=== PATIENT | female | born 1970 | race Caucasian/White ===

== ENCOUNTER 2020-09-14 17:35 | Outpatient (REF) | payer MEDICARE, MEDICAID, SELFPAY | END 2020-09-14 17:36 | disposition home or self-care (01) | LOC: HO.LAB 17:35 | PROVIDERS: Visit Provider Internal Medicine | DX: Z20.828 Contact with and (suspected) exposure to other viral communicable diseases (principal) | CPT/HCPCS: C9803; U0003 ==

== ENCOUNTER 2020-09-21 07:04 | Outpatient (REF) | payer MEDICARE, MEDICAID, SELFPAY | END 2020-09-21 07:05 | disposition home or self-care (01) | LOC: HO.LAB 07:04 | PROVIDERS: Visit Provider Internal Medicine | DX: Z20.828 Contact with and (suspected) exposure to other viral communicable diseases (principal) | CPT/HCPCS: C9803; U0003 ==

== ENCOUNTER → 2021-11-24 08:06 | Outpatient (BNVA) | payer MEDICARE, MEDICAID, SELFPAY | PROVIDERS: PCP Internal Medicine; Referring Provider Internal Medicine; Visit Provider Internal Medicine Gastroenterology ==

== ENCOUNTER 2021-11-26 18:04 | Inpatient (IN) | payer MEDICARE, MEDICAID, SELFPAY ==
--- NOTE | ~2021-11-26 | CT_ITS ---
EXAMINATION: CT ABDOMEN AND PELVIS WITH CONTRAST CLINICAL INFORMATION: Abdominal pain COMPARISON: 05/18/2016 TECHNIQUE: Multidetector volumetric images were obtained from the superior aspect of the liver through the pubic symphysis following administration 85 mL of Omnipaque 350 intravenous contrast. Sagittal and coronal reformatted images were obtained on the technologist's workstation. Oral contrast: No This CT examination was performed using dose optimization techniques as appropriate, variously including the following: *Automated exposure control *Adjustment of mA and/or kV according to patient size (this includes techniques or standardized protocols for targeted exams where dose is matched to indication/reason for exam; i.e. extremities or head) *Use of iterative reconstruction technique DLP: 925 mGy-cm FINDINGS: LUNG BASES: The visualized lung bases are unremarkable. LIVER, GALLBLADDER, AND BILIARY TREE: The liver is normal in size, shape, and attenuation. No focal hepatic lesion. Small volume ascites. The gallbladder is normally distended without wall thickening. There is mild intrahepatic and extrahepatic biliary ductal dilatation. No ductal filling defect noted. PANCREAS: Unremarkable. SPLEEN: Unremarkable. ADRENAL GLANDS: The right adrenal gland is unremarkable. There is a 1.7 cm left adrenal gland nodule which is indeterminate by Hounsfield unit measurement on this study. KIDNEYS AND URETERS: Atrophic left kidney. No hydronephrosis. Exophytic right lower pole renal cyst which is simple. No follow-up imaging recommended. There are 2 left lower pole renal calculi. These measure up to 1 cm, 8 cm from the posterior axillary line. These are 710 Hounsfield units. BLADDER: Unremarkable. GASTROINTESTINAL TRACT: The stomach is unremarkable. There is significant dilatation of the small bowel is fluid-filled appearance. Associated mild wall thickening. Transition to decompressed small bowel in the anterior central abdomen, series 7 image 24. The distal small bowel is decompressed. The colon is decompressed. ABDOMINAL WALL: No significant hernia is appreciated. LYMPH NODES: Normal. VASCULAR: Unremarkable. PELVIC VISCERA: Uterus is not seen. No adnexal mass. OSSEOUS STRUCTURES: No acute or suspicious osseous abnormality. CT/CT abdomen pelvis w con IMPRESSION: High-grade small bowel obstruction with discrete transition point in the anterior midabdomen. Prominent fluid-filled dilatation of the proximal small bowel with mild wall thickening also present. Cannot exclude an ischemic component. There is small volume ascites throughout the abdomen. Indeterminate left adrenal gland nodule. Recommend nonemergent adrenal protocol CT evaluation. Mild intrahepatic and extrahepatic biliary ductal dilatation, nonspecific. Nonobstructing left renal calculi. Fleischner guidelines were followed.
--- NOTE | ~2021-11-26 | XR_ITS ---
EXAMINATION: XR CHEST CLINICAL INFORMATION: NG tube placement COMPARISON: None TECHNIQUE: Frontal view of the chest was obtained. FINDINGS: Enteric tube terminates in the stomach in good position. CT compatible left chest wall port terminates near the cavoatrial junction. The lungs are well expanded. There is no focal consolidation, edema, or effusion. No pneumothorax. The cardiomediastinal silhouette is within normal limits. No acute osseous abnormality. Small volume of free intraperitoneal air noted in association with dilated loops of bowel in the upper abdomen. XR/XR chest 1V IMPRESSION: Enteric tube terminates in the stomach. No acute pulmonary finding. Free intraperitoneal air noted. This critical result was discussed with Silvia Vaughan MD, by telephone at 11/27/2021 5:53 AM and it was ascertained that the content and urgency of the report was understood at the time of direct communication.
--- NOTE | ~2021-11-26 | CT_ITS ---
EXAMINATION: CT ABDOMEN AND PELVIS WITHOUT CONTRAST CLINICAL INFORMATION: Bowel obstruction COMPARISON: 11/27/2021, earlier today at 3:41 AM TECHNIQUE: Multidetector volumetric imaging was performed from the superior aspect of the liver through the pubic symphysis. Sagittal and coronal reformatted images were obtained on the technologist's workstation. This CT examination was performed using dose optimization techniques as appropriate, variously including the following: *Automated exposure control *Adjustment of mA and/or kV according to patient size (this includes techniques or standardized protocols for targeted exams where dose is matched to indication/reason for exam; i.e. extremities or head) *Use of iterative reconstruction technique Oral contrast was administered. DLP: 769 mGy-cm FINDINGS: The lack of intravenous contrast limits evaluation of the solid visceral organs including the liver, spleen, pancreas, and kidneys. LUNG BASES: Bibasilar atelectasis. Normal heart size. LIVER, GALLBLADDER, AND BILIARY TREE: Limited non-contrast evaluation is normal. No gross focal hepatic lesion. Normal liver size and contour. No gross biliary ductal dilation. The gallbladder is unremarkable with no evidence of radiopaque gallstones, gallbladder wall thickening, or obvious pericholecystic inflammatory changes. PANCREAS: Limited non-contrast evaluation is normal. No tasia-pancreatic fluid. SPLEEN: Limited non-contrast evaluation is normal. ADRENAL GLANDS: 2.1 cm low-density, 0 Hounsfield unit left adrenal mass consistent with a benign lipid rich adrenal adenoma requiring no imaging follow-up. KIDNEYS AND URETERS: There is residual contrast in the renal cortices and collecting systems from earlier CT scan. There is asymmetric atrophy of the left kidney. Unchanged simple right renal cyst requiring no imaging follow-up GASTROINTESTINAL TRACT: Again seen is a small bowel obstruction. There is an enteric tube with tip in the body of the stomach. Oral contrast is seen within the stomach and small bowel. Dilated loops of abnormal thick-walled small bowel are seen in the left abdomen up to 4 cm and in the pelvis bilaterally up to 5 cm in diameter. There appears to been a prior right hemicolectomy with an ileocolic anastomosis in the right abdomen, image 42/95. The remainder of the colon is collapsed. As noted on the prior study, there is a transition point from dilated to collapsed small bowel loops in the central abdomen, image 33/92 on coronal images. The appearance is similar to the prior study. There continues to be pneumoperitoneum with foci of gas seen predominantly in the anterior abdomen with scattered foci of gas in the dung hepatis. There continues to be a small volume of ascites with fluid seen along both paracolic gutters and dependently in the pelvis the volume of fluid is grossly similar to the prior study. ABDOMINAL WALL: Postoperative changes of the anterior abdominal wall. LYMPH NODES: No pathologically enlarged lymph nodes in the abdomen or pelvis. VASCULAR: Normal caliber abdominal aorta. BLADDER: Collapsed with contrast from earlier CT scan. PELVIC VISCERA: Uterus not seen. No adnexal mass. OSSEOUS STRUCTURES: No acute or suspicious osseous abnormality. CT/CT abdomen pelvis wo con IMPRESSION: Similar appearance to the prior study after administration of oral contrast. There continues to be a high-grade small bowel obstruction with transition point in the central abdomen. Small bowel loops are abnormally thick walled and dilated to 4-5 cm. Again seen is scattered pneumoperitoneum consistent with a perforation, similar to the prior study. Gas is again seen adjacent thick-walled tethered bowel loop in the anterior abdomen, for example images 39-42, which may reflect the site of perforation. See nunez images. Similar appearance of small volume ascites. 2.1 cm benign lipid rich left adrenal adenoma for which no imaging follow-up is recommended.
[2021-11-26 18:20] VITALS: BP 106/73; PULSE 120; RESP 20; TEMP 36.5; O2SAT 97; BMI 34.7
[2021-11-26 19:01] LABS: Basophils Percent Auto 0.2 % (0-2); Eosinophils Percent Auto 0.1 % (0-4); Hematocrit 47.1 % (37.0-47.0); Hemoglobin 14.9 g/dl (12.0-16.0); Imm Gran Abs Auto 0.03 X10*3/uL (0.00-0.03); Imm Gran Pct Auto 0.2 % (0.0-0.4); Lymphocytes Absolute Auto 1.5 X10*3/uL (1.2-4.9); Lymphocytes Percent Auto 11.8 % (20-40); MANUAL DIFF FLAG SCAN; Mean Corpuscular HGB Conc 31.6 g/dl (31.0-35.0); Mean Platelet Volume 10.7 fL (9.4-12.3); Monocytes Absolute Auto 0.4 X10*3/uL (0.1-1.2); Monocytes Percent Auto 3.4 % (2-11); Neutrophils Absolute Auto 10.6 x10*3/uL (2.0-8.3); Neutrophils Percent Auto 84.3 % (45-73); PLT CLUMP 1; Red Blood Count 4.96 X10*6/uL (4.20-5.50); SCAN SMEAR FLAG 1
[2021-11-26 19:20] LABS: Anion Gap 22 (12-20); Blood Urea Nitrogen 33 mg/dL (9-16); Calcium 10.3 mg/dL (8.4-10.2); Carbon Dioxide 24 mmol/L (22-29); Chloride 98 mmol/L (96-108); Creatinine Clr Calc Pharmacy 41.7; Estimated Glomerular Filt Rate 33; Glucose Random 196 mg/dL (60-115); Lipase 183 U/L (8-78); Potassium 3.9 mmol/L (3.3-5.1); Sodium 140 mmol/L (135-145); White Blood Count 12.6 X10*3/uL (4.8-10.8)
[2021-11-26 19:22] LABS: SLIDE REVIEW VERIFIED
[2021-11-26 21:57] VITALS: BP 110/70; PULSE 116; RESP 18; O2SAT 97
[2021-11-26 22:21] LABS: Appearance Urine HAZY; Color Urine YELLOW; Glucose Urine UA NEG (NEG); Leukocyte Esterase Urine NEG (NEG); Nitrite Urine NEG (NEG); PH 5.5 (5.0-8.0); Specific Gravity - Urine >= 1.030 (1.005-1.025); UACC Culture Trigger NO; Urine Blood NEG (NEG); Urine Ketones 15 MG/DL (NEG); Urine Protein 1+ MG/DL (NEG-TRACE)
--- NOTE | 2021-11-26 22:24 | ED_ITS ---
HPI - Nausea/Vomiting/Diarrhea General Chief complaint: Nausea/Vomiting/Diarrhea Stated complaint: nausea/ vomiting, kidney stones Time Seen by Provider: 11/26/21 21:33 Source: patient Mode of arrival: ambulatory History of Present Illness HPI Narrative: 51-year-old female with history of stage IV colon CA/limits syndrome as well as history of kidney stone and still has her gallbladder who comes in with nausea and vomiting since Sunday and barely able to keep anything down. This is not been associated with any diarrhea of a patient states that she has had significant sharp abdominal discomfort maximal at the epigastrium but states that the pain has progressed into her lower abdomen but otherwise she denies fever, chills and denies any urinary pain/burning/frequency. Patient has been COVID-19 vaccinated. Patient states that her CT scan in August of 2021 was ?cancer-free?, and is scheduled for an upcoming colonoscopy. Related Data Home Medications Medication Instructions Recorded Confirmed metoclopramide HCl 10 mg tablet 10 mg PO QID 11/24/21 morphine 15 mg immediate release 15 mg PO QID PRN 11/24/21 tablet ondansetron 8 mg disintegrating 8 mg PO TID 11/24/21 tablet Previous Rx's Medication Instructions Recorded bisacodyl 5 mg tablet,delayed 5 mg PO BEDTIME 2 Days #4 tab 11/24/21 release (Dulcolax (bisacodyl)) polyethylene glycol 3350 17 17 g PO DAILY 1 Days #238 g 11/24/21 gram/dose oral powder (Miralax) Allergies Allergy/AdvReac Type Severity Reaction Status Date / Time diphenhydramine [Tylenol PM] Allergy Mild Hives Verified 11/26/21 18:20 acetaminophen Allergy Unknown rash Verified 11/26/21 18:20 [Tylenol-Codeine] codeine [Tylenol-Codeine] Allergy Unknown rash Verified 11/26/21 18:20 From TYLENOL PM Allergy Intermediate HIVES Uncoded 11/26/21 18:20 Environmental, Cats Allergy Mild Hives Uncoded 11/26/21 18:20 Review of Systems Review of Systems: Pertinent positives and negatives as stated in HPI 10 point review of systems is otherwise negative. PMFSH Past Medical History Source: nursing notes reviewed Medical History Adenocarcinoma of colon Gastritis Mosher syndrome Surgical History History of colon surgery Hx of bilateral breast reduction surgery Hx of hysterectomy Family History Family History Maternal Grandmother Uterine cancer Maternal Aunt Ovarian cancer Mother Cervical cancer Colon cancer Maternal Uncle Colon cancer Rectal cancer Brother Colon cancer Social History Social History Household Members: Family Alcohol intake: current Alcohol intake frequency: holidays/special occasions only Patient Tobacco Use Status: Never used Tobacco Advance Directives: No Patient : No Physical Exam Vital Signs: Vital Signs: Last Vital Signs Temp 97.7 F 11/26/21 18:20 Pulse 108 H 11/26/21 23:17 Resp 15 11/27/21 01:38 BP 95/65 11/26/21 23:17 Pulse Ox 96 11/26/21 23:17 BMI result Body Mass Index 34.7 VITAL SIGNS: Reviewed. GENERAL: Patient appears older than stated age, unwell, moderate distress. HEAD: Normocephalic/atraumatic EYES: PERRLA, EOMI OROPHARYNX: no oral lesions noted, posterior pharynx clear, dry mucosa NECK: Supple, no adenopathy LUNGS: Normal breath sounds. No adventitious sounds or accessory muscle use. SpO2<97> CARDIOVASCULAR: Regular rate and rhythm without noted murmurs, no JVD or lower extremity edema. ABDOMEN: Soft, diffusely tender maximal at epigastrium and lower abdomen, right upper quadrant relatively benign, non-distended with bowel sounds, no CVA tenderness MUSCULOSKELETAL: No tenderness, deformities, or effusions noted on gross inspection. EXTREMITIES: No cyanosis, clubbing or edema. SKIN: Inspection of the skin reveals no rashes, ulcerations, jaundice, pallor, or petechiae. NEUROLOGIC: Alert and oriented x 4. Strength and sensation to light touch were grossly intact x 4. Course Course Course Narrative: 51-year-old female with history and clinical presentation after review of all investigations consistent with pancreatitis, significant dehydration due to nausea and vomiting and clinical exam not convincing for gallbladder etiology in terms of pancreatitis. This may be concerning for recurrence of underlying cancer, will obtain CT imaging. 2249: Although there is a mild leukocytosis patient is afebrile and suspect this is stress related from pancreatitis and possible renal colic/SBO. IV fluid resuscitation is being given for dehydration. Review of all investigations 2 fluid imaging most consistent with high-grade small-bowel obstruction with transition point at anterior mid abdomen. Nasog astric tube placed and patient to be admitted to General surgery Service. MDM - Nausea/Vomiting/Diarrhea Lab Data Result diagrams: 11/26/21 18:53 11/27/21 02:15 Labs: Lab Results 11/26/21 11/26/21 11/26/21 Range/Units 18:53 18:53 22:11 WBC 12.6 H (4.8-10.8) X10*3/uL RBC 4.96 (4.20-5.50) X10*6/uL Hgb 14.9 (12.0-16.0) g/dl Hct 47.1 H (37.0-47.0) % MCV 95.0 (80.0-98.0) fL MCH 30.0 (27.0-33.0) pg MCHC 31.6 (31.0-35.0) g/dl RDW 13.0 (11.0-16.0) % Plt Count TNP MPV 10.7 (9.4-12.3) fL Immature Gran % (Auto) 0.2 (0.0-0.4) % Neut % (Auto) 84.3 H (45-73) % Lymph % (Auto) 11.8 L (20-40) % [place] % (Auto) 3.4 (2-11) % Eos % (Auto) 0.1 (0-4) % Baso % (Auto) 0.2 (0-2) % Lymph # (Auto) 1.5 (1.2-4.9) X10*3/uL [place] # (Auto) 0.4 (0.1-1.2) X10*3/uL Eos # (Auto) 0.0 (0.0-0.4) X10*3/uL Baso # (Auto) 0.0 (0.0-0.2) X10*3/uL Abs Immat Gran (auto) 0.03 (0.00-0.03) X10*3/uL Absolute Neuts (auto) 10.6 H (2.0-8.3) x10*3/uL Absolute Nucleated RBC 0.000 (0.0-0.012) X10*3/uL Nucleated RBC % (auto) 0.0 (0.0-0.2) /100WBC Smear Tech's Comments VERIFIED Sodium 140 (135-145) mmol/L Potassium 3.9 (3.3-5.1) mmol/L Chloride 98 (96-108) mmol/L Carbon Dioxide 24 (22-29) mmol/L Anion Gap 22 H (12-20) BUN 33 H (9-16) mg/dL Creatinine 1.66 H (0.5-1.4) mg/dL Estim Creat Clear Calc 41.7 Estimated GFR 33 Random Glucose 196 H (60-115) mg/dL Lactic Acid (0.5-2.0) mmol/L Calcium 10.3 H (8.4-10.2) mg/dL Total Bilirubin 2.0 H (0.0-1.0) mg/dL Direct Bilirubin 1.0 H (0.0-0.5) mg/dL AST 142 H (5-31) U/L ALT 89 H (0-31) U/L Alkaline Phosphatase 781 H (39-117) U/L Total Protein 8.0 (6.5-8.0) g/dL Albumin 4.4 (3.5-5.0) g/dL Triglycerides 138 mg/dL Cholesterol 153 mg/dL LDL Cholesterol, Calc 90 mg/dl HDL Cholesterol 36 mg/dL Lipase 183 H (8-78) U/L Beta HCG, Quant 3 mIU/mL Urine Color YELLOW Urine Appearance HAZY Urine pH 5.5 (5.0-8.0) Ur Specific [place] >= 1.030 H (1.005-1.025) Urine Protein 1+ H (NEG-TRACE) MG/DL Urine Glucose (UA) NEG (NEG) MG/DL Urine Ketones 15 (NEG) MG/DL Urine Blood NEG (NEG) Urine Nitrite NEG (NEG) Ur Leukocyte Esterase NEG (NEG) Urine RBC 0 (0) /HPF Urine WBC 0 (0-4) /HPF Ur Squamous Epith Cells 2+ /LPF Urine Bacteria TRACE /LPF Hyaline Casts 1-4 /LPF Urine Mucus 3+ /LPF COVID-19 (CECE) (Negative) COVID-19 Clin Com 11/26/21 11/27/21 11/27/21 Range/Units 23:16 00:30 02:15 WBC (4.8-10.8) X10*3/uL RBC (4.20-5.50) X10*6/uL Hgb (12.0-16.0) g/dl Hct (37.0-47.0) % MCV (80.0-98.0) fL MCH (27.0-33.0) pg MCHC (31.0-35.0) g/dl RDW (11.0-16.0) % Plt Count MPV (9.4-12.3) fL Immature Gran % (Auto) (0.0-0.4) % Neut % (Auto) (45-73) % Lymph % (Auto) (20-40) % [place] % (Auto) (2-11) % Eos % (Auto) (0-4) % Baso % (Auto) (0-2) % Lymph # (Auto) (1.2-4.9) X10*3/uL [place] # (Auto) (0.1-1.2) X10*3/uL Eos # (Auto) (0.0-0.4) X10*3/uL Baso # (Auto) (0.0-0.2) X10*3/uL Abs Immat Gran (auto) (0.00-0.03) X10*3/uL Absolute Neuts (auto) (2.0-8.3) x10*3/uL Absolute Nucleated RBC (0.0-0.012) X10*3/uL Nucleated RBC % (auto) (0.0-0.2) /100WBC Smear Tech's Comments Sodium 141 (135-145) mmol/L Potassium 3.7 (3.3-5.1) mmol/L Chloride 108 (96-108) mmol/L Carbon Dioxide 22 (22-29) mmol/L Anion Gap 15 (12-20) BUN 34 H (9-16) mg/dL Creatinine 1.52 H (0.5-1.4) mg/dL Estim Creat Clear Calc 45.6 Estimated GFR 36 Random Glucose 145 H (60-115) mg/dL Lactic Acid 2.0 (0.5-2.0) mmol/L Calcium 8.3 L D (8.4-10.2) mg/dL Total Bilirubin (0.0-1.0) mg/dL Direct Bilirubin (0.0-0.5) mg/dL AST (5-31) U/L ALT (0-31) U/L Alkaline Phosphatase (39-117) U/L Total Protein (6.5-8.0) g/dL Albumin (3.5-5.0) g/dL Triglycerides mg/dL Cholesterol mg/dL LDL Cholesterol, Calc mg/dl HDL Cholesterol mg/dL Lipase (8-78) U/L Beta HCG, Quant mIU/mL Urine Color Urine Appearance Urine pH (5.0-8.0) Ur Specific [place] (1.005-1.025) Urine Protein (NEG-TRACE) MG/DL Urine Glucose (UA) (NEG) MG/DL Urine Ketones (NEG) MG/DL Urine Blood (NEG) Urine Nitrite (NEG) Ur Leukocyte Esterase (NEG) Urine RBC (0) /HPF Urine WBC (0-4) /HPF Ur Squamous Epith Cells /LPF Urine Bacteria /LPF Hyaline Casts /LPF Urine Mucus /LPF COVID-19 (CECE) Negative (Negative) COVID-19 Clin Com See Note Critical Care Time Critical Care Time Critical Care Time: Yes Total Critical Care Time: 30 Attestation: I personally attest to this time spent taking care of the patient. Discharge Plan Discharge Clinical Impression: Pancreatitis, Dehydration, SBO (small bowel obstruction), LFT elevation Patient Disposition: Admitted As Inpatient Prescriptions: No Action metoclopramide HCl 10 mg tablet 10 mg PO QID RF: 0 morphine 15 mg tablet 15 mg PO QID PRNRF: 0 ondansetron 8 mg tablet,disintegrating 8 mg PO TID RF: 0 polyethylene glycol 3350 [Miralax] 17 gram/dose powder 17 g PO DAILY 1 Days Qty: 238 RF: 0 bisacodyl [Dulcolax (bisacodyl)] 5 mg tablet,delayed release (DR/EC) 5 mg PO BEDTIME 2 Days Qty: 4 RF: 0
[2021-11-26] MEDS: ondansetron HCL 4 MG/2 ML VIAL IVPUSH (22:33)
[2021-11-26 22:37] VITALS: RESP 16
[2021-11-26] MEDS: HYDROmorphone HCl 0.5 MG/0.5 ML SYRINGE IVPUSH (22:37)
[2021-11-26] MEDS: 0.9 % Sodium Chloride 2,000 ML 999 ML IV (22:37)
[2021-11-26 22:41] LABS: Bacteria Urine TRACE /LPF; RBC Urine 0 /HPF (0); Squamous Epithelial Cell Urine 2+ /LPF; WBC Urine 0 /HPF (0-4)
[2021-11-26 22:42] LABS: Mucus Urine 3+ /LPF
[2021-11-26 22:43] LABS: Alanine Aminotransferase 89 U/L (0-31); Albumin Level 4.4 g/dL (3.5-5.0); Alkaline Phosphatase 781 U/L (39-117); Aspartate Amino Transferase 142 U/L (5-31); Cholesterol 153 mg/dL; HDL Cholesterol 36 mg/dL; LDL Cholesterol Calculated 90 mg/dl; Triglycerides 138 mg/dL
[2021-11-26 22:46] LABS: HCG Quantitative 3 mIU/mL
--- NOTE | 2021-11-26 23:13 | PC.NURSE ---
Per radiology, PT's CT scan delayed due to poor kidney function. Provider requested that we push liquids and reassess labs and kidney function after fluids are infused.
[2021-11-26 23:17] VITALS: BP 95/65; PULSE 108; RESP 14; O2SAT 96
[2021-11-26 23:36] LABS: COVID-19 Test Negative (Negative); IDNOW Serial# 9DD0AD1C
[2021-11-27] VITALS (7 sets, daily range): BP systolic 98–115; BP diastolic 56–75; PULSE 114–131; RESP 14–18; TEMP 36.3–36.7; O2SAT 92–95
[2021-11-27] MEDS: HYDROmorphone HCl 1 MG/ML SYRINGE IVPUSH ×3 (01:38→15:56)
[2021-11-27 02:39] LABS: Anion Gap 15 (12-20); Blood Urea Nitrogen 34 mg/dL (9-16); Calcium 8.3 mg/dL (8.4-10.2); Carbon Dioxide 22 mmol/L (22-29); Chloride 108 mmol/L (96-108); Creatinine Clr Calc Pharmacy 45.6; Estimated Glomerular Filt Rate 36; Glucose Random 145 mg/dL (60-115); Potassium 3.7 mmol/L (3.3-5.1); Sodium 141 mmol/L (135-145)
[2021-11-27] MEDS: iohexoL 350 MG/ML 100 ML INFUS..BTL 85 ML IV (03:48)
[2021-11-27] MEDS: Lidocaine HCl 4 % Laryng-O-Jet 4 ML 1 APPL TOPICAL (05:15)
--- NOTE | 2021-11-27 05:56 | PC.NURSE ---
PT tolerated NG tube placement with much anxiety. PT is complaining that the tube is hurting her throat and she would like it out as soon as possible. PT is very anxious about the tube being in place for an extended period of time.
[2021-11-27] MEDS: 0.9 % Sodium Chloride 2,000 ML 999 ML IV (05:58)
[2021-11-27] MEDS: Enoxaparin Sodium 40 MG/0.4 ML SYRINGE SUBCUT (06:38)
[2021-11-27 08:10] LABS: MANUAL DIFF FLAG NO
[2021-11-27] MEDS: 0.9 % Sodium Chloride 1,000 ML 100 ML IVCONT ×2 (08:10→15:57)
--- NOTE | 2021-11-27 08:11 | PHA.MEDREC ---
Pharmacy Consult ? Medication Reconciliation Pharmacy has completed the medication reconciliation. Spoke with patient in ED.
[2021-11-27 08:12] LABS: Basophils Percent Auto 0.1 % (0-2); Hematocrit 43.5 % (37.0-47.0); Hemoglobin 14.1 g/dl (12.0-16.0); Imm Gran Abs Auto 0.02 X10*3/uL (0.00-0.03); Imm Gran Pct Auto 0.3 % (0.0-0.4); Lymphocytes Absolute Auto 0.5 X10*3/uL (1.2-4.9); Lymphocytes Percent Auto 6.9 % (20-40); Mean Corpuscular HGB Conc 32.4 g/dl (31.0-35.0); Mean Corpuscular Hemoglobin 30.3 pg (27.0-33.0); Mean Corpuscular Volume 93.3 fL (80.0-98.0); Mean Platelet Volume 9.9 fL (9.4-12.3); Monocytes Absolute Auto 0.5 X10*3/uL (0.1-1.2); Monocytes Percent Auto 6.9 % (2-11); Neutrophils Absolute Auto 5.8 x10*3/uL (2.0-8.3); Neutrophils Percent Auto 85.8 % (45-73); Platelet Count 361 X10*3/uL (160-400); Red Blood Count 4.66 X10*6/uL (4.20-5.50); Red Cell Distribution Width 13.2 % (11.0-16.0); White Blood Count 6.8 X10*3/uL (4.8-10.8)
--- NOTE | 2021-11-27 08:12 | PC.NURSE ---
700 ML OUTPUT STOMACH CONTENTS VIA NG TUBE
[2021-11-27 08:24] LABS: Anion Gap 14 (12-20); Blood Urea Nitrogen 35 mg/dL (9-16); Calcium 8.2 mg/dL (8.4-10.2); Carbon Dioxide 22 mmol/L (22-29); Chloride 107 mmol/L (96-108); Creatinine Clr Calc Pharmacy 45.9; Estimated Glomerular Filt Rate 37; Glucose Random 135 mg/dL (60-115); Potassium 4.2 mmol/L (3.3-5.1); Sodium 139 mmol/L (135-145)
[2021-11-27] MEDS: Pantoprazole Sodium 40 MG/10 ML VIAL IVPUSH (09:16)
--- NOTE | 2021-11-27 14:51 | PM.HPGS ---
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 right colectomy and treated with chemo and immunothx ( [place] onc at [facility] and dr Anthony surgery at [facility]) also underwent hyst and bilat ooph? There seems to be notes from pts oncology summary that disease was metastatic but it seems like over the last several years ct f.u etc has been good with no recurrence. Pt did have an episode of psbo in the past but seemingly not from metastatic disease but maybe adhesions she says. She saw onc fall of last year and plan is to have a cscope in December. She recently was having abdo pain nausea and vomiting and came into the ER. Here Ct scan showing high grade obstruction but no changes consistent with obvious metastatic recurrence. pt had ng placed adn then radiologist called with addendum of small amount of free air. Pt clinically not behaving like peritonitis feels better but doesnt like the ng tube. Review of Systems Review of Systems: Yes all other systems are reviewed and are negative [facility] Past Medical History Medical History Adenocarcinoma of colon Gastritis Mosher syndrome Family History Family History Maternal Grandmother Uterine cancer Maternal Aunt Ovarian cancer Mother Cervical cancer Colon cancer Maternal Uncle Colon cancer Rectal cancer Brother Colon cancer Surgical History Surgical History History of colon surgery Hx of bilateral breast reduction surgery Hx of hysterectomy Social History Social History Household Members: Family Housing: House Do you presently have visiting nurse or other home services: No Alcohol intake: current Alcohol intake frequency: holidays/special occasions only Patient Tobacco Use Status: Never used Tobacco Use of substances other than those prescribed or required for medical reasons: No Currently Displaying Signs/Symptoms of Drug Intoxication Withdrawal: No Any prior treatment program specific to substance use: No Have you been hit, kicked, punched, or otherwise hurt by someone within the past year? If so, by whom?: No Do you feel safe in your current relationship?: No Is there a partner from a previous relationship who is making you feel unsafe now?: No Are you made to feel afraid or neglected: No Advance Directives: Yes Advance Directives Information Provided: Yes (declined) Advance Directives on File: Yes Advance Directives Date on File: 11/27/21 Do you have thoughts of harming others: None Do you have a plan to hurt others: No Plan Recently lost weight without trying: Yes How much weight loss: 14-23 pounds Eating poorly because of decreased appetite: Yes Nutrition screen score: 5 Nutrition Risks: No Nutritional Risk Patient : No : No Poor oral hygiene: No service: No Current occupational status: disabled Meds Allergies Allergy/AdvReac Type Severity Reaction Status Date / Time diphenhydramine [Tylenol PM] Allergy Mild Hives Verified 11/26/21 18:20 acetaminophen Allergy Unknown rash Verified 11/26/21 18:20 [Tylenol-Codeine] codeine [Tylenol-Codeine] Allergy Unknown rash Verified 11/26/21 18:20 From TYLENOL PM Allergy Intermediate HIVES Uncoded 11/26/21 18:20 Environmental, Cats Allergy Mild Hives Uncoded 11/26/21 18:20 Active Medications: Current Medications Benzocaine (Throat Lozenge, Medicated Lozenge) 1 lozenge MUCOUS MEM Q2H PRN PRN Reason: Sore Throat Enoxaparin Sodium (Enoxaparin Sodium 40 Mg/0.4 Ml Syringe) 40 mg SUBCUT Q24H [facility] Last Admin: 11/27/21 06:38 Dose: 40 mg Documented by: Hydromorphone HCl (Hydromorphone Hcl 1 Mg/Ml Syringe) 1 mg IVPUSH Q4H PRN; Protocol PRN Reason: Pain, Severe (Pain Scale 7-10) Last Admin: 11/27/21 06:39 Dose: 1 mg Documented by: Sodium Chloride (Ns) 1,000 mls @ 100 mls/hr IVCONT .Q10H [facility] Last Admin: 11/27/21 08:10 Dose: 100 mls/hr Documented by: Lorazepam (Lorazepam 2 Mg/Ml Vial) 1 mg IVPUSH Q6H PRN PRN Reason: anxiety discomfort ng tube Ondansetron HCl (Ondansetron Hcl 4 Mg/2 Ml Vial) 4 mg IVPUSH QID PRN PRN Reason: nausea vomit Pantoprazole Sodium (Pantoprazole Sodium 40 Mg/10 Ml Vial) 40 mg IVPUSH DAILY@0600 [facility] Last Admin: 11/27/21 09:16 Dose: 40 mg Documented by: Pharmacy Consult (Consult Rx Perform Med Rec) 1 each MISCELLANE ONCE PRN PRN Reason: Consult order Sodium Chloride (0.9 % Sodium Chloride Flush 3 Ml Syringe) 3 ml IVFLUSH QSHIFT [facility] Last Admin: 11/27/21 08:11 Dose: Not Given Documented by: Home Medications Medication Instructions Recorded Confirmed Last Taken Type metoclopramide HCl 10 mg tablet 10 mg PO QID PRN 11/24/21 11/27/21 Unknown History morphine 15 mg immediate release 15 mg PO Q6H PRN 11/24/21 11/27/21 Unknown History tablet ondansetron 8 mg disintegrating 8 mg PO Q8H PRN 11/24/21 11/27/21 Unknown History tablet acetaminophen 650 mg 650 mg PO Q8H PRN 11/27/21 11/27/21 Unknown History tablet,extended release famotidine 20 mg tablet (Pepcid AC) 20 mg PO BID PRN 11/27/21 11/27/21 Unknown History ibuprofen 200 mg tablet 400 mg PO Q6H PRN 11/27/21 11/27/21 Unknown History nystatin 100,000 unit/gram topical 1 appl TOPICAL BID PRN 11/27/21 11/27/21 Unknown History powder (Nystop) Physical Exam Vital Signs: Vital Signs: Last Vital Signs Temp 97.5 F 11/27/21 11:09 Pulse 119 H 11/27/21 11:09 Resp 18 11/27/21 11:09 BP 110/61 11/27/21 11:09 Pulse Ox 93 11/27/21 11:09 BMI result Body Mass Index 34.7 Const: General: cooperative, acute distress mild and lethargic Orientation/consciousness: oriented to person, oriented to place, oriented to time, patient oriented x3 and lethargic Resp: Effort & Inspection: normal respiratory effort and able to speak in complete sentences Auscultation: clear to auscultation bilaterally Cardio: Rate: regular rate Rhythm: regular rhythm GI: Other: abdo soft just mild tenderness no distension some bowel sounds Neuro: General: oriented to person, oriented to place, oriented to time and patient oriented x3 Extrem: General: Yes normal to inspection and Yes full ROM Results Results Labs: Short CBC 11/26/21 11/27/21 Range/Units 18:53 08:05 WBC 12.6 H 6.8 (4.8-10.8) X10*3/uL Hgb 14.9 14.1 (12.0-16.0) g/dl Hct 47.1 H 43.5 (37.0-47.0) % Plt Count TNP 361 BMP 11/26/21 11/27/21 11/27/21 18:53 02:15 08:05 Sodium 140 141 139 Potassium 3.9 3.7 4.2 Chloride 98 108 107 Carbon Dioxide 24 22 BUN 33 H 34 H 35 H Creatinine 1.66 H 1.52 H 1.51 H Calcium 10.3 H 8.3 L D 8.2 L Liver Function 11/26/21 Range/Units 18:53 Total Bilirubin 2.0 H (0.0-1.0) mg/dL Direct Bilirubin 1.0 H (0.0-0.5) mg/dL AST 142 H (5-31) U/L ALT 89 H (0-31) U/L Alkaline Phosphatase 781 H (39-117) U/L Albumin 4.4 (3.5-5.0) g/dL Urine 11/26/21 Range/Units 22:11 Urine Color YELLOW Urine Appearance HAZY Urine pH 5.5 (5.0-8.0) Ur Specific Pearl >= 1.030 H (1.005-1.025) Urine Protein 1+ H (NEG-TRACE) MG/DL Urine Glucose (UA) NEG (NEG) MG/DL Abdominal x-ray: report reviewed and image reviewed Abdomen CT scan report/results: report reviewed and image reviewed CT scan - pelvis: report reviewed and image reviewed Assessment and Plan (1) SBO (small bowel obstruction): Status: Acute 51 year old female s/p right colectomy and chemo and immunotherapy for ? metastatic colon cancer Mosher syndrome - diagnosed early 40s. pt followed by [facility] onc and surgery dR Raj Dozier comes in with bowel obstruction sx - ? due to adhesions or metastatic disease. no ct read of mets. had been doing well in last visit with onc last fall now call of free air as well- clinically not looking like that, wbc improved, pt feels better, less abdo pain complaint, abdo soft, flat nontender - at this point cont with npo, ivf, ng tube repeat ct scan with po contrast long drink to see level of obstruction, partial vs full, ? any extravasation of contrast. pt agrees but would like to get Ng out as soon as possible if she needs surgery she would prefer dr Anthony as he knows her best from prior surgeries. Quality Stroke Does the patient have a stroke diagnosis?: No VTE Prior VTE?: No VTE Risk Level:: Medical - moderate - high VTE Device Contraindication: N/A - Device Ordered VTE Drug Contraindication: N/A - Med Ordered Procedures Date of Service Date of Service: 11/27/21
[2021-11-27] MEDS: ondansetron HCL 4 MG/2 ML VIAL IVPUSH (16:01)
--- NOTE | 2021-11-27 16:13 | PC.NURSE ---
PO CONTRAST VIA NG TUBE STARTED AT 1600. PREMEDICATED WITH ZOFRAN AND DILAUDID
--- NOTE | 2021-11-27 16:53 | MHC.CM.PN ---
IMM 11/27/21, EMR REVIEWED, PT W.PRATIK CM MET W/PT WHO REPORTS SHE LIVES W/HER PARENTS AND 16YO SON, PT REPORTS SHE IS NDEPENDENT W/ALL CARE, HAS A WHEELED WALKER SHE RARELY USES AND HAS NO DME, PT VERIFIES PCP NATHAN DODGE, HCP HER SISTER ANGÉLICA MORALES [phone], PT'S ONCOLOGIST IS DR CROUCH AT [facility]. D/C PLAN: HOME NO SERVICES, FAMILY FOR TRANSPORT MODERNA VACCINE. 3 SHOTS, BOOSTER IN OCT/NOV.
--- NOTE | 2021-11-27 19:23 | PC.NURSE ---
This pm at 1820, pt called and when this junior copywriter to [facility] on her, she was found to be diaphoritic. O2 sat sat were in the 60s and blood sugar was 40. HR PAYROLL COORDINATOR called. Pt given 2 cups of orange juice, and blood sugar rechecked and it was 92. notified. New daibetic parameters put in.
--- NOTE | 2021-11-27 19:30 | PC.NURSE ---
Pt alert and oriented x4. Pt admitted to rm [id number] with a diagnosis of SBO, Renal Calculi and pancreatitis. Pt has a NG-tube to the left nare and getting oral contrast via NG tube. Pt has a port to the left chest that is accessed and is getting NaCl at 100cc/hr. Pt is Indepedent OOB. Pt is very pale but H&H is normal.Ct scan scheduled for 8pm.
[2021-11-27] MEDS: Barium Sulfate Oral (Vanilla) 450 ML ORAL.SUSP 900 ML PO (20:28)
[2021-11-27] MEDS: 0.9 % Sodium Chloride Flush 3 ML SYRINGE IVFLUSH (21:58)
[2021-11-27] MEDS: LORazepam 2 MG/ML VIAL 1 MG IVPUSH (21:58)
--- NOTE | 2021-11-27 23:26 | P.DS_ITS ---
DS: Providers Provider Date of Service: 11/28/21 Date of admission: 11/27/21 05:05 Primary care physician: Cynthia Pena MD DS: Transfer Hospital Acceptance Reason for Transfer: pts surgeon at another facility Name of Facility: [facility] Accepting Provider: dr Eliel Anthony DS: Diagnosis Discharge Diagnosis (1) SBO (small bowel obstruction): Start date: 11/26/21 Start time: 23:27 Status: Acute DS: Summary Hospital Course Hospital Course: The pt is a 51 year old female with a history of colon cancer s/p right colectomy, hysterectomy, bilat salpingoopherectomy, hx gtube and ileostomy with reversals of both and most recently in 2019 ileostomy takedown and repair of large ventral hernia with mesh. Most of her surgeries done by dr Anthony at [facility]. She is followed by oncology at [facility]. 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 Last fu with [facility] fall of [address] scan looked good for no obvious mets and plans for lower and upper endoscopies to be done dec 2021. She presented here with n/v and abdo pain and CT scan showing distended small bowel loops and obstructive pattern with some ascites. F.u addendum revealed free air anterior abdo and around dung area. Pt had ng tube placed and ivf resusc and was feeling better, wbc elevated repeat showed normal at 9. She felt better and her abdo exam was not remarkable for peritonitis. Plan to do serial exams and repeat ct scan with po contrast and when done showed stable free air but thickened abnormal smallbowel loop under midline area around the free air collection - small and stable. pt complaining most of her ng tube, wants to have it removed. she drained over 1litre in 18 hrs. her vitals while afebrile and bp stable in low 100 sbp she became more tachy from 90s to 120s. Pt abdo still soft nondistended but mildly tender mid abdo left and right. pt wanted to discuss case with dR anthony as she would want him to perform any repeat surgeries. He was called by myself and case discussed with plans to transfer the pt early am as long as still stable. Status at Discharge Cognitive/behavioral status at discharge: good Functional status at discharge: independent ambulation Overall status at discharge: patient is not back to baseline Time Spent with Patient Time attestation: Total time spent providing and/or coordinating discharge services: Discharge coordination time: Greater than 30 minutes Quality: Stroke Does the patient have a stroke diagnosis?: No Reason for No Anti-thrombotic at DC: N/A - Med Ordered Reason for No Anticoagulant at DC: N/A - Med Ordered Physical Exam Vital Signs: Vital Signs: Last Vital Signs Temp 97.3 F 11/27/21 19:44 Pulse 126 H 11/27/21 19:44 Resp 17 11/27/21 19:44 BP 115/56 L 11/27/21 19:44 Pulse Ox 94 11/27/21 19:44 BMI result Body Mass Index 34.7 Const: General: acute distress mild and lethargic Nutritional Appearance: obese Orientation/consciousness: lethargic Resp: Effort & Inspection: normal respiratory effort Auscultation: clear to auscultation bilaterally Cardio: Rate: tachycardic Rhythm: regular rhythm GI: Other: soft nondistended tender midabdomen left and right sides equal not as much upper and lower abdomen, no true peritoneal signs Auscultation: Hypoactive bowel sounds present DS: Data Data Completed and Pending Completed studies during hospitalization [Text1]: ct scans Labs on day of discharge: Laboratory Results - last 24 hr 11/26/21 11/27/21 11/27/21 23:16 00:30 02:15 WBC RBC Hgb Hct MCV MCH MCHC RDW Plt Count MPV Immature Gran % (Auto) Neut % (Auto) Lymph % (Auto) [place] % (Auto) Eos % (Auto) Baso % (Auto) Lymph # (Auto) [place] # (Auto) Eos # (Auto) Baso # (Auto) Abs Immat Gran (auto) Absolute Neuts (auto) Absolute Nucleated RBC Nucleated RBC % (auto) Sodium 141 Potassium 3.7 Chloride 108 Carbon Dioxide 22 Anion Gap 15 BUN 34 H Creatinine 1.52 H Estim Creat Clear Calc 45.6 Estimated GFR 36 Random Glucose 145 H Lactic Acid 2.0 Calcium 8.3 L D COVID-19 (CECE) Negative COVID-19 Clin Com See Note 11/27/21 11/27/21 08:05 08:05 WBC 6.8 RBC 4.66 Hgb 14.1 Hct 43.5 MCV 93.3 MCH 30.3 MCHC 32.4 RDW 13.2 Plt Count 361 MPV 9.9 Immature Gran % (Auto) 0.3 Neut % (Auto) 85.8 H Lymph % (Auto) 6.9 L [place] % (Auto) 6.9 Eos % (Auto) 0.0 Baso % (Auto) 0.1 Lymph # (Auto) 0.5 L [place] # (Auto) 0.5 Eos # (Auto) 0.0 Baso # (Auto) 0.0 Abs Immat Gran (auto) 0.02 Absolute Neuts (auto) 5.8 Absolute Nucleated RBC 0.000 Nucleated RBC % (auto) 0.0 Sodium 139 Potassium 4.2 Chloride 107 Carbon Dioxide 22 Anion Gap 14 BUN 35 H Creatinine 1.51 H Estim Creat Clear Calc 45.9 Estimated GFR 37 Random Glucose 135 H Lactic Acid Calcium 8.2 L COVID-19 (CECE) COVID-19 Clin Com Preliminary micro results at discharge 11/27/21 00:30 Blood Culture - Preliminary Blood - Venous Prelim: GNR Gram Stain only Imaging Chest x-ray: Radiologist's impression: ITS Impressions Abdomen/Pelvis CT 11/27/21 03:40 IMPRESSION: High-grade small bowel obstruction with discrete transition point in the anterior midabdomen. Prominent fluid-filled dilatation of the proximal small bowel with mild wall thickening also present. Cannot exclude an ischemic component. There is small volume ascites throughout the abdomen. Indeterminate left adrenal gland nodule. Recommend nonemergent adrenal protocol CT evaluation. Mild intrahepatic and extrahepatic biliary ductal dilatation, nonspecific. Nonobstructing left renal calculi. Fleischner guidelines were followed. Chest X-Ray 11/27/21 05:40 IMPRESSION: Enteric tube terminates in the stomach. No acute pulmonary finding. Free intraperitoneal air noted. This critical result was discussed with Silvia Vaughan MD, by telephone at 11/27/2021 5:53 AM and it was ascertained that the content and urgency of the report was understood at the time of direct communication. Abdomen/Pelvis CT 11/27/21 20:37 IMPRESSION: Similar appearance to the prior study after administration of oral contrast. There continues to be a high-grade small bowel obstruction with transition point in the central abdomen. Small bowel loops are abnormally thick walled and dilated to 4-5 cm. Again seen is scattered pneumoperitoneum consistent with a perforation, similar to the prior study. Gas is again seen adjacent thick-walled tethered bowel loop in the anterior abdomen, for example images 39-42, which may reflect the site of perforation. See nunez images. Similar appearance of small volume ascites. 2.1 cm benign lipid rich left adrenal adenoma for which no imaging follow-up is recommended. Discharge Plan Discharge Anticipated Discharge Date/Time: 11/28/21 07:00 Disposition: [facility] Referrals: Cynthia Pena MD [Primary Care Provider] - 1 Week Discharge Medications: No Action acetaminophen [Tylenol Extended Release] 650 mg Tablet Extended Release 650 mg PO Q8H PRN (Reason: Pain (Scale Score 1-3)) RF: 0 famotidine [Pepcid AC] 20 mg Tablet 20 mg PO BID PRN (Reason: Acid Reflux) RF: 0 ibuprofen 200 mg Tablet 400 mg PO Q6H PRN (Reason: Pain (Scale Score 1-3)) RF: 0 nystatin [Nystop] 100,000 unit/gram powder 1 appl topical BID PRN (Reason: Rash) RF: 0 metoclopramide HCl 10 mg tablet 10 mg PO QID PRN (Reason: Abdominal Pain) RF: 0 morphine 15 mg tablet 15 mg PO Q6H PRN (Reason: Pain (Scale Score 4-6)) RF: 0 ondansetron 8 mg tablet,disintegrating 8 mg PO Q8H PRN (Reason: Nausea And Vomiting) RF: 0 Discharge Orders: Discharge Order (Routine); Ordered 11/27/21 Ordered By: Cheryl Delgado Diet: other Activity on Discharge: As tolerated Forms: Patient Portal Discharge page Care Plan Goals: transfer for assessment for surgery Health Concerns: none Plan of Treatment: assessment for exploratory surgery Assessment: stable
[2021-11-28] VITALS: BP 100/68; PULSE 84; RESP 17; TEMP 36.8; O2SAT 96
[2021-11-28] MEDS: Piperacillin Sodium/Tazobactam 3.375 GM in 0.9 % Sodium Chloride 50 ML IV (00:35)
[2021-11-28] MEDS: 0.9 % Sodium Chloride 1,000 ML 100 ML IVCONT (00:37)
[2021-11-28] MEDS: HYDROmorphone HCl 1 MG/ML SYRINGE IVPUSH (04:42)
--- NOTE | 2021-11-28 05:27 | PC.NURSE ---
Patient was being transferred to [facility]. Nurse attempted to call [facility] for report at 5:00 am. Med Surg floor at [facility] responded that they were unaware of the patient coming and will call back. Nurse was finally reached at 5:30 to give report.
== END 2021-11-28 04:55 | disposition short-term general hospital (02) | DRG 390 ==
LOC: HO.ED 11-27 04:40 → HO.EDOVER 11-27 05:16 → HO.S3 11-27 15:53
PROVIDERS: Admitting Provider Surgery; Emergency Provider Student in an Organized Health Care Education/Training Program; PCP Internal Medicine; Visit Provider Surgery
DX: K56.609 Unspecified intestinal obstruction, unspecified as to partial versus complete obstruction (principal); E86.0 Dehydration; Z85.038 Personal history of other malignant neoplasm of large intestine; Z20.822 Contact with and (suspected) exposure to COVID-19; Z88.5 Allergy status to narcotic agent; Z88.6 Allergy status to analgesic agent; Z79.899 Other long term (current) drug therapy
CPT/HCPCS: 36415; 71045; 74176; 74177; 80048; 80061; 80076; 81001; 83605; 83690; 84702; 85025; 87040; 87076; 87077; 87185; 87186; 87205; 87635; 99284; J1170; J1650; J2060; J2405; J2543; Q9967

== ENCOUNTER 2024-02-04 10:43 | Outpatient (AMB) | payer MEDICARE, MEDICAID, SELFPAY ==
[2024-02-04 10:51] VITALS: BP 120/78; PULSE 96; TEMP 35.9; O2SAT 99; BMI 35.7
--- NOTE | 2024-02-04 10:51 | AM.OFFWIN_ITS ---
Intake Vital Signs 02/04/24 10:51 Height 5 ft 2 in Weight 195 lb BMI 35.7 BP 120/78 Blood Pressure Location Lt brachial Position Sitting Pulse 96 Pulse Source Pulse Oximeter Temp 96.7 F L Temp Source Temporal Artery Scan Pulse Oximetry (%) 99 Oxygen Delivery Method Room Air Intake Visit Reasons: EP Nausea, vomiting, SOB Intake Note: pt is here today for nausea and vomiting SOB started january 13 Patient Tobacco Use Status: Never used Tobacco Allergies diphenhydramine [Tylenol PM] Allergy (Mild, Verified 02/04/24 10:54) Hives acetaminophen [Tylenol-Codeine] Allergy (Unknown, Verified 02/04/24 10:54) rash codeine [Tylenol-Codeine] Allergy (Unknown, Verified 02/04/24 10:54) rash From TYLENOL PM Allergy (Intermediate, Uncoded 11/26/21 18:20) HIVES Environmental, Cats Allergy (Mild, Uncoded 11/26/21 18:20) Hives Do you need a note to return to daycare/school/sports/work: No HPI HPI Comments History of Present Illness Details Patient presents to the walk-in today for sick visit Complaining persistent nausea for last 1 month Nausea started having rotavirus Reports multiple members of the household suffered with the same virus, all have recovered but her nausea persists Patient also reports unintentional weight loss of 20 lb over the last 4 months Reports not interested in eating and at times even the smell of certain foods will make her feel like throwing up She is history of adenocarcinoma of the colon diagnosed 2016 she is currently followed by oncology She has an appointment with oncologist 02/22/2024 for follow-up 12/2023 underwent upper and lower GI with no new findings Patient reports normal urinary output, urine is clear Denies any vaginal bleeding or blood in urine, vomit or emesis She has Zofran ODT at home, she has been taking this since chemotherapy in 2016 for chronic nausea. She states that currently she has not able to tolerate the taste of the dissolvable tablet. [facility] Medical History Adenocarcinoma of colon Gastritis Mosher syndrome Surgical History History of colon surgery Hx of bilateral breast reduction surgery Hx of hysterectomy Family History Maternal Grandmother Uterine cancer Maternal Aunt Ovarian cancer Mother Cervical cancer Colon cancer Maternal Uncle Colon cancer Rectal cancer Brother Colon cancer Social History Household Members: Family Housing: House Do you presently have visiting nurse or other home services: No Alcohol intake: current Alcohol intake frequency: holidays/special occasions only Patient Tobacco Use Status: Never used Tobacco Advance Directives Date on File: 11/27/21 service: No Current occupational status: disabled Review of Systems Const All systems reviewed & are unremarkable except as noted in HPI and below Physical Exam Vital Signs: Last Vital Signs Temp 96.7 F L 02/04/24 10:51 Pulse 96 02/04/24 10:51 BP 120/78 02/04/24 10:51 Pulse Ox 99 02/04/24 10:51 Oxygen Delivery Method Room Air 02/04/24 10:51 BMI result Body Mass Index 35.7 General: awake, alert, oriented. Answers questions appropriately. Fully engaged in examination. Skin: warm, dry, intact HEENT: Normocephalic. Hearing intact. TMs intact bilaterally without erythema or exudate. Moist oral mucosa. Posterior pharynx without erythema or exudate. Cardiac: External chest normal in appearance. Respiratory: No cough, audible wheezing or stridor. Lung sounds clear to auscultation bilaterally Abdomen: without gross distension. MS: No obvious swelling or deformities. Neurological: Oriented to person, place, time and situation. Thought process intact. Psychiatric: Appropriate mood and affect. Good judgment and insight. Assessment & Plan Assessment & Plan (1) Nausea: Code(s): R11.0 - Nausea Plan Zofran 4 mg p.o. q.8 hours as needed for nausea Drink plenty of fluids, patient encouraged to try boost or [place] instant breakfast if she has not able to tolerate other foods Follow-up with oncology as planned this month Follow up with primary care doctor or return here for any new or worsening symptoms Medications: New ondansetron HCl 4 mg PO Q8H PRN 20 tabs 0RF nausea and vomiting Coding Level of Care Code Est Pt Level 3 (97077) Diagnoses Nausea R11.0
== END 2024-02-04 11:50 | disposition home or self-care (01) ==
PROVIDERS: PCP Internal Medicine; Visit Provider Registered Nurse Emergency
DX: R11.0 Nausea (principal)
CPT/HCPCS: 99213

== ENCOUNTER 2024-02-07 06:55 | Inpatient (IN) | payer MEDICARE, MEDICAID, SELFPAY ==
[2024-02-07] VITALS (7 sets, daily range): BP systolic 98–126; BP diastolic 62–95; PULSE 77–103; RESP 14–18; TEMP 36.3–36.4; O2SAT 98–100; BMI 34.8; BMI 36.8
--- NOTE | ~2024-02-07 | XR_ITS ---
EXAMINATION: XR CHEST CLINICAL INFORMATION: SOB COMPARISON: Chest 11/27/2021 TECHNIQUE: 2 views of the chest were obtained. FINDINGS: The tip of a Port-A-Cath is in the superior vena cava. Density projected over the medial left scapula projected over the left upper lobe is likely external to the patient. The lungs are hyperinflated with flattening of the hemidiaphragms. No convincing evidence of focal consolidation, interstitial pulmonary edema or pneumothorax. No significant abnormality is noted involving the heart, mediastinum, bony thorax or soft tissues. Multiple coils are seen in the anterior upper abdomen. XR/XR chest 2V IMPRESSION: 1. No acute abnormality. 2. Density projected over the medial left scapula is likely external to the patient.
--- NOTE | 2024-02-07 08:13 | ED_ITS ---
HPI - General Adult General Chief complaint: Nausea/Vomiting/Diarrhea Stated complaint: nausea vomiting sob Time Seen by Provider: 02/07/24 08:12 Source: patient Mode of arrival: ambulatory Limitations: no limitations History of Present Illness HPI narrative: Patient is a 53 year old assigned female at with a history of colon cancer s/p treatment, presenting to the emergency department today with nausea and vomiting. Patient states that since January 13 she has had intermittent nausea and vomiting. Patient states that she is prescribed Zofran but is having trouble keeping it down. Patient states that she still has her port in place because her providers were being cautious. Patient states that her abdomen was recently scanned and shows no abnormalities. Patient denies any dizziness, lightheadedness, abdominal pain, fever, chills, blurry vision, double vision, loss of vision, chest pain, difficulty breathing, shortness of breath, back pain, night sweats, pain with urination, increased urinary frequency, increased urinary urgency, blood in her urine or stool, syncope or a near syncopal episode, recent trauma or falls, bowel incontinence, bladder incontinence, bowel retention, bladder retention, or any other complaints at this time. Onset (ago): month(s) Relieving factors: none Exacerbating factors: none Associated symptoms: nausea/vomiting Treatments prior to arrival: none Related Data Home Medications ?Medication ?Instructions ?Recorded ?Confirmed nystatin 100,000 unit/gram topical 1 appl topical BID PRN Rash 11/27/21 11/27/21 powder (Nystop) Previous Rx's ?Medication ?Instructions ?Recorded ondansetron HCl 4 mg tablet 4 mg PO Q8H PRN nausea and 02/04/24 vomiting #20 tabs Allergies Allergy/AdvReac Type Severity Reaction Status Date / Time codeine [Tylenol-Codeine] Allergy Unknown rash Verified 02/07/24 07:15 acetaminophen AdvReac Hives Verified 02/07/24 07:15 [From Tylenol PM] cat dander [cats] AdvReac Hives Verified 02/07/24 07:15 diphenhydramine AdvReac Hives Verified 02/07/24 07:15 [From Tylenol PM] Review of Systems 2 Constitutional: Constitutional: Reports no additional constitutional complaints, Denies chills, Denies fever(s) and Denies night sweats Eyes: Eyes: Reports no additional eye complaints, Denies blurry vision, Denies change in vision, Denies diplopia, Denies eye discharge, Denies loss of vision and Denies eye pain ENT: Denies dizziness Cardiovascular: Cardiovascular: Reports no additional cardiovascular complaints, Denies chest pain, Denies lightheadedness, Denies Loss of Consciousness and Denies dyspnea Respiratory: Respiratory: Reports no additional respiratory complaints and Denies dyspnea Gastrointestinal: Gastrointestinal: Reports no additional gastrointestinal complaints, Denies abdominal pain, Denies melena, Denies hematochezia, Denies change in bowel habits, Denies change in stool character, Reports nausea and Reports vomiting Genitourinary: Genitourinary: Denies hematuria, Denies urinary frequency, Denies dysuria, Denies urinary incontinence, Denies urinary hesitancy and Denies urinary urgency Musculoskeletal: Musculoskeletal: Reports no additional musculoskeletal complaints, Denies numbness and Denies tingling Neurologic: Denies dizziness, Denies loss of vision, Denies numbness and Denies tingling Psychiatric: Psychiatric: Reports no additional psychiatric complaints Endocrine: Endocrine: Reports no additional endocrine complaints Hematologic/Lymphatic: Hematologic/Lymphatic: Reports no additional hematologic/lymphatic complaints Allergic/Immunologic: Allergic/Immunologic: Reports no additional allergic/immunologic complaints PMFSH Past Medical History Attestation statement: The following information was validated with the patient. Source: old records reviewed and nursing notes reviewed Medical History Gastritis Mosher syndrome Adenocarcinoma of colon Surgical History Hx of hysterectomy History of colon surgery Hx of bilateral breast reduction surgery Family History Family History Maternal Grandmother Uterine cancer Maternal Aunt Ovarian cancer Mother Cervical cancer Colon cancer Maternal Uncle Colon cancer Rectal cancer Brother Colon cancer Social History Social History Household Members: Family Housing: House Do you presently have visiting nurse or other home services: No Alcohol intake: current Alcohol intake frequency: holidays/special occasions only Patient Tobacco Use Status: Never used Tobacco Smoked in Last 30 Days: No Use of substances other than those prescribed or required for medical reasons: No Any prior treatment program specific to substance use: No Advance Directives: Yes Advance Directives on File: Yes Advance Directives Date on File: 11/27/21 service: No Current occupational status: disabled Physical Exam ED Vital Signs: Vital Signs - 24 hr 02/07/24 07:05 02/07/24 09:41 02/07/24 11:35 Temperature 97.3 F Pulse Rate 103 H 89 90 Respiratory Rate 18 16 Blood Pressure 126/95 H 113/62 106/73 Pulse Oximetry 100 99 100 Oxygen Delivery Method Room Air Room Air Room Air 02/07/24 12:29 Temperature Pulse Rate 91 Respiratory Rate 16 Blood Pressure 107/68 Pulse Oximetry 99 Oxygen Delivery Method Room Air BMI result Body Mass Index 34.8 Const General: cooperative, no acute distress, alert and awake Nutritional Appearance: well nourished Orientation/consciousness: patient oriented x3 Limitations: no limitations HENMT Head: Yes normal to inspection and Yes atraumatic Ears: hearing grossly normal bilaterally and external ears normal General nose exam: Normal external nose present, no nasal discharge noted and no epistaxis Face and sinus: Yes normal facial exam, No abrasion and No laceration Mouth: Normal oral and palatal mucosa present, no drooling and no muffled voice Eyes General: appearance normal, both eyes and all related structures Periorbital: periorbital findings normal Eyelids: Yes eyelids normal Conjunctivae: conjunctivae normal Pupils: Equal, round and reactive pupils present EOM: EOMs intact bilaterally Neck Neck: Yes normal visual inspection, Yes full ROM and Yes no lymphadenopathy Chest Other: port in place to the left chest - flushes well Chest palpation & inspection: normal inspection of the chest Resp Effort & Inspection: normal respiratory effort and able to speak in complete sentences GI Inspection: Yes normal to inspection Palpation (GI): Soft to palpation, not firm, nontender and no guarding Neuro General: patient oriented x3 and moves all extremities Cranial nerves: Yes Equal, round and reactive pupils present Cognition (Neuro): normal cognition Motor exam (neuro): 5/5 motor strength present throughout Sensory Exam: Normal double simultaneous stimulation for sensation Coordination: [id number] test normal Extrem General: Yes normal to inspection, Yes full ROM and Yes capillary refill normal Psych Appearance: grossly normal Mental Status: mental status grossly normal Affect: normal affect Attitude: cooperative Thought process: Normal thought process present Thought content: Normal thought content present Insight: Good insight present (Psych) Medications Administered Generic Name Dose Route Start Last Admin Trade Name Wilbert PRN Reason Stop Dose Admin Potassium Chloride 10 meq in 100 mls @ 100 mls/hr 02/07/24 11:30 02/07/24 12:41 Potassium Chloride/H20 IV 02/07/24 15:29 100 mls/hr Q1H BORIS Administration Discontinued Medications Generic Name Dose Route Start Last Admin Trade Name Freq PRN Reason Stop Dose Admin Sodium Chloride 1,000 mls @ 999 mls/hr 02/07/24 08:15 02/07/24 08:31 Ns IV 02/07/24 09:15 999 mls/hr .Q1H1M BORIS Administration Metoclopramide HCl 10 mg 02/07/24 08:12 02/07/24 08:39 Metoclopramide Hcl 10 Mg/2 Ml Vial IVPUSH 02/07/24 08:13 10 mg ONCE ONE Administration Medical Decision Making Medical Decision Making MDM Narrative: Patient is a 53 year old assigned female at with a history of colon cancer s/p treatment presenting to the emergency department today with nausea and vomiting. Patient's physical exam was as noted. Patient's blood work showed an elevated WBC count of 14.5, hypokalemia of 1.6, and hypomagnesemia of 1.4. These lab results were confirmed with a second lab draw. Patient's EKG was unremarkable. Patient's chest x-ray showed no acute process. Patient's clinical presentation is not consistent with sepsis (@1155). I spoke to the hospitalist team who agreed to admission. I explained my physical exam findings as well as all test results to the patient. I answered all questions asked by the patient. Began repletion of potassium and magnesium. Spoke to the hospitalist team who agreed to admission. Patient verbalized agreement and understanding with this treatment plan and admission. Differential Diagnosis Differential Diagnoses: The differential diagnosis associated with the presentation includes Hypokalemia Hypomagnesemia Nausea Vomiting Admission/Observation Consideration of admission/observation: Escalation of care including admission/observation considered Patient admitted. Consult Healthcare Provider Management of the patient was discussed with: Hospitalist (agreed to admission) Lab Data [facility] Lab Attestation statement: I reviewed the patient's lab results. My interpretation of these results are in the MDM Rationale portion of this note. 02/07/24 08:30 02/07/24 10:51 Labs: Lab Results 02/07/24 02/07/24 02/07/24 Range/Units 08:04 08:30 10:26 WBC 14.5 H (4.8-10.8) X10*3/uL RBC 4.88 (4.20-5.50) X10*6/uL Hgb 15.6 (12.0-16.0) g/dl Hct 43.7 (37.0-47.0) % MCV 89.5 (80.0-98.0) fL MCH 32.0 (27.0-33.0) pg MCHC 35.7 H (31.0-35.0) g/dl RDW 14.8 (11.0-16.0) % Plt Count 323 (160-400) X10*3/uL MPV 10.3 (9.4-12.3) fL Immature Gran % (Auto) 0.6 H (0.0-0.4) % Neut % (Auto) 81.4 H (45-73) % Lymph % (Auto) 11.9 L (20-40) % [place] % (Auto) 5.5 (2-11) % Eos % (Auto) 0.2 (0-4) % Baso % (Auto) 0.4 (0-2) % Lymph # (Auto) 1.7 (1.2-4.9) X10*3/uL [place]ink # (Auto) 0.8 (0.1-1.2) X10*3/uL Eos # (Auto) 0.0 (0.0-0.4) X10*3/uL Baso # (Auto) 0.1 (0.0-0.2) X10*3/uL Abs Immat Gran (auto) 0.08 H (0.00-0.03) X10*3/uL Absolute Neuts (auto) 11.8 H (2.0-8.3) x10*3/uL Absolute Nucleated RBC 0.000 (0.0-0.012) X10*3/uL Nucleated RBC % (auto) 0.0 (0.0-0.2) /100WBC Sodium (135-145) mmol/L Potassium (3.3-5.1) mmol/L Chloride (96-108) mmol/L Carbon Dioxide (22-29) mmol/L Anion Gap (12-20) BUN (9-16) mg/dL Creatinine (0.5-1.4) mg/dL Estim Creat Clear Calc Estimated GFR Random Glucose (60-115) mg/dL Calcium (8.4-10.2) mg/dL Magnesium (1.6-2.6) mg/dL Total Bilirubin (0.0-1.0) mg/dL AST (5-31) U/L ALT (0-31) U/L Alkaline Phosphatase (39-117) U/L Total Protein (6.5-8.0) g/dL Albumin (3.5-5.0) g/dL Urine Color Yellow Urine Appearance Clear Urine pH 6.5 (5.0-9.0) Ur Specific [place] 1.010 (1.005-1.025) Urine Protein 100 (2+) H (Neg-Trace) mg/dL Urine Glucose (UA) Negative (Negative) mg/dL Urine Ketones Negative (Negative) mg/dL Urine Blood Large (3+) H (Negative) Urine Nitrite Negative (Negative) Ur Leukocyte Esterase Trace H (Negative) Urine RBC 11-20 H (0-2) /HPF Urine WBC 0-5 (0-5) /HPF Ur Squamous Epith Cells 3-5 (0-2) /HPF Urine Bacteria None Seen (None Seen) Hyaline Casts 0-2 (0-2) /LPF Influenza Type A (PCR) NEGATIVE (Negative) Influenza Type B (PCR) NEGATIVE (Negative) RSV RNA Qual (PCR) NEGATIVE (Negative) SARS-CoV-2 RNA (RT-PCR) NEGATIVE (Negative) S. pyogenes GrpA [place] Negative (Negative) 02/07/24 Range/Units 10:51 WBC (4.8-10.8) X10*3/uL RBC (4.20-5.50) X10*6/uL Hgb (12.0-16.0) g/dl Hct (37.0-47.0) % MCV (80.0-98.0) fL MCH (27.0-33.0) pg MCHC (31.0-35.0) g/dl RDW (11.0-16.0) % Plt Count (160-400) X10*3/uL MPV (9.4-12.3) fL Immature Gran % (Auto) (0.0-0.4) % Neut % (Auto) (45-73) % Lymph % (Auto) (20-40) % [place] % (Auto) (2-11) % Eos % (Auto) (0-4) % Baso % (Auto) (0-2) % Lymph # (Auto) (1.2-4.9) X10*3/uL [place]ink # (Auto) (0.1-1.2) X10*3/uL Eos # (Auto) (0.0-0.4) X10*3/uL Baso # (Auto) (0.0-0.2) X10*3/uL Abs Immat Gran (auto) (0.00-0.03) X10*3/uL Absolute Neuts (auto) (2.0-8.3) x10*3/uL Absolute Nucleated RBC (0.0-0.012) X10*3/uL Nucleated RBC % (auto) (0.0-0.2) /100WBC Sodium 141 (135-145) mmol/L Potassium 1.6 L* (3.3-5.1) mmol/L Chloride 113 H (96-108) mmol/L Carbon Dioxide 16 L (22-29) mmol/L Anion Gap 14 (12-20) BUN 23 H (9-16) mg/dL Creatinine 2.84 H (0.5-1.4) mg/dL Estim Creat Clear Calc 23.9 Estimated GFR 18 Random Glucose 139 H (60-115) mg/dL Calcium 8.1 L (8.4-10.2) mg/dL Magnesium 1.4 L* (1.6-2.6) mg/dL Total Bilirubin 2.5 H (0.0-1.0) mg/dL AST 39 H (5-31) U/L ALT 48 H (0-31) U/L Alkaline Phosphatase 104 (39-117) U/L Total Protein 6.7 (6.5-8.0) g/dL Albumin 3.8 (3.5-5.0) g/dL Urine Color Urine Appearance Urine pH (5.0-9.0) Ur Specific [place] (1.005-1.025) Urine Protein (Neg-Trace) mg/dL Urine Glucose (UA) (Negative) mg/dL Urine Ketones (Negative) mg/dL Urine Blood (Negative) Urine Nitrite (Negative) Ur Leukocyte Esterase (Negative) Urine RBC (0-2) /HPF Urine WBC (0-5) /HPF Ur Squamous Epith Cells (0-2) /HPF Urine Bacteria (None Seen) Hyaline Casts (0-2) /LPF Influenza Type A (PCR) (Negative) Influenza Type B (PCR) (Negative) RSV RNA Qual (PCR) (Negative) SARS-CoV-2 RNA (RT-PCR) (Negative) S. pyogenes GrpA [place] (Negative) Independent Interpretation I performed an independent interpretation of an: EKG and Plain X-Ray Interpretation: My interpretation is in agreement with the radiologist's impression of this imaging study. - EXAMINATION: XR CHEST CLINICAL INFORMATION: SOB COMPARISON: Chest 11/27/2021 TECHNIQUE: 2 views of the chest were obtained. FINDINGS: The tip of a Port-A-Cath is in the superior vena cava. Density projected over the medial left scapula projected over the left upper lobe is likely external to the patient. The lungs are hyperinflated with flattening of the hemidiaphragms. No convincing evidence of focal consolidation, interstitial pulmonary edema or pneumothorax. No significant abnormality is noted involving the heart, mediastinum, bony thorax or soft tissues. Multiple coils are seen in the anterior upper abdomen. XR/XR chest 2V IMPRESSION: 1. No acute abnormality. 2. Density projected over the medial left scapula is likely external to the patient. Dictated By: Silvia Martines MD Signed By: Electronically signed by Silvia Martines MD 02/07/24 2780 - Vent. Rate: 089 BPM Atrial Rate: 089 BPM P-R Int: 112 ms QRS Dur: 124 ms QT Int: 496 ms P-R-T Axes: 084 022 035 degrees QTc Int: 603 ms Normal sinus rhythm Non-specific intra-ventricular conduction delay ST & T wave abnormality, consider inferolateral ischemia Abnormal ECG When compared with ECG of 02-JUL-2020 10:05, QRS duration has increased ST now depressed in Anterolateral leads T wave inversion more evident in Inferior leads T wave inversion now evident in Lateral leads QT has lengthened DD/ 1128 Radiology Impression Discussion of test interpretation with radiology: I have reviewed the radiologist's reading. Tests considered The following testing was considered but not selected: A CT of the abdomen / pelvis was considered however, the patient was imaged very recently and her clinical presentation is not consistent with an intra-abdominal process. I explained this to the patient who verbalized understanding and agreement. Critical Care Time Critical Care Time Critical Care Time: Yes Total Critical Care Time: 121 Attestation: I spent 121 minutes of Critical Care Time with this patient. This does not include time spent on separately reported billable procedures. Discharge Plan Discharge Clinical Impression: Nausea & vomiting, Acute hypokalemia, Hypomagnesemia Patient Disposition: Admitted As Inpatient Print Language: Bulgarian
[2024-02-07 08:23] LABS: IDNOW Serial# 08D9AD1C; Strep A Nucleic Acid Negative (Negative)
[2024-02-07] MEDS: 0.9 % Sodium Chloride 1,000 ML 999 ML IV (08:31)
[2024-02-07 08:36] LABS: MANUAL DIFF FLAG NO
[2024-02-07 08:37] LABS: Basophils Absolute Auto 0.1 X10*3/uL (0.0-0.2); Basophils Percent Auto 0.4 % (0-2); Eosinophils Percent Auto 0.2 % (0-4); Hematocrit 43.7 % (37.0-47.0); Hemoglobin 15.6 g/dl (12.0-16.0); Imm Gran Abs Auto 0.08 X10*3/uL (0.00-0.03); Imm Gran Pct Auto 0.6 % (0.0-0.4); Lymphocytes Absolute Auto 1.7 X10*3/uL (1.2-4.9); Lymphocytes Percent Auto 11.9 % (20-40); Mean Corpuscular HGB Conc 35.7 g/dl (31.0-35.0); Mean Corpuscular Volume 89.5 fL (80.0-98.0); Mean Platelet Volume 10.3 fL (9.4-12.3); Monocytes Absolute Auto 0.8 X10*3/uL (0.1-1.2); Monocytes Percent Auto 5.5 % (2-11); Neutrophils Absolute Auto 11.8 x10*3/uL (2.0-8.3); Neutrophils Percent Auto 81.4 % (45-73); Platelet Count 323 X10*3/uL (160-400); Red Blood Count 4.88 X10*6/uL (4.20-5.50); Red Cell Distribution Width 14.8 % (11.0-16.0); White Blood Count 14.5 X10*3/uL (4.8-10.8)
[2024-02-07] MEDS: Metoclopramide HCl 10 MG/2 ML VIAL IVPUSH (08:39)
[2024-02-07 08:48] LABS: Influenza A PCR NEGATIVE (Negative); Influenza B PCR NEGATIVE (Negative); Resp Syncy Virus RNA Qual PCR NEGATIVE (Negative); SARS COV2 PCR INHOUSE NEGATIVE (Negative)
[2024-02-07 10:45] LABS: Appearance Urine Clear; Color Urine Yellow; Glucose Urine UA Negative (Negative); Leukocyte Esterase Urine Trace (Negative); Nitrite Urine Negative (Negative); PH 6.5 (5.0-9.0); UMIC TRIGGER UACC YES; Urine Blood Large (3+) (Negative); Urine Ketones Negative (Negative); Urine Protein 100 (2+) mg/dL (Neg-Trace)
[2024-02-07 11:09] LABS: Anion Gap 14 (12-20)
[2024-02-07 11:20] LABS: Alanine Aminotransferase 48 U/L (0-31); Albumin Level 3.8 g/dL (3.5-5.0); Alkaline Phosphatase 104 U/L (39-117); Aspartate Amino Transferase 39 U/L (5-31); Bilirubin Total 2.5 mg/dL (0.0-1.0); Blood Urea Nitrogen 23 mg/dL (9-16); Calcium 8.1 mg/dL (8.4-10.2); Carbon Dioxide 16 mmol/L (22-29); Chloride 113 mmol/L (96-108); Creatinine Clr Calc Pharmacy 23.9; Estimated Glomerular Filt Rate 18; Glucose Random 139 mg/dL (60-115); Magnesium 1.4 mg/dL (1.6-2.6); Potassium 1.6 mmol/L (3.3-5.1); Sodium 141 mmol/L (135-145); Total Protein 6.7 g/dL (6.5-8.0)
--- NOTE | 2024-02-07 11:20 | ECG_ITS ---
Test Reason : HYPOKALEMIA Blood Pressure : / mmHG Vent. Rate : 089 BPM Atrial Rate : 089 BPM P-R Int : 112 ms QRS Dur : 124 ms QT Int : 496 ms P-R-T Axes : 084 022 035 degrees QTc Int : 603 ms Normal sinus rhythm Non-specific intra-ventricular conduction delay ST & T wave abnormality, consider inferolateral ischemia Prolonged QT Abnormal ECG When compared with ECG of 02-JUL-2020 10:05, QRS duration has increased ST now depressed in Anterolateral leads T wave inversion more evident in Inferior leads T wave inversion now evident in Lateral leads QT has lengthened Referred By: Shaye Cagle Electronically Signed By:TERRELL SHANKS MD
[2024-02-07 11:34] LABS: Bacteria Urine None Seen (None Seen); Hyaline Casts Urine 0-2 /LPF (0-2); WBC Urine 0-5 /HPF (0-5)
[2024-02-07] MEDS: Potassium Chloride/H20 10 MEQ/100 ML PIGGYBACK 100 MEQ IV ×2 (11:37→12:41)
--- NOTE | 2024-02-07 12:52 | P.HPHOSP_ITS ---
History of Present Illness Date of Service: 02/07/24 Attending physician on admission: Candelario Flores Chief Complaint: Intractable nausea and vomiting Pt is a 53-year-old female with a PMH significant for colorectal cancer s/p resection and chemotherapy, off immunotherapy for 3 years who presents to the ED for evaluation of intractable nausea vomiting x3 weeks. Patient reports symptoms initially began when her children developed nausea, vomiting, and diarrhea on January 15. The patient experienced similar symptoms shortly thereafter. Children soon got better, but patient continued to experience intractable nausea and vomiting. Has chronic diarrhea/loose stools s/p colorectal cancer which she states is around baseline. Patient also has a long history of chronic nausea vomiting for which she is prescribed Zofran which normally helps. This time, however, patient was unable to tolerate Zofran. Pt reports she has been unable to tolerate much of any solids or fluids during this time. States continues to pass gas. Last abdominal CT on 01/18 that was apparently negative for acute process. Also endorses SOB with exertion and occasional cramping in her thighs bilaterally. No fever, chills. Denies abdominal pain. No chest pain/pressure or palpitations. Denies marijuana use, recent medication changes, or antibiotic use. Of note, pt still has port in place out of an abundance of caution by her oncologist. In the ED pt was afebrile but tachycardic up to 103, vitals otherwise WNL. Labs were significant for leukocytosis 14.5, potassium 1.6, chloride 113, bicarb 16, BUN 23, creatinine 2.84, magnesium 1.4, bilirubin 2.5, AST 39, and ALT 48. CXR showed no acute abnormality. EKG demonstrated normal sinus rhythm with nonspecific intraventricular conduction delay and ST depressions in anterior lateral leads, T-wave inversions in inferolateral leads, and prolonged QTc of 603. Pt was treated with IVF, close provide low Mag sulfate and potassium chloride IV and p.o. Pt will be admitted to the hospital for treatment further evaluation hypokalemia and hypomagnesemia smear secondary to intractable nausea and vomiting. Review of Systems 2 Review of Systems: Intractable nausea and vomiting x3 weeks with inability to tolerate p.o. SOB with exertion Cramping of bilateral thighs Chronic diarrhea at baseline Denies chest pain/pressure, palpitations No fever, chills, or abdominal pain [facility] Medical History Gastritis Mosher syndrome Adenocarcinoma of colon Family History Maternal Grandmother Uterine cancer Maternal Aunt Ovarian cancer Mother Cervical cancer Colon cancer Maternal Uncle Colon cancer Rectal cancer Brother Colon cancer Surgical History Hx of hysterectomy History of colon surgery Hx of bilateral breast reduction surgery Social History Household Members: Family and Children Household Members Other:: 6 Housing: House Do you presently have visiting nurse or other home services: No Alcohol intake: current Alcohol intake frequency: holidays/special occasions only Patient Tobacco Use Status: Never used Tobacco Smoked in Last 30 Days: No Use of substances other than those prescribed or required for medical reasons: No Currently Displaying Signs/Symptoms of Drug Intoxication Withdrawal: No Any prior treatment program specific to substance use: No Have you been hit, kicked, punched, or otherwise hurt by someone within the past year? If so, by whom?: No Do you feel safe in your current relationship?: No Current Relationship Is there a partner from a previous relationship who is making you feel unsafe now?: No Are you made to feel afraid or neglected: No Advance Directives: Yes Advance Directives on File: Yes Advance Directives Date on File: 11/27/21 Do you have thoughts of harming others: None Do you have a plan to hurt others: No Plan Recently lost weight without trying: Yes How much weight loss: 14-23 pounds Eating poorly because of decreased appetite: Yes Nutrition screen score: 5 Nutrition Risks: No Nutritional Risk Patient : No service: No Current occupational status: disabled Meds Allergies Allergy/AdvReac Type Severity Reaction Status Date / Time codeine [Tylenol-Codeine] Allergy Unknown rash Verified 02/07/24 07:15 acetaminophen AdvReac Hives Verified 02/07/24 07:15 [From Tylenol PM] cat dander [cats] AdvReac Hives Verified 02/07/24 07:15 diphenhydramine AdvReac Hives Verified 02/07/24 07:15 [From Tylenol PM] Active Medications: Current Medications Potassium Chloride (Potassium Chloride/H20) 10 meq in 100 mls @ 100 mls/hr IV Q1H BORIS Stop: 02/07/24 15:29 Last Admin: 02/07/24 12:41 Dose: 100 mls/hr Home Medications ?Medication ?Instructions ?Recorded ?Confirmed ?Last Taken ?Type acetaminophen 500 mg tablet 1,000 mg PO DAILY PRN Pain 02/07/24 02/07/24 Unknown History Physical Exam 2 Vital Signs and Narrative: Vital Signs: Last Vital Signs Temp 97.3 F 02/07/24 07:05 Pulse 91 02/07/24 12:29 Resp 16 02/07/24 12:29 BP 107/68 02/07/24 12:29 Pulse Ox 99 02/07/24 12:29 O2 Del Method Room Air 02/07/24 12:29 BMI result Body Mass Index 34.8 General: AOx3, no acute distress Resp: CTA bilaterally CVS: S1, S2, RRR GI: +BS, NT, no distention Skin: Warm, dry Neuro: Cranial nerves II-XII grossly intact bilaterally. Motor grossly intact bilaterally Extremities: No edema Psych: Appropriate affect Results Labs 02/08/24 08:12 02/08/24 10:15 Labs: Laboratory Results - last 24 hr 02/07/24 02/07/24 02/07/24 08:04 08:30 10:26 MCV 89.5 MCH 32.0 MCHC 35.7 H RDW 14.8 Plt Count 323 MPV 10.3 Immature Gran % (Auto) 0.6 H Neut % (Auto) 81.4 H Lymph % (Auto) 11.9 L Antelope % (Auto) 5.5 Eos % (Auto) 0.2 Baso % (Auto) 0.4 Lymph # (Auto) 1.7 Antelope # (Auto) 0.8 Eos # (Auto) 0.0 Baso # (Auto) 0.1 Abs Immat Gran (auto) 0.08 H Absolute Neuts (auto) 11.8 H Absolute Nucleated RBC 0.000 Nucleated RBC % (auto) 0.0 Anion Gap Estim Creat Clear Calc Estimated GFR Random Glucose Calcium Magnesium Total Bilirubin AST ALT Alkaline Phosphatase Total Protein Albumin Urine Color Yellow Urine Appearance Clear Urine pH 6.5 Ur Specific [place] 1.010 Urine Protein 100 (2+) H Urine Glucose (UA) Negative Urine Ketones Negative Urine Blood Large (3+) H Urine Nitrite Negative Ur Leukocyte Esterase Trace H Urine RBC 11-20 H Urine WBC 0-5 Ur Squamous Epith Cells 3-5 Urine Bacteria None Seen Hyaline Casts 0-2 Influenza Type A (PCR) NEGATIVE Influenza Type B (PCR) NEGATIVE RSV RNA Qual (PCR) NEGATIVE SARS-CoV-2 RNA (RT-PCR) NEGATIVE S. pyogenes GrpA [place] Negative 02/07/24 10:51 MCV MCH MCHC RDW Plt Count MPV Immature Gran % (Auto) Neut % (Auto) Lymph % (Auto) Antelope % (Auto) Eos % (Auto) Baso % (Auto) Lymph # (Auto) Antelope # (Auto) Eos # (Auto) Baso # (Auto) Abs Immat Gran (auto) Absolute Neuts (auto) Absolute Nucleated RBC Nucleated RBC % (auto) Anion Gap 14 Estim Creat Clear Calc 23.9 Estimated GFR 18 Random Glucose 139 H Calcium 8.1 L Magnesium 1.4 L* Total Bilirubin 2.5 H AST 39 H ALT 48 H Alkaline Phosphatase 104 Total Protein 6.7 Albumin 3.8 Urine Color Urine Appearance Urine pH Ur Specific [place] Urine Protein Urine Glucose (UA) Urine Ketones Urine Blood Urine Nitrite Ur Leukocyte Esterase Urine RBC Urine WBC Ur Squamous Epith Cells Urine Bacteria Hyaline Casts Influenza Type A (PCR) Influenza Type B (PCR) RSV RNA Qual (PCR) SARS-CoV-2 RNA (RT-PCR) S. pyogenes GrpA [place] Imaging Radiologist's Impressions: Impressions Chest X-Ray 02/07/24 11:15 IMPRESSION: 1. No acute abnormality. 2. Density projected over the medial left scapula is likely external to the patient. Assessment and Plan (1) Hypomagnesemia: Status: Acute (2) Acute hypokalemia: Status: Acute (3) Nausea & vomiting: Status: Acute Plan Pt is a 53-year-old female with a PMH significant for colorectal cancer s/p resection and chemotherapy, off immunotherapy for 3 years who presents to the ED for evaluation of intractable nausea vomiting x3 weeks. Pt will be admitted to the hospital for treatment further evaluation hypokalemia and hypomagnesemia smear secondary to intractable nausea and vomiting. Intractable nausea and vomiting x3 weeks Unclear etiology: Pt with sick contacts 3 weeks ago and hx of N/V possibly secondary to colorectal cancer and treatment Was not able to tolerate home p.o. Zofran Given metoclopramide in ED with improvement and currently able to tolerate p.o. Continue antiemetics, IVF Full liquid diet for now, advance as tolerated Hypokalemia Potassium 1.6 at time presentation Secondary to intractable nausea and vomiting, chronic diarrhea, and reduced p.o. intake Given IV and p.o. potassium in ED Will treat with K-Phos IV and potassium p.o. supplementation Monitor on telemetry Repeat EKG tomorrow a.m. Follow BMP Hypophosphatemia Phosphorus 2.0 at time of presentation Secondary to intractable nausea and vomiting, chronic diarrhea, and reduced p.o. intake Will treat with K-Phos IV Follow labs Hypomagnesemia Mag presentation Secondary to intractable nausea and vomiting, chronic diarrhea, and reduced p.o. intake Given Mag 2g IV Follow Mag STEPHEN on CKD Creatinine 2.84 at time of presentation, up from baseline of 1.5 Secondary to intractable nausea and vomiting, chronic diarrhea, and reduced p.o. intake Patient given IVF in ED Will place on maintenance fluids Follow BMP Leukocytosis WBCs 14.5 at time of presentation Likely reactive Pt without obvious source of infection: CXR negative, UA negative, no fever Will check respiratory panel Patient does not meet SIRS criteria: No indication of bacterial infection at this time No indication for antibiotics at this time Follow CBC Transaminitis Patient with chronically elevated LFTs Follow-up outpatient Full Code Attending:?Dr. Flores DVT Prophylaxis: Heparin Pt will require a hospitalization of at least two nights for treatment of?significant electrolyte abnormalities in the setting of intractable nausea and vomiting, chronic diarrhea, and reduced p.o. intake. Given severity of patient's electrolyte abnormalities, patient required hospitalization for close monitoring of labs, cardiac monitoring, and electrolyte replenishment as necessary. Quality Stroke Does the patient have a stroke diagnosis?: No VTE Prior VTE?: No VTE Risk Level:: Medical - moderate - high VTE Device Contraindication: Treatment Not Indicated VTE Drug Contraindication: N/A - Med Ordered
[2024-02-07] MEDS: Magnesium Sulfate/D5W 1 GM/100 ML PIGGYBACK IV ×2 (13:26→18:42)
[2024-02-07] MEDS: 0.9 % Sodium Chloride 1,000 ML 100 ML IVCONT ×2 (14:30→22:20)
[2024-02-07] MEDS: Potassium Phosphate/NS 15 MMOL/250 ML PLAST..BAG 62.5 MMOL IV ×2 (14:35→20:22)
[2024-02-07] MEDS: Heparin Sodium,Porcine 5,000 UNIT/ML VIAL 5000 UNIT SUBCUT ×2 (14:48→22:21)
[2024-02-07] MEDS: Potassium Chloride Packet 20 MEQ PACKET 40 MEQ PO (14:49)
--- NOTE | 2024-02-07 15:02 | PHA.MEDREC ---
Pharmacy Consult ? Medication Reconciliation Pharmacy has completed the medication reconciliation. Spoke to patient and confirmed medication list.
--- NOTE | 2024-02-07 15:34 | PC.NURSE ---
assumed care of patient at 1500, report received from Brock PICKETT.
--- NOTE | 2024-02-07 15:51 | PC.NURSE ---
introduced self to pt pt is resting comfortably on stretcher in no apparent distress, potassium and normal saline running through port. pt tolerating well. pt ambulates to and from bathroom independently with iv pole. steady on feet. pt offers no current complaints, denies pain, speaking clear full sentences. on playground monitor, vital signs updated, plan of care ongoing.
[2024-02-07 15:57] LABS: Venous Blood Gas Refer to POC result
[2024-02-07 15:57] LABS: VBG Base Excess -12.2 mmol/L; VBG HCO3 13 mmol/L (22-26); VBG pCO2 28 mmHg; VBG pH 7.26 (7.32-7.43); VBG pO2 47 mmHg
[2024-02-07 16:18] LABS: Troponin-I High Sensitivity 37.8 ng/L (<3.5-17.0)
[2024-02-07] MEDS: Metoclopramide HCl 10 MG/2 ML VIAL 5 MG IVPUSH (17:47)
--- NOTE | 2024-02-07 19:58 | PC.NURSE ---
assumed care of pt, pt assisted to bathroom at this time. pt ambulated with steady gait, denies sob and chest pain.
[2024-02-07] MEDS: 0.9 % Sodium Chloride Flush 3 ML SYRINGE IVFLUSH (22:20)
[2024-02-07] MEDS: Sodium Bicarbonate 650 MG TABLET 1300 MG PO (22:22)
[2024-02-07 23:54] LABS: Anion Gap 15 (12-20); Blood Urea Nitrogen 19 mg/dL (9-16); Calcium 7.3 mg/dL (8.4-10.2); Carbon Dioxide 15 mmol/L (22-29); Chloride 114 mmol/L (96-108); Creatinine Clr Calc Pharmacy 29.3; Estimated Glomerular Filt Rate 21; Glucose Random 107 mg/dL (60-115); Potassium 1.8 mmol/L (3.3-5.1); Sodium 142 mmol/L (135-145)
[2024-02-07 23:59] LABS: Troponin-I High Sensitivity 36.6 ng/L (<3.5-17.0)
[2024-02-08] VITALS: BP 111/60; PULSE 76; RESP 20; TEMP 36.1; O2SAT 100
[2024-02-08] MEDS: Potassium Chloride/H20 10 MEQ/100 ML PIGGYBACK 100 MEQ IV ×4 (00:33→04:01)
[2024-02-08] MEDS: Magnesium Sulfate/H2O 2 GM/50 ML PIGGYBACK IV (00:33)
[2024-02-08] MEDS: Metoclopramide HCl 10 MG/2 ML VIAL 5 MG IVPUSH ×3 (00:38→15:44)
[2024-02-08] MEDS: Potassium Chloride Packet 20 MEQ PACKET 40 MEQ PO ×7 (00:39→21:05)
[2024-02-08 01:05] LABS: Thyroid Stimulating Hormone 5.36 uIU/mL (0.32-4.0)
[2024-02-08 03:22] VITALS: BP 106/62; PULSE 77; RESP 20; TEMP 36.1; O2SAT 96
[2024-02-08 04:42] LABS: Anion Gap 13 (12-20); Blood Urea Nitrogen 16 mg/dL (9-16); Calcium 7.3 mg/dL (8.4-10.2); Carbon Dioxide 15 mmol/L (22-29); Chloride 115 mmol/L (96-108); Creatinine Clr Calc Pharmacy 32.9; Estimated Glomerular Filt Rate 25; Glucose Random 99 mg/dL (60-115); Magnesium 2.8 mg/dL (1.6-2.6); Potassium 2.2 mmol/L (3.3-5.1); Sodium 141 mmol/L (135-145)
[2024-02-08] MEDS: KCl 40 mEq in 5% Dex/0.9% Sod 40 MEQ/1,000 ML IV.SOLN 100 MEQ IVCONT (05:14)
[2024-02-08] MEDS: Heparin Sodium,Porcine 5,000 UNIT/ML VIAL 5000 UNIT SUBCUT ×3 (05:14→21:05)
--- NOTE | 2024-02-08 06:19 | PM.EVENT ---
Event Note Date of Service: 02/08/24 Event Note: 11:54 AM - Contacted to notify K+ level is 1.8 (prior was 1.6 at 10:51 AM). Kphos discontinued. KCL 40 mEq PO tid, first dose was given stat + 40 mEq IV over 4 hours followed by NS/40mEq (to start around 5 am). Bicarbonate pills on hold while K+ level increases to save levels (pt is at risk of respiratory arrest, arrhythmias or paralysis). Magnesium 2 mg IV given X1 while waiting for results. pH 7.26 (3:51 PM). TSH obtained (5.36) 4:15 AM - K+ level increased to 2.2. A/P: -Telemetry. -Continue K+ supplementation orally and IV. -Will continue to monitor K+ and Mg level closely as well as renal function. -Obtain nephrology consult: STEPHEN + normal AG metabolic acidosis (urine pH is 6.5). 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 -Recheck venous pH. Time Spent With Patient Time: Total time managing care of this patient today ____ minutes.
--- NOTE | 2024-02-08 07:00 | CA_ITS ---
Transthoracic Echocardiogram Patient (Last, First, Middle): Maye Bennett, Gender: Female Date of : 1970 Age: 53 Procedure Date: 02/08/2024 Procedure Type: Transthoracic Echocardiogram [place] [facility] [place] Height: 157.48 cm Weight: 91.17 kg BSA: 1.92 m2 Heart Rate: bpm BP: 117 / 70 mmHg Solar Mechanical Engineer: Referring MD: Candelario Flores MD Stonecutter Apprentice Hand: Rigo Mendieta MD Symptoms: Elevated Troponins Study Quality: Good with Definity ECG Rhythm: Sinus Conclusions: - Essentially normal study Findings Procedure Information Contrast agent, definity, is being given per protocol without apparent complications. Left Ventricle Normal left ventricular size, thickness, and systolic function. The visually estimated ejection fraction is between 60-65%. Spectral Doppler is indicative of a normal filling pattern. Right Ventricle The right ventricle was not well visualized. Atria The left atrium is normal in size. Interatrial shunt cannot be excluded. The right atrium was not well visualized. Aortic Valve The aortic valve structure and function is likely normal. There is no aortic valve stenosis. There is no aortic valve regurgitation. Mitral Valve Likely normal mitral valve structure and function. There is trace mitral valve regurgitation. There is no mitral valve stenosis. Pulmonic Valve The pulmonic valve was not well visualized. Tricuspid Valve Likely normal tricuspid valve structure and function. There is trace tricuspid valve regurgitation. The right ventricular systolic pressure is normal. The right ventricular systolic pressure is 27 mmHg. Normal right atrial pressure. There is no evidence of pulmonary hypertension. Great Vessels The pulmonary artery was not well visualized. There is no dilatation of the ascending aorta measuring 3.00 cm. Venous The inferior vena cava is normal in size and collapses greater than 50% with inspiration. Pericardium/Pleural There is no evidence of pericardial effusion. Prior Study Comparison No prior study available for comparison. Measurements 2D Linear Measurements IVSd: 1.01 0.6-0.9/0.6-1.0 cm LVIDd: 3.88 3.9-5.3/4.2-5.9 cm LVIDd Index: 2.02 2.4-3.2/2.2-3.1 cm/m2 LVIDs: 2.56 2.0-3.6 cm LVPWd: 1.02 0.7-1.1 cm Ao Root: 3.10 2.1-3.5 cm LA Diam: 2.80 2.7-3.8/3.0-4.0 cm LAIDs Index: 1.46 1.5-2.3 cm/m2 LV Mass: 153.93 67-162/88-224 g LV Mass Index: 80.17 43-95/49-115 g/m2 LVOT Diam: 2.00 3.0+(-)1.3 cm Mitral Valve MV Pk E: 1.04 MV PK A: 0.83 MV Decel Time: 234.00 E/A: 1.30 E'Lateral: 11.40 E'Medial: 9.46 E/E' Med: 11.00 E/E' Lat: 9.10 PHT: 69.00 MVA PHT: 3.19 Decel Love: 4.42 Aortic Valve AoV Pk Cecil: 1.59 AoV Mn Cecil: 0.97 AoV VTI: 0.26 AoV Pk Grad: 10.00 Aov Mn Grad: 5.00 TWYLA Cont.VTI: 2.64 LVOT LVOT Pk Cecil: 1.12 LVOT Mn Cecil: 0.74 LVOT VTI: 0.21 LVOT Pk Grad: 5.00 LVOT Mn Grad: 3.00 LVOT Diam: 2.00 LVOT Area: 3.14 Diastolic Function MV Pk E: 1.04 MV Pk A: 0.83 E/A: 1.30 E'Medial: 9.46 E/E' Med: 11.00 E' Laterial: 11.40 E/E' Lat: 9.10 Right Ventricle TAPSE (mm): 19.00 TVS' Cecil: 13.00 Tricuspid Valve TR Pk Cecil: 2.47 TR Pk Grad: 24.00 RA Press: 3.00 RVSP: 27.00 Great Vessels Aorta Ao Root-2D: 3.10 2.0-3.7 cm Ao Asc: 3.00 2.1-3.4 cm Pulmonary Valve PV Pk Cecil: 1.00 Peak PV Grad: 4.00 Updated in Other Vendor System with Status of Final Rigo Mendieta MD electronically signed on 02/08/2024 3:48:03 PM with status of Final
[2024-02-08 08:00] VITALS: BP 117/70; PULSE 74; RESP 20; TEMP 36.1; O2SAT 100
--- NOTE | 2024-02-08 08:00 | ECG_ITS ---
Test Reason : hypokalemia Blood Pressure : / mmHG Vent. Rate : 083 BPM Atrial Rate : 083 BPM P-R Int : 110 ms QRS Dur : 110 ms QT Int : 434 ms P-R-T Axes : 053 030 029 degrees QTc Int : 509 ms Sinus rhythm with short LA Prolonged QT Abnormal ECG When compared with ECG of 07-FEB-2024 11:28, ST no longer depressed in Anterior leads T wave inversion no longer evident in Lateral leads QT has shortened Referred By: Jacquelyn Vick Electronically Signed By:TERRELL SHANKS MD
[2024-02-08 08:22] LABS: Hematocrit 32.7 % (37.0-47.0); Hemoglobin 11.4 g/dl (12.0-16.0); Mean Corpuscular HGB Conc 34.9 g/dl (31.0-35.0); Mean Corpuscular Hemoglobin 31.6 pg (27.0-33.0); Mean Corpuscular Volume 90.6 fL (80.0-98.0); Mean Platelet Volume 10.2 fL (9.4-12.3); Platelet Count 198 X10*3/uL (160-400); Red Blood Count 3.61 X10*6/uL (4.20-5.50); Red Cell Distribution Width 15.1 % (11.0-16.0); White Blood Count 10.1 X10*3/uL (4.8-10.8)
[2024-02-08 08:24] LABS: VBG Base Excess -12.3 mmol/L; VBG HCO3 13 mmol/L (22-26); VBG pCO2 28 mmHg; VBG pH 7.26 (7.32-7.43); VBG pO2 51 mmHg
[2024-02-08 08:26] LABS: Venous Blood Gas Refer to POC result
[2024-02-08 08:40] LABS: Phosphorus 2.9 mg/dL (2.7-4.5)
[2024-02-08 08:57] LABS: Free T4 (Free Thyroxine) 0.88 ng/dL (0.71-1.85)
[2024-02-08 08:58] LABS: Anion Gap 12 (12-20); Blood Urea Nitrogen 16 mg/dL (9-16); Calcium 7.1 mg/dL (8.4-10.2); Carbon Dioxide 13 mmol/L (22-29); Chloride 118 mmol/L (96-108); Creatinine Clr Calc Pharmacy 31.3; Estimated Glomerular Filt Rate 23; Glucose Random 106 mg/dL (60-115); Magnesium 2.5 mg/dL (1.6-2.6); Potassium 2.3 mmol/L (3.3-5.1); Sodium 141 mmol/L (135-145)
--- NOTE | 2024-02-08 09:08 | MHC.CM.PN ---
Addendum entered by Samira Mullins 02/08/24 12:51: HCP completed and added to chart Original Note: IMM 02/08/24, Pt lives with her son and her parents, she does not have use home health services or medical equipment. HCP will be completed here and added to chart. PCP is confirmed: Dr. Pena, family will transport home at DC, CM to follow and assist with DC planning.
[2024-02-08] MEDS: Calcium Gluconate/NaCl,Iso-Osm 1 GM/50 ML PLAST..BAG IV (09:26)
[2024-02-08 11:06] LABS: Anion Gap 14 (12-20); Blood Urea Nitrogen 16 mg/dL (9-16); Calcium 7.3 mg/dL (8.4-10.2); Carbon Dioxide 12 mmol/L (22-29); Chloride 119 mmol/L (96-108); Creatinine Clr Calc Pharmacy 32.5; Estimated Glomerular Filt Rate 24; Glucose Random 72 mg/dL (60-115); Magnesium 2.5 mg/dL (1.6-2.6); Potassium 2.7 mmol/L (3.3-5.1); Sodium 142 mmol/L (135-145)
--- NOTE | 2024-02-08 11:43 | PM.CNCAR ---
History of Present Illness History of Present Illness Date of Service: 02/08/24 Requesting physician: Candelario Flores Consult reason: troponin elevation and other (Abnormal EKG) Chief complaint: intractable N/V, electrolyte abnormalities Narrative: I was consulted to see Maye in cardiology consultation today because of abnormal EKG and minimally elevated troponin which are flat. Patient came to the hospital with intractable nausea and vomiting x3 weeks. She said this symptoms started after her kids had viral gastroenteritis and then subsequently she has not been able to control it. She says she has not able to tolerate any fluids or any other medication that she came to the hospital she does complain of some shortness of breath and cramping in both thighs. She came with marked hypokalemia with a potassium of 1.6 as well as hypo magnesemia. Her QTC was quite prolonged and she had ST depression diffusely. She was then aggressively repleted with potassium although potassium only, up to 2.3 this morning. She has never had any chest pain. Troponins were minimally elevated. Her QTC has shrunken bit. No overnight arrhythmias. She does not complain of significant shortness of breath this point in time. Review of Systems Constitutional: Constitutional: Reports weakness Eyes: Eyes: Reports no additional eye complaints Cardiovascular: Cardiovascular: Denies chest pain, Denies syncope, Denies leg edema, Denies lightheadedness, Denies Loss of Consciousness, Denies palpitations and Reports dyspnea Respiratory: Respiratory: Reports dyspnea Gastrointestinal: Gastrointestinal: Reports no additional gastrointestinal complaints Musculoskeletal: Musculoskeletal: Reports no additional musculoskeletal complaints Neurologic: Reports system reviewed and no additional complaints, except as documented, Denies syncope and Reports weakness Psychiatric: Psychiatric: Reports no additional psychiatric complaints Endocrine: Endocrine: Denies palpitations [facility] Past Medical History Medical History Gastritis Mosher syndrome Adenocarcinoma of colon Family History Family History Maternal Grandmother Uterine cancer Maternal Aunt Ovarian cancer Mother Cervical cancer Colon cancer Maternal Uncle Colon cancer Rectal cancer Brother Colon cancer Surgical History Surgical History Hx of hysterectomy History of colon surgery Hx of bilateral breast reduction surgery Social History Social History Household Members: Family and Children Household Members Other:: 6 Housing: House Do you presently have visiting nurse or other home services: No Alcohol intake: current Alcohol intake frequency: holidays/special occasions only Patient Tobacco Use Status: Never used Tobacco Smoked in Last 30 Days: No Use of substances other than those prescribed or required for medical reasons: No Currently Displaying Signs/Symptoms of Drug Intoxication Withdrawal: No Any prior treatment program specific to substance use: No Have you been hit, kicked, punched, or otherwise hurt by someone within the past year? If so, by whom?: No Do you feel safe in your current relationship?: No Current Relationship Is there a partner from a previous relationship who is making you feel unsafe now?: No Are you made to feel afraid or neglected: No Advance Directives: Yes Advance Directives on File: Yes Advance Directives Date on File: 11/27/21 Do you have thoughts of harming others: None Do you have a plan to hurt others: No Plan Recently lost weight without trying: Yes How much weight loss: 14-23 pounds Eating poorly because of decreased appetite: Yes Nutrition screen score: 5 Nutrition Risks: No Nutritional Risk Patient : No service: No Current occupational status: disabled Meds Allergies Allergy/AdvReac Type Severity Reaction Status Date / Time codeine [Tylenol-Codeine] Allergy Unknown rash Verified 02/07/24 07:15 acetaminophen AdvReac Hives Verified 02/07/24 07:15 [From Tylenol PM] cat dander [cats] AdvReac Hives Verified 02/07/24 07:15 diphenhydramine AdvReac Hives Verified 02/07/24 07:15 [From Tylenol PM] Active Medications: Current Medications Calcium Carbonate (Calcium Carbonate 500 Mg Tablet) 500 mg PO DAILY [facility] Last Admin: 02/08/24 09:26 Dose: 500 mg Heparin Sodium (Porcine) (Heparin Sodium,Porcine 5,000 Unit/Ml Vial) 5,000 unit SUBCUT Q8H [facility] Last Admin: 02/08/24 05:14 Dose: 5,000 unit Potassium Chloride/Dextrose/Sod Cl (Kcl 40 Meq In 5% Dex/0.9% Sod) 40 meq in 1,000 mls @ 125 mls/hr IVCONT .Q8H [facility] Last Admin: 02/08/24 05:14 Dose: 100 mls/hr Metoclopramide HCl (Metoclopramide Hcl 10 Mg/2 Ml Vial) 5 mg IVPUSH Q6H PRN PRN Reason: Nausea and Vomiting Last Admin: 02/08/24 08:17 Dose: 5 mg Nystatin (Nystatin Powder 15 Gm Bottle) 1 appl TOPICAL TID [facility]; Protocol Last Admin: 02/08/24 07:34 Dose: Not Given Potassium Chloride (Potassium Chloride Packet 20 Meq Packet) 40 meq PO TID [facility] Last Admin: 02/08/24 08:07 Dose: 40 meq Sodium Bicarbonate (Sodium Bicarbonate 650 Mg Tablet) 1,300 mg PO BID [facility] Last Admin: 02/07/24 22:22 Dose: 1,300 mg Sodium Chloride (0.9 % Sodium Chloride Flush 3 Ml Syringe) 3 ml IVFLUSH QSHIFT [facility] Last Admin: 02/08/24 07:33 Dose: Not Given Home Medications ?Medication ?Instructions ?Recorded ?Confirmed ?Last Taken ?Type acetaminophen 500 mg tablet 1,000 mg PO DAILY PRN Pain 02/07/24 02/07/24 Unknown History Physical Exam Vital Signs: Vital Signs: Last Vital Signs Temp 96.9 F 02/08/24 08:00 Pulse 74 02/08/24 08:00 Resp 20 02/08/24 08:00 BP 117/70 02/08/24 08:00 Pulse Ox 100 02/08/24 08:00 O2 Del Method Room Air 02/08/24 08:00 BMI result Body Mass Index 36.8 Const: General: cooperative, comfortable, no acute distress, alert and awake Nutritional Appearance: obese Orientation/consciousness: patient oriented x3 Limitations: no limitations HEENT: Head: Yes normocephalic and Yes atraumatic Neck: Neck: Yes trachea midline, Yes supple and Yes no JVD Resp: Effort & Inspection: decreased respiratory effort Auscultation: diminished lung sounds Cardio: Jugular venous distension: no JVD Palpation: normal PMI Rate: regular rate Rhythm: regular rhythm Heart sounds: S1 normal heart sound present, S2 normal heart sound present, no click, no gallops, no murmurs and no rubs GI: Auscultation: normal bowel sounds Skin: General skin exam: no rashes or lesions noted Neuro: General: patient oriented x3 and no focal motor deficits Extrem: General: Yes no clubbing, cyanosis or edema Objective Labs and Meds 02/08/24 08:12 02/08/24 10:15 Lab results: Laboratory Results - last 24 hr 02/07/24 02/07/24 02/07/24 10:51 15:47 15:51 WBC RBC Hgb Hct MCV MCH MCHC RDW Plt Count MPV Absolute Nucleated RBC Nucleated RBC % (auto) VBG pH 7.26 L VBG pCO2 28 VBG pO2 47 VBG HCO3 13 L VBG O2 Saturation 77.0 VBG Base Excess -12.2 Sodium Potassium Chloride Carbon Dioxide Anion Gap BUN Creatinine Estim Creat Clear Calc Estimated GFR Random Glucose Calcium Phosphorus 2.0 L Magnesium Troponin I High Sens 37.8 H TSH Free T4 02/07/24 02/08/24 02/08/24 23:31 04:15 08:12 WBC 10.1 RBC 3.61 L D Hgb 11.4 L D Hct 32.7 L D MCV 90.6 MCH 31.6 MCHC 34.9 RDW 15.1 Plt Count 198 D MPV 10.2 Absolute Nucleated RBC 0.000 Nucleated RBC % (auto) 0.0 VBG pH VBG pCO2 VBG pO2 VBG HCO3 VBG O2 Saturation VBG Base Excess Sodium 142 141 141 Potassium 1.8 L* 2.2 L* D 2.3 L* Chloride 114 H 115 H 118 H Carbon Dioxide 15 L 15 L 13 L Anion Gap 15 13 12 BUN 19 H 16 16 Creatinine 2.38 H 2.12 H 2.23 H Estim Creat Clear Calc 29.3 32.9 31.3 Estimated GFR 21 25 23 Random Glucose 107 99 106 Calcium 7.3 L D 7.3 L 7.1 L Phosphorus 2.9 Magnesium 2.0 2.8 H 2.5 Troponin I High Sens 36.6 H TSH 5.36 H Free T4 0.88 02/08/24 02/08/24 08:16 10:15 WBC RBC Hgb Hct MCV MCH MCHC RDW Plt Count MPV Absolute Nucleated RBC Nucleated RBC % (auto) VBG pH 7.26 L VBG pCO2 28 VBG pO2 51 VBG HCO3 13 L VBG O2 Saturation 80.0 VBG Base Excess -12.3 Sodium 142 Potassium 2.7 L* Chloride 119 H Carbon Dioxide 12 L Anion Gap 14 BUN 16 Creatinine 2.15 H Estim Creat Clear Calc 32.5 Estimated GFR 24 Random Glucose 72 Calcium 7.3 L Phosphorus Magnesium 2.5 Troponin I High Sens TSH Free T4 Imaging Radiologist's impression: Impressions Chest X-Ray 02/07/24 11:15 IMPRESSION: 1. No acute abnormality. 2. Density projected over the medial left scapula is likely external to the patient. Assessment and Plan (1) Elevated troponin: Status: Acute Minimally but flat troponin in this middle-aged female with abnormal EKG most likely related to marked and severe hypokalemia. Potassium needs to be aggressively repleted. QTC interval has improved with potassium replacement. However potassium needs to be above 4. Repeat EKG once potassium about 3.5. Outpatient myocardial perfusion imaging will be performed to evaluate for coronary artery disease although likelihood is low. Continue to follow magnesium levels and replace magnesium as need be. Consider echocardiogram to assess for cardiomyopathy. Will sign of the case and follow as outpatient. Thank you for allowing me to partake in her care Procedures Date of Service Date of Service: 02/08/24
[2024-02-08 11:49] LABS: Adenovirus PCR Not Detected (Not Detect.); Bordetella parapertussis PCR Not Detected (Not Detect.); Bordetella pertussis PCR Not Detected (Not Detect.); Chlamydia pneumoniae PCR Not Detected (Not Detect.); Coronavirus 229E PCR Not Detected (Not Detect.); Coronavirus HKU1 PCR Not Detected (Not Detect.); Coronavirus NL63 PCR Not Detected (Not Detect.); Coronavirus OC43 PCR Not Detected (Not Detect.); Human metapneumovirus PCR Not Detected (Not Detect.); Influenza A PCR Not Detected (Not Detect.); Influenza B PCR Not Detected (Not Detect.); Mycoplasma pneumoniae PCR Not Detected (Not Detect.); Parainfluenza 1 PCR Not Detected (Not Detect.); Parainfluenza 2 PCR Not Detected (Not Detect.); Parainfluenza 3 PCR Not Detected (Not Detect.); Parainfluenza 4 PCR Not Detected (Not Detect.); RSV PCR Not Detected (Not Detect.); Rhino/Enterovirus PCR Not Detected (Not Detect.); SARS-CoV-2 PCR Not Detected (Not Detect.)
[2024-02-08 12:00] VITALS: BP 113/69; PULSE 77; RESP 20; TEMP 36.2; O2SAT 100
--- NOTE | 2024-02-08 12:21 | PM.CNNEP ---
History of Present Illness Reason for Consult Consult date: 02/08/24 Chief Complaint Chief complaint: intractable N/V, electrolyte abnormalities History of Present Illness Narrative: 53-year-old female with PMH of colorectal cancer s/p resection and chemotherapy, off immunotherapy for 3 years who presents to the ER for evaluation of intractable nausea vomiting x3 weeks. Symptoms initially began when her children developed nausea, vomiting, and diarrhea on January 15. The patient experienced similar symptoms shortly thereafter. Children soon got better, but patient continued to experience intractable nausea and vomiting. Has chronic diarrhea/loose stools s/p colorectal cancer which she states is around baseline. Patient also has a long history of chronic nausea vomiting for which she is prescribed Zofran which normally helps. This time, however, patient was unable to tolerate Zofran. Pt reports she has been unable to tolerate much of any solids or fluids during this time. Last abdominal CT on 01/18 that was apparently negative for acute process. No fever, chills. Denies abdominal pain. No chest pain/pressure or palpitations. Denies recent medication changes, or antibiotic use. In the ED pt was afebrile but tachycardic up to 103, vitals otherwise WNL. Labs were significant for leukocytosis 14.5, potassium 1.6, chloride 113, bicarb 16, BUN 23, creatinine 2.84, magnesium 1.4, bilirubin 2.5, AST 39, and ALT 48. CXR showed no acute abnormality. EKG demonstrated normal sinus rhythm with nonspecific intraventricular conduction delay and ST depressions in anterior lateral leads, T-wave inversions in inferolateral leads, and prolonged QTc of 603. Pt was admitted to the hospital for treatment further evaluation hypokalemia and hypomagnesemia smear secondary to intractable nausea and vomiting. Nephrology was consulted to assist in her clinical care during her current hospital stay Review of Systems Review of Systems Yes all other systems are reviewed and are negative PMFSH Past Medical History Medical History Gastritis Mosher syndrome Adenocarcinoma of colon Family History Family History Maternal Grandmother Uterine cancer Maternal Aunt Ovarian cancer Mother Cervical cancer Colon cancer Maternal Uncle Colon cancer Rectal cancer Brother Colon cancer Surgical History Surgical History Hx of hysterectomy History of colon surgery Hx of bilateral breast reduction surgery Social History Social History Household Members: Family and Children Household Members Other:: 6 Housing: House Do you presently have visiting nurse or other home services: No Alcohol intake: current Alcohol intake frequency: holidays/special occasions only Patient Tobacco Use Status: Never used Tobacco Smoked in Last 30 Days: No Use of substances other than those prescribed or required for medical reasons: No Currently Displaying Signs/Symptoms of Drug Intoxication Withdrawal: No Any prior treatment program specific to substance use: No Have you been hit, kicked, punched, or otherwise hurt by someone within the past year? If so, by whom?: No Do you feel safe in your current relationship?: No Current Relationship Is there a partner from a previous relationship who is making you feel unsafe now?: No Are you made to feel afraid or neglected: No Advance Directives: Yes Advance Directives on File: Yes Advance Directives Date on File: 11/27/21 Do you have thoughts of harming others: None Do you have a plan to hurt others: No Plan Recently lost weight without trying: Yes How much weight loss: 14-23 pounds Eating poorly because of decreased appetite: Yes Nutrition screen score: 5 Nutrition Risks: No Nutritional Risk Patient : No service: No Current occupational status: disabled Meds Allergies Allergy/AdvReac Type Severity Reaction Status Date / Time codeine [Tylenol-Codeine] Allergy Unknown rash Verified 02/07/24 07:15 acetaminophen AdvReac Hives Verified 02/07/24 07:15 [From Tylenol PM] cat dander [cats] AdvReac Hives Verified 02/07/24 07:15 diphenhydramine AdvReac Hives Verified 02/07/24 07:15 [From Tylenol PM] Active Medications: Current Medications Calcium Carbonate (Calcium Carbonate 500 Mg Tablet) 500 mg PO DAILY [facility] Last Admin: 02/08/24 09:26 Dose: 500 mg Heparin Sodium (Porcine) (Heparin Sodium,Porcine 5,000 Unit/Ml Vial) 5,000 unit SUBCUT Q8H [facility] Last Admin: 02/08/24 05:14 Dose: 5,000 unit Potassium Chloride/Dextrose/Sod Cl (Kcl 40 Meq In 5% Dex/0.9% Sod) 40 meq in 1,000 mls @ 125 mls/hr IVCONT .Q8H [facility] Last Admin: 02/08/24 05:14 Dose: 100 mls/hr Metoclopramide HCl (Metoclopramide Hcl 10 Mg/2 Ml Vial) 5 mg IVPUSH Q6H PRN PRN Reason: Nausea and Vomiting Last Admin: 02/08/24 08:17 Dose: 5 mg Nystatin (Nystatin Powder 15 Gm Bottle) 1 appl TOPICAL TID [facility]; Protocol Last Admin: 02/08/24 07:34 Dose: Not Given Potassium Chloride (Potassium Chloride Packet 20 Meq Packet) 40 meq PO TID [facility] Last Admin: 02/08/24 08:07 Dose: 40 meq Sodium Bicarbonate (Sodium Bicarbonate 650 Mg Tablet) 1,300 mg PO BID [facility] Last Admin: 02/07/24 22:22 Dose: 1,300 mg Sodium Chloride (0.9 % Sodium Chloride Flush 3 Ml Syringe) 3 ml IVFLUSH QSHIFT [facility] Last Admin: 02/08/24 07:33 Dose: Not Given Home Medications ?Medication ?Instructions ?Recorded ?Confirmed ?Last Taken ?Type acetaminophen 500 mg tablet 1,000 mg PO DAILY PRN Pain 02/07/24 02/07/24 Unknown History Physical Exam Vital Signs: Last Vital Signs Temp 97.2 F 02/08/24 12:00 Pulse 77 02/08/24 12:00 Resp 20 02/08/24 12:00 BP 113/69 02/08/24 12:00 Pulse Ox 100 02/08/24 12:00 O2 Del Method Room Air 02/08/24 12:00 BMI result Body Mass Index 36.8 Const General: comfortable and no acute distress Orientation/consciousness: patient oriented x3 HEENT Head: Yes normocephalic Mouth: Normal oral and palatal mucosa present Eyes EOM: EOMs intact bilaterally Neck Neck: Yes supple Resp Auscultation: clear to auscultation bilaterally Cardio Jugular venous distension: no JVD Rate: regular rate GI Palpation (GI): Soft to palpation Auscultation: normal bowel sounds General: Yes no CVA tenderness Back/Spine/Pelvis Back: no CVA tenderness Skin General skin exam: no rashes or lesions noted Neuro General: patient oriented x3 and moves all extremities Results Lab Results 02/08/24 08:12 02/08/24 10:15 Lab results: Chemistry 02/07/24 02/07/24 02/08/24 10:51 23:31 04:15 Sodium 141 142 141 Potassium 1.6 L* 1.8 L* 2.2 L* D Carbon Dioxide 16 L 15 L 15 L BUN 23 H 19 H 16 Creatinine 2.84 H 2.38 H 2.12 H Calcium 8.1 L 7.3 L D 7.3 L Phosphorus 2.0 L 02/08/24 02/08/24 08:12 10:15 Sodium 141 142 Potassium 2.3 L* 2.7 L* Carbon Dioxide 13 L 12 L BUN 16 16 Creatinine 2.23 H 2.15 H Calcium 7.1 L 7.3 L Phosphorus 2.9 Hematology 02/07/24 02/08/24 08:30 08:12 WBC 14.5 H 10.1 Hgb 15.6 11.4 L D Plt Count 323 198 D Urinalysis 02/07/24 10:26 Urine Color Yellow Urine Appearance Clear Urine pH 6.5 Ur Specific [place] 1.010 Urine Protein 100 (2+) H Urine Glucose (UA) Negative Urine Ketones Negative Urine Blood Large (3+) H Urine Nitrite Negative Ur Leukocyte Esterase Trace H Urine RBC 11-20 H Urine WBC 0-5 Ur Squamous Epith Cells 3-5 Hyaline Casts 0-2 Assessment and Plan (1) Hypomagnesemia: Status: Acute (2) Acute hypokalemia: Status: Acute (3) CKD stage 3a, GFR 45-59 ml/min: Status: Acute (4) Acute kidney injury superimposed on CKD: Status: Acute (5) Hypocalcemia: Status: Acute Plan Maye has STEPHEN due to compromised renal perfusion with resultant tubular injury. Her urine output is good. Recently she had abdominal imaging which did not show any hydronephrosis. She is hypokalemic and hypomagnesemic most likely due to her vomiting and diarrhea. She most likely has underlying tubular wasting as well. She is getting aggressive potassium, magnesium, bicarbonate and calcium replacements. There is no reason to suspect any new glomerular or interstitial pathology causing STEPHEN. There is no indication for any renal replacement therapy. Hopefully just with continue supportive care, all her current electrolyte abnormalities will resolve and her renal function will settle to baseline. She will need outpatient follow-up with a [facility] in [place] once he gets discharged for continued care. Further management is pending evolving data Procedures Date of Service Date of Service: 02/08/24
--- NOTE | 2024-02-08 13:11 | HO.WOUND ---
Wound Consult: Initial 53yr old Female admitted to [facility] on 02/06 - See progress notes and H&P for detailed history.? Wound consult placed for Abdominal ski folds.? Patient agreeable to assessment and photo documentation.? Large loose pannus noted - patient reports she often has fungal dermatitis and uses Nystatin powder to clear and or zinc barrier cream. She reports she has tried Interdry in the past and liked it but had difficulty obtaining out patient. Abdominal Skin Fold Etiology: ??MASD (Moisture Associated Skin Damage) and Fungal Dermatitis Wound Bed: red pink mirrored erythema small area at base of right fold with partial thickness tissue loss - no significant satellite lesions noted but significant yeast odor noted Drainage / Odor: Yeast odor noted Edges: ? mirrored Keily wound: ?Intact No Induration, Fluctuance or Warmth noted Pain: denies Goals of Treatment: ? Nystatin powder provider then switch to Interdry . Recommendations: 1. Turn and Reposition every 2 hours and as needed for patient comfort.? Use pillows or wedges to support off loading positions. 2. Off Load all bony prominences with use of pillows and heel boots if needed.? Apply Preventative foams where needed. ? 3. Monitor for incontinence and moisture control, use barrier creams when needed for prevention and treatment. 4. Provide adequate and supplemental nutrition.? 5. Order or Continue low air loss mattress. 6. When applicable maintain blood glucose levels per Providers order. 7. Abdominal Skin Fold: Cleanse with PH balance wipes, pat dry with soft cloth.? Apply antifungal power to assist with moisture management.? Be sure to dust of excess powder to prevent caking on skin and in folds. Apply per provider orders - twice daily. After Nystatin clears fungal dermatitis consider Interdry. Tuck Interdry AG Sheet into skin fold to wick and translocate moisture away from skin fold.? Be sure to leave at least 2 inch of fabric exposed outside of skin fold.? Change when soiled. Re-consult wound care Nurse for wound deterioration or wound changes.
--- NOTE | 2024-02-08 13:18 | P.PNIM_ITS ---
Subjective Subjective Date of Service: 02/08/24 Interval History: hypokalemia ,hypomagnesmia nausea /vomiting Review of Systems Nausea vomiting Denies any abdominal pain or cough or phlegm. Physical Exam 2 Vital Signs: Vital Signs: Last Vital Signs Temp 97.2 F 02/08/24 12:00 Pulse 77 02/08/24 12:00 Resp 20 02/08/24 12:00 BP 113/69 02/08/24 12:00 Pulse Ox 100 02/08/24 12:00 O2 Del Method Room Air 02/08/24 12:00 BMI result Body Mass Index 36.8 Appearance: Alert.? Oriented X3.? cvs: rrr, [id number] , no murmur res: clear to auscultation ,no rhonchii or wheezing abd: no rebound or guarding ,nt, bs present. ext pulses present , no cyanosis neuro: axo3 , nonfocal. Objective Data Active Medications Calcium Carbonate (Calcium Carbonate 500 Mg Tablet) 500 mg PO DAILY [facility] Last Admin: 02/08/24 09:26 Dose: 500 mg Documented By: SETH Heparin Sodium (Porcine) (Heparin Sodium,Porcine 5,000 Unit/Ml Vial) 5,000 unit SUBCUT Q8H [facility] Last Admin: 02/08/24 05:14 Dose: 5,000 unit Documented By: SUZAN Potassium Chloride/Dextrose/Sod Cl (Kcl 40 Meq In 5% Dex/0.9% Sod) 40 meq in 1,000 mls @ 125 mls/hr IVCONT .Q8H [facility] Last Admin: 02/08/24 05:14 Dose: 100 mls/hr Documented By: SUZAN Metoclopramide HCl (Metoclopramide Hcl 10 Mg/2 Ml Vial) 5 mg IVPUSH Q6H PRN PRN Reason: Nausea and Vomiting Last Admin: 02/08/24 08:17 Dose: 5 mg Documented By: SETH Nystatin (Nystatin Powder 15 Gm Bottle) 1 appl TOPICAL TID [facility]; Protocol Last Admin: 02/08/24 07:34 Dose: Not Given Documented By: SETH Non-Admin Reason: Med Not Available Comments: Called pharmacy Potassium Chloride (Potassium Chloride Packet 20 Meq Packet) 40 meq PO TID [facility] Last Admin: 02/08/24 08:07 Dose: 40 meq Documented By: SETH Potassium Chloride (Potassium Chloride Packet 20 Meq Packet) 40 meq PO ONCE ONE Stop: 02/08/24 13:17 Sodium Bicarbonate (Sodium Bicarbonate 650 Mg Tablet) 1,300 mg PO BID [facility] Last Admin: 02/07/24 22:22 Dose: 1,300 mg Documented By: SUZAN Sodium Bicarbonate (Sodium Bicarbonate 650 Mg Tablet) 1,300 mg PO ONCE ONE Stop: 02/08/24 13:18 Sodium Chloride (0.9 % Sodium Chloride Flush 3 Ml Syringe) 3 ml IVFLUSH QSHIFT [facility] Last Admin: 02/08/24 07:33 Dose: Not Given Documented By: SETH Non-Admin Reason: IV Running Labs 02/08/24 08:12 02/08/24 10:15 Labs: Laboratory Results - last 24 hr 02/07/24 02/07/24 02/07/24 10:51 14:39 15:47 MCV MCH MCHC RDW Plt Count MPV Absolute Nucleated RBC Nucleated RBC % (auto) VBG pH VBG pCO2 VBG pO2 VBG HCO3 VBG O2 Saturation VBG Base Excess Anion Gap Estim Creat Clear Calc Estimated GFR Random Glucose Calcium Phosphorus 2.0 L Magnesium Troponin I High Sens 37.8 H TSH Free T4 Respiratory Panel Erazo See Note Adenovirus (Rapid PCR) Not Detected B.pert (TEM-PCR) Not Detected B.parapertussis DNA PCR Not Detected C. pneumoniae DNA (PCR) Not Detected Coronavirus OC43 (PCR) Not Detected Coronavirus HKU1 (PCR) Not Detected Coronavirus 229E (PCR) Not Detected Coronavirus NL63 (PCR) Not Detected Human Metapneumovir PCR Not Detected Influenza A (RT-PCR) Not Detected Influenza B (RT-PCR) Not Detected M. pneumoniae (PCR) Not Detected Parainfluenza 1 (PCR) Not Detected Parainfluenza 2 (PCR) Not Detected Parainfluenza 3 (PCR) Not Detected Parainfluenza 4 (PCR) Not Detected RSV (PCR) Not Detected Entero/Rhino (PCR) Not Detected SARS-CoV-2 RNA (RT-PCR) Not Detected 02/07/24 02/07/24 02/08/24 15:51 23:31 04:15 MCV MCH MCHC RDW Plt Count MPV Absolute Nucleated RBC Nucleated RBC % (auto) VBG pH 7.26 L VBG pCO2 28 VBG pO2 47 VBG HCO3 13 L VBG O2 Saturation 77.0 VBG Base Excess -12.2 Anion Gap 15 13 Estim Creat Clear Calc 29.3 32.9 Estimated GFR 21 25 Random Glucose 107 99 Calcium 7.3 L D 7.3 L Phosphorus Magnesium 2.0 2.8 H Troponin I High Sens 36.6 H TSH 5.36 H Free T4 Respiratory Panel Erazo Adenovirus (Rapid PCR) B.pert (TEM-PCR) B.parapertussis DNA PCR C. pneumoniae DNA (PCR) Coronavirus OC43 (PCR) Coronavirus HKU1 (PCR) Coronavirus 229E (PCR) Coronavirus NL63 (PCR) Human Metapneumovir PCR Influenza A (RT-PCR) Influenza B (RT-PCR) M. pneumoniae (PCR) Parainfluenza 1 (PCR) Parainfluenza 2 (PCR) Parainfluenza 3 (PCR) Parainfluenza 4 (PCR) RSV (PCR) Entero/Rhino (PCR) SARS-CoV-2 RNA (RT-PCR) 02/08/24 02/08/24 02/08/24 08:12 08:16 10:15 MCV 90.6 MCH 31.6 MCHC 34.9 RDW 15.1 Plt Count 198 D MPV 10.2 Absolute Nucleated RBC 0.000 Nucleated RBC % (auto) 0.0 VBG pH 7.26 L VBG pCO2 28 VBG pO2 51 VBG HCO3 13 L VBG O2 Saturation 80.0 VBG Base Excess -12.3 Anion Gap 12 14 Estim Creat Clear Calc 31.3 32.5 Estimated GFR 23 24 Random Glucose 106 72 Calcium 7.1 L 7.3 L Phosphorus 2.9 Magnesium 2.5 2.5 Troponin I High Sens TSH Free T4 0.88 Respiratory Panel Erazo Adenovirus (Rapid PCR) B.pert (TEM-PCR) B.parapertussis DNA PCR C. pneumoniae DNA (PCR) Coronavirus OC43 (PCR) Coronavirus HKU1 (PCR) Coronavirus 229E (PCR) Coronavirus NL63 (PCR) Human Metapneumovir PCR Influenza A (RT-PCR) Influenza B (RT-PCR) M. pneumoniae (PCR) Parainfluenza 1 (PCR) Parainfluenza 2 (PCR) Parainfluenza 3 (PCR) Parainfluenza 4 (PCR) RSV (PCR) Entero/Rhino (PCR) SARS-CoV-2 RNA (RT-PCR) Assessment and Plan (1) Hypocalcemia: Status: Acute (2) CKD stage 3a, GFR 45-59 ml/min: Status: Acute Plan 53-year-old female with a PMH significant for colorectal cancer s/p resection and chemotherapy, off immunotherapy for 3 years who presents to the ED for evaluation of intractable nausea vomiting x3 weeks. Pt will be admitted to the hospital for treatment further evaluation hypokalemia and hypomagnesemia smear secondary to intractable nausea and vomiting. Intractable nausea and vomiting x3 weeks Unclear etiology: Pt with sick contacts 3 weeks ago and hx of N/V possibly recent viral syndrome. Continue antiemetics, IVF,zofran Full liquid diet for now, advance as tolerated Hypokalemia Potassium 1.6 at time presentation Secondary to intractable nausea and vomiting, chronic diarrhea, and reduced p.o. intake EKG QTC improving Given multiple doses of potassium p.o. and IV: Will monitor BMP closely. Hypophosphatemia Repleted . Hypomagnesemia Repleted and resolved STEPHEN on CKD NAGMA: low biicarb,ph low Creatinine 2.84 at time of presentation, up from baseline of 1.5 Secondary to intractable nausea and vomiting, chronic diarrhea, and reduced p.o. intake Patient is in IV fluid, creatinine improving d/w nephro:added po bicardb, continue ivf kcl 40 meq d5/o.45ns @125 ml/hr. hypocalcemia: dut toreduced p.o. intake added iv and po replecements. Leukocytosis WBCs 14.5 at time of presentation Likely reactive Pt without obvious source of infection: CXR negative, UA negative, no fever respiratory panel-negative Leukocytosis resolved elecvated tropnin, ekg changes seems to be improving Patient is asymptomatic Echo Cardiology evaluation. Transaminitis: improving Patient with chronically elevated LFTs Follow-up outpatient Full Code DVT Prophylaxis: Heparin ongoing hospitalization for treatment of?significant electrolyte abnormalities in the setting of intractable nausea and vomiting, chronic diarrhea, and reduced p.o. intake. Given severity of patient's electrolyte abnormalities, patient required hospitalization for close monitoring of labs, cardiac monitoring, and electrolyte replenishment as necessary. Quality Stroke Does the patient have a stroke diagnosis?: No VTE Prior VTE?: No VTE Risk Level:: Medical - moderate - high VTE Device Contraindication: Treatment Not Indicated VTE Drug Contraindication: N/A - Med Ordered
--- NOTE | 2024-02-08 13:25 | MHC.CLN ---
RE: CONSULT PT REPORTS WT LOSS ON NURSING ADMISSION ASSESSMENT WT FOLLOWS: 91.2KG (02/07/24) 86.3KG (02/07/24) 86.1KG (11/24/21) NO SIGNIFICANT WT LOSS NOTED IN REVIEW OF PREVIOUS WT HX PT REMAINS OBESE FOR HT CONTINUE CURRENT CARE PLAN
[2024-02-08] MEDS: Sodium Bicarbonate 650 MG TABLET 1300 MG PO ×2 (13:39→21:06)
[2024-02-08] MEDS: KCl 40 mEq in 5% Dex/0.45% Sod 40 MEQ/1,000 ML IV.SOLN 125 MEQ IVCONT ×2 (13:39→23:07)
[2024-02-08 15:23] VITALS: BP 91/54; PULSE 78; RESP 20; TEMP 35.8; O2SAT 100
[2024-02-08] MEDS: Nystatin Powder 15 GM BOTTLE 1 APPL TOPICAL ×2 (15:44→21:17)
[2024-02-08] MEDS: 0.9 % Sodium Chloride Flush 3 ML SYRINGE IVFLUSH ×2 (15:44→21:05)
[2024-02-08 16:01] LABS: Anion Gap 10 (12-20); Blood Urea Nitrogen 14 mg/dL (9-16); Calcium 7.7 mg/dL (8.4-10.2); Carbon Dioxide 14 mmol/L (22-29); Chloride 122 mmol/L (96-108); Creatinine Clr Calc Pharmacy 38.3; Estimated Glomerular Filt Rate 29; Glucose Random 110 mg/dL (60-115); Magnesium 2.2 mg/dL (1.6-2.6); Sodium 143 mmol/L (135-145)
[2024-02-08 20:00] VITALS: BP 90/50; PULSE 82; RESP 20; TEMP 36.2; O2SAT 100
[2024-02-08 21:35] LABS: Anion Gap 12 (12-20); Blood Urea Nitrogen 12 mg/dL (9-16); Calcium 7.3 mg/dL (8.4-10.2); Carbon Dioxide 12 mmol/L (22-29); Chloride 122 mmol/L (96-108); Creatinine Clr Calc Pharmacy 34.1; Estimated Glomerular Filt Rate 26; Glucose Random 110 mg/dL (60-115); Sodium 143 mmol/L (135-145)
[2024-02-09] VITALS (7 sets, daily range): BP systolic 85–105; BP diastolic 53–68; PULSE 72–86; RESP 20; TEMP 36.1–36.8; O2SAT 97–100
[2024-02-09] MEDS: Metoclopramide HCl 10 MG/2 ML VIAL 5 MG IVPUSH (02:57)
[2024-02-09] MEDS: Heparin Sodium,Porcine 5,000 UNIT/ML VIAL 5000 UNIT SUBCUT ×3 (05:16→21:38)
[2024-02-09] MEDS: KCl 40 mEq in 5% Dex/0.45% Sod 40 MEQ/1,000 ML IV.SOLN 125 MEQ IVCONT (06:41)
[2024-02-09 06:45] LABS: Anion Gap 11 (12-20); Blood Urea Nitrogen 13 mg/dL (9-16); Calcium 7.3 mg/dL (8.4-10.2); Carbon Dioxide 11 mmol/L (22-29); Chloride 121 mmol/L (96-108); Estimated Glomerular Filt Rate 28; Glucose Random 98 mg/dL (60-115); Potassium 2.9 mmol/L (3.3-5.1); Sodium 140 mmol/L (135-145)
[2024-02-09] MEDS: Potassium Chloride Packet 20 MEQ PACKET 40 MEQ PO ×4 (07:47→21:37)
[2024-02-09 08:33] LABS: Venous Blood Gas Refer to POC result
[2024-02-09 08:36] LABS: VBG HCO3 10 mmol/L (22-26); VBG pCO2 25 mmHg; VBG pH 7.23 (7.32-7.43); VBG pO2 52 mmHg
[2024-02-09] MEDS: 0.9 % Sodium Chloride Flush 3 ML SYRINGE IVFLUSH (09:45)
[2024-02-09] MEDS: Calcium Gluconate/NaCl,Iso-Osm 1 GM/50 ML PLAST..BAG IV (09:45)
[2024-02-09] MEDS: Potassium Chloride ER 20 MEQ TAB.ER.PRT PO (09:46)
[2024-02-09] MEDS: Sodium Bicarbonate 650 MG TABLET 1300 MG PO (09:47)
[2024-02-09] MEDS: Nystatin Powder 15 GM BOTTLE 1 APPL TOPICAL ×3 (09:47→21:42)
[2024-02-09] MEDS: Sodium Bicarbonate 8.4% 150 MEQ in Dextrose 5 % 850 ML 100 MEQ IV ×2 (12:38→22:25)
[2024-02-09 12:56] LABS: Anion Gap 10 (12-20); Blood Urea Nitrogen 11 mg/dL (9-16); Carbon Dioxide 12 mmol/L (22-29); Chloride 124 mmol/L (96-108); Creatinine Clr Calc Pharmacy 37.7; Estimated Glomerular Filt Rate 29; Glucose Random 86 mg/dL (60-115); Sodium 142 mmol/L (135-145)
[2024-02-09 13:17] LABS: Calcium 8.1 mg/dL (8.4-10.2); Potassium 3.4 mmol/L (3.3-5.1)
--- NOTE | 2024-02-09 15:55 | P.PNIM_ITS ---
Subjective Subjective Date of Service: 02/10/24 Interval History: hypokalemia ,stephen Review of Systems nausea/vomiting seems improved. Denies any abdominal pain or cough or phlegm morning bp checked mannually seem fine. Physical Exam 2 Vital Signs: Vital Signs: Last Vital Signs Temp 98.2 F 02/09/24 15:14 Pulse 84 02/09/24 15:14 Resp 20 02/09/24 15:14 BP 105/56 L 02/09/24 15:14 Pulse Ox 100 02/09/24 15:14 O2 Del Method Room Air 02/09/24 15:14 BMI result Body Mass Index 36.8 Appearance: Alert.? Oriented X3.? cvs: [id number], [id number] . res: clear to auscultation ,no rhonchii or wheezing abd: no rebound or guarding ,nt, bs present. ext pulses present , no cyanosis neuro: axo3 , nonfocal. Objective Data Active Medications Calcium Carbonate (Calcium Carbonate 500 Mg Tablet) 500 mg PO DAILY [facility] Last Admin: 02/09/24 09:47 Dose: 500 mg Documented By: PODMORP Heparin Sodium (Porcine) (Heparin Sodium,Porcine 5,000 Unit/Ml Vial) 5,000 unit SUBCUT Q8H [facility] Last Admin: 02/09/24 14:47 Dose: 5,000 unit Documented By: INDRAMORP Sodium Bicarbonate 150 meq/ (Dextrose) 1,000 mls @ 100 mls/hr IV .Q10H [facility] Last Admin: 02/09/24 12:38 Dose: 100 mls/hr Documented By: PODMORP Metoclopramide HCl (Metoclopramide Hcl 10 Mg/2 Ml Vial) 5 mg IVPUSH Q6H PRN PRN Reason: Nausea and Vomiting Last Admin: 02/09/24 02:57 Dose: 5 mg Documented By: JONATHAN Nystatin (Nystatin Powder 15 Gm Bottle) 1 appl TOPICAL TID [facility]; Protocol Last Admin: 02/09/24 14:47 Dose: 1 appl Documented By: INDRAMORP Potassium Chloride (Potassium Chloride Packet 20 Meq Packet) 40 meq PO BID [facility] Last Admin: 02/09/24 14:47 Dose: 40 meq Documented By: INDRAMORP Sodium Chloride (0.9 % Sodium Chloride Flush 3 Ml Syringe) 3 ml IVFLUSH QSHIFT [facility] Last Admin: 02/09/24 09:45 Dose: 3 ml Documented By: [email or web address].[email or web address] Labs 02/08/24 08:12 02/09/24 18:57 Labs: Laboratory Results - last 24 hr 02/08/24 02/08/24 02/09/24 15:31 21:08 05:56 VBG pH VBG pCO2 VBG pO2 VBG HCO3 VBG O2 Saturation VBG Base Excess Anion Gap 10 L 12 11 L Estim Creat Clear Calc 38.3 34.1 37.0 Estimated GFR 29 26 28 Random Glucose 110 110 98 Calcium 7.7 L 7.3 L 7.3 L Magnesium 2.2 02/09/24 02/09/24 08:30 12:35 VBG pH 7.23 L VBG pCO2 25 VBG pO2 52 VBG HCO3 10 L VBG O2 Saturation 83.0 VBG Base Excess -15.0 Anion Gap 10 L Estim Creat Clear Calc 37.7 Estimated GFR 29 Random Glucose 86 Calcium 8.1 L D Magnesium Assessment and Plan (1) Hypocalcemia: Status: Acute (2) CKD stage 3a, GFR 45-59 ml/min: Status: Acute (3) Acute hypokalemia: Status: Acute (4) Nausea & vomiting: Status: Acute Plan 53-year-old female with a PMH significant for colorectal cancer s/p resection and chemotherapy, off immunotherapy for 3 years who presents to the ED for evaluation of intractable nausea vomiting x3 weeks. Pt will be admitted to the hospital for treatment further evaluation hypokalemia and hypomagnesemia smear secondary to intractable nausea and vomiting. Intractable nausea and vomiting x3 weeks Unclear etiology: Pt with sick contacts 3 weeks ago and hx of N/V possibly recent viral syndrome. symptoms improved, tolerating diet. Continue antiemetics, IVF,zofran Full liquid diet for now, advance as tolerated Hypokalemia Secondary to intractable nausea and vomiting, chronic diarrhea, and reduced p.o. intake EKG QTC improving Given multiple doses of potassium p.o. and IV:postassium seems improving to 3.4 range monitor BMP this evening Hypophosphatemia Repleted . Hypocalcemia: IV and p.o. replacement. Hypomagnesemia Repleted and resolved STEPHEN on CKD NAGMA: low biicarb,ph low Creatinine 2.84 at time of presentation, up from baseline of 1.5 Secondary to intractable nausea and vomiting, chronic diarrhea, and reduced p.o. intake Patient is in IV fluid, creatinine improving d/w nephro:added po bicardb, continue ivf kcl 40 meq d5/o.45ns @125 ml/hr. hypocalcemia: dut toreduced p.o. intake added iv and po replecements. Leukocytosis WBCs 14.5 -improved. Likely reactive Pt without obvious source of infection: CXR negative, UA negative, no fever respiratory panel-negative elecvated tropnin, ekg changes seems to be improving Patient is asymptomatic Echo-Essentially normal study ef 60-65% Cardiology evaluationnoted- Transaminitis: improving Patient with chronically elevated LFTs Follow-up outpatient Full Code DVT Prophylaxis: Heparin ongoing hospitalization for treatment of?significant electrolyte abnormalities in the setting of intractable nausea and vomiting, chronic diarrhea, and reduced p.o. intake. Given severity of patient's electrolyte abnormalities, patient required hospitalization for close monitoring of labs, cardiac monitoring, and electrolyte replenishment as necessary. Quality Stroke Does the patient have a stroke diagnosis?: No VTE Prior VTE?: No VTE Risk Level:: Medical - moderate - high VTE Device Contraindication: Treatment Not Indicated VTE Drug Contraindication: N/A - Med Ordered
[2024-02-09 19:19] LABS: Anion Gap 11 (12-20); Blood Urea Nitrogen 10 mg/dL (9-16); Calcium 7.4 mg/dL (8.4-10.2); Carbon Dioxide 12 mmol/L (22-29); Chloride 123 mmol/L (96-108); Creatinine Clr Calc Pharmacy 40.4; Estimated Glomerular Filt Rate 31; Glucose Random 87 mg/dL (60-115); Potassium 3.2 mmol/L (3.3-5.1); Sodium 143 mmol/L (135-145)
[2024-02-10] VITALS (8 sets, daily range): BP systolic 80–108; BP diastolic 42–58; PULSE 80–87; RESP 18–20; TEMP 36.4–37.2; O2SAT 97–100
[2024-02-10] MEDS: Heparin Sodium,Porcine 5,000 UNIT/ML VIAL 5000 UNIT SUBCUT ×3 (06:19→20:26)
[2024-02-10] MEDS: Potassium Chloride Packet 20 MEQ PACKET 40 MEQ PO ×3 (11:08→16:09)
[2024-02-10] MEDS: 0.9 % Sodium Chloride Flush 3 ML SYRINGE IVFLUSH ×2 (11:08→17:07)
[2024-02-10] MEDS: Sodium Bicarbonate 8.4% 150 MEQ in Dextrose 5 % 850 ML 100 MEQ IV (11:20)
[2024-02-10 11:32] LABS: Anion Gap 10 (12-20); Blood Urea Nitrogen 10 mg/dL (9-16); Calcium 6.7 mg/dL (8.4-10.2); Carbon Dioxide 16 mmol/L (22-29); Chloride 119 mmol/L (96-108); Creatinine Clr Calc Pharmacy 47.2; Estimated Glomerular Filt Rate 37; Glucose Random 89 mg/dL (60-115); Potassium 2.4 mmol/L (3.3-5.1); Sodium 143 mmol/L (135-145)
[2024-02-10] MEDS: Nystatin Powder 15 GM BOTTLE 1 APPL TOPICAL ×3 (12:19→20:27)
--- NOTE | 2024-02-10 14:18 | P.PNIM_ITS ---
Subjective Subjective Date of Service: 02/10/24 Interval History: hypokalemia ,stephen Review of Systems seems no new c/o denies any abd pain or nausea ,vomitin or diarrhae no fevers Physical Exam 2 Vital Signs: Vital Signs: Last Vital Signs Temp 97.6 F 02/10/24 11:11 Pulse 87 02/10/24 11:11 Resp 18 02/10/24 11:11 BP 108/54 L 02/10/24 11:11 Pulse Ox 99 02/10/24 11:11 O2 Del Method Room Air 02/10/24 11:11 BMI result Body Mass Index 36.8 Appearance: Alert.? Oriented X3.? cvs: rrr, [id number] . res: clear to auscultation ,no rhonchii or wheezing abd: no rebound or guarding ,nt, bs present. ext pulses present , no cyanosis neuro: axo3 , nonfocal. Objective Data Active Medications Calcium Carbonate (Calcium Carbonate 500 Mg Tablet) 500 mg PO DAILY [facility] Last Admin: 02/10/24 11:08 Dose: 500 mg Documented By: DAHLIA Heparin Sodium (Porcine) (Heparin Sodium,Porcine 5,000 Unit/Ml Vial) 5,000 unit SUBCUT Q8H [facility] Last Admin: 02/10/24 06:19 Dose: 5,000 unit Documented By: EZIO Sodium Bicarbonate 150 meq/ (Dextrose) 1,000 mls @ 100 mls/hr IV .Q10H [facility] Last Admin: 02/10/24 11:20 Dose: 100 mls/hr Documented By: DAHLIA Metoclopramide HCl (Metoclopramide Hcl 10 Mg/2 Ml Vial) 5 mg IVPUSH Q6H PRN PRN Reason: Nausea and Vomiting Last Admin: 02/09/24 02:57 Dose: 5 mg Documented By: JONATHAN Nystatin (Nystatin Powder 15 Gm Bottle) 1 appl TOPICAL TID [facility]; Protocol Last Admin: 02/10/24 12:19 Dose: 1 appl Documented By: DAHLIA Potassium Chloride (Potassium Chloride Packet 20 Meq Packet) 40 meq PO BID [facility] Last Admin: 02/10/24 12:18 Dose: 40 meq Documented By: DAHLIA Sodium Chloride (0.9 % Sodium Chloride Flush 3 Ml Syringe) 3 ml IVFLUSH QSHIFT [facility] Last Admin: 02/10/24 11:08 Dose: 3 ml Documented By: DAHLIA Labs 02/08/24 08:12 02/10/24 08:59 Labs: Laboratory Results - last 24 hr 02/09/24 02/10/24 18:57 08:59 Hold Purple Top SEE NOTE Anion Gap 11 L 10 L Estim Creat Clear Calc 40.4 47.2 Estimated GFR 31 37 Random Glucose 87 89 Calcium 7.4 L D 6.7 L D Assessment and Plan (1) Hypocalcemia: Status: Acute (2) Acute hypokalemia: Status: Acute (3) Nausea & vomiting: Status: Acute Assessment and Plan: 53-year-old female with a PMH significant for colorectal cancer s/p resection and chemotherapy, off immunotherapy for 3 years who presents to the ED for evaluation of intractable nausea vomiting x3 weeks. Pt will be admitted to the hospital for treatment further evaluation hypokalemia and hypomagnesemia smear secondary to intractable nausea and vomiting. Intractable nausea and vomiting x3 weeks Unclear etiology: Pt with sick contacts 3 weeks ago and hx of N/V possibly recent viral syndrome. symptoms improved, tolerating diet. Continue antiemetics, zofran Full liquid diet for now, advance as tolerated Hypokalemia Secondary to intractable nausea and vomiting, chronic diarrhea, and reduced p.o. intake EKG QTC improving Given multiple doses of potassium p.o. :postassium seems improving to 2.4 range monitor BMP closely Hypophosphatemia Repleted . Hypocalcemia: iv and adjusted p.o. replacement. Hypomagnesemia Repleted and resolved STEPHEN on CKD NAGMA: low biicarb,ph low bicarb improving to 16 Creatinine at baseline Secondary to intractable nausea and vomiting, chronic diarrhea, and reduced p.o. intake Patient is in IV fluid, creatinine improving d/w nephro:on bicarb drip . hypocalcemia: dut toreduced p.o. intake added iv and po replecements. Leukocytosis WBCs 14.5 -improved. Likely reactive Pt without obvious source of infection: CXR negative, UA negative, no fever respiratory panel-negative elecvated tropnin, ekg changes seems to be improving Patient is asymptomatic Echo-Essentially normal study ef 60-65% Cardiology evaluationnoted. further cardiac workup outpatient ,please see cardiology note for details. Transaminitis: improving Patient with chronically elevated LFTs Follow-up outpatient Full Code DVT Prophylaxis: Heparin ongoing hospitalization for treatment of?significant electrolyte abnormalities in the setting of intractable nausea and vomiting, chronic diarrhea, and reduced p.o. intake. Given severity of patient's electrolyte abnormalities, patient required hospitalization for close monitoring of labs, cardiac monitoring, and electrolyte replenishment as necessary. Quality Stroke Does the patient have a stroke diagnosis?: No VTE Prior VTE?: No VTE Risk Level:: Medical - moderate - high VTE Device Contraindication: Treatment Not Indicated VTE Drug Contraindication: N/A - Med Ordered
[2024-02-10 15:38] LABS: Anion Gap 10 (12-20); Blood Urea Nitrogen 10 mg/dL (9-16); Carbon Dioxide 18 mmol/L (22-29); Chloride 117 mmol/L (96-108); Creatinine Clr Calc Pharmacy 45.4; Estimated Glomerular Filt Rate 36; Glucose Random 80 mg/dL (60-115); Potassium 2.7 mmol/L (3.3-5.1); Sodium 142 mmol/L (135-145)
[2024-02-10] MEDS: Calcium Gluconate/NaCl,Iso-Osm 1 GM/50 ML PLAST..BAG IV (15:53)
[2024-02-10] MEDS: Sodium Bicarbonate 650 MG TABLET 1300 MG PO ×2 (17:07→20:27)
[2024-02-10] MEDS: Potassium Chloride Packet 20 MEQ PACKET 60 MEQ PO (20:26)
[2024-02-10 20:45] LABS: Anion Gap 9 (12-20); Blood Urea Nitrogen 11 mg/dL (9-16); Calcium 7.3 mg/dL (8.4-10.2); Carbon Dioxide 20 mmol/L (22-29); Chloride 117 mmol/L (96-108); Creatinine Clr Calc Pharmacy 38.6; Estimated Glomerular Filt Rate 29; Glucose Random 96 mg/dL (60-115); Sodium 143 mmol/L (135-145)
[2024-02-11] VITALS (9 sets, daily range): BP systolic 86–102; BP diastolic 48–60; PULSE 63–93; RESP 18–20; TEMP 36.7–37; O2SAT 96–100
[2024-02-11] MEDS: Heparin Sodium,Porcine 5,000 UNIT/ML VIAL 5000 UNIT SUBCUT ×3 (05:50→23:21)
[2024-02-11 06:26] LABS: Anion Gap 10 (12-20); Blood Urea Nitrogen 14 mg/dL (9-16); Calcium 7.2 mg/dL (8.4-10.2); Carbon Dioxide 19 mmol/L (22-29); Chloride 118 mmol/L (96-108); Creatinine Clr Calc Pharmacy 41.3; Estimated Glomerular Filt Rate 32; Glucose Random 85 mg/dL (60-115); Potassium 3.2 mmol/L (3.3-5.1); Sodium 144 mmol/L (135-145)
[2024-02-11 06:27] LABS: Magnesium 1.3 mg/dL (1.6-2.6)
[2024-02-11] MEDS: Magnesium Sulfate/H2O 2 GM/50 ML PIGGYBACK IV (06:47)
[2024-02-11] MEDS: 0.9 % Sodium Chloride Flush 3 ML SYRINGE IVFLUSH ×4 (08:09→23:21)
[2024-02-11] MEDS: Potassium Chloride Packet 20 MEQ PACKET 60 MEQ PO ×2 (08:09→19:40)
[2024-02-11] MEDS: Calcium Gluconate/NaCl,Iso-Osm 1 GM/50 ML PLAST..BAG IV (08:10)
[2024-02-11] MEDS: Sodium Bicarbonate 650 MG TABLET 1300 MG PO ×3 (08:10→19:41)
[2024-02-11] MEDS: Nystatin Powder 15 GM BOTTLE 1 APPL TOPICAL ×3 (08:23→19:44)
[2024-02-11] MEDS: Loperamide HCl 2 MG CAPSULE PO (09:21)
--- NOTE | 2024-02-11 12:51 | P.PNNP_ITS ---
Subjective Subjective Date of Service: 02/12/24 Interval history: hypokalemia ,stephen Physical Exam 2 Vital Signs: Vital Signs: Last Vital Signs Temp 98.4 F 02/11/24 11:37 Pulse 80 02/11/24 11:37 Resp 20 02/11/24 11:37 BP 98/56 L 02/11/24 12:50 Pulse Ox 100 02/11/24 11:37 O2 Del Method Room Air 02/11/24 11:37 BMI result Body Mass Index 36.8 Const: General: comfortable and no acute distress O rientation/consciousness: patient oriented x3 HEENT: Head: Yes normocephalic Mouth: Normal oral and palatal mucosa present Eyes: EOM: EOMs intact bilaterally Neck: Neck: Yes supple Resp: Auscultation: clear to auscultation bilaterally Cardio: Jugular venous distension: no JVD Rate: regular rate GI: Palpation (GI): Soft to palpation Auscultation: normal bowel sounds : General: Yes no CVA tenderness Back/Spine/Pelvis: Back: no CVA tenderness Skin: General skin exam: no rashes or lesions noted Neuro: General: patient oriented x3 and moves all extremities Objective Data Labs 02/08/24 08:12 02/12/24 06:17 Labs: Laboratory Results - last 24 hr 02/10/24 02/10/24 02/11/24 14:47 20:20 05:44 Hold Purple Top SEE NOTE Sodium 142 143 144 Potassium 2.7 L* 3.0 L 3.2 L Chloride 117 H 117 H 118 H Carbon Dioxide 18 L 20 L 19 L Anion Gap 10 L 9 L 10 L BUN 10 11 14 Creatinine 1.54 H 1.81 H 1.69 H Estim Creat Clear Calc 45.4 38.6 41.3 Estimated GFR 36 29 32 Random Glucose 80 96 85 Calcium 7.0 L 7.3 L 7.2 L Magnesium 1.3 L* Procedures Date of Service Date of Service: 02/12/24 Assessment & Plan Assessment and plan (1) Hypomagnesemia: Status: Acute (2) Acute hypokalemia: Status: Acute (3) CKD stage 3a, GFR 45-59 ml/min: Status: Acute (4) Acute kidney injury superimposed on CKD: Status: Acute (5) Hypocalcemia: Status: Acute Plan Maye has STEPHEN due to compromised renal perfusion with resultant tubular injury. Her urine output is good. Recently she had abdominal imaging which did not show any hydronephrosis. She is hypokalemic and hypomagnesemic most likely due to her vomiting and diarrhea. She most likely has underlying tubular wasting as well. She is getting aggressive potassium, magnesium, bicarbonate and calcium replacements. There is no reason to suspect any new glomerular or interstitial pathology causing STEPHEN. There is no indication for any renal replacement therapy. She will need [facility] follow[facility] with a [facility] in [place] once he gets discharged for continued care. Time Spent With Patient Time: Total time managing care of this patient today ____ minutes. Progress Note: Quality Stroke Does the patient have a stroke diagnosis?: No
--- NOTE | 2024-02-11 13:32 | MHC.CM.PN ---
EMR REVIEWED, PER HOSPITALIST NO PLAN FOR DC AT THIS TIME, K TRENDING UP TOWARDS NORMAL AND CR TRENDING DOWN TOWRDS NORMAL RANGE, ANTIC 1-2 MORE DAYS AND WILL IKELY DC HOME NO SERVICES ONCE MEDICALLY CLEARED, CM WILL CONT TO FOLLOW DC NEEDS.
[2024-02-11 13:53] LABS: Adenovirus F 40/41 Not Detected (Not Detect.); Astrovirus Not Detected (Not Detect.); Campylobacter Not Detected (Not Detect.); Cryptosporidium Not Detected (Not Detect.); Cyclospora cayetanensis Not Detected (Not Detect.); E. coli EAEC Not Detected (Not Detect.); E. coli EPEC Not Detected (Not Detect.); E. coli ETEC Not Detected (Not Detect.); E. coli STEC Not Detected (Not Detect.); Entamoeba histolytica Not Detected (Not Detect.); Giardia lamblia Not Detected (Not Detect.); Norovirus GI/GII Not Detected (Not Detect.); Plesiomonas shigelloides Not Detected (Not Detect.); Rotavirus A Not Detected (Not Detect.); Salmonella Not Detected (Not Detect.); Sapovirus Not Detected (Not Detect.); Shigella sp./EIEC Not Detected (Not Detect.); Vibrio Not Detected (Not Detect.); Vibrio Cholerae Not Detected (Not Detect.); Yersinia enterocolitica Not Detected (Not Detect.)
--- NOTE | 2024-02-11 16:56 | HO.PM.IMPN ---
Subjective Subjective Date of Service: 02/11/24 Interval History: hypokalemia ,stephen Review of Systems improving abd pain or nausea ,vomitin or diarrhae, no fevers Physical Exam Vital Signs: Vital Signs: Last Vital Signs Temp 98.1 F 02/11/24 15:15 Pulse 80 02/11/24 15:15 Resp 20 02/11/24 15:15 BP 102/56 L 02/11/24 15:15 Pulse Ox 100 02/11/24 15:15 O2 Del Method Room Air 02/11/24 15:15 BMI result Body Mass Index 36.8 Appearance: Alert.? Oriented X3.? cvs: rrr, [id number] . res: clear to auscultation ,no rhonchii or wheezing abd: no rebound or guarding ,nt, bs present. ext pulses present , no cyanosis neuro: axo3 , nonfocal. Objective Data Active Medications Calcium Carbonate (Calcium Carbonate 500 Mg Tablet) 1,000 mg PO BID [facility] Last Admin: 02/11/24 08:10 Dose: 1,000 mg Documented By: TITA Heparin Sodium (Porcine) (Heparin Sodium,Porcine 5,000 Unit/Ml Vial) 5,000 unit SUBCUT Q8H [facility] Last Admin: 02/11/24 14:22 Dose: 5,000 unit Documented By: TITA Metoclopramide HCl (Metoclopramide Hcl 10 Mg/2 Ml Vial) 5 mg IVPUSH Q6H PRN PRN Reason: Nausea and Vomiting Last Admin: 02/09/24 02:57 Dose: 5 mg Documented By: JONATHAN Nystatin (Nystatin Powder 15 Gm Bottle) 1 appl TOPICAL TID [facility]; Protocol Last Admin: 02/11/24 14:23 Dose: 1 appl Documented By: TITA Potassium Chloride (Potassium Chloride Packet 20 Meq Packet) 60 meq PO BID [facility] Last Admin: 02/11/24 08:09 Dose: 60 meq Documented By: TITA Sodium Bicarbonate (Sodium Bicarbonate 650 Mg Tablet) 1,300 mg PO TID [facility] Last Admin: 02/11/24 14:22 Dose: 1,300 mg Documented By: TITA Sodium Chloride (0.9 % Sodium Chloride Flush 3 Ml Syringe) 3 ml IVFLUSH QSHIFT [facility] Last Admin: 02/11/24 08:09 Dose: 3 ml Documented By: TITA Labs 02/08/24 08:12 02/11/24 05:44 Labs: Laboratory Results - last 24 hr 02/10/24 02/11/24 02/11/24 20:20 05:44 11:10 Hold Purple Top SEE NOTE Anion Gap 9 L 10 L Estim Creat Clear Calc 38.6 41.3 Estimated GFR 29 32 Random Glucose 96 85 Calcium 7.3 L 7.2 L Magnesium 1.3 L* Stl C. cayetanensis PCR Not Detected Stool Rotavirus A PCR Not Detected Stl Adenov F 40/41 PCR Not Detected Stool Astrovirus (PCR) Not Detected Stool Campylobacter PCR Not Detected Stool Cryptosporidium PCR Not Detected Stl Sh Tox Pr E STEC PCR Not Detected Stool E coli O157 PCR Not applicable Stl Enterotoxigenic E PCR Not Detected Stool EPEC (PCR) Not Detected Stool EAEC (PCR) Not Detected Stl E. histolytica PCR Not Detected Stool Giardia Lamblia PCR Not Detected Stl P. shigelloides PCR Not Detected Stool Salmonella PCR Not Detected Stool Sapovirus (PCR) Not Detected Stl Shigella/EIEC PCR Not Detected St Y.enterocolitica PCR Not Detected Stool Vibrio (PCR) Not Detected Stl Vibrio cholerae PCR Not Detected Stl Norovirus GI/GII PCR Not Detected Assessment and Plan (1) Hypocalcemia: Status: Acute (2) Hypomagnesemia: Status: Acute Plan 53-year-old female with a PMH significant for colorectal cancer s/p resection and chemotherapy, off immunotherapy for 3 years who presents to the ED for evaluation of intractable nausea vomiting x3 weeks. Pt will be admitted to the hospital for treatment further evaluation hypokalemia and hypomagnesemia smear secondary to intractable nausea and vomiting. Intractable nausea and vomiting x3 weeks Unclear etiology: Pt with sick contacts 3 weeks ago and hx of N/V possibly recent viral syndrome. symptoms improved, tolerating diet. Continue antiemetics, zofran Full liquid diet for now, advance as tolerated Hypokalemia Secondary to intractable nausea and vomiting, chronic diarrhea, and reduced p.o. intake EKG QTC improving Given multiple doses of potassium p.o. :postassium seems improving to 2.4 range monitor BMP closely Hypophosphatemia Repleted . Hypocalcemia: iv and adjusted p.o. replacement. Hypomagnesemia Repleted and resolved STEPHEN on CKD NAGMA: low biicarb,ph low bicarb improving to 16 Creatinine at baseline Secondary to intractable nausea and vomiting, chronic diarrhea, and reduced p.o. intake Patient is in IV fluid, creatinine improving d/w nephro:on bicarb drip . hypocalcemia: dut toreduced p.o. intake added iv and po replecements. Leukocytosis WBCs 14.5 -improved. Likely reactive Pt without obvious source of infection: CXR negative, UA negative, no fever respiratory panel-negative elecvated tropnin, ekg changes seems to be improving Patient is asymptomatic Echo-Essentially normal study ef 60-65% Cardiology evaluationnoted. further cardiac workup outpatient ,please see cardiology note for details. Transaminitis: improving Patient with chronically elevated LFTs Follow-up outpatient Full Code DVT Prophylaxis: Heparin ongoing hospitalization for treatment of?significant electrolyte abnormalities in the setting of intractable nausea and vomiting, chronic diarrhea, and reduced p.o. intake. Given severity of patient's electrolyte abnormalities, patient required hospitalization for close monitoring of labs, cardiac monitoring, and electrolyte replenishment as necessary. Quality Stroke Does the patient have a stroke diagnosis?: No VTE Prior VTE?: No VTE Risk Level:: Medical - moderate - high VTE Device Contraindication: Treatment Not Indicated VTE Drug Contraindication: N/A - Med Ordered
[2024-02-12 03:40] VITALS: BP 99/52; PULSE 77; RESP 20; TEMP 37.1; O2SAT 98
[2024-02-12] MEDS: Heparin Sodium,Porcine 5,000 UNIT/ML VIAL 5000 UNIT SUBCUT ×2 (05:43→14:44)
[2024-02-12 07:18] LABS: Anion Gap 8 (12-20); Blood Urea Nitrogen 14 mg/dL (9-16); Calcium 7.5 mg/dL (8.4-10.2); Carbon Dioxide 18 mmol/L (22-29); Chloride 119 mmol/L (96-108); Creatinine Clr Calc Pharmacy 46.6; Estimated Glomerular Filt Rate 37; Glucose Random 77 mg/dL (60-115); Phosphorus 2.8 mg/dL (2.7-4.5); Potassium 3.1 mmol/L (3.3-5.1); Sodium 142 mmol/L (135-145)
[2024-02-12 07:26] LABS: Magnesium 1.3 mg/dL (1.6-2.6)
[2024-02-12 07:35] VITALS: BP 98/50; PULSE 72; RESP 18; TEMP 36.2; O2SAT 99
[2024-02-12] MEDS: Sodium Bicarbonate 650 MG TABLET 1300 MG PO ×3 (09:04→21:54)
[2024-02-12] MEDS: Potassium Chloride ER 20 MEQ TAB.ER.PRT 60 MEQ PO ×2 (09:05→21:54)
[2024-02-12] MEDS: Potassium Chloride ER 20 MEQ TAB.ER.PRT PO (09:05)
[2024-02-12] MEDS: 0.9 % Sodium Chloride Flush 3 ML SYRINGE IVFLUSH ×3 (09:05→21:55)
[2024-02-12] MEDS: Magnesium Sulfate/H2O 2 GM/50 ML PIGGYBACK IV (09:06)
[2024-02-12] MEDS: Nystatin Powder 15 GM BOTTLE 1 APPL TOPICAL ×3 (09:10→21:55)
[2024-02-12 11:48] VITALS: BP 94/50; PULSE 82; RESP 20; TEMP 36.8; O2SAT 99
--- NOTE | 2024-02-12 12:46 | P.PNIM_ITS ---
Subjective Subjective Date of Service: 02/12/24 Interval History: hypokalemia ,hypomagnesemia ,stephen Review of Systems improving abd pain or nausea ,vomitin, no fevers says diarrhae improving Physical Exam 2 Vital Signs: Vital Signs: Last Vital Signs Temp 98.2 F 02/12/24 11:48 Pulse 82 02/12/24 11:48 Resp 20 02/12/24 11:48 BP 94/50 L 02/12/24 11:48 Pulse Ox 99 02/12/24 11:48 O2 Del Method Room Air 02/12/24 11:48 BMI result Body Mass Index 36.8 Appearance: Alert.? Oriented X3.? cvs: rrr, [id number] . res: clear to auscultation ,no rhonchii or wheezing abd: no rebound or guarding ,nt, bs present. ext pulses present , no cyanosis neuro: axo3 , nonfocal. Objective Data Active Medications Calcium Carbonate (Calcium Carbonate 500 Mg Tablet) 1,000 mg PO BID [facility]S AT [facility] Last Admin: 02/12/24 09:04 Dose: 1,000 mg Documented By: BRANDY Heparin Sodium (Porcine) (Heparin Sodium,Porcine 5,000 Unit/Ml Vial) 5,000 unit SUBCUT Q8H [facility] 234 BEDS AT [facility] Last Admin: 02/12/24 05:43 Dose: 5,000 unit Documented By: MICHAEL Loperamide HCl (Loperamide Hcl 2 Mg Capsule) 2 mg PO Q4H PRN PRN Reason: diarrhae Metoclopramide HCl (Metoclopramide Hcl 10 Mg/2 Ml Vial) 5 mg IVPUSH Q6H PRN PRN Reason: Nausea and Vomiting Last Admin: 02/09/24 02:57 Dose: 5 mg Documented By: JONATHAN Nystatin (Nystatin Powder 15 Gm Bottle) 1 appl TOPICAL TID [facility] 234 B[facility]S AT [facility]; Protocol Last Admin: 02/12/24 09:10 Dose: 1 appl Documented By: BRANDY Potassium Chloride (Potassium Chloride Er 20 Meq Tab.Er.Prt) 60 meq PO BID [facility] 234 [facility]S AT [facility] Last Admin: 02/12/24 09:05 Dose: 60 meq Documented By: BRANDY Sodium Bicarbonate (Sodium Bicarbonate 650 Mg Tablet) 1,300 mg PO TID [facility] 234 [facility]S AT [facility] Last Admin: 02/12/24 09:04 Dose: 1,300 mg Documented By: BRANDY Sodium Chloride (0.9 % Sodium Chloride Flush 3 Ml Syringe) 3 ml IVFLUSH QSHIFT [facility] 234 BEDS AT [facility] Last Admin: 02/12/24 09:05 Dose: 3 ml Documented By: BRANDY Labs 02/08/24 08:12 02/12/24 06:17 Labs: Laboratory Results - last 24 hr 02/11/24 02/12/24 11:10 06:17 Hold Purple Top SEE NOTE Anion Gap 8 L Estim Creat Clear Calc 46.6 Estimated GFR 37 Random Glucose 77 Calcium 7.5 L Phosphorus 2.8 Magnesium 1.3 L* Stl C. cayetanensis PCR Not Detected Stool Rotavirus A PCR Not Detected Stl Adenov F 40/41 PCR Not Detected Stool Astrovirus (PCR) Not Detected Stool Campylobacter PCR Not Detected Stool Cryptosporidium PCR Not Detected Stl Sh Tox Pr E STEC PCR Not Detected Stool E coli O157 PCR Not applicable Stl Enterotoxigenic E PCR Not Detected Stool EPEC (PCR) Not Detected Stool EAEC (PCR) Not Detected Stl E. histolytica PCR Not Detected Stool Giardia Lamblia PCR Not Detected Stl P. shigelloides PCR Not Detected Stool Salmonella PCR Not Detected Stool Sapovirus (PCR) Not Detected Stl Shigella/EIEC PCR Not Detected St Y.enterocolitica PCR Not Detected Stool Vibrio (PCR) Not Detected Stl Vibrio cholerae PCR Not Detected Stl Norovirus GI/GII PCR Not Detected Assessment and Plan (1) Hypocalcemia: Status: Acute (2) Acute kidney injury superimposed on CKD: Status: Acute (3) Hypomagnesemia: Status: Acute (4) Acute hypokalemia: Status: Acute Plan 53-year-old female with a PMH significant for colorectal cancer s/p resection and chemotherapy, off immunotherapy for 3 years who presents to the ED for evaluation of intractable nausea vomiting x3 weeks. Pt will be admitted to the hospital for treatment further evaluation hypokalemia and hypomagnesemia smear secondary to intractable nausea and vomiting. Intractable nausea and vomiting x3 weeks Unclear etiology: Pt with sick contacts 3 weeks ago and hx of N/V possibly recent viral syndrome. symptoms improved, tolerating diet. Continue antiemetics, zofran Full liquid diet for now, advance as tolerated Hypokalemia: d/w nephro-seems due to renal potassium wasting, diarrhae contributing Secondary to intractable nausea and vomiting, chronic diarrhea, and reduced p.o. intake EKG QTC improving Given multiple doses of potassium p.o. : poatssium improivng slowly 3.1 monitor BMP closely Hypophosphatemia:Repleted . Hypocalcemia:slowly improving on calcium carbonate . Hypomagnesemia: added iv magnesium . STEPHEN on CKD:Secondary to intractable nausea and vomiting, chronic diarrhea, and reduced p.o. intake. Creatinine at baseline NAGMA: low bicarb received iv bicarb drip -stopped switched to po bicarb. bicarb improving to 18 hypocalcemia: dut toreduced p.o. intake added iv and po replecements. Leukocytosis WBCs 14.5 -improved. Likely reactive respiratory panel-negative Pt without obvious source of infection: CXR negative, UA negative, no fever, elecvated tropnin, ekg changes seems to be improving Patient is asymptomatic Echo-Essentially normal study ef 60-65% Cardiology evaluationnoted. further cardiac workup outpatient ,please see cardiology note for details. Transaminitis: improving Patient with chronically elevated LFTs, moniter Lfts' -if worsen consider workup,otherwise Follow-up outpatient. Full Code DVT Prophylaxis: Heparin ongoing hospitalization for treatment of?significant electrolyte abnormalities in the setting of intractable nausea and vomiting, chronic diarrhea, and reduced p.o. intake. Given severity of patient's electrolyte abnormalities, patient required hospitalization for close monitoring of labs, cardiac monitoring, and electrolyte replenishment as necessary. Quality Stroke Does the patient have a stroke diagnosis?: No VTE Prior VTE?: No VTE Risk Level:: Medical - moderate - high VTE Device Contraindication: Treatment Not Indicated VTE Drug Contraindication: N/A - Med Ordered
--- NOTE | 2024-02-12 14:41 | PM.PNNEP ---
Subjective Subjective Date of Service: 02/12/24 Interval history: Events noted Physical Exam Vital Signs: Vital Signs: Last Vital Signs Temp 98.2 F 02/12/24 11:48 Pulse 82 02/12/24 11:48 Resp 20 02/12/24 11:48 BP 94/50 L 02/12/24 11:48 Pulse Ox 99 02/12/24 11:48 O2 Del Method Room Air 02/12/24 11:48 BMI result Body Mass Index 36.8 Const: General: comfortable and no acute distress Orientation/consciousness: patient oriented x3 HEENT: Head: Yes normocephalic Mouth: Normal oral and palatal mucosa present Eyes: EOM: EOMs intact bilaterally Neck: Neck: Yes supple Resp: Auscultation: clear to auscultation bilaterally Cardio: Jugular venous distension: no JVD Rate: regular rate GI: Palpation (GI): Soft to palpation Auscultation: normal bowel sounds : General: Yes no CVA tenderness Back/Spine/Pelvis: Back: no CVA tenderness Skin: General skin exam: no rashes or lesions noted Neuro: General: patient oriented x3 and moves all extremities Objective Data Labs 02/08/24 08:12 02/12/24 06:17 Labs: Laboratory Results - last 24 hr 02/12/24 06:17 Hold Purple Top SEE NOTE Sodium 142 Potassium 3.1 L Chloride 119 H Carbon Dioxide 18 L Anion Gap 8 L BUN 14 Creatinine 1.50 H Estim Creat Clear Calc 46.6 Estimated GFR 37 Random Glucose 77 Calcium 7.5 L Phosphorus 2.8 Magnesium 1.3 L* Procedures Date of Service Date of Service: 02/12/24 Assessment & Plan Assessment and plan (1) Hypomagnesemia: Status: Acute (2) Acute hypokalemia: Status: Acute (3) CKD stage 3a, GFR 45-59 ml/min: Status: Acute (4) Acute kidney injury superimposed on CKD: Status: Acute (5) Hypocalcemia: Status: Acute Plan Maye has STEPHEN due to compromised renal perfusion with resultant tubular injury. Her urine output is good. Recently she had abdominal imaging which did not show any hydronephrosis. She is hypokalemic and hypomagnesemic most likely due to her vomiting and diarrhea. She most likely has underlying tubular wasting as well. She is getting aggressive potassium, magnesium, bicarbonate and calcium replacements. There is no reason to suspect any new glomerular or interstitial pathology causing STEPHEN. There is no indication for any renal replacement therapy. She will need outpatient follow-up with a kidney associates in [place] once she gets discharged for continued care. Time Spent With Patient Time: Total time managing care of this patient today ____ minutes. Progress Note: Quality Stroke Does the patient have a stroke diagnosis?: No
[2024-02-12 15:12] VITALS: BP 95/50; PULSE 80; RESP 20; TEMP 36.7; O2SAT 98
[2024-02-12 19:17] VITALS: BP 94/52; PULSE 85; RESP 20; TEMP 36.7; O2SAT 99
[2024-02-12 19:40] LABS: Magnesium 1.7 mg/dL (1.6-2.6); Potassium 3.3 mmol/L (3.3-5.1)
--- NOTE | 2024-02-12 23:49 | PC.NURSE ---
Assumed care of patient at 19:00. Pt is A&Ox4. VSS. NSR with BBB on tele. Pt refused scheduled HSQ though is Ambulates independently in room, steady and without issues. Pt has low fall risk safety measures in place. Denies chest pain and sob. Breathing is even and unlabored without distress on RA. +BSx4, abdomen large/soft, round, non-tender. Denies pain. Pt denies n/v but reports continued diarrhea though she is refusing prn immodium. Pt tasia-anal region is reddened 2/2 diarrhea, barrier cream applied and placed in room. Stat magnesium and potassium orders placed by MD at 18:54 and obtained from pt's accessed left chest port to reassess repletions given earlier today; results back K 3.3, Mg 1.7. Scheduled possium po supplement given as ordered this evening. Accessed left chest port is intact and patent with good blood return, so s/s of infection. Handoff report given to oncoming RN 23:45.
[2024-02-13] VITALS (8 sets, daily range): BP systolic 83–93; BP diastolic 52–57; PULSE 76–88; RESP 16–20; TEMP 36.6–37.2; O2SAT 96–100
[2024-02-13] MEDS: Sodium Bicarbonate 650 MG TABLET 1300 MG PO ×3 (08:37→20:34)
[2024-02-13] MEDS: Potassium Chloride ER 20 MEQ TAB.ER.PRT 60 MEQ PO ×2 (08:37→20:35)
[2024-02-13] MEDS: Nystatin Powder 15 GM BOTTLE 1 APPL TOPICAL ×3 (08:39→20:42)
[2024-02-13 09:13] LABS: Alanine Aminotransferase 27 U/L (0-31); Albumin Level 2.8 g/dL (3.5-5.0); Alkaline Phosphatase 86 U/L (39-117); Anion Gap 11 (12-20); Aspartate Amino Transferase 19 U/L (5-31); Bilirubin Total 1.4 mg/dL (0.0-1.0); Blood Urea Nitrogen 13 mg/dL (9-16); Calcium 7.6 mg/dL (8.4-10.2); Carbon Dioxide 17 mmol/L (22-29); Chloride 118 mmol/L (96-108); Creatinine Clr Calc Pharmacy 48.9; Estimated Glomerular Filt Rate 39; Glucose Random 79 mg/dL (60-115); Potassium 3.5 mmol/L (3.3-5.1); Sodium 142 mmol/L (135-145); Total Protein 5.1 g/dL (6.5-8.0)
--- NOTE | 2024-02-13 10:51 | MHC.CM.PN ---
ANTIC PT TO BE MEDICALLY CLEARED HOME SELF CARE, IMM 02/13/24 DELIVERED TO BEDSIDE AND PT AGREEABLE TO DC PLAN AND REPORTS SHE WILL CALL FAMILY FOR RIDE HOME.
--- NOTE | 2024-02-13 11:16 | HO.PM.IMPN ---
Subjective Subjective Date of Service: 02/13/24 Interval History: ongoing diarrhea Physical Exam Vital Signs: Vital Signs: Last Vital Signs Temp 98.7 F 02/13/24 07:40 Pulse 83 02/13/24 07:40 Resp 20 02/13/24 07:40 BP 92/52 L 02/13/24 07:40 Pulse Ox 98 02/13/24 07:40 O2 Del Method Room Air 02/13/24 07:40 BMI result Body Mass Index 36.8 Appearance: Alert.? Oriented X3.? cvs: rrr, [id number] . res: clear to auscultation ,no rhonchii or wheezing abd: no rebound or guarding ,nt, bs present. ext pulses present , no cyanosis neuro: axo3 , nonfocal. Objective Data Active Medications Calcium Carbonate (Calcium Carbonate 500 Mg Tablet) 1,000 mg PO BID [facility] Last Admin: 02/13/24 08:37 Dose: 1,000 mg Documented By: MERE Heparin Sodium (Porcine) (Heparin Sodium,Porcine 5,000 Unit/Ml Vial) 5,000 unit SUBCUT Q8H [facility] Last Admin: 02/13/24 06:00 Dose: Not Given Documented By: ANTOIC Non-Admin Reason: Patient Refused Albumin Human (Kedbumin 25 %) 100 mls @ 100 mls/hr IV Q1H [facility] Stop: 02/13/24 13:14 Loperamide HCl (Loperamide Hcl 2 Mg Capsule) 2 mg PO Q4H PRN PRN Reason: diarrhae Metoclopramide HCl (Metoclopramide Hcl 10 Mg/2 Ml Vial) 5 mg IVPUSH Q6H PRN PRN Reason: Nausea and Vomiting Last Admin: 02/09/24 02:57 Dose: 5 mg Documented By: JONATHAN Nystatin (Nystatin Powder 15 Gm Bottle) 1 appl TOPICAL TID [facility]; Protocol Last Admin: 02/13/24 08:39 Dose: 1 appl Documented By: MERE Potassium Chloride (Potassium Chloride Er 20 Meq Tab.Er.Prt) 60 meq PO BID [facility] Last Admin: 02/13/24 08:37 Dose: 60 meq Documented By: MERE Sodium Bicarbonate (Sodium Bicarbonate 650 Mg Tablet) 1,300 mg PO TID [facility] Last Admin: 02/13/24 08:37 Dose: 1,300 mg Documented By: MERE Sodium Chloride (0.9 % Sodium Chloride Flush 3 Ml Syringe) 3 ml IVFLUSH QSHIFT [facility] Last Admin: 02/13/24 08:39 Dose: Not Given Documented By: MERE Non-Admin Reason: No Access Labs 02/08/24 08:12 02/13/24 08:33 Labs: Laboratory Results - last 24 hr 02/12/24 02/13/24 19:12 08:33 Hold Purple Top SEE NOTE Anion Gap 11 L Estim Creat Clear Calc 48.9 Estimated GFR 39 Random Glucose 79 Calcium 7.6 L Magnesium 1.7 Total Bilirubin 1.4 H AST 19 ALT 27 Alkaline Phosphatase 86 Total Protein 5.1 L Albumin 2.8 L Assessment and Plan (1) Hypocalcemia: Status: Acute (2) Acute kidney injury superimposed on CKD: Status: Acute (3) Hypomagnesemia: Status: Acute (4) Acute hypokalemia: Status: Acute Plan 53F PMH colorectal cancer s/p resection and chemotherapy, off immunotherapy for 3 years, CKD III, SBO, chronic diarrhea, who presented to the ED for evaluation of intractable nausea vomiting x3 weeks. found to have severe hypokalemia, hypomagnesemia, joaquin on ckd3 Intractable nausea and vomiting and diarrhea complicated by acute hypokalemia, hypomagnesemia, hypophosphatemia, hypoclacemia, metabolic acidosis, joaquin on CKD III, symptoms improved, tolerating solid diet. electrolytes improved, monitor creatinine improving acidosis improving on po bicarb still with diarrhea and low volume, - iv albumin, imodium elecvated tropnin, ekg changes seems to be improving Patient is asymptomatic Echo-Essentially normal study ef 60-65% Cardiology evaluation noted. further cardiac workup outpatient ,please see cardiology note for details. Full Code DVT Prophylaxis: Heparin reason for continued hospitalization:borderline hypotension Quality Stroke Does the patient have a stroke diagnosis?: No VTE Prior VTE?: No VTE Risk Level:: Medical - moderate - high VTE Device Contraindication: Treatment Not Indicated VTE Drug Contraindication: N/A - Med Ordered
[2024-02-13] MEDS: Albumin Human 25 % 100 ML IV ×2 (12:00→13:06)
[2024-02-13] MEDS: Heparin Sodium,Porcine 5,000 UNIT/ML VIAL 5000 UNIT SUBCUT ×2 (13:11→20:35)
--- NOTE | 2024-02-13 13:28 | PM.PNNEP ---
Subjective Subjective Date of Service: 02/13/24 Interval history: All recent data reviewed. Has ongoing diarrhea Physical Exam Vital Signs: Vital Signs: Last Vital Signs Temp 97.8 F 02/13/24 11:33 Pulse 82 02/13/24 11:33 Resp 20 02/13/24 11:33 BP 92/57 L 02/13/24 11:33 Pulse Ox 99 02/13/24 11:33 O2 Del Method Room Air 02/13/24 11:33 BMI result Body Mass Index 36.8 Const: General: comfortable and no acute distress Orientation/consciousness: patient oriented x3 HEENT: Head: Yes normocephalic Mouth: Normal oral and palatal mucosa present Eyes: EOM: EOMs intact bilaterally Neck: Neck: Yes supple Resp: Auscultation: clear to auscultation bilaterally Cardio: Jugular venous distension: no JVD Rate: regular rate GI: Palpation (GI): Soft to palpation Auscultation: normal bowel sounds : General: Yes no CVA tenderness Back/Spine/Pelvis: Back: no CVA tenderness Skin: General skin exam: no rashes or lesions noted Neuro: General: patient oriented x3 and moves all extremities Extrem: General: Yes no pedal edema Objective Data Labs 02/08/24 08:12 02/13/24 08:33 Labs: Laboratory Results - last 24 hr 02/12/24 02/13/24 19:12 08:33 Hold Purple Top SEE NOTE Sodium 142 Potassium 3.3 3.5 Chloride 118 H Carbon Dioxide 17 L Anion Gap 11 L BUN 13 Creatinine 1.43 H Estim Creat Clear Calc 48.9 Estimated GFR 39 Random Glucose 79 Calcium 7.6 L Magnesium 1.7 Total Bilirubin 1.4 H AST 19 ALT 27 Alkaline Phosphatase 86 Total Protein 5.1 L Albumin 2.8 L Procedures Date of Service Date of Service: 02/13/24 Assessment & Plan Assessment and plan (1) Acute kidney injury superimposed on CKD: Status: Acute (2) Acute hypokalemia: Status: Acute Plan STEPHEN due to compromised renal perfusion with resultant tubular injury - improved Her urine output is good. Recently she had abdominal imaging which did not show any hydronephrosis She is hypokalemic and hypomagnesemic most likely due to her vomiting and diarrhea. She most likely has underlying tubular wasting as well. On aggressive potassium, magnesium, bicarbonate and calcium replacements. Continue with the current supportive care. Will need outpatient follow-up with a kidney associates in [place] once he gets discharged Time Spent With Patient Time: . Progress Note: Quality Stroke Does the patient have a stroke diagnosis?: No
[2024-02-13] MEDS: 0.9 % Sodium Chloride Flush 3 ML SYRINGE IVFLUSH (20:35)
[2024-02-14] MEDS: Lactated Ringers 500 ML 999 ML IV (00:11)
[2024-02-14 00:55] VITALS: BP 90/50
[2024-02-14 03:53] VITALS: BP 96/54; PULSE 84; RESP 18; TEMP 36.7; O2SAT 97
[2024-02-14] MEDS: Heparin Sodium,Porcine 5,000 UNIT/ML VIAL 5000 UNIT SUBCUT (04:43)
[2024-02-14 06:52] LABS: Hematocrit 27.6 % (37.0-47.0); Hemoglobin 8.8 g/dl (12.0-16.0); Mean Corpuscular HGB Conc 31.9 g/dl (31.0-35.0); Mean Corpuscular Hemoglobin 31.9 pg (27.0-33.0); Mean Platelet Volume 11.4 fL (9.4-12.3); Platelet Count 115 X10*3/uL (160-400); Red Blood Count 2.76 X10*6/uL (4.20-5.50); Red Cell Distribution Width 14.9 % (11.0-16.0)
[2024-02-14 07:00] LABS: White Blood Count 4.9 X10*3/uL (4.8-10.8)
[2024-02-14 07:05] LABS: Alanine Aminotransferase 26 U/L (0-31); Albumin Level 2.9 g/dL (3.5-5.0); Alkaline Phosphatase 81 U/L (39-117); Anion Gap 9 (12-20); Aspartate Amino Transferase 39 U/L (5-31); Bilirubin Direct 0.4 mg/dL (0.0-0.5); Blood Urea Nitrogen 16 mg/dL (9-16); Calcium 7.7 mg/dL (8.4-10.2); Carbon Dioxide 17 mmol/L (22-29); Chloride 121 mmol/L (96-108); Creatinine Clr Calc Pharmacy 49.6; Estimated Glomerular Filt Rate 39; Glucose Fasting 83 mg/dL (60-99); Sodium 143 mmol/L (135-145); Total Protein 4.9 g/dL (6.5-8.0)
[2024-02-14 07:29] VITALS: BP 92/52; PULSE 78; RESP 18; TEMP 36.3; O2SAT 99
[2024-02-14 08:05] LABS: Magnesium 1.4 mg/dL (1.6-2.6)
[2024-02-14] MEDS: Potassium Chloride ER 20 MEQ TAB.ER.PRT 60 MEQ PO (08:25)
[2024-02-14] MEDS: Sodium Bicarbonate 650 MG TABLET 1300 MG PO (08:32)
[2024-02-14] MEDS: 0.9 % Sodium Chloride Flush 3 ML SYRINGE IVFLUSH (08:34)
--- NOTE | 2024-02-14 09:42 | PM.DS ---
DS: Providers Provider Date of Service: 02/14/24 Date of admission: 02/07/24 13:26 Primary care physician: Cynthia ePna MD Consults: 02/07/24 18:56 Consult to Nephrology Routine Consulting Provider: [facility] Reason for consultation: joauqin,hypokalemia Has provider been notified: No 02/07/24 22:13 Consult to Wound Care Routine Reason for consultation: fungal rash abd fold 02/08/24 08:32 Consult to Cardiology Routine Consulting Provider: [facility] Reason for consultation: elevated troponins,ekg t wave inversion on inferior /lateral leads Has provider been notified: No DS: Diagnosis Discharge Diagnosis (1) Acute kidney injury superimposed on CKD: Status: Acute (2) Acute hypokalemia: Status: Acute DS: Summary Hospital Course Hospital Course: from initial hpi: 53-year-old female with a PMH significant for colorectal cancer s/p resection and chemotherapy, off immunotherapy for 3 years who presents to the ED for evaluation of intractable nausea vomiting x3 weeks. Patient reports symptoms initially began when her children developed nausea, vomiting, and diarrhea on January 15. The patient experienced similar symptoms shortly thereafter. Children soon got better, but patient continued to experience intractable nausea and vomiting. Has chronic diarrhea/loose stools s/p colorectal cancer which she states is around baseline. Patient also has a long history of chronic nausea vomiting for which she is prescribed Zofran which normally helps. This time, however, patient was unable to tolerate Zofran. Pt reports she has been unable to tolerate much of any solids or fluids during this time. States continues to pass gas. Last abdominal CT on 01/18 that was apparently negative for acute process. Also endorses SOB with exertion and occasional cramping in her thighs bilaterally. No fever, chills. Denies abdominal pain. No chest pain/pressure or palpitations. Denies marijuana use, recent medication changes, or antibiotic use. Of note, pt still has port in place out of an abundance of caution by her oncologist. In the ED pt was afebrile but tachycardic up to 103, vitals otherwise WNL. Labs were significant for leukocytosis 14.5, potassium 1.6, chloride 113, bicarb 16, BUN 23, creatinine 2.84, magnesium 1.4, bilirubin 2.5, AST 39, and ALT 48. CXR showed no acute abnormality. EKG demonstrated normal sinus rhythm with nonspecific intraventricular conduction delay and ST depressions in anterior lateral leads, T-wave inversions in inferolateral leads, and prolonged QTc of 603. Pt was treated with IVF, close provide low Mag sulfate and potassium chloride IV and p.o. Pt will be admitted to the hospital for treatment further evaluation hypokalemia and hypomagnesemia smear secondary to intractable nausea and vomiting. 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 Patient received multiple supplements of potassium, magnesium phosphorus, sodium bicarb, IV hydration. Imodium given for diarrhea. Nausea vomiting resolved. Labs improved. Patient's symptoms resolved. She is now ambulating well without any dizziness. On discharge will continue supplements and follow up closely with Nephrology. For asymptomatic elevated troponins echocardiogram was essentially normal, was seen by Cardiology recommended outpatient workup. Time Attestation Discharge Coordination Time (in mins): 35 Quality: Safe Use of Opioids Does Pt have an Active Cancer Diagnosis on the Problem List?: No Quality: Stroke Does the patient have a stroke diagnosis?: No Physical Exam Vital Signs: Vital Signs: Last Vital Signs Temp 97.3 F 02/14/24 07:29 Pulse 78 02/14/24 07:29 Resp 18 02/14/24 07:29 BP 92/52 L 02/14/24 07:29 Pulse Ox 99 02/14/24 07:29 O2 Del Method Room Air 02/14/24 07:29 BMI result Body Mass Index 36.8 Const: General: comfortable and no acute distress Orientation/consciousness: patient oriented x3 HEENT: Head: Yes normocephalic Mouth: Normal oral and palatal mucosa present Eyes: EOM: EOMs intact bilaterally Neck: Neck: Yes supple Resp: Auscultation: clear to auscultation bilaterally Cardio: Jugular venous distension: no JVD Rate: regular rate GI: Palpation (GI): Soft to palpation Auscultation: normal bowel sounds : General: Yes no CVA tenderness Back/Spine/Pelvis: Back: no CVA tenderness Skin: General skin exam: no rashes or lesions noted Neuro: General: patient oriented x3 and moves all extremities Extrem: General: Yes no pedal edema DS: Data Data Completed and Pending Labs on day of discharge: Laboratory Results - last 24 hr 02/14/24 05:46 WBC 4.9 RBC 2.76 L D Hgb 8.8 L D Hct 27.6 L MCV 100.0 H D MCH 31.9 MCHC 31.9 RDW 14.9 Plt Count 115 L D MPV 11.4 Absolute Nucleated RBC 0.000 Nucleated RBC % (auto) 0.0 Sodium 143 Potassium 4.0 Chloride 121 H Carbon Dioxide 17 L Anion Gap 9 L BUN 16 Creatinine 1.41 H Estim Creat Clear Calc 49.6 Estimated GFR 39 Fasting Glucose 83 Calcium 7.7 L Magnesium 1.4 L* Total Bilirubin 1.0 Direct Bilirubin 0.4 AST 39 H ALT 26 Alkaline Phosphatase 81 Total Protein 4.9 L Albumin 2.9 L Discharge Plan Discharge Anticipated Discharge Date/Time: 02/14/24 09:35 Patient Disposition: Home, Self-Care Discharge Diagnosis: multiple electrolyte abnormalities from chronic diarrhea Referrals: Lawrence Garcias MD [Physician] - 1 Week Cynthia Pena MD [Primary Care Provider] - 1 Week Discharge Medications: New loperamide 2 mg Capsule 2 mg PO Q4H PRN (Reason: diarrhae) Qty: 30 0RF potassium chloride 20 mEq Tablet,Er Particles/Crystals 60 meq PO BID 90 Days Qty: 540 0RF calcium carbonate [Oyster Shell Calcium 500] 500 mg calcium (1,250 mg) Tablet 1,000 mg PO BID Qty: 180 0RF sodium bicarbonate 650 mg Tablet 1,300 mg PO TID 90 Days Qty: 540 0RF magnesium oxide [MagOx] 400 mg (241.3 mg magnesium) tablet 400 mg PO BID Qty: 180 0RF Continued acetaminophen 500 mg Tablet 1,000 mg PO DAILY PRN (Reason: Pain) Discontinued ondansetron HCl 4 mg tablet 4 mg PO Q8H PRN (Reason: nausea and vomiting) Qty: 20 0RF Discharge Orders: Discharge Order (Routine); Ordered 02/14/24 Ordered By: Chau Call Diet: Advance to usual diet Activity on Discharge: As tolerated Stand Alone Forms: Patient Portal Discharge page Print Language: Cymraes Other Ambulatory Orders: Basic Metabolic Panel (Routine) Timeframe: 1 Week Facility: [facility] - Location: Laboratory Ordered By: Chau Call Liver Panel (Routine) Timeframe: 1 Week Facility: [facility] - Location: Laboratory Ordered By: Chau Call Magnesium (Routine) Timeframe: 1 Week Facility: [facility] - Location: Laboratory Ordered By: Chau Clal Phosphorus (Routine) Timeframe: 1 Week Facility: [facility] - Location: Laboratory Ordered By: Chau Call Care Plan Goals: manage diarrhea, electrolyte abnormalities Health Concerns: see above Plan of Treatment: start on supplements as prescribed, follow up labs next week, follow up with cardiology, nephrology, pcp, oncology, gi Assessment: see above
[2024-02-14] MEDS: Magnesium Sulfate/H2O 2 GM/50 ML PIGGYBACK IV (10:13)
[2024-02-14] MEDS: Nystatin Powder 15 GM BOTTLE 1 APPL TOPICAL (10:14)
--- NOTE | 2024-02-14 10:14 | MHC.CM.PN ---
DP: PT HAS BEEN MEDICALLY CLEARED FOR DC HOME, NO SERVICES. PT HAS OWN RIDE HOME.
[2024-02-14 11:43] VITALS: BP 107/59; PULSE 87; RESP 18; TEMP 36.8; O2SAT 100
== END 2024-02-14 12:48 | disposition home or self-care (01) | DRG 391 ==
LOC: HO.ED 11:49 → HO.EDOVER 13:59 → HO.IMC 19:40
PROVIDERS: Internal Medicine; Physician Assistant Medical; Student in an Organized Health Care Education/Training Program; Admitting Provider Student in an Organized Health Care Education/Training Program; Emergency Provider Emergency Medicine; PCP Internal Medicine; Visit Provider Internal Medicine
DX: K90.829 Short bowel syndrome, unspecified (principal); N17.0 Acute kidney failure with tubular necrosis; E87.20 Acidosis, unspecified; E87.6 Hypokalemia; K52.9 Noninfective gastroenteritis and colitis, unspecified; N18.31 Chronic kidney disease, stage 3a; E83.39 Other disorders of phosphorus metabolism; R74.01 Elevation of levels of liver transaminase levels; E83.42 Hypomagnesemia; Z20.822 Contact with and (suspected) exposure to COVID-19; Z92.21 Personal history of antineoplastic chemotherapy; Z15.09 Genetic susceptibility to other malignant neoplasm; Z85.038 Personal history of other malignant neoplasm of large intestine; Z79.899 Other long term (current) drug therapy
CPT/HCPCS: 0241U; 36415; 71046; 80048; 80053; 80076; 81001; 81003; 82803; 83735; 84100; 84132; 84439; 84443; 84484; 85025; 85027; 87507; 87633; 87651; 93005; 93306; 99285; J0613; J1644; J2765; J3475; J3480; J7120; P9047; Q9957

== ENCOUNTER → 2024-02-07 11:20 | Outpatient (BNV) | payer MEDICARE, MEDICAID, SELFPAY | PROVIDERS: Admitting Provider Student in an Organized Health Care Education/Training Program; Emergency Provider Emergency Medicine; PCP Internal Medicine; Visit Provider Internal Medicine Cardiovascular Disease | DX: I45.81 Long QT syndrome (principal) | CPT/HCPCS: 93010 ==

== ENCOUNTER 2024-02-07 13:26 | Outpatient (BNV) | payer MEDICARE, MEDICAID, SELFPAY | END 2024-02-08 08:00 | PROVIDERS: Admitting Provider Student in an Organized Health Care Education/Training Program; Emergency Provider Emergency Medicine; PCP Internal Medicine; Visit Provider Internal Medicine Cardiovascular Disease | DX: R94.31 Abnormal electrocardiogram [ECG] [EKG] (principal); I42.9 Cardiomyopathy, unspecified; I45.81 Long QT syndrome | CPT/HCPCS: 93010; 93306 ==

== ENCOUNTER → 2024-02-07 13:26 | Outpatient (BNV) | payer MEDICARE, MEDICAID, SELFPAY | PROVIDERS: Admitting Provider Student in an Organized Health Care Education/Training Program; Emergency Provider Emergency Medicine; PCP Internal Medicine; Visit Provider Internal Medicine Cardiovascular Disease | DX: R79.89 Other specified abnormal findings of blood chemistry (principal) | CPT/HCPCS: 99222 ==

== ENCOUNTER → 2024-02-07 13:26 | Outpatient (BNV) | payer MEDICARE, MEDICAID, SELFPAY | PROVIDERS: Admitting Provider Student in an Organized Health Care Education/Training Program; Emergency Provider Emergency Medicine; PCP Internal Medicine; Visit Provider Internal Medicine Nephrology | DX: N17.9 Acute kidney failure, unspecified (principal); N18.31 Chronic kidney disease, stage 3a; E83.42 Hypomagnesemia; E87.6 Hypokalemia; E83.51 Hypocalcemia | CPT/HCPCS: 99223; 99232 ==

== ENCOUNTER → 2024-02-07 13:26 | Outpatient (BNV) | payer MEDICARE, MEDICAID, SELFPAY | PROVIDERS: Admitting Provider Student in an Organized Health Care Education/Training Program; Emergency Provider Emergency Medicine; PCP Internal Medicine; Visit Provider Internal Medicine | DX: N17.9 Acute kidney failure, unspecified (principal); N18.9 Chronic kidney disease, unspecified; E87.6 Hypokalemia | CPT/HCPCS: 99223; 99232; 99239; 99499 ==

== ENCOUNTER 2024-02-21 09:45 | Outpatient (REF) | payer MEDICARE, MEDICAID, SELFPAY ==
[2024-02-21 13:52] LABS: Alanine Aminotransferase 54 U/L (0-31); Albumin Level 3.7 g/dL (3.5-5.0); Alkaline Phosphatase 138 U/L (39-117); Anion Gap 11 (12-20); Aspartate Amino Transferase 42 U/L (5-31); Bilirubin Direct 0.4 mg/dL (0.0-0.5); Blood Urea Nitrogen 20 mg/dL (9-16); Calcium 9.1 mg/dL (8.4-10.2); Carbon Dioxide 23 mmol/L (22-29); Chloride 115 mmol/L (96-108); Estimated Glomerular Filt Rate 43; Glucose Random 90 mg/dL (60-115); Phosphorus 3.3 mg/dL (2.7-4.5); Potassium 5.6 mmol/L (3.3-5.1); Sodium 143 mmol/L (135-145); Total Protein 6.5 g/dL (6.5-8.0)
[2024-02-21 14:32] LABS: Magnesium 1.4 mg/dL (1.6-2.6)
== END 2024-02-21 09:46 | disposition home or self-care (01) ==
LOC: HO.HMGCLDS 09:45
PROVIDERS: PCP Internal Medicine; Visit Provider Internal Medicine
DX: E87.6 Hypokalemia (principal); E83.42 Hypomagnesemia; E83.51 Hypocalcemia
CPT/HCPCS: 36415; 80048; 80076; 83735; 84100

== ENCOUNTER 2024-03-03 06:04 | Outpatient (REF) | payer MEDICARE, MEDICAID, SELFPAY ==
[2024-03-03 11:35] LABS: Anion Gap 15 (12-20); Blood Urea Nitrogen 30 mg/dL (9-16); Calcium 9.5 mg/dL (8.4-10.2); Carbon Dioxide 25 mmol/L (22-29); Chloride 106 mmol/L (96-108); Estimated Glomerular Filt Rate 39; Glucose Fasting 86 mg/dL (60-99); Potassium 4.3 mmol/L (3.3-5.1); Sodium 142 mmol/L (135-145)
== END 2024-03-03 06:05 | disposition home or self-care (01) ==
LOC: HO.HMGCLDS 06:04
PROVIDERS: PCP Internal Medicine; Visit Provider Internal Medicine
DX: E83.42 Hypomagnesemia (principal); E87.5 Hyperkalemia
CPT/HCPCS: 36415; 80048; 83735

== ENCOUNTER 2024-03-05 11:31 | Outpatient (AMB) | payer MEDICARE, MEDICAID, SELFPAY ==
--- NOTE | 2024-03-05 12:39 | MHC.PC.OV ---
Vital Signs 03/05/24 12:41 Height 5 ft 2 in Weight 213 lb BMI 39.0 BP 100/64 Blood Pressure Location Lt brachial Position Sitting Pulse 91 Pulse Source Pulse Oximeter Pulse Oximetry (%) 98 Oxygen Delivery Method Room Air Intake Visit Reasons: F/U nausea vomiting W-I visit 02/04/24 Intake Note: Pt is here today for a f/u walkin for nausea and vomiting/ bilateral toe nail ? fungus Allergies codeine [Tylenol-Codeine] Allergy (Unknown, Verified 03/14/24 01:21) rash acetaminophen [From Tylenol PM] Adverse Reaction (Verified 03/14/24 01:21) Hives cat dander [cats] Adverse Reaction (Verified 03/14/24:21) Hives diphenhydramine [From Tylenol PM] Adverse Reaction (Verified 03/14/24:21) Hives Medication List - Last Reconciled 03/14/24 by Cyntiha Pena MD acetaminophen 1,000 mg PO DAILY PRN magnesium oxide (MagOx) 400 mg PO DAILY sodium bicarbonate 650 mg PO BID 90 days Tobacco use date assessed: 03/05/24 Dental Screening Dental Screen Date: 03/05/24 Did you have a dental visit in the last 12 months?: No Was dental information given to patient?: Patient declined HPI F/U nausea vomiting W-I visit 02/04/24 HPI Details 53-year-old lady with 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 Patient received multiple supplements of potassium, magnesium phosphorus, sodium bicarb, IV hydration. Imodium given for diarrhea. Nausea vomiting resolved. Labs improved. Patient's symptoms resolved. She is now ambulating well without any dizziness. She was continued on her supplements upon discharge and advised to follow-up closely with Nephrology with whom she already scheduled an appointment. She is also here requesting referral to podiatry. She has thick discolored toenails in both big toes, which has been present now for several years. [facility] Medical History Gastritis Mosher syndrome Adenocarcinoma of colon Surgical History (Reviewed 03/14/24 @ : by Cynthia Pena MD) Hx of hysterectomy History of colon surgery Hx of bilateral breast reduction surgery Family History (Reviewed 03/14/24 @ : by Cynthia Pena MD) Maternal Grandmother Uterine cancer Maternal Aunt Ovarian cancer Mother Cervical cancer Colon cancer Maternal Uncle Colon cancer Rectal cancer Brother Colon cancer Paternal Aunt Mental health disorder Paternal Uncle Mental health disorder Social History (Reviewed 03/14/24 @ : by Cynthia Pena MD) Household Members: Family and Children Household Members Other:: 6 Housing: House Do you presently have visiting nurse or other home services: No Alcohol intake: current Alcohol intake frequency: holidays/special occasions only Patient Tobacco Use Status: Never used Tobacco e-Cigarette/Vaping Use: Never Used Advance Directives Date on File: 11/27/21 service: No Current occupational status: disabled Cognitive needs: No Hearing needs: No Vision needs: Yes Questionnaire PHQ-9 Over the last 2 weeks, how often have you been bothered by any of the following problems? 1. Little interest or pleasure in doing things: not at all 2. Feeling down, depressed, or hopeless: not at all 3. Trouble falling or staying asleep, or sleeping too much: not at all 4. Feeling tired or having little energy: not at all 5. Poor appetite or overeating: not at all 6. Feeling bad about yourself - or that you are a failure or have let yourself or your family down: not at all 7. Trouble concentrating on things, such as reading the newspaper or watching television: not at all 8. Moving or speaking so slowly that other people could have noticed. Or the opposite - being so fidgety or restless that you have been moving around a lot more than usual: not at all 9. Thoughts that you would be better off or of hurting yourself in some way: not at all Total score: 0 Depression Screening Interpretation: Negative Depression Screening Done: Yes 08473 - PHQ-9 Billing: Yes Source: Developed by Drs. Wilman Ha, Iwona GargBlair and colleagues, with an educational chato from [employer]. Thrive Questionnaire Date Thrive assessed: 03/05/24 I am a: Patient What is your living situation today?: I have a steady place to live Within the past 12 months, did the food you bought not last and you didn't have the money to get more?: Never true Within the past 12 months, did you worry whether your food would run out before you got money to buy more?: Never true Do you have trouble paying for medicines?: No Do you have trouble getting transportation to medical appointments?: No Do you have trouble paying your heating and electricity bill?: No Do you have trouble taking care of your child, family member or friend?: No Do you have trouble with day-to-day activities such as bathing, preparing meals, shopping, managing finances, etc.?: No Are you currently unemployed and looking for a job?: No Are you interested in more education?: No Please select the resources that you would like help with: None THRIVE Score: 0 AUDIT C Alcohol Use Questionnaire (AUDIT-C) 1. How often do you have a drink containing alcohol?: Never 3. How often do you have six or more drinks on one occasion?: Never Total Score: 0 LATONYA-7 AMB Questionnaire LATONYA-7 Date LATONYA - 7 assessed: 03/05/24 Feeling nervous, anxious, or on edge: 0 = Not at all Not being able to stop or control worryin = Not at all Worrying too much about different things: 0 = Not at all Trouble relaxin = Not at all Being so restless that it is hard to sit still: 0 = Not at all Becoming easily annoyed or irritable: 0 = Not at all Feeling afraid as if something awful might happen: 0 = Not at all Total LATONYA-7 score (0-4 normal; 5-9 mild; 10-14 moderate; 15-21 severe): 0 Source: Developed by Drs. Wilman Ha, Iwona Garg, Blair Williamson and colleagues, with an educational chato from [employer]. LATONYA-7 Assessment Billing LATONYA-7 Assessment Tool: LATONYA-7 Assessment 99624 Review of Systems Const Denies fever(s) and Denies headache(s) Eyes Reports no additional complaints ENT Denies dysphagia, Denies dizziness, Denies headache(s) and Denies disequilibrium Card Denies chest pain, Denies leg edema and Denies dyspnea on exertion Resp Denies cough and Denies dyspnea on exertion GI Denies abdominal pain, Denies change in bowel habits and Denies dysphagia Denies difficulty voiding and Denies dysuria Musc Denies back pain, Denies arthralgias and Denies numbness Neuro Denies dizziness, Denies headache(s), Denies focal weakness, Denies numbness, Denies convulsions, Denies seizure-like activity and Denies disequilibrium Psych Denies anxiety, Denies depression and Denies panic attacks Endo Denies cold intolerance, Denies flushing and Denies heat intolerance Mannie/Lymph Denies easy bleeding and Denies easy bruising Physical exam (Primary Care) Vital Signs: Last Vital Signs Pulse 91 03/05/24 12:41 BP 100/64 03/05/24 12:41 Pulse Ox 98 03/05/24 12:41 Oxygen Delivery Method Room Air 03/05/24 12:41 BMI result Body Mass Index 39.0 Tobacco/Smoking Status: Tobacco use Status Tobacco use date assessed 03/05/24 03/05/24 12:46 Patient Tobacco Use Status Never used Tobacco 03/05/24 12:46 e-Cigarette/Vaping Use Never Used 03/05/24 12:46 PHQ-9: PHQ-9 Score PHQ-9: Total score 0 03/05/24 13:05 Depression Screening Interpretation: Negative Thrive Assessment: Date of Thrive Assessment Date Thrive assessed 03/05/24 03/05/24 12:46 Const General: no acute distress and alert Orientation/consciousness: patient oriented x3 HENMT Mouth: Normal oral and palatal mucosa present, oropharynx normal and moist mucous membranes Eyes General: appearance normal, both eyes and all related structures Neck Neck: Yes full ROM, Yes no lymphadenopathy and Yes supple Resp Effort & Inspection: normal respiratory effort and able to speak in complete sentences Auscultation: clear to auscultation bilaterally Cardio Rate: regular rate Rhythm: regular rhythm Heart sounds: S1 normal heart sound present and S2 normal heart sound present GI Palpation (GI): Soft to palpation, nontender and no masses Auscultation: normal bowel sounds Back/Spine/Pelvis Back: No back tenderness Skin General skin exam: no rashes or lesions noted Nails: yellow and thickened (Bilateral big toenails) Neuro General: patient oriented x3, gait normal, tone normal, moves all extremities, Normal light touch and pain sensation and no focal motor deficits Cranial nerves: Yes CN's II-XII intact bilaterally Cognition (Neuro): normal cognition Extrem General: Yes full ROM, Yes no joint enlargement, Yes no clubbing, cyanosis or edema and Yes no calf tenderness Psych Appearance: grossly normal and well kempt Mental Status: mental status grossly normal Speech and movement: Normal speech and movement present Affect: normal affect Attitude: cooperative Thought process: Normal thought process present Assessment and Plan Assessment & Plan (1) Hyperkeratosis of nail: Code(s): L60.8 - Other nail disorders Plan: Podiatry consult ordered (2) CKD stage 3a, GFR 45-59 ml/min: Code(s): N18.31 - Chronic kidney disease, stage 3a Plan: Continue with present treatment, has follow-up appointment already scheduled with Dr. Garcias Orders: Referrals Podiatry Referral L60.8 - Other nail disorders Coding Level of Care Code Est Pt Level 4 (23555) Diagnoses Hyperkeratosis of nail L60.8 CKD stage 3a, GFR 45-59 ml/min N18.31 Additional Codes LATONYA-7 Assessment Billing - LATONYA-7 Assessment Tool: LATONYA-7 Assessment [id number] ([id number])
[2024-03-05 12:41] VITALS: BP 100/64; PULSE 91; O2SAT 98; BMI 39.0
== END 2024-03-05 13:31 | disposition home or self-care (01) ==
PROVIDERS: PCP Internal Medicine; Visit Provider Internal Medicine
DX: L60.8 Other nail disorders (principal); N18.31 Chronic kidney disease, stage 3a
CPT/HCPCS: 99214

== ENCOUNTER 2024-03-06 15:23 | Outpatient (AMB) | payer MEDICARE, MEDICAID, SELFPAY ==
--- NOTE | 2024-03-06 15:29 | HO.NEPHOV ---
Vital Signs 03/06/24 15:30 Height 5 ft 2 in Weight 211 lb 2 oz BMI 38.6 BP 102/70 Blood Pressure Location Lt brachial Position Sitting Pulse 84 Pulse Source Pulse Oximeter Pulse Oximetry (%) 98 Oxygen Delivery Method Room Air Intake Visit Reasons: [facility] [place] 02/14/2024/ Confirmed Muffler Installer Required: No Allergies codeine [Tylenol-Codeine] Allergy (Unknown, Verified 03/06/24 15:32) rash acetaminophen [From Tylenol PM] Adverse Reaction (Verified 03/06/24 15:32) Hives cat dander [cats] Adverse Reaction (Verified 03/06/24 15:32) Hives diphenhydramine [From Tylenol PM] Adverse Reaction (Verified 03/06/24 15:32) Hives HPI Comments Details: 53-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 She has chronic diarrhea/loose stools s/p colorectal cancer which she states is around baseline. Last abdominal CT on 01/18 that was apparently negative for acute process. Patient still has port in place out of an abundance of caution by her oncologist. In the ER, her potassium was 1.6 with bicarb 16, BUN 23, creatinine 2.84, magnesium 1.4. 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 Patient received multiple supplements of potassium, magnesium phosphorus, sodium bicarb, IV hydration. Her nausea and vomiting got resolved and renal functions settled to baseline. She was seen in the office today in follow up. She did not have any new complaints [facility] Medical History Gastritis Mosher syndrome Adenocarcinoma of colon Surgical History Hx of hysterectomy History of colon surgery Hx of bilateral breast reduction surgery Family History Maternal Grandmother Uterine cancer Maternal Aunt Ovarian cancer Mother Cervical cancer Colon cancer Maternal Uncle Colon cancer Rectal cancer Brother Colon cancer Paternal Aunt Mental health disorder Paternal Uncle Mental health disorder Social History Household Members: Family and Children Household Members Other:: 6 Housing: House Do you presently have visiting nurse or other home services: No Alcohol intake: current Alcohol intake frequency: holidays/special occasions only Patient Tobacco Use Status: Never used Tobacco e-Cigarette/Vaping Use: Never Used Advance Directives Date on File: 11/27/21 service: No Current occupational status: disabled Cognitive needs: No Hearing needs: No Vision needs: Yes Physical Exam Vital Signs: Last Vital Signs Pulse 84 03/06/24 15:30 BP 102/70 03/06/24 15:30 Pulse Ox 98 03/06/24 15:30 Oxygen Delivery Method Room Air 03/06/24 15:30 BMI result Body Mass Index 38.6 Const General: comfortable and no acute distress Orientation/consciousness: patient oriented x3 HEENT Head: Yes normocephalic Mouth: Normal oral and palatal mucosa present Eyes EOM: EOMs intact bilaterally Neck Neck: Yes supple Resp Auscultation: clear to auscultation bilaterally Cardio Jugular venous distension: no JVD Rate: regular rate GI Palpation (GI): Soft to palpation Auscultation: normal bowel sounds General: Yes no CVA tenderness Back/Spine/Pelvis Back: no CVA tenderness Skin General skin exam: no rashes or lesions noted Neuro General: patient oriented x3 and moves all extremities Extrem General: Yes no pedal edema Results Reviewed Nephrology Results: Sodium 142 mmol/L (135-145) 03/03/24 Potassium 4.3 mmol/L (3.3-5.1) 03/03/24 Chloride 106 mmol/L (96-108) 03/03/24 Carbon Dioxide 25 mmol/L (22-29) 03/03/24 BUN 30 mg/dL (9-16) H 03/03/24 Creatinine 1.41 mg/dL (0.5-1.4) H 03/03/24 Calcium 9.5 mg/dL (8.4-10.2) 03/03/24 Phosphorus 3.3 mg/dL (2.7-4.5) 02/21/24 Urine Protein 100 (2+) mg/dL (Neg-Trace) H 02/07/24 Assessment & Plan Assessment & Plan (1) Kidney stones: Code(s): N20.0 - Calculus of kidney Category: Medical (2) Hypomagnesemia: Code(s): E83.42 - Hypomagnesemia Category: Medical (3) CKD stage 3a, GFR 45-59 ml/min: Code(s): N18.31 - Chronic kidney disease, stage 3a Category: Medical (4) Metabolic acidosis: Code(s): E87.20 - Acidosis, unspecified Category: Medical (5) Mosher syndrome: Code(s): Z15.09 - Genetic susceptibility to other malignant neoplasm Category: Medical Plan She had STEPHEN due to compromised renal perfusion with resultant tubular injury - resolved with renal function back to baseline Recently she had abdominal imaging which did not show any hydronephrosis; NO renal malignancy identifies Her hypokalemia , hypomagnesemia and metabolic acidosis improved; Reduced NaHCO3 to 650 mg bid She most likely has underlying tubular wasting as well. Encouraged to maintain good hydration; No NSAIDs Follow up lab work ordered. F/U given; Answered all questions Orders: Orders Magnesium Today E83.42 - Hypomagnesemia, E87.20 - Acidosis, unspecified, N18.31 - Chronic kidney disease, stage 3a, N20.0 - Calculus of kidney Vitamin D 25-OH Total Today E83.42 - Hypomagnesemia, E87.20 - Acidosis, unspecified, N18.31 - Chronic kidney disease, stage 3a, N20.0 - Calculus of kidney Phosphorus Today E83.42 - Hypomagnesemia, E87.20 - Acidosis, unspecified, N18.31 - Chronic kidney disease, stage 3a, N20.0 - Calculus of kidney Calcium Today E83.42 - Hypomagnesemia, E87.20 - Acidosis, unspecified, N18.31 - Chronic kidney disease, stage 3a, N20.0 - Calculus of kidney Parathyroid Hormone Intact Today E83.42 - Hypomagnesemia, E87.20 - Acidosis, unspecified, N18.31 - Chronic kidney disease, stage 3a, N20.0 - Calculus of kidney Creatinine Today E83.42 - Hypomagnesemia, E87.20 - Acidosis, unspecified, N18.31 - Chronic kidney disease, stage 3a, N20.0 - Calculus of kidney Blood Urea Nitrogen Today E83.42 - Hypomagnesemia, E87.20 - Acidosis, unspecified, N18.31 - Chronic kidney disease, stage 3a, N20.0 - Calculus of kidney Electrolytes Today E83.42 - Hypomagnesemia, E87.20 - Acidosis, unspecified, N18.31 - Chronic kidney disease, stage 3a, N20.0 - Calculus of kidney Medications: Changed From sodium bicarbonate 1,300 mg (2 x 650 mg) PO TID 90 days 540 tabs 0RF To sodium bicarbonate 650 mg PO BID 90 days 180 tabs 0RF Coding Level of Care Code Est Pt Level 4 (78715) Diagnoses Kidney stones N20.0 Hypomagnesemia E83.42 CKD stage 3a, GFR 45-59 ml/min N18.31 Metabolic acidosis E87.20 Mosher syndrome Z15.09
[2024-03-06 15:30] VITALS: BP 102/70; PULSE 84; O2SAT 98; BMI 38.6
== END 2024-03-06 16:04 | disposition home or self-care (01) ==
PROVIDERS: PCP Internal Medicine; Visit Provider Internal Medicine Nephrology
DX: N20.0 Calculus of kidney (principal); E83.42 Hypomagnesemia; N18.31 Chronic kidney disease, stage 3a; E87.20 Acidosis, unspecified; Z15.09 Genetic susceptibility to other malignant neoplasm
CPT/HCPCS: 99214

== ENCOUNTER → 2024-03-06 15:23 | Outpatient (BNVA) | payer MEDICARE, MEDICAID, SELFPAY | PROVIDERS: PCP Internal Medicine; Visit Provider Internal Medicine Nephrology | DX: N20.0 Calculus of kidney (principal); N18.31 Chronic kidney disease, stage 3a; E83.42 Hypomagnesemia; E87.20 Acidosis, unspecified; Z15.09 Genetic susceptibility to other malignant neoplasm | CPT/HCPCS: 99212 ==

== ENCOUNTER 2024-06-04 10:42 | Outpatient (REF) | payer MEDICARE, MEDICAID, SELFPAY ==
[2024-06-04 13:50] LABS: Anion Gap 11 (12-20); Blood Urea Nitrogen 25 mg/dL (9-16); Calcium 9.4 mg/dL (8.4-10.2); Carbon Dioxide 22 mmol/L (22-29); Chloride 113 mmol/L (96-108); Estimated Glomerular Filt Rate 40; Phosphorus 3.1 mg/dL (2.7-4.5); Potassium 3.5 mmol/L (3.3-5.1); Sodium 142 mmol/L (135-145)
[2024-06-04 14:08] LABS: Vitamin D 25-OH Total 36.8 ng/mL (>30)
[2024-06-05 05:26] LABS: Parathyroid Hormone Intact 71.4 pg/mL (8.7-77.1)
== END 2024-06-04 10:43 | disposition home or self-care (01) ==
LOC: HO.HMGCLDS 10:42
PROVIDERS: PCP Internal Medicine; Visit Provider Internal Medicine Nephrology
DX: N18.31 Chronic kidney disease, stage 3a (principal); E83.42 Hypomagnesemia; N20.0 Calculus of kidney; E87.20 Acidosis, unspecified
CPT/HCPCS: 36415; 80051; 82306; 82310; 82565; 83735; 83970; 84100; 84520

== ENCOUNTER 2024-06-11 09:39 | Outpatient (AMB) | payer MEDICARE, MEDICAID, SELFPAY ==
--- NOTE | 2024-06-11 09:45 | HO.NEPHOV ---
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 Her nausea and vomiting got resolved and renal functions settled to baseline. She was seen in the office today in follow up. She did not have any new complaints [facility] Medical History Gastritis Mosher syndrome Adenocarcinoma of colon Surgical History Hx of hysterectomy History of colon surgery Hx of bilateral breast reduction surgery Family History Maternal Grandmother Uterine cancer Maternal Aunt Ovarian cancer Mother Cervical cancer Colon cancer Maternal Uncle Colon cancer Rectal cancer Brother Colon cancer Paternal Aunt Mental health disorder Paternal Uncle Mental health disorder Social History Household Members: Family and Children Household Members Other:: 6 Housing: House Do you presently have visiting nurse or other home services: No Alcohol intake: current Alcohol intake frequency: holidays/special occasions only Patient Tobacco Use Status: Never used Tobacco e-Cigarette/Vaping Use: Never Used Advance Directives Date on File: 11/27/21 service: No Current occupational status: disabled Cognitive needs: No Hearing needs: No Vision needs: Yes Physical Exam Vital Signs: Last Vital Signs Pulse 76 06/11/24 09:47 BP 90/60 06/11/24 09:47 Pulse Ox 98 06/11/24 09:47 Oxygen Delivery Method Room Air 06/11/24 09:47 BMI result Body Mass Index 39.3 Const General: comfortable and no acute distress Orientation/consciousness: patient oriented x3 HEENT Head: Yes normocephalic Mouth: Normal oral and palatal mucosa present Eyes EOM: EOMs intact bilaterally Neck Neck: Yes supple Resp Auscultation: clear to auscultation bilaterally Cardio Jugular venous distension: no JVD Rate: regular rate GI Palpation (GI): Soft to palpation Auscultation: normal bowel sounds General: Yes no CVA tenderness Back/Spine/Pelvis Back: no CVA tenderness Skin General skin exam: no rashes or lesions noted Neuro General: patient oriented x3 and moves all extremities Extrem General: Yes no pedal edema Results Reviewed Nephrology Results: Sodium 142 mmol/L (135-145) 06/04/24 Potassium 3.5 mmol/L (3.3-5.1) 06/04/24 Chloride 113 mmol/L (96-108) H 06/04/24 Carbon Dioxide 22 mmol/L (22-29) 06/04/24 BUN 25 mg/dL (9-16) H 06/04/24 Creatinine 1.38 mg/dL (0.5-1.4) 06/04/24 Calcium 9.4 mg/dL (8.4-10.2) 06/04/24 Phosphorus 3.1 mg/dL (2.7-4.5) 06/04/24 PTH Intact 71.4 pg/mL (8.7-77.1) 06/04/24 Urine Protein 100 (2+) mg/dL (Neg-Trace) H 02/07/24 Assessment & Plan Assessment & Plan (1) CKD stage 3a, GFR 45-59 ml/min: Code(s): N18.31 - Chronic kidney disease, stage 3a Category: Medical (2) Metabolic acidosis: Code(s): E87.20 - Acidosis, unspecified Category: Medical (3) Renal cyst: Code(s): N28.1 - Cyst of kidney, acquired Category: Medical (4) Mosher syndrome: Code(s): Z15.09 - Genetic susceptibility to other malignant neoplasm Category: Medical (5) Kidney stones: Code(s): N20.0 - Calculus of kidney Category: Medical Plan She had STEPHEN due to compromised renal perfusion with resultant tubular injury - resolved with renal function back to baseline . Has asymmetric kidneys- left smaller. Has a right renal cyst- no F/U needed now. Recently she had abdominal imaging which did not show any hydronephrosis; NO renal malignancy. Her hypokalemia , hypomagnesemia and metabolic acidosis improved; C/W NaHCO3 650 mg bid Encouraged to maintain good hydration; No NSAIDs. Follow up lab work ordered. F/U given; Answered all questions Orders: Orders Creatinine Today E87.20 - Acidosis, unspecified, N18.31 - Chronic kidney disease, stage 3a, N20.0 - Calculus of kidney, N28.1 - Cyst of kidney, acquired, Z15.09 - Genetic susceptibility to other malignant neoplasm Blood Urea Nitrogen Today E87.20 - Acidosis, unspecified, N18.31 - Chronic kidney disease, stage 3a, N20.0 - Calculus of kidney, N28.1 - Cyst of kidney, acquired, Z15.09 - Genetic susceptibility to other malignant neoplasm Electrolytes Today E87.20 - Acidosis, unspecified, N18.31 - Chronic kidney disease, stage 3a, N20.0 - Calculus of kidney, N28.1 - Cyst of kidney, acquired, Z15.09 - Genetic susceptibility to other malignant neoplasm Magnesium Today E87.20 - Acidosis, unspecified, N18.31 - Chronic kidney disease, stage 3a, N20.0 - Calculus of kidney, N28.1 - Cyst of kidney, acquired, Z15.09 - Genetic susceptibility to other malignant neoplasm Calcium Today E87.20 - Acidosis, unspecified, N18.31 - Chronic kidney disease, stage 3a, N20.0 - Calculus of kidney, N28.1 - Cyst of kidney, acquired, Z15.09 - Genetic susceptibility to other malignant neoplasm Coding Level of Care Code Est Pt Level 4 (04003) Diagnoses CKD stage 3a, GFR 45-59 ml/min N18.31 Metabolic acidosis E87.20 Renal cyst N28.1 Mosher syndrome Z15.09 Kidney stones N20.0
[2024-06-11 09:47] VITALS: BP 90/60; PULSE 76; O2SAT 98; BMI 39.3
== END 2024-06-11 10:17 | disposition home or self-care (01) ==
PROVIDERS: PCP Internal Medicine; Visit Provider Internal Medicine Nephrology
DX: N18.31 Chronic kidney disease, stage 3a (principal); E87.20 Acidosis, unspecified; N28.1 Cyst of kidney, acquired; Z15.09 Genetic susceptibility to other malignant neoplasm; N20.0 Calculus of kidney
CPT/HCPCS: 99214

== ENCOUNTER → 2024-06-11 09:39 | Outpatient (BNVA) | payer MEDICARE, MEDICAID, SELFPAY | PROVIDERS: PCP Internal Medicine; Visit Provider Internal Medicine Nephrology | DX: N18.31 Chronic kidney disease, stage 3a (principal); N28.1 Cyst of kidney, acquired; N20.0 Calculus of kidney; E87.20 Acidosis, unspecified; Z15.09 Genetic susceptibility to other malignant neoplasm | CPT/HCPCS: 99212 ==

== ENCOUNTER 2024-12-03 07:48 | Outpatient (REF) | payer MEDICARE, MEDICAID, SELFPAY ==
--- OUTSIDE RECORDS SUMMARY | 2024-12-03 07:51 | XMS_ITS | Data Portability ---
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 Pt has noticed an increase in her illiostomy output over the last few days. She states that her oncologist asked her to measure it for 24hrs yesterday and that it put out 3475ml. He expressed concern about possible dehydration and request the pt be seen by . Pt denies any sx consistent with dehydration just as lightheadedness or COLLIER, and denies increase fatigue or change in appetite or n/v. She states that the frequency of empting the bag has decreased from q30min to q2hrs. Pt states she is drinking plenty of fluids and that she is on TPN at night. Exam: Pt is A/Ox3, VSS, pt non-toxic appearing, HRR, resp reg on RA, lungs CTA bilat. Abd soft, non-tender, non-distended. illiostomy and gtube present. BMP WNL, labs drawn off of cat. 500ml of NS infused through cat. DDx considered, but not limited to: Colon Ca: increase in illiostomy output most likely r/t pt's ca as she lacks any s/s of active infection or illness. Gastroenteritis: unlikely given lack of s/s of infection dehyration: unlikely given normal BMP. Work up/Results: BMP wnl CBC pending Plan/Discussion: Pt given 500ml of NS dt increase output of illiostomy to maintain hydration status, low concern of significant dehydration at this time. Pt advised to continue to take clear liquids and to follow up with her oncologist. CBC drawn to r/o infectious cause of sx. Patients PCP contacted and updated on patient status. Patient verbalized understanding of discharge instructions and when to follow up with PCP/911/ED as needed. Patient in agreement with current plan and treatment. Time On Scene with Patient: 00:41:02 barrie Not available 11/14/2018 18:20:58 01/03/2022 01/03/2022 Proper Personal Protective Equipment (PPE), including gloves, eye protection and masks were donned and doffed appropriately and all equipment cleaned using approved technique with germicidal disposable wipes prior to and after care of this patient [facility]. Overview/History : 51 yo female with significant GI hx on her 2nd ileostomy, and J tube, hx of Colon ca in remission after keytruda, with 4-5d of nausea and vomitting of decreasing frequency who was ref to us by [facility] for possible IVF. She has follow up next week with GI surg (Dr Brooks). Of note: she has a J tube for venting that was used for hydration inpatient but hasnt been instructed to do so since. Exam: general appearance wnl, ambulating well, no dizziness/unstea diness seen on exam, nontoxic appearing, NAD. Abd exam signifcant for Jtube, G tube, and Ileostomy patent of brown stool with no mucus, blood. abd exam otherwise wnl - not an acute abdomem DDx considered, but not limited to: viral GE - most likely given lack of assoc symptoms and gradual improvement over past few days GI obstruction - ostomy output patent and normal per the patient - less likely bowel perf - recent bowel perf led to the ileostomy, no pain at this time, no findings on abd exam, no fevers/chills, no significant findings in the stool in the ostomy bag infectious diarrhea - ostomy output is wnl per patient and without significant changes seen by this provider, no fever, no travel, no recent abx, no sick contacts, less likely cholecystitis/pa ncreatitis - no abd pain, icterus/jaundice , exam not consistent with these dx, very low suspicion Plan/Discussion: -discussed case with Betsy provider at Dr Brooks's office (Gen surg) -she was going to discuss the case and our tx plan with Dr Brooks and call back -call was placed at [phone] -pt rec'd 500cc NS and 4mg IV zofran with good effect -pt able to take in food and fluid po and will continue to do so -she was unable to take ODT zofran 2nd to the flavor, but will [facility] -she had surg followup next wek and will reachout to them sooner if no improvement -discussed case with Dr Brooks @ [phone] and he was in agreement with plan - he asked that if her symptoms persisted to refer her to the [facility] ED for re-eval. In order to obtain further information and compare any laboratory results/values, I have accessed old patient records. This information was pertinent in my medical decision making today. [email or web address] Not available 01/03/2022 13:29:20 Plan of Treatment Reminders Order Date Submit Date Provider Last Modified By Organization Details Last Modified Time Details Appointments None recorded. Lab BMP + ionized calcium, serum or plasma 2018 019 barrie [facility], [address] [place], [address], 9 14:46:42 CBC w/ auto diff - Collected by [facility] 2018 019 MONICA [facility], [address] [place], [address], 9 06:26:12 Referral None recorded. Procedures None recorded. Surgeries None recorded. Imaging None recorded. Medication Orders sodium chloride 0.9 % intraveno us solution 2018 019 [email or web address] [id number], [address], [place], [place], [id number], 12:24:01 sodium chloride 0.9 % intraveno us solution 2021 022 [email or web address] Not available 18:30:22 Zofran 2 mg/mL intraveno us solution 2021 022 [email or web address] Not available 2 18:30:22 ondansetr on HCl 4 mg tablet 2021 022 MONICA [id number], [address], [place], [id number], 12:47:50 Patient TargetsNo targets recorded. Patient Instructions Encounter Date Encounter Id Patient Instructions Last Modified By Organization Details Last Modified Time 11/14/2018 [id number] Thank you for yo ur visit with [facility] today. We cannot always find the exact cause of your symptoms during your initial visit. Please follow up with your primary care provider or specialist within 12-24 hours within 24-48 hours within 2-3 days to be rechecked or seek medical attention if your symptoms do not go away or get worse. If you develop any new or worsening symptoms and need after hours care, please go to nearest ER and/or call 911. If you have additional concerns or develop a change in your condition between 8am-10pm, please call [facility] at [phone] to help navigate your care. barrie Not available 11/14/2018 14:48:27 01/03/2022 [id number] Acute Nausea and Vomiting/Diarrhea BASIC INFORMATION Acute nausea and vomiting often start suddenly, worsen quickly, and last a few hours to 24 hours. Nausea and vomiting most often occur together, although they can occur alone. Cases of acute nausea and vomiting are often from gastrointestinal viruses such as norovirus, rotavirus and influenza. Less often it can be caused by toxins released from food that ? g oes bad? as well as some types of bacteria and parasites. Diarrhea can also occur. Your nurse practitioner will conduct a careful history to help determine if you have one of the more serious causes. The cause of your nausea and vomiting may be unknown. INSTRUCTIONS Medicines: 1) Anti-nausea: You may have been given a prescription for an anti nausea medicine such as Zofran, Phenergan or Compazine. These can be used every 6-8 hours to help prevent nausea and vomiting. They can make you sleepy, so do not drive after taking them. Be sure to read all of the drug information from the pharmacy. 2) Tylenol: Low grade fever is common with acute nausea and vomiting. You may use Tylenol, per the recommended dosing on the label, to help control fever. If you have liver disease, do not use Tylenol. Ask your BUSINESS DEPARTMENT CHAIR how to address fever if you are concerned about Tylenol use. 3) Anti-diarrheal medicines: These are available [id number], but in some cases are not recommended and can even worsen some cases of intestinal problems. Ask your BUSINESS DEPARTMENT CHAIR if you should use them. In children under 12, the only anti-diarrheal that should be considered is Kaopectate. Diet: 1) For the next 12-24 hours, take clear liquids only. No dairy and no caffeinated beverages. After you have not vomited for a complete hour (either with or without the help of the anti-nausea medicine), begin by taking one tablespoon of clear liquid every 15 minutes for one hour. If you are able to tolerate this, you may increase the amount to 2 tablespoons every hour for the next 2 hours. 2) Clear liquids such as gatorade, pedialyte or broth are recommended because of the electrolytes and sugars that will help replenish the losses from vomiting and diarrhea. 3) If you are able to tolerate clear liquids as instructed above, you may begin to take a bland diet. Plain pasta/noodles or toast are suggestions. If you have had diarrhea, bananas, rice and applesauce are suggested as these can help make the stools more solid. Avoid greasy, fatty or fried foods FOLLOW UP You should make an appointment to see your primary care provider within 24 hours or sooner for worsening condition as described below. If you do not have a primary care doctor, you should follow up with one of the PCP suggestions from [facility]. SEEK CARE IMMEDIATELY IF: 1) You are still unable to tolerate any oral intake after 24 hours 2) You have blood in your vomit or stool 3) You develop severe abdominal pain that does not go away after an episode of vomiting or diarrhea 4) You have severe dizziness, heart palpitations or are passing out 5) You develop severe muscle cramps or weakness 6) You have not made urine in over 24 hours If you develop any new or worsening symptoms and need after hours care, please go to nearest ER and/or call 911. If you have additional concerns or develop a change in your condition between 8am-10pm, please call [facility] at [phone] to help navigate your care. [email or web address] Not available 01/03/2022 12:11:57 Reason for Referral None Reported. Results Created Date Observation Date Name Description Value Unit Range Abnormal Flag Note LastModifiedBy Organization Detail LastModifiedTime 11/14/19 19 11/14/2018 BMP + ioniz ed calci um, serum or plasm a Na 140 mmol/ L 136-14 5 Not Available [facility] [address] [place], [address], 11/14/2018 14:27:11/14/1911/14/2018 BMP + ioniz ed calci um, serum or plasm a K 4.1 mmol/ L 3.5-5. 1 Not Available [facility] [address] [place], [address], 11/14/2018 14:27:11/14/1911/14/2018 BMP + ioniz ed calci um, serum or plasm a cL 103 mmol/ L 96-111 Not Available [facility] [address] [place], [address], 11/14/2018 14:27:11/14/1911/14/2018 BMP + ioniz ed calci um, serum or plasm a ica 1.19 mmol/ L 1.1-1. 4 Not Available [facility] [address] [place], [address], 11/14/2018 14:27:11/14/1911/14/2018 BMP + ioniz ed calci um, serum or plasm a TCO2 26 mmol/ L 20-30 Not Available [facility] [address] [place], [address], 11/14/2018 14:27:11/14/1911/14/2018 BMP + ioniz ed calci um, serum or plasm a glu 86 mg/dL 70-115 Not Available [facility] [address] [place], [address], 11/14/2018 14:27:11/14/1911/14/2018 BMP + ioniz ed calci um, serum or plasm a BUN 21 mg/dL 6-24 Not Available [facility] [address] [place], [address], 11/14/2018 14:27:11/14/1911/14/2018 BMP + ioniz ed calci um, serum or plasm a crea 0.7 mg/dL .65-1. 36 Not Available [facility] [address] [place], [address], 11/14/2018 14:27:11/14/1911/14/2018 BMP + ioniz ed calci um, serum or plasm a HCT 27 %_pcv 40.6-5 0.3 Not Available [facility] [address] [place], [address], 11/14/2018 14:27:11/14/1911/14/2018 BMP + ioniz ed calci um, serum or plasm a Hb 9.2 g/dL 13.9-1 7.4 Not Available [facility] [address] [place], [address], 11/14/2018 14:27:11/14/1911/14/2018 BMP + ioniz ed calci um, serum or plasm a angap 16 mmol/ L 6-18 Not Available [facility] [address] [place], [address], 11/14/2018 14:27:11/14/1911/14/2018 CBC w/ auto diff WBC 4.3 K/mm3 (4.0-1 1.0) Not Available [facility] [address] [place], [address], 11/14/2018 20:09:48 11/14/1911/14/2018 CBC w/ auto diff RBC 3.64 M/mm3 (4.20- 5.40) low Not Available [facility] [address] [place], [address], 11/14/2018 20:09:48 11/14/1911/14/2018 CBC w/ auto diff HGB 8.8 gm/dL (11.7- 15.5) low Not Available [facility] [address] [place], [address], 11/14/2018 20:09:48 11/14/1911/14/2018 CBC w/ auto diff HCT 29.7 % (35.7- 45.8) low Not Available [facility] [address] [place], [address], 11/14/2018 20:09:48 11/14/1911/14/2018 CBC w/ auto diff MCV 81.6 fL (80.0- 100.0) Not Available [facility] [address] [place], [address], 11/14/2018 20:09:48 11/14/1911/14/2018 CBC w/ auto diff MCH 24.2 pg (27.0- 34.0) low Not Available [facility] [address] [place], [address], 11/14/2018 20:09:48 11/14/1911/14/2018 CBC w/ auto diff MCHC 29.6 g/dL (33.0- 37.0) low Not Available [facility] [address] [place], [address], 11/14/2018 20:09:48 11/14/1911/14/2018 CBC w/ auto diff plt 258 K/mm3 (150-4 60) Not Available [facility] [address] [place], [address], 11/14/2018 20:09:48 11/14/1911/14/2018 CBC w/ auto diff RDW-SD 45.3 fL (<47.0 ) Not Available [facility] [address] [place], [address], 11/14/2018 20:09:48 11/14/1911/14/2018 CBC w/ auto diff MPV 12.1 fL (9.4-1 2.4) Not Available [facility] [address], [address], 11/14/2018 20:09:48 11/14/1911/14/2018 CBC w/ auto diff automated NRBC 0.0 #/100 _WBC' s Not Available [facility] [address] [place], [address], 11/14/2018 20:09:48 11/14/1911/14/2018 CBC w/ auto diff abs. NRBC 0.0 K/mm3 Not Available [facility] [address] [place], [address], 11/14/2018 20:09:48 11/14/1911/14/2018 CBC w/ auto diff neut # 2.6 K/mm3 (1.3-7 .0) Not Available [facility] [address] [place], [address], 11/14/2018 20:09:48 11/14/1911/14/2018 CBC w/ auto diff lymph # 1.2 K/mm3 (0.8-3 .1) Not Available [facility] [address] [place], [address], 11/14/2018 20:09:48 11/14/1911/14/2018 CBC w/ auto diff mono# 0.4 K/mm3 (0.4-0 .9) Not Available [facility] [address] [place], [address], 11/14/2018 20:09:48 11/14/1911/14/2018 CBC w/ auto diff eo # 0.0 K/mm3 (0.0-0 .4) Not Available [facility] [address] [place], [address], 11/14/2018 20:09:48 11/14/1911/14/2018 CBC w/ auto diff baso # 0.0 K/mm3 (0.0-0 .1) Not Available [facility] [address] [place], [address], 11/14/2018 20:09:48 11/14/1911/14/2018 CBC w/ auto diff abs. imm gran 0.0 K/mm3 Not Available [facility] [address] [place], [address], 11/14/2018 20:09:48 11/14/1911/14/2018 CBC w/ auto diff neut 61.3 % (44-76 ) Not Available [facility] [address] [place], [address], 11/14/2018 20:09:48 11/14/1911/14/2018 CBC w/ auto diff lymph 27.7 % (15-43 ) Not Available [facility] [address] [place], [address], 11/14/2018 20:09:48 11/14/1911/14/2018 CBC w/ auto diff monocyte 9.9 % (4.5-1 0.5) Not Available [facility] [address] [place], [address], 11/14/2018 20:09:48 11/14/1911/14/2018 CBC w/ auto diff eo 0.2 % (0-6) Not Available [facility] [address] [place], [address], 11/14/2018 20:09:48 11/14/1911/14/2018 CBC w/ auto diff baso 0.7 % (0-2) Not Available [facility] [address] [place], [address], 11/14/2018 20:09:48 11/14/1911/14/2018 CBC w/ auto diff imm gran 0.2 % (0.0-0 .6) Not Available [facility] [address] [place], [address], 11/14/2018 20:09:48 Result Notes None recorded. Procedures Surgical History Date Name Laterality Status Provider Name and Address Organization Details Recorded Time 2 IV Start Procedure - DH completed CHRIS Hernandez [address] [place], [address], [place] [facility] 01/03/2022 13:30:50 Imaging Results None recorded. Procedure Notes None recorded. Medical Equipment None Reported. Allergies Allergen ID Allergen Name Allergen Category Reaction Reaction Severity Criticality Documentation Date Start Date Code Code System Note Provider Name and Address Organization Details Recorded Time 77127 Tylenol PM medicatio n Not available Not available Not available 11/14/2018 84337 1 RxNorm can take tylen ol and benad ryl separ ately but not as tylen ol PM JUDI ALEXANDRE NP [address] [place], [address], [place] [facility] 9 14:23:45 Medications Name Sig Start Date Stop Date Status Note LastModified by Organization Details LastModified Time Lidocaine Viscous 2 % mucosal solution TAKE 1 ML BY MOUTH DAILY. APPLY TO AFFECTED SKIN AROUND ILEOSTOMY . LET SIT FOR 3 TO 5 MINUTES THEN CLEANSE AWAY active Not Available Not Available No t Available Nystop 100,000 unit/gram topical powder APPLY 5 GRAMS TOPICALLY TO THE AFFECTED AREA FOUR TIMES DAILY active Not Available Not Available No t Available prochlorper azine maleate 5 mg tablet TAKE 1 TABLET BY MOUTH EVERY 8 HOURS NEEDED FOR NAUSEA OR VOMITING active Not Available Not Available No t Available ondansetron HCl 4 mg tablet TAKE 1 TABLET BY MOUTH EVERY 8 HOURS NEEDED FOR NAUSEA OR VOMITING active Not Available Not Available No t Available acetaminoph en 500 mg tablet TAKE 2 CAPLETS BY MOUTH EVERY 8 HOURS active Not Available Not Available No t Available ondansetron 8 mg disintegrat ing tablet DISSOLVE 1 TABLET ON THE TONGUE EVERY 8 HOURS NEEDED FOR NAUSEA OR VOMITING 01/03 completed Not Available Not Available Not Available Mi-Acid Gas Relief (simethicon e) 80 mg chewable tablet CHEW AND SWALLOW 1 TABLET BY MOUTH FOUR TIMES DAILY NEEDED FOR GAS OR PAIN OR BLOATING active Not Available Not Available No t Available ranitidine 150 mg tablet Take 1 tablet twice a day by oral route. active Not Available Not Available No t Available bisacodyl 5 mg tablet,rubi yed release TAKE 2 TABLETS BY MOUTH AT NOON TWO DAYS BEFORE PROCEDURE AND 1 TABLET AT NOON THE DAY BEFORE PROCEDURE active Not Available Not Available No t Available sodium chloride 0.9 % intravenous solution 1 L administe red on scene. Time administe red: 1250 2021 active Not Available Not Available Not Avai lable polyethylen e glycol 3350 17 gram/dose oral powder SEE ATTACHED DIRECTION S active Not Available Not Available No t Available morphine 15 mg immediate release tablet active Not Available Not Available Not Available ondansetron 4 mg disintegrat ing tablet DISSOLVE 1 TABLET ON THE TONGUE EVERY 8 HOURS NEEDED FOR NAUSEA OR VOMITING active Not Available Not Available No t Available Zofran 2 mg/mL intravenous solution 4 mg IV administe red on scene. Time administe red: 1250 2021 active Not Available Not Available Not Avai lable metoclopram nicole 10 mg tablet TAKE 1 TABLET BY MOUTH EVERY 6 HOURS NEEDED FOR NAUSEA OR VOMITING active Not Available Not Available No t Available haloperidol lactate 2 mg/mL oral concentrate 01/03 completed Not Available Not Available Not Available morphine 01/03 completed Not Available Not Available Not Available Tylenol Extra Strength active Not Available Not Available Not Available Haldol 01/03 completed Not Available Not Available Not Available Singulair 01/03 completed Not Available Not Available Not Available Keytruda 01/03 completed Not Available Not Available Not Available Vitals Date Recorded Respiratory rate Heart rate Oxygen saturation Oxygen saturation in Arterial blood by Pulse oximetry Body temperature Systolic blood pressure Diastolic blood pressure Provider Name and Address Organization Details Last Updated DateTime 9 16 /min 80 /min 99 % 99 % 97.1 [degF] 118 mm[Hg] 74 mm[Hg] Not Available [facility] 9 14:28:43 Date Recorded Heart rate Oxygen saturation Oxygen saturation in Arterial blood by Pulse oximetry Body temperature Respiratory rate Systolic blood pressure Diastolic blood pressure Provider Name and Address Organization Details Last Updated DateTime 2 118 /min 94 % 94 % 97.9 [degF] 16 /min 92 mm[Hg] 52 mm[Hg] Not Available [facility] 2 12:24:49 Date Recorded Heart rate Provider Name an d Address Organization Details Last Updated DateTime 01/03/2022 98 /min Not Available [facility] 022 12:25:23 Social History Question Answer Notes LastModified by Organizat ion Details LastModified Time Tobacco Smoking Status Never Smoker JUDI ALEXANDRE, DIANE [address], [place], [address], [place] [facility] 11/14/2018 14:25:21 Do You Have An Advance Directive? Yes Information not available 11/14/2018 What Is Your Code Status? Full Code Information not available 11/14/2018 Drugs Abused None Information not available 11/14/2018 How Many Days In The Past Year Have You Had A Heavy Drinking Consumption (4+ Female, 5+ Male)? 0 Information not available 11/14/2018 Marital Status Informatio n not available 11/14/2018 What Was The Date Of Your Most Recent Tobacco Screening? 11/14/2018 Information not available 05/29/2019 Has Tobacco Cessation Counseling Been Provided? No Information not available 11/14/2018 Sex: Unknown Functional Status None recorded. Mental Status None recorded. Family History Relationship Description Onset Age of this Age Resolved Age Notes LastModified by Organization Details LastModified Time Father Hypertensive disorder [email or web address] Not available 11/14 14:25:15 Medical History Condition Response Cancer Y Asthma N Gynecological HistoryNo gynecological history recorded. Obstetrics History GPAL:G 0 P 0 0 0 0 Past Encounters Encounter ID Performer Location Encounter Start Date Encounter Closed Date Diagnosis/Indication Diagnosis SNOMED-CT Code Diagnosis ICD10 Code Diagnosis Note [id number] Stephanie Reynoso DO [facility] [address] [place] [address] 11/14/2018 14:19:44 11/14/2018 18:40:33 Diarrhea 88241050 R19.7 [id number] CHRIS Hernandez [facility] [address] [place] [address] 01/03/2022 12:10:33 01/04/2022 12:30:50 Acute vomiting 57816341 R11.10 Health Concerns Section Related Observation LastModified by Organization Detai ls LastModified Time None Recorded Concern Status LastModified by Organization Details LastModified Time None Recorded Advance Directives Directive Y: Payers Encounter Date Sequence Insurance Name Policy Number Policy Finch Covered Member ID Finch Member ID Guarantor Name 11/14/2018 2 [place] [facility] Maye Oscar [id number] Maye Bennett 11/14/2018 1 [place] B[place] [facility] Maye Bennett [id number] Maye Bennett 01/03/2022 1 [place] [facility] Maye Bennett [id number] Maye Bennett 01/03/2022 2 [place] [facility] Maye Bennett [id number] Maye Bennett Notes Date Note Type Note Provider Name and Address Organization Details Recorded Time 9 text/html Has had increase in illiostomy output. Has had 3475ml since 1000 yesterday morning. Unsure what baseline is. Oncology asked for measurement d/t increase in output a few days ago. Pt does receive TPN at night. On a clear liquid diet normally d/t bowel obstruction r/t scare tissue, it comes and goes. No major changes in appetite, no n/v with increase in illiostomy output. No COLLIER, earache, sore throat. No lightheadedness or dizziness. Oncologist thinks it might be r/t the immunotherapy but they are unsure. Never has this significant of an increase in output before. Oncologist advised her to start using immodium to help with increased output. Empting bag every 1-2 hours which is less than the q30min it was a few days ago. More that she drinks the more of an output she is getting. Next appointment is on the . Has been drinking well. JUDI ALEXANDRE NP [address], [place], [address], [place] [facility] 11/14/2018 18:21:02 2 text/html 51 yo female known to , new to providersince night pt has had nausea and vomitingshe hasnt been able to take zofran ODT because of the tasteshe was seen almost 3 years ago for same complaintshe had an ileostomy that was reversed since thenbut recently replaced due to bowel rupturemore recently the ileostomy was placed Novhe also has J tube for venting she had fluids infused through this in the hospitalshe had [facility] who sees her 2x/week who ref her to usshe has appt with Dr Brooks [facility] next weekno abd painno fevers chillsostomy output is described as for me, normal she is able to take in liquid and foodshe does have chronic N/V for which she takes reglanshe was told to stop this med after the ostomy placementvomitting frequency is decreasing - last was last nighthas eaten and able to drink fluids since thenHR 98BP 92/52this BP is consistent with vitals taken by [facility] CHRIS Hernandez [address], [place], [address], [place] - [facility] 01/03/2022 13:31:13 OBGyn Episode No OBEpisode recorded.
--- OUTSIDE RECORDS SUMMARY | 2024-12-03 07:51 | XMS_ITS | Clinical Summary ---
Author Organization [facility] Address [address] [place] [address] Phone Care Team Providers Care Chipping Machine Operator Name Role Phone Cynthia Pena MD Primary Care Provider [phone] Surgical History Surgery Date Site/Laterality Comments OTHER SURGICAL HISTORY 11/07/2016 PROCEDURE: TX COLCT TOT ABDL W/O PRCTECT W/ILEOST/ILEOPXTS; COMMENT: Exploratory laparotomy, removal of pelvic mass, LSO, right colectomy, end ileostomy with mucous fistula, partial omentectomy. 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) Obesity DX:Obesity Cecal cancer (CMS/HCC) DX:Cecal cancer (HCC) Herpes zoster DX:Herpes zoster Family History Medical History Relation Name Comments Colon cancer Brother Uterine cancer Maternal Grandmother Colon cancer Mother Uterine cancer Mother Uterine cancer Other Paternal Neic e Uterine cancer Sister Colon cancer Uncle Maternal uncle Relation Name Status Comments Brother Maternal Grandmother Mother Other Sister Uncle Social History Tobacco Use Types Packs/Day Years Used Date Smoking Tobacco: Never Smokeless Tobacco: Never Alcohol Use Standard Drinks/Week Comments Not Currently 0 (1 standard drink = 0.6 oz pur e alcohol) Sex and Gender Information Value Date Recorded Sex Assigned at Not on file Gender Identity Not on file Sexual Orientation Not on file Obstetrics History Last Filed Vital Signs Vital Sign Reading Time Taken Comments Blood Pressure 110/75 09/14/2022 8:44 AM EST Pulse 76 09/14/2022 8:44 AM EST Temperature - - Respiratory Rate - - Oxygen Saturation - - Inhaled Oxygen Concentration - - Weight 86.2 kg (190 lb) 09/14/2022 8:44 AM EST Height 157.5 cm (5' 2 ) 05/09/2022 9:52 AM EDT Body Mass Index 34.75 05/09/2022 9:52 AM EDT Plan of Treatment Health Maintenance Due Date Last Done Comments Breast Cancer Screening 1972 COVID-19 Vaccine (#1) 1977 Pneumococcal Vaccine: Pediatrics (0 to 5 Years) and At-Risk Patients (6 to 64 Years) (1 of 2 - PCV) 1978 DTaP,Tdap,and Td Vaccines (1 - Tdap) 1991 Hepatitis B Vaccines (1 of 3 - 19+ 3-dose series) 1991 Zoster Vaccines (1 of 2) 1991 Cervical Cancer Screening: P ap Smear 1993 Cholesterol Screening (Lipid Panel) 10/08/2022 Colorectal Cancer Screening: Colonoscopy 10/08/2022 Depression Screening 10/08/2022 HIV Screening 10/08/2022 Hepatitis C Screening 10/08/2022 Social Influencers of Health Screening 10/08/2022 Influenza Vaccine (#1) 2024 2, 08/20/2021 HIB Vaccines Aged Out No longer eligi ble based on patient's age to complete this topic HPV Vaccines Aged Out No longer eligi ble based on patient's age to complete this topic Hepatitis A Vaccines Aged Out No long er eligible based on patient's age to complete this topic IPV Vaccines Aged Out No longer eligi ble based on patient's age to complete this topic MMR Vaccines Aged Out No longer eligi ble based on patient's age to complete this topic Meningococcal ACWY Vaccine Aged Out N o longer eligible based on patient's age to complete this topic RSV Immunization Patients Under 20 months Aged Out No longer eligible b ased on patient's age to complete this topic Varicella Vaccines Aged Out No longer eligible based on patient's age to complete this topic Advance Directives Documents on File Type Date Recorded 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
[2024-12-03 11:00] LABS: Anion Gap 13 (12-20); Blood Urea Nitrogen 23 mg/dL (9-16); Calcium 9.2 mg/dL (8.4-10.2); Carbon Dioxide 19 mmol/L (22-29); Chloride 113 mmol/L (96-108); Estimated Glomerular Filt Rate 53; Magnesium 1.9 mg/dL (1.6-2.6); Potassium 3.6 mmol/L (3.3-5.1); Sodium 141 mmol/L (135-145)
== END 2024-12-03 07:49 | disposition home or self-care (01) ==
LOC: HO.HMGCLDS 07:48
PROVIDERS: PCP Internal Medicine; Visit Provider Internal Medicine Nephrology
DX: Z13.89 Encounter for screening for other disorder (principal)
CPT/HCPCS: 36415; 80051; 82310; 82565; 83735; 84520

== ENCOUNTER 2024-12-05 03:51 | Inpatient (IN) | payer MEDICARE, MEDICAID, SELFPAY ==
[2024-12-05] VITALS (12 sets, daily range): BP systolic 91–151; BP diastolic 54–83; PULSE 75–90; RESP 14–20; TEMP 36.2–37.1; O2SAT 95–100; BMI 39.1; BMI 39.4
--- NOTE | ~2024-12-05 | CT_ITS ---
CLINICAL HISTORY: l flank pain ?stone CT abdomen and pelvis without contrast Comparison: CT/REG/SC/SR - CT ABDOMEN PELVIS WO CON - 11/27/21 20:17 EST Findings: The lung bases are clear. Left-sided hydroureteronephrosis with a 6 x 6 mm stone in the proximal ureter. There is left renal atrophy. Additional nonobstructing mid kidney and lower pole stones measuring up to 6 mm. Simple appearing right renal cyst measures 5.2 cm. No right-sided stones. The liver is enlarged. Sludge within the gallbladder. No biliary ductal dilation. Spleen, pancreas and right adrenal gland are unremarkable. 18 mm left adrenal nodule is stable and most consistent with an adenoma. No bowel obstruction, pneumoperitoneum, or pneumatosis. Findings of right hemicolectomy. Pelvic contents unremarkable. Status post hysterectomy. Absent appendix. Prior ventral hernia repair with mesh. No acute fracture. No fluid collections or adenopathy. Nonaneurysmal aorta. IMPRESSION: 6 x 6 mm stone in the proximal left ureter with upstream hydroureteronephrosis. Left renal atrophy. Additional nonobstructing left renal stones. This document has been electronically signed by: Martha Wylie MD on 12/05/2024 05:31:04
--- NOTE | ~2024-12-05 | FL_ITS ---
EXAMINATION: XR FLUOROSCOPY WITH IMAGES CLINICAL INFORMATION: Left ureteral stent. COMPARISON: CT abdomen and pelvis 12/05/2024. TECHNIQUE: Fluoroscopy provided to: Dr. Jeff Fluoroscopy time: 9.1 seconds Dose: 3.97 mGy Images: 2 FINDINGS: 2 images provided during a left double-J ureteral stent placement. Please refer to the full operative report for details. FL/FL guidance in OR IMPRESSION: Fluoroscopic guidance. Electronically signed by: Stewart White MD 12/08/2024 09:32 AM EST
[2024-12-05 04:26] LABS: Basophils Percent Auto 0.3 % (0-2); Hematocrit 40.6 % (37.0-47.0); Imm Gran Abs Auto 0.08 X10*3/uL (0.00-0.03); Imm Gran Pct Auto 0.7 % (0.0-0.4); Lymphocytes Absolute Auto 0.7 X10*3/uL (1.2-4.9); Lymphocytes Percent Auto 5.7 % (20-40); MANUAL DIFF FLAG SCAN; Mean Corpuscular Volume 96.9 fL (80.0-98.0); Mean Platelet Volume 9.5 fL (9.4-12.3); Monocytes Absolute Auto 0.3 X10*3/uL (0.1-1.2); Neutrophils Absolute Auto 11.2 x10*3/uL (2.0-8.3); Neutrophils Percent Auto 91.3 % (45-73); Platelet Count 194 X10*3/uL (160-400); Red Blood Count 4.19 X10*6/uL (4.20-5.50); Red Cell Distribution Width 13.6 % (11.0-16.0); SCAN SMEAR FLAG 1; White Blood Count 12.2 X10*3/uL (4.8-10.8)
[2024-12-05 04:28] LABS: Appearance Urine Clear; Color Urine Yellow; Glucose Urine UA Negative (Negative); Leukocyte Esterase Urine Trace (Negative); Nitrite Urine Negative (Negative); Specific Gravity - Urine 1.025 (1.005-1.025); UMIC TRIGGER UACC YES; Urine Blood Small (1+) (Negative); Urine Ketones Negative (Negative); Urine Protein 100 (2+) mg/dL (Neg-Trace)
[2024-12-05 04:30] LABS: Bacteria Urine None Seen (None Seen); Hyaline Casts Urine 0-2 /LPF (0-2); Squamous Epithelial Cell Urine 0-2 /HPF (0-2); UACC Culture Trigger YES; WBC Urine 21-50 /HPF (0-5)
[2024-12-05 04:36] LABS: SLIDE REVIEW VERIFIED
--- NOTE | 2024-12-05 04:37 | ED_ITS ---
HPI - Abdominal Pain General Chief Complaint: Abdominal Pain Stated Complaint: vomiting, kidney pain Time Seen by Provider: 12/05/24 04:37 Source: patient Mode of arrival: ambulatory Limitations: no limitations History of Present Illness ED Provider: HPI narrative: Patient is 54 years old with history of colorectal cancer s/p resection and chemotherapy, off immunotherapy for 3 years who presents to the ED for left flank pain started yesterday afternoon got worse during the day with increased nausea and vomiting patient does have history of remote kidney stone no hematuria no fever no chills no abdominal pain Related Data Home Medications ?Medication ?Instructions ?Recorded ?Confirmed acetaminophen 500 mg tablet 1,000 mg PO DAILY PRN Pain 02/07/24 03/14/24 Previous Rx's ?Medication ?Instructions ?Recorded sodium bicarbonate 650 mg tablet 650 mg PO BID 90 days #180 tabs 11/03/24 Allergies Allergy/AdvReac Type Severity Reaction Status Date / Time codeine [Tylenol-Codeine] Allergy Unknown rash Verified 12/05/24 04:01 acetaminophen AdvReac Hives Verified 12/05/24 04:01 [From Tylenol PM] cat dander [cats] AdvReac Hives Verified 12/05/24 04:01 diphenhydramine AdvReac Hives Verified 12/05/24 04:01 [From Tylenol PM] Review of Systems Review of Systems Yes all other systems are reviewed and are negative PMFSH Past Medical History Medical History Gastritis Mosher syndrome Adenocarcinoma of colon Surgical History Hx of hysterectomy History of colon surgery Hx of bilateral breast reduction surgery Family History Family History Maternal Grandmother Uterine cancer Maternal Aunt Ovarian cancer Mother Cervical cancer Colon cancer Maternal Uncle Colon cancer Rectal cancer Brother Colon cancer Paternal Aunt Mental health disorder Paternal Uncle Mental health disorder Social History Social History Household Members: Family and Children Household Members Other:: 6 Housing: House Do you presently have visiting nurse or other home services: No Alcohol intake: current Alcohol intake frequency: does not drink Patient Tobacco Use Status: Never used Tobacco Smoked in Last 30 Days: No e-Cigarette/Vaping Use: Never Used Use of substances other than those prescribed or required for medical reasons: No Advance Directives: No Advance Directives Information Provided: Yes Advance Directives Date on File: 11/27/21 Do you have a plan to hurt others: No Plan service: No Current occupational status: disabled Cognitive needs: No Hearing needs: No Vision needs: Yes Physical Exam ED Vital Signs: Vital Signs - 24 hr 12/05/24 03:59 12/05/24 06:00 Temperature 97.7 F 98.3 F Pulse Rate 76 88 Respiratory Rate 20 16 Blood Pressure 141/78 H 126/63 Pulse Oximetry 100 98 Oxygen Delivery Method Room Air Room Air BMI result Body Mass Index 39.1 Appearance: Alert. Oriented X3. In moderate distress Eyes: No pallor or icterus ENT: Pharynx normal. Oral Mucosa moist Neck: Normal inspection. Neck supple. CVS: Normal heart rate and rhythm. Pulses normal. Respiratory: No respiratory distress. Equal air entry bilateral, no wheezing/rales/rhonchi Abdomen: Soft and nontender. Bowel sounds are present, no mass palpable, L CVA tenderness Skin: Skin warm and dry. Normal skin color. Normal skin turgor. Extremities: No lower extremity edema. No calf tenderness Neuro: Oriented X 3. No motor deficit. Medical Decision Making Medical Decision Making [facility] Narrative: Patient with left ureteric 6 x 6 mm obstructive stone with hydronephrosis case discussed Dr. Jeff will admit for lithotripsy patient has received IV fluids Flomax IV pain medication with partial relief Differential Diagnosis Differential Diagnoses: The differential diagnosis associated with the presentation includes Renal colic/UTI Consult Healthcare Provider Management of the patient was discussed with: Tube Molder Fiberglass Dr. Jeff urologist Lab Data [facility] Lab Attestation statement: I reviewed the patient's lab results. 12/05/24 04:21 12/05/24 04:21 Labs: Lab Results 12/05/24 Range/Units 04:21 WBC 12.2 H (4.8-10.8) X10*3/uL RBC 4.19 L D (4.20-5.50) X10*6/uL Hgb 13.0 D (12.0-16.0) g/dl Hct 40.6 D (37.0-47.0) % MCV 96.9 (80.0-98.0) fL MCH 31.0 (27.0-33.0) pg MCHC 32.0 (31.0-35.0) g/dl RDW 13.6 (11.0-16.0) % Plt Count 194 D (160-400) X10*3/uL MPV 9.5 (9.4-12.3) fL Immature Gran % (Auto) 0.7 H (0.0-0.4) % Neut % (Auto) 91.3 H (45-73) % Lymph % (Auto) 5.7 L (20-40) % [place] % (Auto) 2.0 (2-11) % Eos % (Auto) 0.0 (0-4) % Baso % (Auto) 0.3 (0-2) % Lymph # (Auto) 0.7 L (1.2-4.9) X10*3/uL [place] # (Auto) 0.3 (0.1-1.2) X10*3/uL Eos # (Auto) 0.0 (0.0-0.4) X10*3/uL Baso # (Auto) 0.0 (0.0-0.2) X10*3/uL Abs Immat Gran (auto) 0.08 H (0.00-0.03) X10*3/uL Absolute Neuts (auto) 11.2 H (2.0-8.3) x10*3/uL Absolute Nucleated RBC 0.000 (0.0-0.012) X10*3/uL Nucleated RBC % (auto) 0.0 (0.0-0.2) /100WBC Smear Tech's Comments VERIFIED Sodium 145 (135-145) mmol/L Potassium 3.8 (3.3-5.1) mmol/L Chloride 115 H (96-108) mmol/L Carbon Dioxide 17 L (22-29) mmol/L Anion Gap 17 (12-20) BUN 21 H (9-16) mg/dL Creatinine 1.42 H (0.5-1.4) mg/dL Estim Creat Clear Calc 50.3 Estimated GFR 39 Random Glucose 122 H (60-115) mg/dL Calcium 9.5 (8.4-10.2) mg/dL Total Bilirubin 1.4 H (0.0-1.0) mg/dL AST 49 H (5-31) U/L ALT 41 H (0-31) U/L Alkaline Phosphatase 130 H (39-117) U/L Total Protein 8.0 (6.5-8.0) g/dL Albumin 4.3 (3.5-5.0) g/dL Lipase 22 (8-78) U/L Urine Color Yellow Urine Appearance Clear Urine pH 6.0 (5.0-9.0) Ur Specific Holman 1.025 (1.005-1.025) Urine Protein 100 (2+) H (Neg-Trace) mg/dL Urine Glucose (UA) Negative (Negative) mg/dL Urine Ketones Negative (Negative) mg/dL Urine Blood Small (1+) H (Negative) Urine Nitrite Negative (Negative) Ur Leukocyte Esterase Trace H (Negative) Urine RBC 11-20 H (0-2) /HPF Urine WBC 21-50 H (0-5) /HPF Ur Squamous Epith Cells 0-2 (0-2) /HPF Urine Bacteria None Seen (None Seen) Hyaline Casts 0-2 (0-2) /LPF Independent Interpretation I performed an independent interpretation of an: CT Scan Radiology Impression Discussion of test interpretation with radiology: I have reviewed the radiologist's reading. Radiologist Impression: [place] [id number] CT Scan Report Signed Patient: Maye Bennett MR#: [id number] : 1970 Acct:[id number] Age/Sex: 54 / F ADM Date: 12/05/24 Loc: HO.ED Attending Dr: Ordering Physician: Abundio Bal MD Date of Service: 12/05/24 Procedure(s): CT abdomen pelvis wo IV con Accession Number(s): [id number] cc: Cynthia Pena MD; Abundio Bal MD~ Report Number: [id number]: Total DLP = 975.00 mGy-cm CLINICAL HISTORY: l flank pain ?stone CT abdomen and pelvis without contrast Comparison: CT/REG/[place]/SR - CT ABDOMEN PELVIS WO CON - 11/27/21 20:17 EST Findings: The lung bases are clear. Left-sided hydroureteronephrosis with a 6 x 6 mm stone in the proximal ureter. There is left renal atrophy. Additional nonobstructing mid kidney and lower pole stones measuring up to 6 mm. Simple appearing right renal cyst measures 5.2 cm. No right-sided stones. The liver is enlarged. Sludge within the gallbladder. No biliary ductal dilation. Spleen, pancreas and right adrenal gland are unremarkable. 18 mm left adrenal nodule is stable and most consistent with an adenoma. No bowel obstruction, pneumoperitoneum, or pneumatosis. Findings of right hemicolectomy. Pelvic contents unremarkable. Status post hysterectomy. Absent appendix. Prior ventral hernia repair with mesh. No acute fracture. No fluid collections or adenopathy. Nonaneurysmal aorta. IMPRESSION: 6 x 6 mm stone in the proximal left ureter with upstream hydroureteronephrosis. Left renal atrophy. Additional nonobstructing left renal stones. This document has been electronically signed by: Martha Wylie MD on 12/05/2024 05:31:04 Dictated By: Martha Wylie MD Signed By: <Elect Medications Administered Discontinued Medications Generic Name Dose Route Start Last Admin Trade Name Freq PRN Reason Stop Dose Admin Hydromorphone HCl 2 mg 12/05/24 04:45 12/05/24 05:31 Hydromorphone Hcl 2 Mg/Ml Vial IVPUSH 12/05/24 04:46 2 mg ONCE ONE Administration Protocol Sodium Chloride 1,000 mls @ 999 mls/hr 12/05/24 04:41 12/05/24 05:31 Ns IV 12/05/24 05:41 999 mls/hr .Q1H1M ONE Administration Ondansetron HCl 4 mg 12/05/24 04:45 12/05/24 05:31 Ondansetron Hcl 4 Mg/2 Ml Vial IVPUSH 12/05/24 04:46 4 mg ONCE ONE Administration Tamsulosin HCl 0.4 mg 12/05/24 05:35 12/05/24 06:06 Tamsulosin Hcl 0.4 Mg Capsule PO 12/05/24 05:36 0.4 mg ONCE ONE Administration Discharge Plan Discharge Clinical Impression: Hydronephrosis with urinary obstruction due to ureteral calculus Patient Disposition: Admitted As Inpatient Print Language: Cuban
[2024-12-05 04:53] LABS: Alanine Aminotransferase 41 U/L (0-31); Albumin Level 4.3 g/dL (3.5-5.0); Anion Gap 17 (12-20); Aspartate Amino Transferase 49 U/L (5-31); Bilirubin Total 1.4 mg/dL (0.0-1.0); Blood Urea Nitrogen 21 mg/dL (9-16); Calcium 9.5 mg/dL (8.4-10.2); Carbon Dioxide 17 mmol/L (22-29); Chloride 115 mmol/L (96-108); Creatinine Clr Calc Pharmacy 50.3; Estimated Glomerular Filt Rate 39; Glucose Random 122 mg/dL (60-115); Lipase 22 U/L (8-78); Potassium 3.8 mmol/L (3.3-5.1); Sodium 145 mmol/L (135-145)
[2024-12-05 05:05] LABS: Alkaline Phosphatase 130 U/L (39-117)
--- NOTE | 2024-12-05 05:15 | PC.NURSE ---
L. chest port accessed per pt request with POWER P.A.C. 20g needle. 1x attempt. pt tolerated well. +blood return upon insertion.
[2024-12-05] MEDS: ondansetron HCL 4 MG/2 ML VIAL IVPUSH ×3 (05:31→11:19)
[2024-12-05] MEDS: 0.9 % Sodium Chloride 1,000 ML 999 ML IV (05:31)
[2024-12-05] MEDS: HYDROmorphone HCl 2 MG/ML VIAL IVPUSH (05:31)
--- OUTSIDE RECORDS SUMMARY | 2024-12-05 05:52 | XMS_ITS | Clinical Summary ---
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
--- OUTSIDE RECORDS SUMMARY | 2024-12-05 05:52 | XMS_ITS | Data Portability ---
Author Organization [place] [facility] Address [address] [place] [id number] Care Team Providers Care Housecleaner Floor Name Role Phone KARISSA CROUCH Primary Care [...] after care of this patient [facility]. Overview/History : 51 yo [...] [facility] -she had surg followup next wek and will reachout to them sooner if no improvement -discussed case with Dr Brooks @ [phone] and he was in agreement with plan - he asked that if her symptoms persisted to refer her to the [facility] ED for re-eval. In order to obtain further information and compare any laboratory results/values, I have accessed old patient records. This information was pertinent in my medical decision making today. [email or web address] Not available 01/03/2022 13:29:20 Plan of Treatment Reminders Order Date Submit Date Provider Last Modified By Organization Details Last Modified Time Details Appointments None recorded. Lab BMP + ionized calcium, serum or plasma 2018 019 barrie [facility], [address] [place], [address], 9 14:46:42 CBC w/ auto diff - Collected by [facility] 2018 019 MONICA [facility], [address] [place], [address], 9 06:26:12 Referral None recorded. Procedures None recorded. Surgeries None recorded. Imaging None recorded. Medication Orders sodium chloride 0.9 % intraveno us solution 2018 019 [email or web address] [id number], [address] [facility], [place], [place], [id number], 12:24:01 sodium chloride 0.9 % intraveno us solution 2021 022 [email or web address] Not available 18:30:22 Zofran 2 mg/mL intraveno us solution 2021 022 [email or web address] Not available 2 18:30:22 ondansetr on HCl 4 mg tablet 2021 022 MONICA [id number], [address], [place], [id number], 12:47:50 Patient TargetsNo targets recorded. Patient Instructions Encounter Date Encounter Id Patient Instructions Last Modified By Organization Details Last Modified Time 11/14/2018 [id number] Thank you for yo ur visit with [facility] today. We cannot always find the exact [...] in your condition between 8am-10pm, please call [facility] at [phone] to help navigate your care. [email or web address] Not available 11/14/2018 14:48:27 01/03/2022 [id number] Acute Nausea and Vomiting/Diarrhea BASIC INFORMATION Acute [...] disease, do not use Tylenol. Ask your SENIOR [employer] END JAVA DEVELOPER how to address fever if you are concerned about Tylenol use. 3) Anti-diarrheal medicines: These are available [id number], but in some cases are not recommended and can even worsen some cases of intestinal problems. Ask your SENIOR BACK END JAVA DEVELOPER if you should use them. In children [...] with one of the PCP suggestions from [facility]. SEEK CARE IMMEDIATELY IF: 1) You [...] in your condition between 8am-10pm, please call [facility] at [phone] to help navigate your care. [email or web address] Not available 01/03/2022 12:11:57 Reason for Referral None Reported. Results Created Date Observation Date Name Description Value Unit Range Abnormal Flag Note LastModifiedBy Organization Detail LastModifiedTime 11/14/19 19 11/14/2018 BMP + ioniz ed calci um, serum or plasm a Na 140 mmol/ L 136-14 5 Not Available [facility] [address] [place], [address], 11/14/2018 14:27:11/14/1911/14/2018 BMP + ioniz ed calci um, serum or plasm a K 4.1 mmol/ L 3.5-5. 1 Not Available [facility] [address] [place], [address], 11/14/2018 14:27:11/14/1911/14/2018 BMP + ioniz ed calci um, serum or plasm a cL 103 mmol/ L 96-111 Not Available [facility] [address] [place], [address], 11/14/2018 14:27:11/14/1911/14/2018 BMP + ioniz ed calci um, serum or plasm a ica 1.19 mmol/ L 1.1-1. 4 Not Available [facility] [address] [place], [address], 11/14/2018 14:27:11/14/1911/14/2018 BMP + ioniz ed calci um, serum or plasm a TCO2 26 mmol/ L 20-30 Not Available [facility] [address] [place], [address], 11/14/2018 14:27:11/14/1911/14/2018 BMP + ioniz ed calci um, serum or plasm a glu 86 mg/dL 70-115 Not Available [facility] [address] [place], [address], 11/14/2018 14:27:11/14/1911/14/2018 BMP + ioniz ed calci um, serum or plasm a BUN 21 mg/dL 6-24 Not Available [facility] [address] [place], [address], 11/14/2018 14:27:11/14/1911/14/2018 BMP + ioniz ed calci um, serum or plasm a crea 0.7 mg/dL .65-1. 36 Not Available [facility] [address] [place], [address], 11/14/2018 14:27:11/14/1911/14/2018 BMP + ioniz ed calci um, serum or plasm a HCT 27 %_pcv 40.6-5 0.3 Not Available [facility] [address] [place], [address], 11/14/2018 14:27:11/14/1911/14/2018 BMP + ioniz ed calci um, serum or plasm a Hb 9.2 g/dL 13.9-1 7.4 Not Available [facility] [address] [place], [address], 11/14/2018 14:27:11/14/1911/14/2018 BMP + ioniz ed calci um, serum or plasm a angap 16 mmol/ L 6-18 Not Available [facility] [address] [place], [address], 11/14/2018 14:27:11/14/1911/14/2018 CBC w/ auto diff WBC 4.3 K/mm3 (4.0-1 1.0) Not Available [facility] [address] [place], [address], 11/14/2018 20:09:48 11/14/1911/14/2018 CBC w/ auto diff RBC 3.64 M/mm3 (4.20- 5.40) low Not Available [facility] [address] [place], [address], 11/14/2018 20:09:48 11/14/1911/14/2018 CBC w/ auto diff HGB 8.8 gm/dL (11.7- 15.5) low Not Available [facility] [address] [place], [address], 11/14/2018 20:09:48 11/14/1911/14/2018 CBC w/ auto diff HCT 29.7 % (35.7- 45.8) low Not Available [facility] [address] [place], [address], 11/14/2018 20:09:48 11/14/1911/14/2018 CBC w/ auto diff MCV 81.6 fL (80.0- 100.0) Not Available [facility] [address] [place], [address], 11/14/2018 20:09:48 11/14/1911/14/2018 CBC w/ auto diff MCH 24.2 pg (27.0- 34.0) low Not Available [facility] [address] [place], [address], 11/14/2018 20:09:48 11/14/1911/14/2018 CBC w/ auto diff MCHC 29.6 g/dL (33.0- 37.0) low Not Available [facility] [address] [place], [address], 11/14/2018 20:09:48 11/14/1911/14/2018 CBC w/ auto diff plt 258 K/mm3 (150-4 60) Not Available [facility] [address] [place], [address], 11/14/2018 20:09:48 11/14/1911/14/2018 CBC w/ auto diff RDW-SD 45.3 fL (<47.0 ) Not Available [facility] [address] [place], [address], 11/14/2018 20:09:48 11/14/1911/14/2018 CBC w/ auto diff MPV 12.1 fL (9.4-1 2.4) Not Available [facility] [address], [address], 11/14/2018 20:09:48 11/14/1911/14/2018 CBC w/ auto diff automated NRBC 0.0 #/100 _WBC' s Not Available [facility] [address] [place], [address], 11/14/2018 20:09:48 11/14/1911/14/2018 CBC w/ auto diff abs. NRBC 0.0 K/mm3 Not Available [facility] [address] [place], [address], 11/14/2018 20:09:48 11/14/1911/14/2018 CBC w/ auto diff neut # 2.6 K/mm3 (1.3-7 .0) Not Available [facility] [address] [place], [address], 11/14/2018 20:09:48 11/14/1911/14/2018 CBC w/ auto diff lymph # 1.2 K/mm3 (0.8-3 .1) Not Available [facility] [address] [place], [address], 11/14/2018 20:09:48 11/14/1911/14/2018 CBC w/ auto diff mono# 0.4 K/mm3 (0.4-0 .9) Not Available [facility] [address] [place], [address], 11/14/2018 20:09:48 11/14/1911/14/2018 CBC w/ auto diff eo # 0.0 K/mm3 (0.0-0 .4) Not Available [facility] [address] [place], [address], 11/14/2018 20:09:48 11/14/1911/14/2018 CBC w/ auto diff baso # 0.0 K/mm3 (0.0-0 .1) Not Available [facility] [address] [place], [address], 11/14/2018 20:09:48 11/14/1911/14/2018 CBC w/ auto diff abs. imm gran 0.0 K/mm3 Not Available [facility] [address] [place], [address], 11/14/2018 20:09:48 11/14/1911/14/2018 CBC w/ auto diff neut 61.3 % (44-76 ) Not Available [facility] [address] [place], [address], 11/14/2018 20:09:48 11/14/1911/14/2018 CBC w/ auto diff lymph 27.7 % (15-43 ) Not Available [facility] [address] [place], [address], 11/14/2018 20:09:48 11/14/1911/14/2018 CBC w/ auto diff monocyte 9.9 % (4.5-1 0.5) Not Available [facility] [address] [place], [address], 11/14/2018 20:09:48 11/14/1911/14/2018 CBC w/ auto diff eo 0.2 % (0-6) Not Available [facility] [address] [place], [address], 11/14/2018 20:09:48 11/14/1911/14/2018 CBC w/ auto diff baso 0.7 % (0-2) Not Available [facility] [address] [place], [address], 11/14/2018 20:09:48 11/14/1911/14/2018 CBC w/ auto diff imm gran 0.2 % (0.0-0 .6) Not Available [facility] [address] [place], [address], 11/14/2018 20:09:48 Result Notes None recorded. Procedures Surgical History Date Name Laterality Status Provider Name and Address Organization Details Recorded Time 2 IV Start Procedure - DH completed CHRIS Hernandez [address] [place], [address], [place] [facility] 01/03/2022 13:30:50 Imaging Results None recorded. Procedure Notes None recorded. Medical Equipment None Reported. Allergies Allergen ID Allergen Name Allergen Category Reaction Reaction Severity Criticality Documentation Date Start Date Code Code System Note Provider Name and Address Organization Details Recorded Time 87298 Tylenol PM medicatio n Not available Not available Not available 11/14/2018 39801 1 RxNorm can take tylen ol and benad ryl separ ately but not as tylen ol PM JUDI ALEXANDRE NP [address] [place], [address], [place] [facility] 9 [...] [degF] 118 mm[Hg] 74 mm[Hg] Not Available [facility] 9 14:28:43 Date Recorded Heart rate Oxygen saturation Oxygen saturation in Arterial blood by Pulse oximetry Body temperature Respiratory rate Systolic blood pressure Diastolic blood pressure Provider Name and Address Organization Details Last Updated DateTime 2 118 /min 94 % 94 % 97.9 [degF] 16 /min 92 mm[Hg] 52 mm[Hg] Not Available [facility] 2 12:24:49 Date Recorded Heart rate Provider Name an d Address Organization Details Last Updated DateTime 01/03/2022 98 /min Not Available [facility] 022 12:25:23 Social History Question Answer Notes LastModified by Organizat ion Details LastModified Time Tobacco Smoking Status Never Smoker JUDI ALEXANDRE, DIANE [address], [place], [address], [place] [facility] 11/14/2018 14:25:21 Do You [...] SNOMED-CT Code Diagnosis ICD10 Code Diagnosis Note [id number] Stephanie Reynoso DO [facility] [address] [place] [address] 11/14/2018 14:19:44 11/14/2018 18:40:33 Diarrhea 08188858 R19.7 [id number] CHRIS Hernandez [facility] [address] [place] [address] 01/03/2022 12:10:33 01/04/2022 12:30:50 Acute vomiting 14964062 R11.10 Health Concerns Section Related Observation LastModified by Organization Detai ls LastModified Time None Recorded Concern Status LastModified by Organization Details LastModified Time None Recorded Advance Directives Directive Y: Payers Encounter Date Sequence Insurance Name Policy Number Policy Finch Covered Member ID Finch Member ID Guarantor Name 11/14/2018 2 [place] [facility] Maye Oscar [id number] Maye Bennett 11/14/2018 1 [place] [facility] Maye Bennett [id number] Maye Bennett 01/03/2022 1 [place] [facility] Maye Bennett [id number] Maye Bennett 01/03/2022 2 [place] [facility] Maye Bennett [id number] Maye Bennett Notes Date Note Type Note [...] well. JUDI ALEXANDRE NP [address], [place], [address], [place] [facility] 11/14/2018 18:21:02 2 text/html [...] by [facility] CHRIS Hernandez [address], [place], [address], [place] [facility] 01/03/2022 13:31:13 OBGyn Episode No OBEpisode recorded.
[2024-12-05] MEDS: Tamsulosin HCL 0.4 MG CAPSULE PO (06:06)
--- NOTE | 2024-12-05 08:44 | PHA.MEDREC ---
Addendum entered by Alpesh Tadeo RP 12/05/24 09:24: MED REC CHECKED BY [facility] Original Note: Pharmacy Consult ? Medication Reconciliation Pharmacy has completed the medication reconciliation. Spoke with patient and she confirmed her medications. She confirmed she took one dose of the Sodium Bicarbonate 650mg tab this morning at around 0300.
--- NOTE | 2024-12-05 08:46 | PC.NURSE ---
patient met with dr guzman, per patient - potentially going in for procedure this afternoon. is to remain NPO. pain is returning, and patient noted to have vomited.
[2024-12-05] MEDS: HYDROmorphone HCl 1 MG/ML SYRINGE IVPUSH (11:19)
--- NOTE | 2024-12-05 12:36 | P.HPGS_ITS ---
History of Present Illness History of Present Illness Date of Service: 12/05/24 Chief complaint: vomiting, kidney pain Narrative: Maye Bennett is a 54 year old female Presentation to hospital with left-sided flank pain. Increased during the afternoon. Associated nausea and vomiting overnight. 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 No relief. Prior history kidney stones with procedures at [facility] - prior failed ESWL Creatinine 1.4, WBC 12.2, calcium 9.5 CT scan - Left-sided hydroureteronephrosis with a 6 x 6 mm stone in the proximal ureter. There is left renal atrophy.Additional nonobstructing mid kidney and lower pole stones measuring up to 6 mm Based on imaging with location recommendation for cystoscopy, left retrograde, left stent placement Review of Systems Constitutional: Constitutional: Reports as per HPI and Reports no additional constitutional complaints Cardiovascular: Cardiovascular: Reports as per HPI and Reports no additional cardiovascular complaints Respiratory: Respiratory: Reports as per HPI and Reports no additional respiratory complaints Gastrointestinal: Gastrointestinal: Reports as per HPI and Reports no additional gastrointestinal complaints Genitourinary: Genitourinary: Reports as per HPI Musculoskeletal: Musculoskeletal: Reports no additional musculoskeletal complaints and Reports as per HPI Neurologic: Reports system reviewed and no additional complaints, except as documented and Reports as per HPI [facility] Past Medical History Medical History Gastritis Mosher syndrome Adenocarcinoma of colon Family History Family History Maternal Grandmother Uterine cancer Maternal Aunt Ovarian cancer Mother Cervical cancer Colon cancer Maternal Uncle Colon cancer Rectal cancer Brother Colon cancer Paternal Aunt Mental health disorder Paternal Uncle Mental health disorder Surgical History Surgical History Hx of hysterectomy History of colon surgery Hx of bilateral breast reduction surgery Social History Social History Household Members: Family and Children Household Members Other:: 6 Housing: House Do you presently have visiting nurse or other home services: No Alcohol intake: current Alcohol intake frequency: does not drink Patient Tobacco Use Status: Never used Tobacco Smoked in Last 30 Days: No e-Cigarette/Vaping Use: Never Used Use of substances other than those prescribed or required for medical reasons: No Advance Directives: No Advance Directives Information Provided: Yes Advance Directives Date on File: 11/27/21 Do you have a plan to hurt others: No Plan service: No Current occupational status: disabled Cognitive needs: No Hearing needs: No Vision needs: Yes Meds Allergies Allergy/AdvReac Type Severity Reaction Status Date / Time codeine [Tylenol-Codeine] Allergy Unknown rash Verified 12/05/24 04:01 acetaminophen AdvReac Hives Verified 12/05/24 04:01 [From Tylenol PM] cat dander [cats] AdvReac Hives Verified 12/05/24 04:01 diphenhydramine AdvReac Hives Verified 12/05/24 04:01 [From Tylenol PM] Active Medications: Current Medications Calcium Carbonate (Calcium Carbonate 750 Mg Tab.Chew) 750 mg PO Q4H PRN PRN Reason: Heartburn Hydromorphone HCl (Hydromorphone Hcl 1 Mg/Ml Syringe) 0.5 mg IVPUSH Q4H PRN; Protocol PRN Reason: Pain, Severe (Pain Scale 7-10) Lactated Ringer's (Lr) 1,000 mls @ 125 mls/hr IVCONT .Q8H BORIS Ketorolac Tromethamine (Ketorolac Tromethamine 30 Mg/Ml Vial) 15 mg IVPUSH Q6H PRN PRN Reason: Pain, Mild (Pain Scale 1-3) Stop: 12/10/24 12:31 Magnesium Hydroxide (Milk Of Magnesia 30 Ml Oral.Susp) 30 ml PO DAILY PRN PRN Reason: Constipation Melatonin (Melatonin 3 Mg Tablet) 6 mg PO BEDTIME PRN PRN Reason: Insomnia Sodium Chloride (0.9 % Sodium Chloride Flush 3 Ml Syringe) 3 ml IVFLUSH QSHIFT [facility] Home Medications ?Medication ?Instructions ?Recorded ?Confirmed ?Last Taken ?Type acetaminophen 500 mg tablet 1,000 mg PO DAILY PRN Pain 02/07/24 12/05/24 Unknown History loperamide 2 mg capsule 2 mg PO DAILY PRN Loose Stool 12/05/24 12/05/24 Unknown History ondansetron 4 mg disintegrating 4 mg PO Q8H PRN nausea/vomiting 12/05/24 12/05/24 Unknown History tablet Physical Exam Vital Signs: Vital Signs: Last Vital Signs Temp 98.7 F 12/05/24 11:16 Pulse 85 12/05/24 11:16 Resp 16 12/05/24 11:16 BP 151/83 H 12/05/24 11:16 Pulse Ox 100 12/05/24 11:16 O2 Del Method Room Air 12/05/24 11:16 BMI result Body Mass Index 39.1 Const: General: cooperative, healthy appearing, comfortable and no acute distress Orientation/consciousness: patient oriented x3 HEENT: Face and sinus: Yes normal facial exam Mouth: moist mucous membranes Neck: Neck: Yes normal visual inspection, Yes full ROM and Yes trachea midline Chest: Chest palpation & inspection: normal inspection of the chest Resp: Effort & Inspection: normal respiratory effort, able to speak in complete sentences and no respiratory distress GI: Inspection: Yes normal to inspection Back/Spine/Pelvis: Cervical Spine: normal cervical lordosis Thoracic/Lumbar Spine: thoracic and lumbar spine normal to inspection Skin: General skin exam: no rashes or lesions noted Neuro: General: patient oriented x3, tone normal and moves all extremities Extrem: General: Yes normal to inspection and Yes capillary refill normal Results Results Labs: Short CBC 12/05/24 Range/Units 04:21 WBC 12.2 H (4.8-10.8) X10*3/uL Hgb 13.0 D (12.0-16.0) g/dl Hct 40.6 D (37.0-47.0) % Plt Count 194 D (160-400) X10*3/uL BMP 12/05/24 04:21 Sodium 145 Potassium 3.8 Chloride 115 H Carbon Dioxide 17 L BUN 21 H Creatinine 1.42 H Calcium 9.5 Liver Function 12/05/24 Range/Units 04:21 Total Bilirubin 1.4 H (0.0-1.0) mg/dL AST 49 H (5-31) U/L ALT 41 H (0-31) U/L Alkaline Phosphatase 130 H (39-117) U/L Albumin 4.3 (3.5-5.0) g/dL Urine 12/05/24 Range/Units 04:21 Urine Color Yellow Urine Appearance Clear Urine pH 6.0 (5.0-9.0) Ur Specific [place] 1.025 (1.005-1.025) Urine Protein 100 (2+) H (Neg-Trace) mg/dL Urine Glucose (UA) Negative (Negative) mg/dL Assessment and Plan (1) Hydronephrosis with urinary obstruction due to ureteral calculus: Status: Acute (2) Kidney stones: Status: Acute Plan Ureteroscopy We discussed the nature of the decision and reasonable alternatives for perfor anita ureteroscopy. Options such as medical therapy were discussed. Interventions include chemical dissolution, ESWL, ureteroscopy with laser lithotripsy and stent placement, PCNL. The relative uncertainties and benefits related to each alternate procedure were adequately discussed. General surgical risks including, but not limited to - pain, bleeding, infection, myocardial infarction, pulmonary embolus, deep vein thrombosis and cerebrovascular accident which may result in further hospitalization were discussed. Full disclosure of the procedure as well as all major risks, benefits and compl ications were discussed including but not limited to damage to the urethra, bladder and kidney infection, damage to the ureter, stent migration or malposition, scarring to the renal pelvis, remnant stone fragments, subsequent stone passage with need for secondary procedures. The overall secondary procedure rate is approximately 10-15%. The overall clearance rate is approximately 90-95%. Success of the procedure in the short-term does not necessarily guarantee that long-term success will be maintained. Suitable follow up will need to be maintained. The patient showed understanding of discussion and wishes to proceed with - cystoscopy, retrograde, left stent placement Quality Stroke Does the patient have a stroke diagnosis?: No VTE Prior VTE?: No VTE Risk Level:: Surgical - low VTE Device Contraindication: Treatment Not Indicated VTE Drug Contraindication: Treatment Not Indicated Procedures Date of Service Date of Service: 12/05/24
[2024-12-05] MEDS: Lactated Ringers 1,000 ML 125 ML IVCONT ×2 (13:31→18:32)
[2024-12-05] MEDS: Ketorolac Tromethamine 30 MG/ML VIAL 15 MG IVPUSH (13:31)
[2024-12-05] MEDS: cefTRIAXone sodium 2 GM VIAL IVPUSH (13:32)
--- NOTE | 2024-12-05 15:14 | PC.NURSE ---
report given to short stay
--- NOTE | 2024-12-05 16:05 | P.CONAN_ITS ---
HPI - Anesthesia Eval Consult details Narrative: For cysto, retrograde, stent PMFSH Active Problems Active Problems: All Active Problems Hydronephrosis with urinary obstruction due to ureteral calculus (Acute) Mosher syndrome (Acute) Renal cyst (Acute) Metabolic acidosis (Acute) CKD stage 3a, GFR 45-59 ml/min (Acute) Hypomagnesemia (Acute) LFT elevation (Acute) SBO (small bowel obstruction) (Acute) Kidney stones (Acute) Gastritis (Acute) Mosher syndrome (Acute) Adenocarcinoma of colon (Acute) Past Medical History Medical History (Updated 12/05/24 @ 15:24 by Gaby Muhammad, RN) Port-A-Cath in place Gastritis Mosher syndrome Adenocarcinoma of colon Family History Family History Maternal Grandmother Uterine cancer Maternal Aunt Ovarian cancer Mother Cervical cancer Colon cancer Maternal Uncle Colon cancer Rectal cancer Brother Colon cancer Paternal Aunt Mental health disorder Paternal Uncle Mental health disorder Family history of problems with anesthesia: No Surgical History Surgical History (Updated 12/05/24 @ 15:24 by Gaby Muhammad RN) Hx of hysterectomy History of colon surgery Hx of bilateral breast reduction surgery History of Problems with Anesthesia: Yes (PONV) Social History Social History Household Members: Family and Children Household Members Other:: 6 Housing: House Are you a primary direct care supervisor to a significant other at home: No Do you presently have visiting nurse or other home services: No Alcohol intake: current Alcohol intake frequency: holidays/special occasions only Patient Tobacco Use Status: Never used Tobacco Smoked in Last 30 Days: No e-Cigarette/Vaping Use: Never Used Use of substances other than those prescribed or required for medical reasons: No Have you been hit, kicked, punched, or otherwise hurt by someone within the past year? If so, by whom?: No Are you DNR?: No Advance Directives: Yes Advance Directives Information Provided: Yes Advance Directives on File: Yes Advance Directives Date on File: 02/08/24 Do you have a plan to hurt others: No Plan Recently lost weight without trying: No How much weight loss: Not applicable Eating poorly because of decreased appetite: No Nutrition screen score: 0 Nutrition Risks: No Nutritional Risk Patient : No : No Poor oral hygiene: Yes (Missing & broken teeth throughout) service: No Current occupational status: disabled Cognitive needs: No Hearing needs: No Vision needs: Yes Meds Allergies Allergy/AdvReac Type Severity Reaction Status Date / Time codeine [Tylenol-Codeine] Allergy Intermediate Hives Verified 12/05/24 15:25 acetaminophen AdvReac Intermediate Hives Verified 12/05/24 15:25 [From Tylenol PM] cat dander [cats] AdvReac Intermediate Hives Verified 12/05/24 15:25 diphenhydramine AdvReac Intermediate Hives Verified 12/05/24 15:25 [From Tylenol PM] Active Medications: Current Medications Calcium Carbonate (Calcium Carbonate 750 Mg Tab.Chew) 750 mg PO Q4H PRN PRN Reason: Heartburn Hydromorphone HCl (Hydromorphone Hcl 1 Mg/Ml Syringe) 0.5 mg IVPUSH Q4H PRN; Protocol PRN Reason: Pain, Severe (Pain Scale 7-10) Lactated Ringer's (Lr) 1,000 mls @ 125 mls/hr IVCONT .Q8H [facility] Last Admin: 12/05/24 13:31 Dose: 125 mls/hr Ketorolac Tromethamine (Ketorolac Tromethamine 30 Mg/Ml Vial) 15 mg IVPUSH Q6H PRN PRN Reason: Pain, Mild (Pain Scale 1-3) Stop: 12/10/24 12:31 Last Admin: 12/05/24 13:31 Dose: 15 mg Magnesium Hydroxide (Milk Of Magnesia 30 Ml Oral.Susp) 30 ml PO DAILY PRN PRN Reason: Constipation Melatonin (Melatonin 3 Mg Tablet) 6 mg PO BEDTIME PRN PRN Reason: Insomnia Sodium Chloride (0.9 % Sodium Chloride Flush 3 Ml Syringe) 3 ml IVFLUSH QSHIFT [facility] Last Admin: 12/05/24 15:14 Dose: Not Given Home Medications ?Medication ?Instructions ?Recorded ?Confirmed ?Last Taken ?Type acetaminophen 500 mg tablet 1,000 mg PO DAILY PRN Pain 02/07/24 12/05/24 Unknown History loperamide 2 mg capsule 2 mg PO DAILY PRN Loose Stool 12/05/24 12/05/24 Unknown History ondansetron 4 mg disintegrating 4 mg PO Q8H PRN nausea/vomiting 12/05/24 12/05/24 Unknown History tablet Exam Height,Weight and Vital Signs: Height 5 ft 2 in Weight 97.069 kg Last Vital Signs Temp 98.8 F 12/05/24 15:44 Pulse 83 12/05/24 15:44 Resp 16 12/05/24 15:44 BP 129/74 12/05/24 15:44 Pulse Ox 100 12/05/24 15:44 O2 Del Method Room Air 12/05/24 15:44 Pertinent Lab Results Pertinent Lab Results: Laboratory Tests 12/05/24 04:21 WBC 12.2 H RBC 4.19 L D Hgb 13.0 D Hct 40.6 D MCV 96.9 MCH 31.0 MCHC 32.0 RDW 13.6 Plt Count 194 D MPV 9.5 Immature Gran % (Auto) 0.7 H Neut % (Auto) 91.3 H Lymph % (Auto) 5.7 L Mcpherson % (Auto) 2.0 Eos % (Auto) 0.0 Baso % (Auto) 0.3 Lymph # (Auto) 0.7 L Mcpherson # (Auto) 0.3 Eos # (Auto) 0.0 Baso # (Auto) 0.0 Abs Immat Gran (auto) 0.08 H Absolute Neuts (auto) 11.2 H Absolute Nucleated RBC 0.000 Nucleated RBC % (auto) 0.0 Smear Tech's Comments VERIFIED Sodium 145 Potassium 3.8 Chloride 115 H Carbon Dioxide 17 L Anion Gap 17 BUN 21 H Creatinine 1.42 H Estim Creat Clear Calc 50.3 Estimated GFR 39 Random Glucose 122 H Calcium 9.5 Total Bilirubin 1.4 H AST 49 H ALT 41 H Alkaline Phosphatase 130 H Total Protein 8.0 Albumin 4.3 Lipase 22 Urine Color Yellow Urine Appearance Clear Urine pH 6.0 Ur Specific Arp 1.025 Urine Protein 100 (2+) H Urine Glucose (UA) Negative Urine Ketones Negative Urine Blood Small (1+) H Urine Nitrite Negative Ur Leukocyte Esterase Trace H Urine RBC 11-20 H Urine WBC 21-50 H Ur Squamous Epith Cells 0-2 Urine Bacteria None Seen Hyaline Casts 0-2 Airway Mallampati Class: II TM Dist: <=3cm Neck ROM: Full Loose/Missing/Broken Teeth: Yes, Upper and Lower Heart: ok Lungs: ok Assessment and Plan Assessment Anesthesia Assessment: Anesthesia Plan Discussed and Chart Reviewed Final Anesthetic Review Family History of Problems with Anesthesia: No History of Problems with Anesthesia: Yes (PONV) NPO: Yes ASA Class: III Final Preanesthetic Review: No Changes in Pt Med Stat, Meds/Allgs Chart Reviewed, Consent Obtained/Reviewed and Anes Risks/Benef Reviewed Patient Risk: Intermediate Procedure Risk: Low Anesthetic Plan Anesthetic Plan: GA and Agree w/ Assess. and Plan Disposition: Standard PACU
--- NOTE | 2024-12-05 17:05 | MHC.SHP ---
Pre-Procedural Eval Section A - 24 Hr Update-Section A only Date of Service: 12/05/24 The patient is an INPATIENT: Yes Changes since office visit: No Cold of Flu in the past 2 weeks, No New Medical Problems, No Changes in Medication and No Patient answered all questions The patient has been examined within 24 hours of the surgical procedure. The History & Physical has been completed within 30 days and I have reviewed it.: Yes Section B - Complete if H&P > 30 days Chief Complaint: ureteric stone Allergies: Allergies Allergy/AdvReac Type Severity Reaction Status Date / Time codeine [Tylenol-Codeine] Allergy Intermediate Hives Verified 12/05/24 15:25 acetaminophen AdvReac Intermediate Hives Verified 12/05/24 15:25 [From Tylenol PM] cat dander [cats] AdvReac Intermediate Hives Verified 12/05/24 15:25 diphenhydramine AdvReac Intermediate Hives Verified 12/05/24 15:25 [From Tylenol PM] Plan I have reviewed the history and physical and performed a pertinent physical examination on my patient. No changes have occurred unless specified. Time Spent With Patient Time: Total time managing care of this patient today ____ minutes.
--- NOTE | 2024-12-05 17:23 | W.PM.OPN ---
Operative Note Operative Note Date of Service: 12/05/24 Narrative: PreOperative Diagnosis: Left proximal ureteric stone with hydronephrosis and acute kidney injury Post Operative Diagnosis: Left proximal ureteric stone with hydronephrosis and elevated creatinine Procedure: Cystoscopy, left retrograde, left stent placement Surgeon: Dr Warren Jeff Anesthesia: LMA Indications for procedure: See above Procedure: After informed consent was verified the patient was brought to the operating room and placed in a supine position. Anesthesia was administered per protocol. The patient was placed in modified dorsal lithotomy position and prepped and draped in a sterile fashion. A safety pause time-out was performed. Laterality of procedure and antibiotics were confirmed, appropriate imaging was available A 22 Kazakh cystoscope was introduced per urethra. No abnormality was noted of urethra or bladder. Both ureteric orifices were seen in a normal position. The left ureter was cannulated with an open ended catheter and a retrograde examination was performed. Narrowing at left proximal ureter and hydronephrosis . A Sensor guidewire was placed under fluoroscopy and a good coil was seen within the renal pelvis. A 6 Kazakh by 22 cm double J stent was advanced over the wire and up to the level of the renal pelvis under fluoroscopic and direct visualization. The stent was seen with appropriate coil within the renal pelvis and in the bladder after deployment. The patient tolerated the procedure well and was transferred in a stable condition to the recovery area. Pathology: Drains: As above
[2024-12-05] MEDS: Phenazopyridine HCL 100 MG TABLET PO (17:49)
[2024-12-05] MEDS: Acetaminophen 325 MG TABLET 975 MG PO (18:31)
[2024-12-06] MEDS: 0.9 % Sodium Chloride Flush 3 ML SYRINGE IVFLUSH ×2 (00:56→08:59)
[2024-12-06] MEDS: Ketorolac Tromethamine 30 MG/ML VIAL 15 MG IVPUSH ×2 (02:04→08:58)
[2024-12-06 03:12] VITALS: BP 91/55; PULSE 73; RESP 14; TEMP 36.7; O2SAT 98
[2024-12-06 07:09] VITALS: BP 93/50; PULSE 69; RESP 18; TEMP 36.5; O2SAT 99
--- NOTE | 2024-12-06 08:49 | MHC.CM.PN ---
IMM 12/06/24, Pt lives with family, she is functionally independent, no home health services or DME. HCP on file and confirmed: Gemma, PCP confirmed: Dr. Pena. Pt is able to arrange a ride home at [place]. DCP: home, self care. CM to follow for DC needs.
--- NOTE | 2024-12-06 11:27 | PM.DS ---
DS: Providers Provider Date of Service: 12/06/24 Date of admission: 12/05/24 13:45 Date of discharge: 12/06/24 Primary care physician: Cynthia Pena MD DS: Diagnosis Discharge Diagnosis (1) Hydronephrosis with urinary obstruction due to ureteral calculus: Status: Acute (2) Kidney stones: Status: Acute DS: Summary Hospital Course Hospital Course: Admitted to hospital and underwent cystoscopy, left retrograde with left stent placement Markedly improved pain Status at Discharge Functional status at discharge: independent ambulation Overall status at discharge: patient is back to baseline Time Attestation Total time managing care of this patient today: 30 mintues. Discharge Coordination Time (in mins): 15 Quality: Safe Use of Opioids Does Pt have an Active Cancer Diagnosis on the Problem List?: No Quality: Stroke Does the patient have a stroke diagnosis?: No Physical Exam Vital Signs: Vital Signs: Last Vital Signs Temp 97.7 F 12/06/24 07:09 Pulse 69 12/06/24 07:09 Resp 18 12/06/24 07:09 BP 93/50 L 12/06/24 07:09 Pulse Ox 99 12/06/24 07:09 O2 Del Method Room Air 12/06/24 07:09 BMI result Body Mass Index 39.4 DS: Data Imaging CT scan - abdomen: Attestation: I personally reviewed and interpreted this imaging study as follows: CT scan - pelvis: Attestation: I personally reviewed and interpreted this imaging study as follows: Discharge Plan Discharge Anticipated Discharge Date/Time: 12/05/24 17:27 Patient Disposition: Home, Self-Care Discharge Diagnosis: renal stones with STEPHEN Referrals: Cynthia Pena MD [Primary Care Provider] - 1 Week Discharge Medications: New tamsulosin 0.4 mg capsule 0.4 mg PO BEDTIME 14 Days Qty: 14 0RF phenazopyridine [Pyridium] 100 mg tablet 100 mg PO TID PRN (Reason: Spasm) 4 Days Qty: 12 0RF Continued sodium bicarbonate 650 mg tablet 650 mg PO BID 90 Days Qty: 180 4RF acetaminophen 500 mg Tablet 1,000 mg PO DAILY PRN (Reason: Pain) loperamide 2 mg capsule 2 mg PO DAILY PRN (Reason: Loose Stool) ondansetron 4 mg tablet,disintegrating 4 mg PO Q8H PRN (Reason: nausea/vomiting) Discharge Orders: Discharge Order (Routine); Ordered 12/06/24 Ordered By: Warren Jeff Diet: Advance to usual diet Activity on Discharge: As tolerated Stand Alone Forms: Patient Portal Discharge page Print Language: Cook Islander Care Plan Goals: stones Health Concerns: stones Plan of Treatment: stones Assessment: stones
--- NOTE | 2024-12-06 11:28 | HO.POSTANES ---
Post Anesthesia Evaluation Post Anesthesia Evaluation Date of Service: 12/06/24 Vital Signs: Vital Signs Temp Pulse Resp BP Pulse Ox O2 Del Method 12/06/24 07:09 97.7 F 69 18 93/50 L 99 Room Air 12/06/24 03:12 98.1 F 73 14 91/55 L 98 Room Air Anesthesia: General LMA Mental Status: Awake Pain Control: Satisfactory Nausea/Vomiting: None Hydration: Adequate Anesthesia-Related Issues: No Anes. Related Issues
--- NOTE | 2024-12-06 11:37 | MHC.CM.PN ---
Pt has been medically cleared for DC, she will go home via private transport, plan is home, self care.
== END 2024-12-06 13:30 | disposition home or self-care (01) | DRG 661 ==
LOC: HO.ED 12:48 → HO.EDOVER 14:11 → HO.IMC 15:55
PROVIDERS: Admitting Provider Urology; Emergency Provider Internal Medicine; PCP Internal Medicine; Visit Provider Urology
PROC: 0TJB8ZZ Inspection of Bladder, Via Natural or Artificial Opening Endoscopic (ICD-10-PCS; CPT 52005; principal; 2024-12-05 16:30)
DX: N13.2 Hydronephrosis with renal and ureteral calculous obstruction (principal); N17.9 Acute kidney failure, unspecified; Z15.09 Genetic susceptibility to other malignant neoplasm; Z85.038 Personal history of other malignant neoplasm of large intestine; Z79.899 Other long term (current) drug therapy
CPT/HCPCS: 36415; 74176; 80051; 80053; 81001; 82310; 82565; 83690; 83735; 84520; 85025; 87086; 99285; C1758; C1769; C2617; J0696; J1171; J1642; J1885; J2003; J2405; J2704; J3010; J7120; Q9967

== ENCOUNTER → 2024-12-05 04:45 | Outpatient (BNV) | payer MEDICARE, MEDICAID, SELFPAY | PROVIDERS: Emergency Provider Internal Medicine; PCP Internal Medicine; Visit Provider Radiology Diagnostic Radiology | DX: N13.2 Hydronephrosis with renal and ureteral calculous obstruction (principal); N26.1 Atrophy of kidney (terminal) | CPT/HCPCS: 74176 ==

== ENCOUNTER → 2024-12-05 05:49 | Outpatient (BNV) | payer MEDICARE, MEDICAID, SELFPAY | PROVIDERS: Emergency Provider Internal Medicine; PCP Internal Medicine; Visit Provider Urology | DX: N13.2 Hydronephrosis with renal and ureteral calculous obstruction (principal); N17.9 Acute kidney failure, unspecified | CPT/HCPCS: 52332; 74420; 99222; 99238 ==

== ENCOUNTER 2024-12-10 09:18 | Outpatient (AMB) | payer MEDICARE, MEDICAID, SELFPAY ==
[2024-12-10 09:34] VITALS: BP 100/68; PULSE 63; O2SAT 99; BMI 39.4
--- NOTE | 2024-12-10 09:34 | HO.NEPHOV_ITS ---
Vital Signs 12/10/24 09:34 Height 5 ft 2 in Weight 215 lb 4 oz BMI 39.4 BP 100/68 Blood Pressure Location Lt brachial Position Sitting Pulse 63 Pulse Source Pulse Oximeter Pulse Oximetry (%) 99 Oxygen Delivery Method Room Air Intake Visit Reasons: CKD-Conf Barrel Cleaner Required: No Accompanied by: Sister Allergies codeine [Tylenol-Codeine] Allergy (Intermediate, Verified 12/10/24 09:35) Hives acetaminophen [From Tylenol PM] Adverse Reaction (Intermediate, Verified 12/10/24 09:35) Hives cat dander [cats] Adverse Reaction (Intermediate, Verified 12/10/24 09:35) Hives diphenhydramine [From Tylenol PM] Adverse Reaction (Intermediate, Verified 12/10/24 09:35) Hives HPI Comments Details: 53-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 She has chronic diarrhea/loose stools s/p colorectal cancer which she states is around baseline.She recently had left flank pain and was seen in ER. She had imaging which showed 6 x 6 mm stone in the proximal left ureter with upstream hydroureteronephrosis as well as left renal atrophy. 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.She was seen in the office today in follow up and feels better [facility] Medical History (Updated 12/05/24 @ 17:25 by Warren Jeff MD) Port-A-Cath in place Gastritis Mosher syndrome Adenocarcinoma of colon Surgical History Hx of hysterectomy History of colon surgery Hx of bilateral breast reduction surgery Family History Maternal Grandmother Uterine cancer Maternal Aunt Ovarian cancer Mother Cervical cancer Colon cancer Maternal Uncle Colon cancer Rectal cancer Brother Colon cancer Paternal Aunt Mental health disorder Paternal Uncle Mental health disorder Social History Household Members: Family Household Members Other:: 6 Housing: House Are you a primary landcare officer to a significant other at home: No Do you presently have visiting nurse or other home services: No Alcohol intake: current Alcohol intake frequency: holidays/special occasions only Patient Tobacco Use Status: Never used Tobacco e-Cigarette/Vaping Use: Never Used Advance Directives Date on File: 02/08/24 service: No Current occupational status: disabled Cognitive needs: No Hearing needs: No Vision needs: Yes Review of Systems Const All systems reviewed & are unremarkable except as noted in HPI and below Physical Exam Vital Signs: Last Vital Signs Pulse 63 12/10/24 09:34 BP 100/68 12/10/24 09:34 Pulse Ox 99 12/10/24 09:34 Oxygen Delivery Method Room Air 12/10/24 09:34 BMI result Body Mass Index 39.4 Const General: comfortable and no acute distress Orientation/consciousness: patient oriented x3 HEENT Head: Yes normocephalic Mouth: Normal oral and palatal mucosa present Eyes EOM: EOMs intact bilaterally Neck Neck: Yes supple Resp Auscultation: clear to auscultation bilaterally Cardio Jugular venous distension: no JVD Rate: regular rate GI Palpation (GI): Soft to palpation Auscultation: normal bowel sounds General: Yes no CVA tenderness Back/Spine/Pelvis Back: no CVA tenderness Skin General skin exam: no rashes or lesions noted Neuro General: patient oriented x3 and moves all extremities Extrem General: Yes no pedal edema Results Reviewed Nephrology Results: Hgb 13.0 g/dl (12.0-16.0) 12/05/24 WBC 12.2 X10*3/uL (4.8-10.8) H 12/05/24 Plt Count 194 X10*3/uL (160-400) 12/05/24 Sodium 145 mmol/L (135-145) 12/05/24 Potassium 3.8 mmol/L (3.3-5.1) 12/05/24 Chloride 115 mmol/L (96-108) H 12/05/24 Carbon Dioxide 17 mmol/L (22-29) L 12/05/24 BUN 21 mg/dL (9-16) H 12/05/24 Creatinine 1.42 mg/dL (0.5-1.4) H 12/05/24 Calcium 9.5 mg/dL (8.4-10.2) 12/05/24 Phosphorus 3.1 mg/dL (2.7-4.5) 06/04/24 PTH Intact 71.4 pg/mL (8.7-77.1) 06/04/24 Urine Protein 100 (2+) mg/dL (Neg-Trace) H 12/05/24 Assessment & Plan Assessment & Plan (1) Acute kidney injury: Code(s): N17.9 - Acute kidney failure, unspecified Category: Medical (2) Mosher syndrome: Code(s): Z15.09 - Genetic susceptibility to other malignant neoplasm Category: Medical (3) Hydronephrosis with urinary obstruction due to ureteral calculus: Code(s): N13.2 - Hydronephrosis with renal and ureteral calculous obstruction Category: Medical Plan She had STEPHEN due to obstructive uropathy from renal stone. She is S/P ureteral stone. She is due to have F/U with Urology. She should avoid NSAID's and keep up with good hydration. Has asymmetric kidneys- left smaller. Has a right renal cyst- no F/U needed now. NO renal malignancy. C/W NaHCO3 650 mg bid .Follow up lab work ordered. Needs F/U renal USS. May be a candidate for HCTZ( shall see given H/O recurrent diarrhea & H/O short bowel syndrome). F/U given; Answered all questions Orders: Orders Creatinine 6 Weeks N13.2 - Hydronephrosis with renal and ureteral calculous obstruction, N17.9 - Acute kidney failure, unspecified, Z15.09 - Genetic susceptibility to other malignant neoplasm Electrolytes 6 Weeks N13.2 - Hydronephrosis with renal and ureteral calculous obstruction, N17.9 - Acute kidney failure, unspecified, Z15.09 - Genetic susceptibility to other malignant neoplasm Blood Urea Nitrogen 6 Weeks N13.2 - Hydronephrosis with renal and ureteral calculous obstruction, N17.9 - Acute kidney failure, unspecified, Z15.09 - Genetic susceptibility to other malignant neoplasm Magnesium 6 Weeks N13.2 - Hydronephrosis with renal and ureteral calculous obstruction, N17.9 - Acute kidney failure, unspecified, Z15.09 - Genetic susceptibility to other malignant neoplasm Coding Level of Care Code Est Pt Level 4 (15118) Diagnoses Acute kidney injury N17.9 Mosher syndrome Z15.09 Hydronephrosis with urinary obstruction due to ureteral calculus N13.2
--- OUTSIDE RECORDS SUMMARY | 2024-12-10 09:38 | XMS_ITS | Clinical Summary ---
Author Organization [facility] Address [address] [place] [address] Phone Care Team Providers Care Business Analyst Sales Operations Name Role Phone Cynthia Pena MD Primary Care Provider [phone] Surgical History Surgery Date Site/Laterality Comments OTHER SURGICAL HISTORY 11/07/2016 PROCEDURE: [place] COLCT TOT ABDL W/O PRCTECT W/ILEOST/ILEOPXTS; COMMENT: Exploratory laparotomy, removal of pelvic mass, LSO, right colectomy, end ileostomy with mucous fistula, partial omentectomy. 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
== END 2024-12-10 09:59 | disposition home or self-care (01) ==
PROVIDERS: PCP Internal Medicine; Visit Provider Internal Medicine Nephrology
DX: N17.9 Acute kidney failure, unspecified (principal); Z15.09 Genetic susceptibility to other malignant neoplasm; N13.2 Hydronephrosis with renal and ureteral calculous obstruction
CPT/HCPCS: 99214

== ENCOUNTER → 2024-12-10 09:18 | Outpatient (BNVA) | payer MEDICARE, MEDICAID, SELFPAY | PROVIDERS: PCP Internal Medicine; Visit Provider Internal Medicine Nephrology | DX: N13.2 Hydronephrosis with renal and ureteral calculous obstruction (principal); N17.9 Acute kidney failure, unspecified; Z15.09 Genetic susceptibility to other malignant neoplasm | CPT/HCPCS: 99212 ==

== ENCOUNTER 2024-12-17 11:41 | Outpatient (AMB) | payer MEDICARE, MEDICAID, SELFPAY ==
--- NOTE | 2024-12-17 11:38 | A.OFFPC_ITS ---
Intake Visit Reasons: [facility] andowingsvilled [phone] Ureteric stone Allergies codeine [Tylenol-Codeine] Allergy (Intermediate, Verified 12/18/24 00:57) Hives acetaminophen [From Tylenol PM] Adverse Reaction (Intermediate, Verified 12/18/24 00:57) Hives cat dander [cats] Adverse Reaction (Intermediate, Verified 12/18/24 00:57) Hives diphenhydramine [From Tylenol PM] Adverse Reaction (Intermediate, Verified 12/18/24 00:57) Hives Medication List - Last Reconciled 12/18/24 by Cynthia Pena MD acetaminophen 1,000 mg PO DAILY PRN loperamide 2 mg PO DAILY PRN ondansetron 4 mg PO Q8H PRN sodium bicarbonate 650 mg PO BID 90 days tamsulosin 0.4 mg PO BEDTIME 14 days Tobacco use date assessed: 12/17/24 Dental Screening Dental Screen Date: 12/17/24 Did you have a dental visit in the last 12 months?: No Did you have a dental problem in the last 6 months where you did not have access to dental care?: No Was dental information given to patient?: No [facility]PI [facility] [phone] Ureteric stone HPI Details 54-year-old lady with history of Mosher s yndrome, history of adenocarcinoma of colon s/p resection and chemotherapy, history of chronic diarrhea 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 Recently admitted approximately 2 weeks ago at [facility] complaining of left flank pain, found to have a 6 x 6 mm stone in the proximal left ureter with upstream hydro ureteronephrosis and left renal atrophy. Seen by Urology and underwent cystoscopy and left retrograde with left stent placement with marked improvement in pain after the procedure, per patient. At present patient is voiding freely, denies any lower abdominal pain or back pain, no dysuria, urinary frequency or incontinence reported. She has a telehealth appointment for follow-up with Urology later this afternoon. [facility] Medical History Port-A-Cath in place Gastritis Mosher syndrome Adenocarcinoma of colon Surgical History Hx of hysterectomy History of colon surgery Hx of bilateral breast reduction surgery Family History Maternal Grandmother Uterine cancer Maternal Aunt Ovarian cancer Mother Cervical cancer Colon cancer Maternal Uncle Colon cancer Rectal cancer Brother Colon cancer Paternal Aunt Mental health disorder Paternal Uncle Mental health disorder Social History Household Members: Family Household Members Other:: 6 Housing: House Are you a primary hearing care practitioner to a significant other at home: No Do you presently have visiting nurse or other home services: No Alcohol intake: current Alcohol intake frequency: holidays/special occasions only Patient Tobacco Use Status: Never used Tobacco e-Cigarette/Vaping Use: Never Used Advance Directives Date on File: 02/08/24 service: No Current occupational status: disabled Cognitive needs: No Hearing needs: No Vision needs: Yes Questionnaire Thrive Questionnaire Date Thrive assessed: 12/06/24 LATONYA-7 AMB Questionnaire LATONYA-7 Date LATONYA - 7 assessed: 03/05/24 Source: Developed by Drs. Wilman Ha, Iwona Garg, Blair Williamson and colleagues, with an educational chato from [employer]. Review of Systems Const All systems reviewed & are unremarkable except as noted in HPI and below Reports no additional complaints ENT Reports no additional complaints Card Denies chest pain, Denies edema and Denies irregular heart rhythm Resp Reports no additional complaints GI Reports no additional complaints Reports as per HPI Musc Reports no additional complaints Neuro Reports no additional complaints Endo Reports no additional complaints Mannie/Lymph Reports no additional complaints Physical exam (Primary Care) Tobacco/Smoking Status: Tobacco use Status Tobacco use date assessed 12/17/24 12/17/24 11:39 Patient Tobacco Use Status Never used Tobacco 12/17/24 11:39 e-Cigarette/Vaping Use Never Used 12/17/24 11:39 Thrive Assessment: Date of Thrive Assessment Date Thrive assessed 12/06/24 12/17/24 11:39 Telehealth Telehealth Telehealth Platform: [facility] Location of patient: address on file Patient Identification confirmed using: Name, : Yes Telehealth method: video Patient verbally consented to treatment: Yes Patient verbally consented to billing insurance company: Yes Patient informed of any privacy concerns related to visit: Yes Minutes spent on Phone/Video with Pt.: 15 Coding Level of Care Code TCM Mod MDM <= 14 Days Diagnoses History of kidney stones Z87.442 Ureteral stent present Z96.0 Assessment & Plan Assessment & Plan (1) History of kidney stones: Code(s): Z87.442 - Personal history of urinary calculi (2) Ureteral stent present: Code(s): Z96.0 - Presence of urogenital implants Plan She has been feeling better, since stent was placed, denies any fever, no nausea, no back or abdominal pain and no urinary symptoms ordered. She has an appointment for telehealth follow-up with urology later this afternoon to discuss possible Upcoming ureteroscopy with laser lithotripsy
== END 2024-12-17 12:06 | disposition home or self-care (01) ==
LOC: HO.HMCC 11:41
PROVIDERS: PCP Internal Medicine; Visit Provider Internal Medicine
DX: N20.1 Calculus of ureter (principal); Z96.0 Presence of urogenital implants; Z87.442 Personal history of urinary calculi

== ENCOUNTER → 2024-12-17 11:41 | Outpatient (BNVA) | payer MEDICARE, MEDICAID, SELFPAY | PROVIDERS: PCP Internal Medicine; Visit Provider Internal Medicine ==

== ENCOUNTER 2024-12-17 13:48 | Outpatient (AMB) | payer MEDICARE, MEDICAID, SELFPAY ==
--- NOTE | 2024-12-17 13:49 | MHC.OFFVIS ---
Intake Visit Reasons: Discuss Procedure Intake Note: Pt presents as a telehealth visit to discuss procedure. Allergies codeine [Tylenol-Codeine] Allergy (Intermediate, Verified 12/17/24 13:49) Hives acetaminophen [From Tylenol PM] Adverse Reaction (Intermediate, Verified 12/17/24 13:49) Hives cat dander [cats] Adverse Reaction (Intermediate, Verified 12/17/24 13:49) Hives diphenhydramine [From Tylenol PM] Adverse Reaction (Intermediate, Verified 12/17/24 13:49) Hives HPI Comments Details: Maye is a pleasant female. She is a patient of Dr. Pena. She is seen for the following urologic conditions - renal stone Telemedicine Evaluation 15 min Consultation [email or web address] [place] Video Tolerating the stent Upcoming ureteroscopy with laser lithotripsy Nephrolithiasis Obstructing left proximal stone Underwent cystoscopy with stent placement Acute kidney injury resolved Prior interventions - left ureteroscopy 2021 PFS Medical History Port-A-Cath in place Gastritis Mosher syndrome Adenocarcinoma of colon Surgical History Hx of hysterectomy History of colon surgery Hx of bilateral breast reduction surgery Family History Maternal Grandmother Uterine cancer Maternal Aunt Ovarian cancer Mother Cervical cancer Colon cancer Maternal Uncle Colon cancer Rectal cancer Brother Colon cancer Paternal Aunt Mental health disorder Paternal Uncle Mental health disorder Social History Household Members: Family Household Members Other:: 6 Housing: House Are you a primary certified social workers in health care to a significant other at home: No Do you presently have visiting nurse or other home services: No Alcohol intake: current Alcohol intake frequency: holidays/special occasions only Patient Tobacco Use Status: Never used Tobacco e-Cigarette/Vaping Use: Never Used Advance Directives Date on File: 02/08/24 service: No Current occupational status: disabled Cognitive needs: No Hearing needs: No Vision needs: Yes Review of Systems Const All systems reviewed & are unremarkable except as noted in HPI and below Reports no additional complaints Resp Reports no additional complaints GI Reports no additional complaints Reports as per HPI Musc Reports no additional complaints Physical Exam Telemedicine evaluation Appropriate responses Regular breathing rate and rhythm HEENT Head: Yes normal to inspection Ears: hearing grossly normal bilaterally Eyes General: appearance normal, both eyes and all related structures Neck Neck: Yes normal visual inspection Chest Chest palpation & inspection: normal inspection of the chest Resp Effort & Inspection: normal respiratory effort and able to speak in complete sentences Telehealth Telehealth Telehealth Platform: [employer] Location of provider rendering services: practice address Location of patient: address on file Patient Identification confirmed using: Name, : Yes Telehealth method: video Patient verbally consented to treatment: Yes Patient verbally consented to billing insurance company: Yes Patient informed of any privacy concerns related to visit: Yes Minutes spent on Phone/Video with Pt.: 15 Assessment & Plan Assessment & Plan (1) Kidney stones: Code(s): N20.0 - Calculus of kidney Category: Medical Plan Ureteroscopy We discussed the nature of the decision and reasonable alternatives for performing ureteroscopy. Options such as medical therapy were discussed. Interventions include chemical dissolution, ESWL, ureteroscopy with laser lithotripsy and stent placement, PCNL. The relative uncertainties and benefits related to each alternate procedure were adequately discussed. General surgical risks including, but not limited to - pain, bleeding, infection, myocardial infarction, pulmonary embolus, deep vein thrombosis and cerebrovascular accident which may result in further hospitalization were discussed. Full disclosure of the procedure as well as all major risks, benefits and complications were discussed including but not limited to damage to the urethra, bladder and kidney infection, damage to the ureter, stent migration or malposition, scarring to the renal pelvis, remnant stone fragments, subsequent stone passage with need for secondary procedures. The overall secondary procedure rate is approximately 10-15%. The overall clearance rate is approximately 90-95%. Success of the procedure in the short-term does not necessarily guarantee that long-term success will be maintained. Suitable follow up will need to be maintained. The patient showed understanding of discussion and wishes to proceed with - cystoscopy, retrograde, ureteroscopy, possible lithotripsy/stone basketing and stent on the left side Patient Instructions: This note is constructed using voice recognition software. While every effort has been made to ensure accuracy infrastructure consultant errors may have been included. Imaging studies, laboratory and physical exam results were discussed and reviewed in detail. No major barriers to patient understanding were identified. An opportunity to ask questions regarding the treatment plan was provided. All questions were answered. The patient expressed understanding and agreement with the above treatment plan. The patient is aware they should contact our office by phone for worsening of their current condition or the appearance of new urologic symptoms. Compliance is encouraged with any medications and followup testing that is ordered. It is a privilege to participate in the urologic care of your patient. If you have any questions or concerns regarding treatment for the above conditions, or other urologic issues, please do not hesitate to contact me. The office telephone contact is [phone]. Sincerely, Dr Warren Jeff MD, [facility] - Urology Compassionate Specialist Care for the Genitourinary System Coding Level of Care Code Tele Est Pt Level 4 (66227) Diagnoses Kidney stones N20.0
--- OUTSIDE RECORDS SUMMARY | 2024-12-17 15:12 | XMS_ITS | Clinical Summary ---
Author Organization [facility] Address [address] [place] [address] Phone Care Team Providers Care Special Education Professor Name Role Phone Cynthia Pena MD Primary Care Provider [phone] Surgical History Surgery Date Site/Laterality Comments OTHER SURGICAL HISTORY 11/07/2016 PROCEDURE: [place] COLCT TOT ABDL W/O PRCTECT W/ILEOST/ILEOPXTS; COMMENT: Exploratory laparotomy, removal of pelvic mass, LSO, right colectomy, end ileostomy with mucous fistula, partial omentectomy. BREAST REDUCTION PROCEDURE: [place] BREAST REDUCTION MOUTH SURGERY PROCEDURE: ORAL SURGERY [...] drink = 0.6 oz pur e alcohol) Comments Unknown Sex and Gender Information Value Date Recorded Sex Assigned at Not on file Legal Sex Female 11:39 PM EST Gender Identity Not on file Sexual Orientation [...] Cancer Screening 1972 COVID-19 Vaccine (#1) 1977 DTaP,Tdap,and Td Vaccines (1 - Tdap) 1991 Hepatitis B Vaccines (1 of 3 - 19+ 3-dose series) 1991 Pneumococcal Vaccine: 50+ Years (1 of 2 - PCV) 1991 Pneumococcal Vaccine: Pediatrics (0 to 5 Years) and At-Risk Patients (6 to 64 Years) (1 of 2 - PCV) 1991 Zoster Vaccines (1 of 2) 1991 [...] patient's age to complete this topic Meningococcal B Vacine Aged Out No lo nger eligible based on patient's age to complete this topic RSV Immunization Patients Under 20 months Aged Out No longer eligible b ased on patient's age to complete this topic Varicella Vaccines Aged Out No longer eligible based on patient's age to complete this topic Advance Directives Documents on File Type Date Recorded Patient Neuropsychology Director Expl anation Health Care Decision (hx) 07/20/2020 GOMEZ DAVILA DIRECTIVE Care Teams Special Education Professor Relationship Specialty Start Date End Date Cynthia Pena MD [address] [facility] [place] [address] PCP - General Internal Medicine 09/08/21
--- OUTSIDE RECORDS SUMMARY | 2024-12-17 15:12 | XMS_ITS | Data Portability ---
Author Organization [place] - [facility] Address [address] [place] [id number] Care Team Providers Care Tree Expert Name Role Phone KARISSA CROUCH Primary Care [...] [facility]. Overview/History : 51 yo [...] [facility] -she had surg followup next wek and will reachout to them sooner if no improvement -discussed case with Dr Brooks @ 1757 and he was in agreement with plan - he asked that if her symptoms persisted to refer her to the [facility] ED for re-eval. In order to obtain further information and compare any laboratory results/values, I have accessed old patient records. This information was pertinent in my medical decision making today. [email or web address] Not available 01/03/2022 13:29:20 Plan of Treatment Reminders Order Date Submit Date Provider Last Modified By Organization Details Last Modified Time Details Appointments None recorded. Lab BMP + ionized calcium, serum or plasma 2018 019 barrie [facility], [address] [place], [address], 9 14:46:42 CBC w/ auto diff - Collected by [facility] 2018 019 MONICA [facility], [address] [place], [address], 9 06:26:12 Referral None recorded. Procedures None recorded. Surgeries None recorded. Imaging None recorded. Medication Orders sodium chloride 0.9 % intraveno us solution 2018 019 [email or web address] [id number], [address], [place], [place], [id number], 12:24:01 sodium chloride 0.9 % intraveno us solution 2021 022 [email or web address] Not available 18:30:22 Zofran 2 mg/mL intraveno us solution 2021 022 [email or web address] Not available 2 18:30:22 ondansetr on HCl 4 mg tablet 2021 022 MONICA [id number], [address] [place] [address], [place], [id number], 12:47:50 Patient TargetsNo targets recorded. Patient Instructions Encounter Date Encounter Id Patient Instructions Last Modified By Organization Details Last Modified Time 11/14/2018 [id number] Thank you for yo ur visit with [facility] today. We cannot always find the exact [...] in your condition between 8am-10pm, please call [facility] at [phone] to help navigate your care. [email or web address] Not available 11/14/2018 14:48:27 01/03/2022 [id number] Acute Nausea and Vomiting/Diarrhea BASIC INFORMATION Acute [...] disease, do not use Tylenol. Ask your POWDERER how to address fever if you are concerned about Tylenol use. 3) Anti-diarrheal medicines: These are available [id number], but in some cases are not recommended and can even worsen some cases of intestinal problems. Ask your POWDERER if you should use them. In children [...] with one of the PCP suggestions from [facility]. SEEK CARE IMMEDIATELY IF: 1) You [...] in your condition between 8am-10pm, please call [facility] at [phone] to help navigate your care. [email or web address] Not available 01/03/2022 12:11:57 Reason for Referral None Reported. Results Created Date Observation Date Name Description Value Unit Range Abnormal Flag Note LastModifiedBy Organization Detail LastModifiedTime 11/14/19 19 11/14/2018 BMP + ioniz ed calci um, serum or plasm a Na 140 mmol/ L 136-14 5 Not Available [facility] [address] [place], [address], 11/14/2018 14:27:11/14/1911/14/2018 BMP + ioniz ed calci um, serum or plasm a K 4.1 mmol/ L 3.5-5. 1 Not Available [facility] [address] [place], [address], 11/14/2018 14:27:11/14/1911/14/2018 BMP + ioniz ed calci um, serum or plasm a cL 103 mmol/ L 96-111 Not Available [facility] [address] [place], [address], 11/14/2018 14:27:11/14/1911/14/2018 BMP + ioniz ed calci um, serum or plasm a ica 1.19 mmol/ L 1.1-1. 4 Not Available [facility] [address] [place], [address], 11/14/2018 14:27:11/14/1911/14/2018 BMP + ioniz ed calci um, serum or plasm a TCO2 26 mmol/ L 20-30 Not Available [facility] [address] [place], [address], 11/14/2018 14:27:11/14/1911/14/2018 BMP + ioniz ed calci um, serum or plasm a glu 86 mg/dL 70-115 Not Available [facility] [address] [place], [address], 11/14/2018 14:27:11/14/1911/14/2018 BMP + ioniz ed calci um, serum or plasm a BUN 21 mg/dL 6-24 Not Available [facility] [address] [place], [address], 11/14/2018 14:27:11/14/1911/14/2018 BMP + ioniz ed calci um, serum or plasm a crea 0.7 mg/dL .65-1. 36 Not Available [facility] [address] [place], [address], 11/14/2018 14:27:11/14/1911/14/2018 BMP + ioniz ed calci um, serum or plasm a HCT 27 %_pcv 40.6-5 0.3 Not Available [facility] [address] [place], [address], 11/14/2018 14:27:11/14/1911/14/2018 BMP + ioniz ed calci um, serum or plasm a Hb 9.2 g/dL 13.9-1 7.4 Not Available [facility] [address] [place], [address], 11/14/2018 14:27:11/14/1911/14/2018 BMP + ioniz ed calci um, serum or plasm a angap 16 mmol/ L 6-18 Not Available [facility] [address] [place], [address], 11/14/2018 14:27:11/14/1911/14/2018 CBC w/ auto diff WBC 4.3 K/mm3 (4.0-1 1.0) Not Available [facility] [address] [place], [address], 11/14/2018 20:09:48 11/14/1911/14/2018 CBC w/ auto diff RBC 3.64 M/mm3 (4.20- 5.40) low Not Available [facility] [address] [place], [address], 11/14/2018 20:09:48 11/14/1911/14/2018 CBC w/ auto diff HGB 8.8 gm/dL (11.7- 15.5) low Not Available [facility] [address] [place], [address], 11/14/2018 20:09:48 11/14/1911/14/2018 CBC w/ auto diff HCT 29.7 % (35.7- 45.8) low Not Available [facility] [address] [place], [address], 11/14/2018 20:09:48 11/14/1911/14/2018 CBC w/ auto diff MCV 81.6 fL (80.0- 100.0) Not Available [facility] [address] [place], [address], 11/14/2018 20:09:48 11/14/1911/14/2018 CBC w/ auto diff MCH 24.2 pg (27.0- 34.0) low Not Available [facility] [address] [place], [address], 11/14/2018 20:09:48 11/14/1911/14/2018 CBC w/ auto diff MCHC 29.6 g/dL (33.0- 37.0) low Not Available [facility] [address] [place], [address], 11/14/2018 20:09:48 11/14/1911/14/2018 CBC w/ auto diff plt 258 K/mm3 (150-4 60) Not Available [facility] [address] [place], [address], 11/14/2018 20:09:48 11/14/1911/14/2018 CBC w/ auto diff RDW-SD 45.3 fL (<47.0 ) Not Available [facility] [address] [place], [address], 11/14/2018 20:09:48 11/14/1911/14/2018 CBC w/ auto diff MPV 12.1 fL (9.4-1 2.4) Not Available [facility] [address], [address], 11/14/2018 20:09:48 11/14/1911/14/2018 CBC w/ auto diff automated NRBC 0.0 #/100 _WBC' s Not Available [facility] [address] [place], [address], 11/14/2018 20:09:48 11/14/1911/14/2018 CBC w/ auto diff abs. NRBC 0.0 K/mm3 Not Available [facility] [address] [place], [address], 11/14/2018 20:09:48 11/14/1911/14/2018 CBC w/ auto diff neut # 2.6 K/mm3 (1.3-7 .0) Not Available [facility] [address] [place], [address], 11/14/2018 20:09:48 11/14/1911/14/2018 CBC w/ auto diff lymph # 1.2 K/mm3 (0.8-3 .1) Not Available [facility] [address] [place], [address], 11/14/2018 20:09:48 11/14/1911/14/2018 CBC w/ auto diff mono# 0.4 K/mm3 (0.4-0 .9) Not Available [facility] [address] [place], [address], 11/14/2018 20:09:48 11/14/1911/14/2018 CBC w/ auto diff eo # 0.0 K/mm3 (0.0-0 .4) Not Available [facility] [address] [place], [address], 11/14/2018 20:09:48 11/14/1911/14/2018 CBC w/ auto diff baso # 0.0 K/mm3 (0.0-0 .1) Not Available [facility] [address] [place], [address], 11/14/2018 20:09:48 11/14/1911/14/2018 CBC w/ auto diff abs. imm gran 0.0 K/mm3 Not Available [facility] [address] [place], [address], 11/14/2018 20:09:48 11/14/1911/14/2018 CBC w/ auto diff neut 61.3 % (44-76 ) Not Available [facility] [address] [place], [address], 11/14/2018 20:09:48 11/14/1911/14/2018 CBC w/ auto diff lymph 27.7 % (15-43 ) Not Available [facility] [address] [place], [address], 11/14/2018 20:09:48 11/14/1911/14/2018 CBC w/ auto diff monocyte 9.9 % (4.5-1 0.5) Not Available [facility] [address] [place], [address], 11/14/2018 20:09:48 11/14/1911/14/2018 CBC w/ auto diff eo 0.2 % (0-6) Not Available [facility] [address] [place], [address], 11/14/2018 20:09:48 11/14/1911/14/2018 CBC w/ auto diff baso 0.7 % (0-2) Not Available [facility] [address] [place], [address], 11/14/2018 20:09:48 11/14/1911/14/2018 CBC w/ auto diff imm gran 0.2 % (0.0-0 .6) Not Available [facility] [address] [place], [address], 11/14/2018 20:09:48 Result Notes None recorded. Procedures Surgical History Date Name Laterality Status Provider Name and Address Organization Details Recorded Time 2 IV Start Procedure - DH completed CHRIS Hernandez [address] [place], [address], [place] [facility] 01/03/2022 13:30:50 Imaging Results None recorded. Procedure Notes None recorded. Medical Equipment None Reported. Allergies Allergen ID Allergen Name Allergen Category Reaction Reaction Severity Criticality Documentation Date Start Date Code Code System Note Provider Name and Address Organization Details Recorded Time 30207 Tylenol PM medicatio n Not available Not available Not available 11/14/2018 97078 1 RxNorm can take tylen ol and benad ryl separ ately but not as tylen ol PM JUDI ALEXANDRE NP [address] [place], [address], [place] [facility] 9 [...] [degF] 118 mm[Hg] 74 mm[Hg] Not Available [facility] 9 14:28:43 Date Recorded Heart rate Oxygen saturation Oxygen saturation in Arterial blood by Pulse oximetry Body temperature Respiratory rate Heart rate Systolic blood pressure Diastolic blood pressure Provider Name and Address Organization Details Last Updated DateTime 2 118 /min 94 % 94 % 97.9 [degF] 16 /min 98 /min 92 mm[Hg] 52 mm[Hg] Not Available [facility] 2 12:24:49 Social History Question Answer Notes LastModified by Organizat ion Details LastModified Time Tobacco Smoking Status Never Smoker JUDI ALEXANDRE, DIAEN [address], [address], [place] [facility] 11/14/2018 14:25:21 Do You Have An Advance [...] SNOMED-CT Code Diagnosis ICD10 Code Diagnosis Note [id number] Stephanie Reynoso DO [facility] [address] [place] [address] 11/14/2018 14:19:44 11/14/2018 18:40:33 Diarrhea 16753650 R19.7 [id number] CHRIS Hernandez [facility] [address] [place] [address] 01/03/2022 12:10:33 01/04/2022 12:30:50 Acute vomiting 22748805 R11.10 Health Concerns Section Related Observation LastModified by Organization Detai ls LastModified Time None Recorded Concern Status LastModified by Organization Details LastModified Time None Recorded Advance Directives Directive Y: Payers Encounter Date Sequence Insurance Name Policy Number Policy Finch Covered Member ID Finch Member ID Guarantor Name 11/14/2018 2 [place] [facility] Maye Oscar [id number] Maye Bennett 11/14/2018 1 [place] B[place] [facility] Maye Bennett [id number] Maye Bennett 01/03/2022 1 [place] [facility] Maye Bennett [id number] Maye Bennett 01/03/2022 2 [place] [facility] Maye Bennett [id number] Maye Bennett Notes Date Note Type Note [...] the . Has been drinking well. JUDI ALEXANDRE, DIANE [address], [place], [address], [place] [facility] 11/14/2018 18:21:02 2 text/html 51 yo female known to , new to providersince night pt has had nausea and vomitingshe hasnt been able to take zofran ODT because of the tasteshe was seen almost 3 years ago for same complaintshe had an ileostomy that was reversed since thenbut recently replaced due to bowel rupturemore recently the ileostomy was placed Pradeep 24thshe also has J tube for venting she had fluids infused through this in the hospitalshe had [facility] who [facility] [...] vitals taken by [facility]NA CHRIS Hernandez [address], [place], [address], [place] [facility] 01/03/2022 13:31:13 OBGyn Episode No OBEpisode recorded.
== END 2024-12-17 14:18 | disposition home or self-care (01) ==
LOC: HO.HUSH 13:49
PROVIDERS: PCP Internal Medicine; Visit Provider Urology
DX: N20.0 Calculus of kidney (principal)
CPT/HCPCS: 99214

== ENCOUNTER 2024-12-29 11:36 | Day surgery (SDC) | payer MEDICARE, MEDICAID, SELFPAY ==
--- OUTSIDE RECORDS SUMMARY | 2024-12-25 12:52 | XMS_ITS | Clinical Summary ---
Author Organization [facility] Address [address] [place] [address] Phone Care Team Providers Care Script Editor Name Role Phone Cynthia Pena MD Primary Care Provider Surgical History Surgery Date Site/Laterality Comments OTHER SURGICAL HISTORY 11/07/2016 PROCEDURE: [place] COLCT TOT ABDL W/O PRCTECT W/ILEOST/ILEOPXTS; COMMENT: Exploratory laparotomy, removal of pelvic mass, LSO, right colectomy, end ileostomy with mucous fistula, partial omentectomy. 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
--- NOTE | ~2024-12-29 | FL_ITS ---
EXAMINATION: FL GUIDANCE ONLY HISTORY: stone left COMPARISON: Correlation is made with an unenhanced CT of the abdomen and pelvis dated 12/05/2024. TECHNIQUE: Fluoroscopy time: 19.9 seconds. Cumulative Dose: 6.85 mGy. Images: 2. FINDINGS: Images demonstrate contrast in a dilated left renal pelvis. FL/FL guidance in OR IMPRESSION: Fluoroscopy during procedure. Please see procedure report for additional information. Electronically signed by: Wilman Yousif MD 12/30/2024 01:23 PM MAYA
[2024-12-29 12:36] VITALS: BP 105/63; PULSE 84; RESP 16; TEMP 36.7; O2SAT 99
[2024-12-29] MEDS: Lactated Ringers 1,000 ML 50 ML IVCONT (12:57)
--- NOTE | 2024-12-29 13:02 | MHC.SHP ---
Pre-Procedural Eval Section A - 24 Hr Update-Section A only Date of Service: 12/29/24 The patient is an INPATIENT: No Changes since office visit: No Cold of Flu in the past 2 weeks, No New Medical Problems, No Changes in Medication and No Patient answered all questions The patient has been examined within 24 hours of the surgical procedure. The History & Physical has been completed within 30 days and I have reviewed it.: Yes Section B - Complete if H&P > 30 days Chief Complaint: Calculus of kidney Details of Present Illness: Cystoscopy, left stent removal, left ureteroscopy with laser lithotripsy stone basketing Allergies: Allergies Allergy/AdvReac Type Severity Reaction Status Date / Time codeine [Tylenol-Codeine] Allergy Intermediate Hives Verified 12/18/24 00:57 acetaminophen AdvReac Intermediate Hives Verified 12/18/24 00:57 [From Tylenol PM] cat dander [cats] AdvReac Intermediate Hives Verified 12/18/24 00:57 diphenhydramine AdvReac Intermediate Hives Verified 12/18/24 00:57 [From Tylenol PM] Plan I have reviewed the history and physical and performed a pertinent physical examination on my patient. No changes have occurred unless specified. Time Spent With Patient Time: Total time managing care of this patient today ____ minutes.
--- NOTE | 2024-12-29 13:09 | P.CONAN_ITS ---
HPI - Anesthesia Eval Consult details Narrative: for cysto, laser, stent PMFSH Active Problems Active Problems: All Active Problems Acute kidney injury (Acute) Mosher syndrome (Acute) Renal cyst (Acute) Metabolic acidosis (Acute) CKD stage 3a, GFR 45-59 ml/min (Acute) Hypomagnesemia (Acute) LFT elevation (Acute) SBO (small bowel obstruction) (Acute) Kidney stones (Acute) Gastritis (Acute) Mosher syndrome (Acute) Adenocarcinoma of colon (Acute) Past Medical History Medical History Port-A-Cath in place Gastritis Mosher syndrome Adenocarcinoma of colon Family History Family History Maternal Grandmother Uterine cancer Maternal Aunt Ovarian cancer Mother Cervical cancer Colon cancer Maternal Uncle Colon cancer Rectal cancer Brother Colon cancer Paternal Aunt Mental health disorder Paternal Uncle Mental health disorder Family history of problems with anesthesia: No Surgical History Surgical History Hx of hysterectomy History of colon surgery Hx of bilateral breast reduction surgery History of Problems with Anesthesia: Yes (PONV) Social History Social History Household Members: Family Household Members Other:: 6 Housing: House Are you a primary home visit field care manager to a significant other at home: No Do you presently have visiting nurse or other home services: No Alcohol intake: current Alcohol intake frequency: holidays/special occasions only Patient Tobacco Use Status: Never used Tobacco e-Cigarette/Vaping Use: Never Used Use of substances other than those prescribed or required for medical reasons: No Are you DNR?: No Advance Directives: No Advance Directives Information Provided: Yes Advance Directives Date on File: 02/08/24 Recently lost weight without trying: No Nutrition Risks: No Nutritional Risk Patient : No service: No Current occupational status: disabled Cognitive needs: No Hearing needs: No Vision needs: Yes Meds Allergies Allergy/AdvReac Type Severity Reaction Status Date / Time codeine [Tylenol-Codeine] Allergy Intermediate Hives Verified 12/18/24 00:57 acetaminophen AdvReac Intermediate Hives Verified 12/18/24 00:57 [From Tylenol PM] cat dander [cats] AdvReac Intermediate Hives Verified 12/18/24 00:57 diphenhydramine AdvReac Intermediate Hives Verified 12/18/24 00:57 [From Tylenol PM] Active Medications: Current Medications Lactated Ringer's (Lr) 1,000 mls @ 50 mls/hr IVCONT .Q20H BORIS Last Admin: 12/29/24 12:57 Dose: 50 mls/hr Home Medications ?Medication ?Instructions ?Recorded ?Confirmed ?Last Taken ?Type acetaminophen 500 mg tablet 1,000 mg PO DAILY PRN Pain 02/07/24 12/08/24 Unknown History loperamide 2 mg capsule 2 mg PO DAILY PRN Loose Stool 12/05/24 12/08/24 Unknown History ondansetron 4 mg disintegrating 4 mg PO Q8H PRN nausea/vomiting 12/05/24 12/08/24 Unknown History tablet Exam Height,Weight and Vital Signs: Height 5 ft 2 in Weight 97.5 kg Last Vital Signs Temp 98.0 F 12/29/24 12:36 Pulse 84 12/29/24 12:36 Resp 16 12/29/24 12:36 BP 105/63 12/29/24 12:36 Pulse Ox 99 12/29/24 12:36 O2 Del Method Room Air 12/29/24 12:36 Airway Mallampati Class: II TM Dist: >3cm Neck ROM: Full Loose/Missing/Broken Teeth: Yes, Upper and Lower Heart: ok Lungs: ok Assessment and Plan Assessment Anesthesia Assessment: Anesthesia Plan Discussed and Chart Reviewed Final Anesthetic Review Family History of Problems with Anesthesia: No History of Problems with Anesthesia: Yes (PONV) NPO: Yes ASA Class: III Final Preanesthetic Review: No Changes in Pt Med Stat, Meds/Allgs Chart Reviewed, Consent Obtained/Reviewed and Anes Risks/Benef Reviewed Patient Risk: Intermediate Procedure Risk: Low Anesthetic Plan Anesthetic Plan: GA and Agree w/ Assess. and Plan Disposition: Standard PACU
[2024-12-29] MEDS: ceFAZolin Sodium/Dextrose,Iso 2 GM/50 ML PIGGYBACK IV (13:16)
[2024-12-29 13:53] VITALS: BP 125/74; PULSE 93; RESP 16; O2SAT 98
[2024-12-29] MEDS: ondansetron HCL 4 MG/2 ML VIAL IVPUSH (13:55)
[2024-12-29 14:00] VITALS: BP 124/75; PULSE 82; RESP 6; O2SAT 99
--- NOTE | 2024-12-29 14:03 | W.PM.OPN ---
Operative Note Operative Note Date of Service: 12/29/24 Narrative: PreOperative Diagnosis: Left renal stone Post Operative Diagnosis: Left renal stone Procedure: - cystoscopy, removal left indwelling stent - left retrograde - left dilatation of ureteric orifice under fluoroscopy - left ureteroscopy, Surgeon: Dr Warren Jeff Anesthesia: General Indications for procedure: Admission 4 weeks ago with pyelonephritis and infected left proximal stone. Stent placed. Here for stent removal. At completion ureteroscopy. Procedure: After informed consent was verified patient was brought to the operating placed in supine position. Anesthesia was administered per protocol. Patient was placed in modified dorsal lithotomy position and prepped and draped in a sterile fashion. Safety pause time-out and side of surgery confirmed. Antibiotics confirmed. A 22 [place] cystoscope was inserted per urethra. The urethra and bladder were normal in their entirety. Both ureteric orifices were in normal position. Stent emerging from left ureter. Stent grasped and removed. The left ureteric orifice was cannulated and a retrograde examination was performed. No filling defects seen. A Sensor guidewire was placed up to the level of the renal pelvis under fluoroscopy. The rigid cystoscope was removed and the inner cannula of ureteric access sheath was used under fluoroscopy to dilate the ureteric orifice. The ureteric access sheath was placed and the inner cannula with access wire removed. The digital flexible ureteral scope was placed. Renal pelvis examined. Independent portion of renal pelvis there was a collection of small stone debris. Likely the stone seen at the last procedure had been pushed up into the renal pelvis and the stent had broken the stone into small pieces. The area was irrigated. There was a separate calyx superiorly that was also evaluated. The open-ended catheter was used to irrigate out the renal pelvis. At the completion of the stone procedure decision was made not to place a catheter. The access sheath was removed. The bladder was emptied. The patient tolerated the procedure well and was extubated in the operating room, and transferred in stable condition to the recovery area. Pathology: Drains:
[2024-12-29 14:05] VITALS: BP 128/78; PULSE 80; RESP 16; O2SAT 99
[2024-12-29] MEDS: Phenazopyridine HCL 100 MG TABLET PO (14:07)
[2024-12-29 14:10] VITALS: BP 124/76; PULSE 83; RESP 16; O2SAT 99
[2024-12-29 14:18] VITALS: BP 116/75; PULSE 80; RESP 16; TEMP 36.6; O2SAT 98
== END 2024-12-29 14:57 | disposition home or self-care (01) ==
PROVIDERS: PCP Internal Medicine; Visit Provider Urology
PROC: (CPT 52005; principal; 2024-12-29 14:00)
DX: N20.0 Calculus of kidney (principal); Z85.038 Personal history of other malignant neoplasm of large intestine; Z90.49 Acquired absence of other specified parts of digestive tract; Z15.09 Genetic susceptibility to other malignant neoplasm; K29.70 Gastritis, unspecified, without bleeding; Z79.899 Other long term (current) drug therapy; Z88.5 Allergy status to narcotic agent; Z88.8 Allergy status to other drugs, medicaments and biological substances; Z98.890 Other specified postprocedural states
CPT/HCPCS: 52005; C1758; C1769; C1894; J0131; J0690; J1642; J2003; J2405; J2704; J3010; Q9967

== ENCOUNTER → 2024-12-29 11:36 | Outpatient (BNV) | payer MEDICARE, MEDICAID, SELFPAY | PROVIDERS: PCP Internal Medicine; Visit Provider Urology | DX: N20.0 Calculus of kidney (principal) | CPT/HCPCS: 52310; 74420 ==

== ENCOUNTER 2025-01-07 13:50 | Outpatient (REF) | payer MEDICARE, MEDICAID, SELFPAY ==
--- NOTE | ~2025-01-07 | US_ITS ---
CLINICAL HISTORY: N20.0 - Calculus of kidney US Renal Comparison: CT/SR - CT ABDOMEN PELVIS WO IV CON - 12/05/24 04:53 EST Findings: Right kidney normal size and echotexture, 12.4 cm length. Lower pole cysts similar to the prior CT. Left kidney normal size and echotexture, 6.8 cm length. Marked renal cortical atrophy. Hypodense collection along the left kidney, possibly a hematoma if there has been any intervention since the prior CT. This measures 8.6 x 4.4 x 8.1 cm. The left-sided hydronephrosis appears to have resolved. No collecting system dilatation of either kidney. Normal color Doppler. IMPRESSION: 1. Benign-appearing left renal cyst. 2. Atrophic left kidney with a perinephric collection measuring up to 8.6 cm. Correlation with any prior intervention recommended. This could represent a perinephric hematoma. This document has been electronically signed by: Martha Wylie MD on 01/09/2025 08:12:16
--- OUTSIDE RECORDS SUMMARY | 2025-01-07 16:32 | XMS_ITS | Clinical Summary ---
Author Organization [facility] Address [address] [place] [address] Phone Care Team Providers Care Programs Director Name Role Phone Cynthia Pena MD Primary Care Provider [phone] Surgical History Surgery Date Site/Laterality Comments OTHER SURGICAL HISTORY 11/07/2016 PROCEDURE: [place] COLCT TOT ABDL W/O PRCTECT W/ILEOST/ILEOPXTS; COMMENT: Exploratory laparotomy, removal of pelvic mass, LSO, right colectomy, end ileostomy with mucous fistula, partial omentectomy. 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
== END 2025-01-07 13:51 | disposition home or self-care (01) ==
LOC: HO.HMGCX 13:50
PROVIDERS: PCP Internal Medicine; Visit Provider Urology
DX: N20.0 Calculus of kidney (principal)
CPT/HCPCS: 76775

== ENCOUNTER → 2025-01-07 13:55 | Outpatient (BNV) | payer MEDICARE, MEDICAID, SELFPAY | PROVIDERS: PCP Internal Medicine; Visit Provider Radiology Diagnostic Radiology | DX: N20.0 Calculus of kidney (principal) | CPT/HCPCS: 76775 ==

== ENCOUNTER 2025-01-21 06:01 | Outpatient (REF) | payer MEDICARE, MEDICAID, SELFPAY ==
[2025-01-21 10:54] LABS: Anion Gap 14 (12-20); Blood Urea Nitrogen 32 mg/dL (9-16); Carbon Dioxide 19 mmol/L (22-29); Chloride 113 mmol/L (96-108); Estimated Glomerular Filt Rate 33; Magnesium 1.9 mg/dL (1.6-2.6); Potassium 2.5 mmol/L (3.3-5.1); Sodium 143 mmol/L (135-145)
== END 2025-01-21 06:02 | disposition home or self-care (01) ==
LOC: HO.HMGCLDS 06:01
PROVIDERS: PCP Internal Medicine; Visit Provider Internal Medicine Nephrology
DX: N17.9 Acute kidney failure, unspecified (principal); N13.2 Hydronephrosis with renal and ureteral calculous obstruction; Z15.09 Genetic susceptibility to other malignant neoplasm
CPT/HCPCS: 36415; 80051; 82565; 83735; 84520

== ENCOUNTER 2025-02-18 06:06 | Outpatient (REF) | payer MEDICARE, MEDICAID, SELFPAY ==
--- OUTSIDE RECORDS SUMMARY | 2025-02-18 06:09 | XMS_ITS | Data Portability ---
Author Organization [place] [facility] Address [address] [place] [id number] Care Team Providers Care Instrument Tech Name Role Phone KARISSA CROUCH Primary Care [...] after care of this patient [facility] infection [facility] protocols. Overview/History : 51 [...] will use regular po tabs called into [facility] -she had surg followup next wek and will reachout to them sooner if no improvement -discussed case with Dr Brooks @ [phone] and he was in agreement with plan - he asked that if her symptoms persisted to refer her to the [facility] ED for re-eval. In order to obtain further information and compare any laboratory results/values, I have accessed old patient records. This information was pertinent in my medical decision making today. [email or web address] Not available 01/03/2022 13:29:20 Plan of Treatment Reminders Order Date Submit Date Provider Last Modified By Organization Details Last Modified Time Details Appointments None recorded. Lab BMP + ionized calcium, serum or plasma 2018 019 barrie [facility], [address] [place] [address], [phone], 9 14:46:42 CBC w/ auto diff - Collected by [facility] 2018 019 MONICA [facility] (Centralized Electronic Ordering - All Locations), Patient Can Go To The Location Of Their Choice, [id number] 9 06:26:12 Referral None recorded. Procedures None recorded. Surgeries None recorded. Imaging None recorded. Medication Orders sodium chloride 0.9 % intraveno us solution 2021 022 [email or web address] Not available 18:30:22 Zofran 2 mg/mL intraveno us solution 2021 022 [email or web address] Not available 18:30:22 ondansetr on HCl 4 mg tablet 2021 [id number], [address] [place], [place], [id number], 03/01/202 2 12:47:50 sodium chloride 0.9 % intraveno us solution 2018 019 [id number], [address], [place], [id number], 12:24:01 Patient TargetsNo targets recorded. Patient Instructions Encounter Date Encounter Id Patient Instructions Last Modified By Organization Details Last Modified Time 11/14/2018 [id number] Thank you for yo ur visit with [email or web address] today. We cannot always find the exact [...] in your condition between 8am-10pm, please call [email or web address] at [phone] to help navigate your care. [email or web address] Not available 11/14/2018 14:48:27 01/03/2022 [id number] Acute Nausea and Vomiting/Diarrhea BASIC INFORMATION Acute [...] disease, do not use Tylenol. Ask your COMMUNITY PLANNING TECHNICIAN how to address fever if you are concerned about Tylenol use. 3) Anti-diarrheal medicines: These are available [id number], but in some cases are not recommended and can even worsen some cases of intestinal problems. Ask your COMMUNITY PLANNING TECHNICIAN if you should use them. In children [...] with one of the [facility]CP [facility]. SEEK CARE IMMEDIATELY IF: 1) You [...] in your condition between 8am-10pm, please call [facility] at [phone] to help navigate your care. [email or web address] Not available 01/03/2022 12:11:57 Reason for Referral None Reported. Results Created Date Observation Date Name Description Value Unit Range Abnormal Flag Note LastModifiedBy Organization Detail LastModifiedTime 11/14/19 19 11/14/2018 BMP + ioniz ed calci um, serum or plasm a Na 140 mmol/ L 136-14 5 Not Available [facility] [address] [place], [address], 11/14/2018 14:27:11/14/1911/14/2018 BMP + ioniz ed calci um, serum or plasm a K 4.1 mmol/ L 3.5-5. 1 Not Available [facility] [address] [place], [address], 11/14/2018 14:27:11/14/1911/14/2018 BMP + ioniz ed calci um, serum or plasm a cL 103 mmol/ L 96-111 Not Available [facility] [address] [place], [address], 11/14/2018 14:27:11/14/1911/14/2018 BMP + ioniz ed calci um, serum or plasm a ica 1.19 mmol/ L 1.1-1. 4 Not Available [facility] [address] [place], [address], 11/14/2018 14:27:11/14/1911/14/2018 BMP + ioniz ed calci um, serum or plasm a TCO2 26 mmol/ L 20-30 Not Available [facility] [address] [place], [address], 11/14/2018 14:27:11/14/1911/14/2018 BMP + ioniz ed calci um, serum or plasm a glu 86 mg/dL 70-115 Not Available [facility] [address] [place], [address], 11/14/2018 14:27:11/14/1911/14/2018 BMP + ioniz ed calci um, serum or plasm a BUN 21 mg/dL 6-24 Not Available [facility] [address] [place], [address], 11/14/2018 14:27:11/14/1911/14/2018 BMP + ioniz ed calci um, serum or plasm a crea 0.7 mg/dL .65-1. 36 Not Available [facility] [address] [place], [address], 11/14/2018 14:27:11/14/1911/14/2018 BMP + ioniz ed calci um, serum or plasm a HCT 27 %_pcv 40.6-5 0.3 Not Available [facility] [address] [place], [address], 11/14/2018 14:27:11/14/1911/14/2018 BMP + ioniz ed calci um, serum or plasm a Hb 9.2 g/dL 13.9-1 7.4 Not Available [facility] [address] [place], [address], 11/14/2018 14:27:11/14/1911/14/2018 BMP + ioniz ed calci um, serum or plasm a angap 16 mmol/ L 6-18 Not Available [facility] [address] [place], [address], 11/14/2018 14:27:11/14/1911/14/2018 CBC w/ auto diff WBC 4.3 K/mm3 (4.0-1 1.0) Not Available [facility] (Centralized Electronic Ordering - All Locations) Patient Can Go To The Location Of Their Choice, [address] 11/14/2018 20:09:48 11/14/1911/14/2018 CBC w/ auto diff RBC 3.64 M/mm3 (4.20- 5.40) low Not Available [facility] (Centralized Electronic Ordering - All Locations) Patient Can Go To The Location Of Their Choice, 11/14/2018 20:09:48 11/14/1911/14/2018 CBC w/ auto diff HGB 8.8 gm/dL (11.7- 15.5) low Not Available [facility] (Centralized Electronic Ordering - All Locations) Patient Can Go To The Location Of Their Choice, 11/14/2018 20:09:48 11/14/1911/14/2018 CBC w/ auto diff HCT 29.7 % (35.7- 45.8) low Not Available [facility] (Centralized Electronic Ordering - All Locations) Patient Can Go To The Location Of Their Choice, 11/14/2018 20:09:48 11/14/1911/14/2018 CBC w/ auto diff MCV 81.6 fL (80.0- 100.0) Not Available [facility] (Centralized Electronic Ordering - All Locations) Patient Can Go To The Location Of Their Choice, 11/14/2018 20:09:48 11/14/1911/14/2018 CBC w/ auto diff MCH 24.2 pg (27.0- 34.0) low Not Available [facility] (Centralized Electronic Ordering - All Locations) Patient Can Go To The Location Of Their Choice, 11/14/2018 20:09:48 11/14/1911/14/2018 CBC w/ auto diff MCHC 29.6 g/dL (33.0- 37.0) low Not Available [facility] (Centralized Electronic Ordering - All Locations) Patient Can Go To The Location Of Their Choice, 11/14/2018 20:09:48 11/14/1911/14/2018 CBC w/ auto diff plt 258 K/mm3 (150-4 60) Not Available [facility] (Centralized Electronic Ordering - All Locations) Patient Can Go To The Location Of Their Choice, 11/14/2018 20:09:48 11/14/1911/14/2018 CBC w/ auto diff RDW-SD 45.3 fL (<47.0 ) Not Available [facility] (Centralized Electronic Ordering - All Locations) Patient Can Go To The Location Of Their Choice, 11/14/2018 20:09:48 11/14/1911/14/2018 CBC w/ auto diff MPV 12.1 fL (9.4-1 2.4) Not Available [facility] (Centralized Electronic Ordering - All Locations) Patient Can Go To The Location Of Their Choice, 11/14/2018 20:09:48 11/14/1911/14/2018 CBC w/ auto diff automated NRBC 0.0 #/100 _WBC' s Not Available [facility] (Centralized Electronic Ordering - All Locations) Patient Can Go To The Location Of Their Choice, 11/14/2018 20:09:48 11/14/1911/14/2018 CBC w/ auto diff abs. NRBC 0.0 K/mm3 Not Available [facility] (Centralized Electronic Ordering - All Locations) Patient Can Go To The Location Of Their Choice, 11/14/2018 20:09:48 11/14/1911/14/2018 CBC w/ auto diff neut # 2.6 K/mm3 (1.3-7 .0) Not Available [facility] (Centralized Electronic Ordering - All Locations) Patient Can Go To The Location Of Their Choice, 11/14/2018 20:09:48 11/14/1911/14/2018 CBC w/ auto diff lymph # 1.2 K/mm3 (0.8-3 .1) Not Available [facility] (Centralized Electronic Ordering - All Locations) Patient Can Go To The Location Of Their Choice, 11/14/2018 20:09:48 11/14/1911/14/2018 CBC w/ auto diff mono# 0.4 K/mm3 (0.4-0 .9) Not Available [facility] (Centralized Electronic Ordering - All Locations) Patient Can Go To The Location Of Their Choice, 11/14/2018 20:09:48 11/14/1911/14/2018 CBC w/ auto diff eo # 0.0 K/mm3 (0.0-0 .4) Not Available [facility] (Centralized Electronic Ordering - All Locations) Patient Can Go To The Location Of Their Choice, 11/14/2018 20:09:48 11/14/1911/14/2018 CBC w/ auto diff baso # 0.0 K/mm3 (0.0-0 .1) Not Available [facility] (Centralized Electronic Ordering - All Locations) Patient Can Go To The Location Of Their Choice, 11/14/2018 20:09:48 11/14/1911/14/2018 CBC w/ auto diff abs. imm gran 0.0 K/mm3 Not Available [facility] (Centralized [facility] Ordering - All Locations) Patient Can Go To The Location Of Their Choice, [id number] 11/14/2018 20:09:48 11/14/1911/14/2018 CBC w/ auto diff neut 61.3 % (44-76 ) Not Available [facility] (Centralized Electronic Ordering - All Locations) Patient Can Go To The Location Of Their Choice, [address] 11/14/2018 20:09:48 11/14/1911/14/2018 CBC w/ auto diff lymph 27.7 % (15-43 ) Not Available [facility] (Centralized Electronic Ordering - All Locations) Patient Can Go To The Location Of Their Choice, [id number] 11/14/2018 20:09:48 11/14/1911/14/2018 CBC w/ auto diff monocyte 9.9 % (4.5-1 0.5) Not Available [facility] (Centralized Electronic Ordering - All Locations) Patient Can Go To The Location Of Their Choice, [id number] 11/14/2018 20:09:48 11/14/1911/14/2018 CBC w/ auto diff eo 0.2 % (0-6) Not Available [facility] (Centralized Electronic Ordering - All Locations) Patient Can Go To The Location Of Their Choice, [id number] 11/14/2018 20:09:48 11/14/1911/14/2018 CBC w/ auto diff baso 0.7 % (0-2) Not Available [facility] (Centralized Electronic Ordering - All Locations) Patient Can Go To The Location Of Their Choice, [id number] 11/14/2018 20:09:48 11/14/1911/14/2018 CBC w/ auto diff imm gran 0.2 % (0.0-0 .6) Not Available [facility] (Centralized Electronic Ordering - All Locations) Patient Can Go To The Location Of Their Choice, [id number] 11/14/2018 20:09:48 Result Notes None recorded. Procedures Surgical History Date Name Laterality Status Provider Name and Address Organization Details Recorded Time 2 IV Start Procedure - DH completed CHRIS Hernandez [facility] [address], [place], [address], [place] [facility] 01/03/2022 13:30:50 Imaging Results None recorded. Procedure Notes None recorded. Medical Equipment None Reported. Allergies Allergen ID Allergen Name Allergen Category Reaction Reaction Severity Criticality Documentation Date Start Date Code Code System Note Provider Name and Address Organization Details Recorded Time 66630 Tylenol PM medicatio n Not available Not available Not available 11/14/2018 50726 1 RxNorm can take tylen ol and benad ryl separ ately but not as tylen ol PM JUDI ALEXANDRE NP [address], [place] [facility] [place], [address], [place] [facility] 9 14:23:45 Medications Name Sig Start Date [...] [degF] 118 mm[Hg] 74 mm[Hg] Not Available [facility] 9 14:28:43 Date Recorded Heart rate Oxygen saturation Oxygen saturation in Arterial blood by Pulse oximetry Body temperature Respiratory rate Heart rate Systolic blood pressure Diastolic blood pressure Provider Name and Address Organization Details Last Updated DateTime 2 118 /min 94 % 94 % 97.9 [degF] 16 /min 98 /min 92 mm[Hg] 52 mm[Hg] Not Available [facility] 2 12:24:49 Social History Question Answer Notes LastModified by Organizat ion Details LastModified Time Tobacco Smoking Status Never Smoker JUDI ALEXANDRE NP [address], [place], [address], [place] [facility] 11/14/2018 14:25:21 Do You [...] SNOMED-CT Code Diagnosis ICD10 Code Diagnosis Note [id number] Stephanie Reynoso DO [facility] [address] [facility] [facility] [place] [address] 11/14/2018 14:19:44 11/14/2018 18:40:33 Diarrhea 14120949 R19.7 [id number] CHRIS Hernandez [facility] [address] [place] [address] 01/03/2022 12:10:33 01/04/2022 12:30:50 Acute vomiting 43159223 R11.10 Health Concerns Section Related Observation LastModified by Organization Detai ls LastModified Time None Recorded Concern Status LastModified by Organization Details LastModified Time None Recorded Advance Directives Directive Y: Payers Encounter Date Sequence Insurance Name Policy Number Policy Finch Covered Member ID Finch Member ID Guarantor Name 11/14/2018 2 [place] [facility] Maye Oscar [id number] Maye Bennett 11/14/2018 1 [place] B[place] [employer] Maye Estrellita Donald [id number] Maye Bennett 01/03/2022 1 [place] [employer] Maye Bennett [id number] Maye Bennett 01/03/2022 2 [place] [facility] Maye Bennett [id number] Maye Bennett Notes Date Note Type Note [...] been drinking well. JUDI ALEXANDRE, DIANE [address], [place], [address], [place] [facility] 11/14/2018 18:21:02 2 text/html [...] sees her 2x/week [facility] Brooks GEN SURG [...] by [facility] CHRIS Hernandez [address], [place], [address], [place] [facility] 01/03/2022 13:31:13 OBGyn Episode No OBEpisode recorded.
--- OUTSIDE RECORDS SUMMARY | 2025-02-18 06:09 | XMS_ITS | Clinical Summary ---
Author Organization [facility] Address [address] [place] [address] Phone Care Team Providers Care Net Architect Name Role Phone Cynthia Pena MD Primary Care Provider Surgical History Surgery Date Site/Laterality Comments OTHER SURGICAL HISTORY 11/07/2016 PROCEDURE: CA COLCT TOT ABDL W/O PRCTECT W/ILEOST/ILEOPXTS; COMMENT: Exploratory laparotomy, removal of pelvic mass, LSO, right colectomy, end ileostomy with mucous fistula, partial omentectomy. 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) Obesity DX:Obesity Cecal cancer (CMS/HCC V24, CMS/HCC V28) DX:Cecal cancer (HCC) Herpes zoster DX:Herpes zoster [...] Influencers of Health Screening 10/08/2022 Influenza Vaccine (Season Ended) 2025 08/07/2022, 08/20/2021 HIB Vaccines Aged Out No longer [...] age to complete this topic Meningococcal B Vaccine Aged Out No l onger eligible based on patient's age to complete this topic RSV Immunization Patients Under 20 months Aged Out No longer eligible b ased on patient's age to complete this topic Varicella Vaccines Aged Out No longer eligible based on patient's age to complete this topic Advance Directives Documents on File Type Date Recorded Patient Reading Intervention Teacher Expl anation Health Care Decision (hx) 07/20/2020 GOMEZ DAVILA DIRECTIVE Care Teams Net Architect Relationship Specialty Start Date End Date Cynthia Pena MD [address] [facility] [place] [address] PCP - General Internal Medicine 09/08/21
[2025-02-18 11:17] LABS: Anion Gap 12 (12-20); Blood Urea Nitrogen 27 mg/dL (9-16); Carbon Dioxide 19 mmol/L (22-29); Chloride 116 mmol/L (96-108); Estimated Glomerular Filt Rate 33; Potassium 2.9 mmol/L (3.3-5.1); Sodium 144 mmol/L (135-145)
== END 2025-02-18 06:07 | disposition home or self-care (01) ==
LOC: HO.HMGCLDS 06:06
PROVIDERS: PCP Internal Medicine; Visit Provider Internal Medicine Nephrology
DX: N17.9 Acute kidney failure, unspecified (principal); E87.20 Acidosis, unspecified; E87.6 Hypokalemia
CPT/HCPCS: 36415; 80051; 82565; 84520

== ENCOUNTER 2025-02-25 09:34 | Outpatient (AMB) | payer MEDICARE, MEDICAID, SELFPAY ==
--- NOTE | 2025-02-25 09:39 | HO.NEPHOV ---
Vital Signs 02/25/25 09:41 Height 5 ft 2 in Weight 208 lb 6 oz BMI 38.1 BP 100/60 Blood Pressure Location Rt brachial Position Sitting Pulse 61 Pulse Source Pulse Oximeter Pulse Oximetry (%) 100 Oxygen Delivery Method Room Air Intake Visit Reasons: CKD-Conf Custom Shoemaker Required: No Accompanied by: Sister Allergies codeine [Tylenol-Codeine] Allergy (Intermediate, Verified 02/25/25 09:41) Hives acetaminophen [From Tylenol PM] Adverse Reaction (Intermediate, Verified 02/25/25 09:41) Hives cat dander [cats] Adverse Reaction (Intermediate, Verified 02/25/25 09:41) Hives diphenhydramine [From Tylenol PM] Adverse Reaction (Intermediate, Verified 02/25/25 09:41) Hives HPI Comments Details: 54-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 She has chronic diarrhea/loose stools s/p colorectal cancer which she states is around baseline.She recently had left flank pain and was seen in ER. She had imaging which showed 6 x 6 mm stone in the proximal left ureter with upstream hydroureteronephrosis as well as left renal atrophy. 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 She is on K and bicarb replacements [facility] Medical History Port-A-Cath in place Gastritis Mosher syndrome Adenocarcinoma of colon Surgical History Hx of hysterectomy History of colon surgery Hx of bilateral breast reduction surgery Family History Maternal Grandmother Uterine cancer Maternal Aunt Ovarian cancer Mother Cervical cancer Colon cancer Maternal Uncle Colon cancer Rectal cancer Brother Colon cancer Paternal Aunt Mental health disorder Paternal Uncle Mental health disorder Social History Household Members: Family Household Members Other:: 6 Housing: House Are you a primary medicare insurance specialist to a significant other at home: No Do you presently have visiting nurse or other home services: No Alcohol intake: current Alcohol intake frequency: holidays/special occasions only Patient Tobacco Use Status: Never used Tobacco e-Cigarette/Vaping Use: Never Used Advance Directives Date on File: 02/08/24 service: No Current occupational status: disabled Cognitive needs: No Hearing needs: No Vision needs: Yes Review of Systems Const All systems reviewed & are unremarkable except as noted in HPI and below Physical Exam Vital Signs: Last Vital Signs Pulse 61 02/25/25 09:41 BP 100/60 02/25/25 09:41 Pulse Ox 100 02/25/25 09:41 Oxygen Delivery Method Room Air 02/25/25 09:41 BMI result Body Mass Index 38.1 Const General: comfortable and no acute distress Orientation/consciousness: patient oriented x3 HEENT Head: Yes normocephalic Mouth: Normal oral and palatal mucosa present Eyes EOM: EOMs intact bilaterally Neck Neck: Yes supple Resp Auscultation: clear to auscultation bilaterally Cardio Jugular venous distension: no JVD Rate: regular rate GI Palpation (GI): Soft to palpation Auscultation: normal bowel sounds General: Yes no CVA tenderness Back/Spine/Pelvis Back: no CVA tenderness Skin General skin exam: no rashes or lesions noted Neuro General: patient oriented x3 and moves all extremities Extrem General: Yes no pedal edema Results Reviewed Nephrology Results: Sodium 144 mmol/L (135-145) 02/18/25 Potassium 2.9 mmol/L (3.3-5.1) L* 02/18/25 Chloride 116 mmol/L (96-108) H 02/18/25 Carbon Dioxide 19 mmol/L (22-29) L 02/18/25 BUN 27 mg/dL (9-16) H 02/18/25 Creatinine 1.62 mg/dL (0.5-1.4) H 02/18/25 Renal US 01/09/25 Assessment & Plan Assessment & Plan (1) Mosher syndrome: Code(s): Z15.09 - Genetic susceptibility to other malignant neoplasm Category: Medical (2) Renal cyst: Code(s): N28.1 - Cyst of kidney, acquired Category: Medical (3) Metabolic acidosis: Code(s): E87.20 - Acidosis, unspecified Category: Medical (4) CKD stage 3a, GFR 45-59 ml/min: Code(s): N18.31 - Chronic kidney disease, stage 3a Category: Medical Plan She had STEPHEN due to obstructive uropathy from renal stone. She is due to have F/U with Urology. She should avoid NSAID's and keep up with good hydration. Has asymmetric kidneys- left smaller. Has a right renal cyst. NO renal malignancy. C/W NaHCO3 650 mg bid and K replacement .Follow up lab work ordered. Needs F/U renal USS. May be a candidate for HCTZ( shall see given H/O recurrent diarrhea & H/O short bowel syndrome). F/U given; Answered all questions Coding Level of Care Code Est Pt Level 4 (36951) Diagnoses Mosher syndrome Z15.09 Renal cyst N28.1 Metabolic acidosis E87.20 CKD stage 3a, GFR 45-59 ml/min N18.31
[2025-02-25 09:41] VITALS: BP 100/60; PULSE 61; O2SAT 100; BMI 38.1
--- OUTSIDE RECORDS SUMMARY | 2025-02-25 10:42 | XMS_ITS | Clinical Summary ---
Author Organization [facility] Address [address] [place] [address] Phone Care Team Providers Care Blood Bank Booking Clerk Name Role Phone Cynthia Pena MD Primary Care Provider Surgical History Surgery Date Site/Laterality Comments OTHER SURGICAL HISTORY 11/07/2016 PROCEDURE: DE COLCT TOT ABDL W/O PRCTECT W/ILEOST/ILEOPXTS; COMMENT: Exploratory laparotomy, removal of pelvic mass, LSO, right colectomy, end ileostomy with mucous fistula, partial omentectomy. BREAST REDUCTION PROCEDURE: DE BREAST REDUCTION MOUTH SURGERY PROCEDURE: ORAL SURGERY [...] Documents on File Type Date Recorded Patient Assembler Finger Buffs Expl anation Health Care Decision (hx) 07/20/2020 GOMEZ DAVILA DIRECTIVE Care Teams Blood Bank Booking Clerk Relationship Specialty Start Date End Date Cynthia Pena MD [address] [facility] [place] [address] PCP - General Internal Medicine 09/08/21
== END 2025-02-25 10:07 | disposition home or self-care (01) ==
LOC: HO.HKA 09:34
PROVIDERS: PCP Internal Medicine; Visit Provider Internal Medicine Nephrology
DX: Z15.09 Genetic susceptibility to other malignant neoplasm (principal); N28.1 Cyst of kidney, acquired; E87.20 Acidosis, unspecified; N18.31 Chronic kidney disease, stage 3a
CPT/HCPCS: 99214

== ENCOUNTER → 2025-02-25 09:34 | Outpatient (BNVA) | payer MEDICARE, MEDICAID, SELFPAY | PROVIDERS: PCP Internal Medicine; Visit Provider Internal Medicine Nephrology | DX: N28.1 Cyst of kidney, acquired (principal); E87.20 Acidosis, unspecified; N18.31 Chronic kidney disease, stage 3a; Z15.09 Genetic susceptibility to other malignant neoplasm | CPT/HCPCS: 99212 ==

== ENCOUNTER 2025-03-31 11:35 | Outpatient (AMB) | payer MEDICARE, MEDICAID, SELFPAY ==
--- NOTE | 2025-03-31 11:36 | MHC.OFFVIS ---
Intake Visit Reasons: Kidney Stone, follow up/US Intake Note: Pt presents to the office today for a kidney stone follow up US. Allergies codeine [Tylenol-Codeine] Allergy (Intermediate, Verified 03/31/25 11:36) Hives acetaminophen [From Tylenol PM] Adverse Reaction (Intermediate, Verified 03/31/25 11:36) Hives cat dander [cats] Adverse Reaction (Intermediate, Verified 03/31/25 11:36) Hives diphenhydramine [From Tylenol PM] Adverse Reaction (Intermediate, Verified 03/31/25 11:36) Hives HPI Comments Details: Maye is a pleasant female. She is a patient of Dr. Pena. She is seen for the following urologic conditions - renal stone Following with Nephrology Background Mosher syndrome with short gut Under management for metabolic acidosis and potassium replacement Had perirenal hematoma after ureteroscopy Discussion today regarding oxalate circulation. Recommend Tums single tablet 10-15 minutes prior to main meal. Calcium axis and oxalate binder and removes oxalate from circulation decreasing renal oxalate excretion and reducing stone formation risk. Current metabolic management from Dr. Farias will address bicarb and citrate balance. Nephrolithiasis Recurrent Short gut syndrome Prior interventions - left ureteroscopy 2021 - 12/30 repeat left ureteroscopy [facility] Medical History Port-A-Cath in place Gastritis Mosher syndrome Adenocarcinoma of colon Surgical History Hx of hysterectomy History of colon surgery Hx of bilateral breast reduction surgery Family History Maternal Grandmother Uterine cancer Maternal Aunt Ovarian cancer Mother Cervical cancer Colon cancer Maternal Uncle Colon cancer Rectal cancer Brother Colon cancer Paternal Aunt Mental health disorder Paternal Uncle Mental health disorder Social History Household Members: Family Household Members Other:: 6 Housing: House Are you a primary manager intensive care unit to a significant other at home: No Do you presently have visiting nurse or other home services: No Alcohol intake: current Alcohol intake frequency: holidays/special occasions only Patient Tobacco Use Status: Never used Tobacco e-Cigarette/Vaping Use: Never Used Advance Directives Date on File: 02/08/24 service: No Current occupational status: disabled Cognitive needs: No Hearing needs: No Vision needs: Yes Review of Systems Const Denies chills and Denies fever(s) Card Reports no additional complaints and Denies syncope Resp Denies cough GI Denies abdominal pain and Denies heartburn Reports as per HPI and Denies change in libido Neuro Denies syncope Psych Denies change in libido Endo Denies change in libido Physical Exam Const General: cooperative, healthy appearing, comfortable and no acute distress Orientation/consciousness: patient oriented x3 HEENT Face and sinus: Yes normal facial exam Mouth: moist mucous membranes Neck Neck: Yes normal visual inspection, Yes full ROM and Yes trachea midline Chest Chest palpation & inspection: normal inspection of the chest Resp Effort & Inspection: normal respiratory effort, able to speak in complete sentences and no respiratory distress GI Inspection: Yes normal to inspection Back/Spine/Pelvis Cervical Spine: normal cervical lordosis Thoracic/Lumbar Spine: thoracic and lumbar spine normal to inspection Skin General skin exam: no rashes or lesions noted Neuro General: patient oriented x3, gait normal, tone normal and moves all extremities Extrem General: Yes normal to inspection and Yes capillary refill normal Assessment & Plan Assessment & Plan (1) Kidney stones: Code(s): N20.0 - Calculus of kidney Category: Medical (2) Hypercalciuria: Code(s): R82.994 - Hypercalciuria Category: Medical Plan Addition of Tums to assist with calcium oxalate binding Patient Instructions: This note is constructed using voice recognition software. While every effort has been made to ensure accuracy automatic mold sander errors may have been included. Imaging studies, laboratory and physical exam results were discussed and reviewed in detail. No major barriers to patient understanding were identified. An opportunity to ask questions regarding the treatment plan was provided. All questions were answered. The patient expressed understanding and agreement with the above treatment plan. The patient is aware they should contact our office by phone for worsening of their current condition or the appearance of new urologic symptoms. Compliance is encouraged with any medications and followup testing that is ordered. It is a privilege to participate in the urologic care of your patient. If you have any questions or concerns regarding treatment for the above conditions, or other urologic issues, please do not hesitate to contact me. The office telephone contact is [phone]. Sincerely, Dr Warren Jeff MD, [facility] - Urology Compassionate Specialist Care for the Genitourinary System Coding Level of Care Code Est Pt Level 3 (50462) Complex EM visit Add On G2211 Diagnoses Kidney stones N20.0 Hypercalciuria R82.994
== END 2025-03-31 12:01 | disposition home or self-care (01) ==
LOC: HO.HUSH 11:35
PROVIDERS: PCP Internal Medicine; Visit Provider Urology
DX: N20.0 Calculus of kidney (principal); R82.994 Hypercalciuria
CPT/HCPCS: 99213; G2211

== ENCOUNTER → 2025-03-31 11:35 | Outpatient (BNVA) | payer MEDICARE, MEDICAID, SELFPAY | PROVIDERS: PCP Internal Medicine; Visit Provider Urology | DX: N20.0 Calculus of kidney (principal); R82.994 Hypercalciuria | CPT/HCPCS: 99212 ==

== ENCOUNTER 2025-08-02 10:12 | Inpatient (IN) | payer MEDICARE, MEDICAID, SELFPAY ==
--- NOTE | 2025-08-02 | ECG_ITS ---
Test Reason : epigastric/back pain Blood Pressure : */* mmHG Vent. Rate : 71 BPM Atrial Rate : 71 BPM P-R Int : 118 ms QRS Dur : 110 ms QT Int : 418 ms P-R-T Axes : 19 10 -6 degrees QTcB Int : 454 ms Normal sinus rhythm Incomplete right bundle branch block Borderline ECG When compared with ECG of 08-Feb-2024 08:43, Incomplete right bundle branch block is now Present QT has shortened Referred By: Kelsy Joyce Electronically Signed By: Steve Velásquez
--- NOTE | ~2025-08-02 | US_ITS ---
CLINICAL HISTORY: RUQ pain Exam: 1. Ultrasound of the right upper quadrant of the abdomen. 2. Duplex ultrasound of the main portal vein. Comparison: CT/REG/SR - CT ABDOMEN PELVIS W IV CON - 08/02/25 12:53 EDT Findings: Liver is enlarged measuring 24 cm in long axis. Heterogeneous echotexture throughout the liver without focal hepatic lesion. As seen on the patient's earlier CT of the abdomen, there is prominent dilation of both the intrahepatic and extrahepatic biliary system. Common bile duct is dilated to 18 mm. Echogenic stone is seen within the distal common bile duct measuring 11 x 6 x 7 mm in size. Numerous echogenic stones are seen layering within the gallbladder without gallbladder wall thickening or pericholecystic fluid. Right kidney measures 12.4 cm in long axis. Simple cyst within the right kidney measures 5.4 cm in size. No hydronephrosis. No free fluid. Duplex evaluation of the main portal vein was performed. This included real-time grayscale, color spectral Doppler analysis, and color Doppler flow imaging. Main portal vein is patent with hepatopetal flow. IMPRESSION: 1. Hepatomegaly with increased hepatic echotexture, likely related to fatty infiltration or medical liver disease. 2. Biliary dilation as above with distal common bile duct stone. ERCP suggested for further evaluation. 3. Cholelithiasis without ultrasound findings of cholecystitis. This document has been electronically signed by: Kendall Silva MD on 08/02/2025 15:09:27
--- NOTE | ~2025-08-02 | CT_ITS ---
CLINICAL HISTORY: epigastric pain, elevated LFTs CT abdomen and pelvis with contrast Comparison: CT/SR - CT ABDOMEN PELVIS WO IV CON - 12/05/24 04:[address]/REG/FL/SR - CT ABDOMEN PELVIS WO CON - 11/27/21 20:[address]/SR - CT ABDOMEN PELVIS W CON - 11/27/21 03:41 EST Findings: CT abdomen: No infiltrates within the lung bases. No acute bony abnormality. Bones are osteopenic. Overall heart size within normal limits. Prominent dilation of both the intrahepatic and extrahepatic biliary tree. Intrahepatic bile ducts are dilated to 13 mm. Extrahepatic biliary tree is dilated to 18 mm. Filling defects seen within the distal common bile duct measuring approximately 1 cm in size. No discrete hepatic mass lesion seen. Main portal vein is patent. Subtle increased density layering within the gallbladder suggesting stone disease. No pancreatic ductal dilatation or peripancreatic inflammatory stranding. Spleen, adrenal glands, and kidneys are unremarkable for acute findings. There is prominent atrophy of the left kidney with unchanged cysts within the lower pole of the right kidney measuring 4.9 cm in size. No dilated small bowel. No free air. CT pelvis: Presumed mesh ventral hernia repair has been performed. Uterus is surgically absent. Urinary bladder is mildly distended. No focal areas of colonic wall thickening or pericolonic inflammatory stranding is evident. No free fluid or free air. IMPRESSION: Choledocholithiasis with dilation of the biliary tree as above. Given the lack of associated dilation of the pancreatic duct, ampullary or periampullary mass would be an unlikely etiology. ERCP suggested for further evaluation. This document has been electronically signed by: Kendall Silva MD on 08/02/2025 15:25:28
--- NOTE | ~2025-08-02 | FL_ITS ---
EXAMINATION: FL GUIDANCE ONLY HISTORY: ERCP COMPARISON: Correlation is made with a CT of the abdomen with contrast TECHNIQUE: Fluoroscopy time: 1 minute, 27.9 seconds. Cumulative Dose: 40.408 mGy. DAP: 17.577 Gycm2 Images: 5. FINDINGS: Fluoroscopic spot films from an ERCP demonstrate a mildly dilated common bile duct and intrahepatic biliary radicles. There is poor opacification of the common bile duct. FL/FL guidance in OR IMPRESSION: Fluoroscopy during procedure. Please see procedure report for additional information. Electronically signed by: Wilman Yousif MD 08/05/2025 07:07 AM EDT
[2025-08-02 10:21] VITALS: BP 151/69; BP 180/100; PULSE 62; PULSE 82; RESP 18; TEMP 36.8; O2SAT 100; O2SAT 98; BMI 38.5
--- OUTSIDE RECORDS SUMMARY | 2025-08-02 10:38 | XMS_ITS | Clinical Summary ---
Author Organization [facility] Address [address] [place] [address] Phone Care Team Providers Care Employment Office Clerk Name Role Phone Cynthia Pena MD Primary Care Provider Surgical History Surgery Date Site/Laterality Comments OTHER SURGICAL HISTORY 11/07/2016 PROCEDURE: ND COLCT TOT ABDL W/O PRCTECT W/ILEOST/ILEOPXTS; COMMENT: Exploratory laparotomy, removal of pelvic mass, LSO, right colectomy, end ileostomy with mucous fistula, partial omentectomy. BREAST REDUCTION PROCEDURE: ND BREAST REDUCTION MOUTH SURGERY PROCEDURE: ORAL SURGERY [...] Last Done Comments Breast Cancer Screening 1972 DTaP,Tdap,and Td Vaccines (1 - Tdap) 1991 Hepatitis B Vaccines (1 of 3 - 19+ 3-dose series) 1991 Cervical Cancer Screening: P ap Smear 1993 Pneumococcal Vaccine: 50+ Years (1 of 1 - PCV) 2022 Zoster Vaccines (1 of 2) 2022 Cholesterol Screening (Lipid Panel) 10/08/2022 Colorectal Cancer Screening: Colonoscopy 10/08/2022 HIV Screening 10/08/2022 Hepatitis C Screening 10/08/2022 Social Influencers of Health Screening 10/08/2022 Depression Screening 11/05/2024 COVID-19 Vaccine ( - 2023-2 5 season) 2025 Influenza Vaccine (#1) 2025 2, 08/20/2021 HIB Vaccines Aged Out No [...] Documents on File Type Date Recorded Patient Marketing Effectiveness Manager Expl anation Health Care Decision (hx) 07/20/2020 AD DAVILA DIRECTIVE Care Teams Employment Office Clerk Relationship Specialty Start Date End Date Cynthia Pena MD [address] [place] [address] PCP - General Internal Medicine 09/08/21
--- NOTE | 2025-08-02 10:47 | ED.ABDPAIN ---
HPI - Abdominal Pain General Chief Complaint: Abdominal Pain Stated Complaint: ABD PAIN Time Seen by Provider: 08/02/25 10:45 Source: patient and RN notes reviewed Mode of arrival: ambulatory Limitations: no limitations History of Present Illness ED Provider: Kelsy Joyce PA-C HPI narrative: This is a 54 year old F with PMH of CKD, kidney stones, and adenocarcinoma of the colon in remission, presents to the ED with a 1 week history of intermittent heartburn. Patient reports as of yesterday at 3pm, she developed worsening heartburn associated with epigastric abdominal pain, nausea, and vomiting. She reports two episodes of emesis earlier in the week and four additional episodes between last night and this morning, prompting her ED visit. She denies hematemesis, melena, or hematochezia. She describes the pain as upper abdominal radiating to the midline of her back. She denies diarrhea, chest pain, shortness of breath, dizziness, or syncope. No recent sick contacts, dietary changes, or travel. MD elicited complaint: abdominal pain Pertinent past history: none Location: none Radiation: none Migration to: no migration Exacerbating factors: nothing Relieving factors: nothing Associated symptoms: nausea Related Data Home Medications ?Medication ?Instructions ?Recorded ?Confirmed acetaminophen 500 mg tablet 1,000 mg PO Q6H PRN Pain 02/07/24 08/02/25 omeprazole 20 mg capsule,delayed 20 mg PO DAILY@0630 PRN Heartburn 02/25/25 08/02/25 release calcium carbonate 500 mg PO BID@0730,1130 PRN 08/02/25 08/02/25 Heartburn calcium carbonate 500 mg PO DAILY@1630 08/02/25 08/02/25 loperamide 2 mg tablet 2 mg PO QID PRN Loose Stool 08/02/25 08/02/25 ondansetron 4 mg disintegrating 4 - 8 mg PO Q8H PRN nausea/vomiting 08/02/25 08/02/25 tablet Previous Rx's ?Medication ?Instructions ?Recorded sodium bicarbonate 650 mg tablet 650 mg PO BID 90 days #180 tabs 11/03/24 potassium chloride 20 mEq 20 meq PO DAILY #90 tabs 02/19/25 tablet,extended release Allergies Allergy/AdvReac Type Severity Reaction Status Date / Time codeine (Tylenol-Codeine) Allergy Intermediate Hives Verified 08/02/25 10:22 acetaminophen (From Tylenol AdvReac Intermediate Hives Verified 08/02/25 10:22 PM) cat dander (cats) AdvReac Intermediate Hives Verified 08/02/25 10:22 diphenhydramine (From AdvReac Intermediate Hives Verified 08/02/25 10:22 Tylenol PM) Review of Systems Review of Systems Constitutional : No Fever, No Chills ENT/Mouth : No sore throat, No Rhinorrhea Eyes: No Eye Pain, No Swelling, No Redness Cardiovascular : No Chest Pain, No SOB Respiratory : No Cough, No Sputum Gastrointestinal : + Nausea, + Vomiting, No Diarrhea, + abdominal Pain Genitourinary : No Dysuria, No Hematuria Musculoskeletal : No joint pain, No Myalgias, No Joint Swelling Skin : No Skin Lesions Neuro : No Weakness, No Numbness, No Headache All other systems reviewed and are negative Yes all other systems are reviewed and are negative Constitutional: Reports as per [facility] Past Medical History Medical History Port-A-Cath in place Gastritis Mosher syndrome Adenocarcinoma of colon Surgical History Hx of hysterectomy History of colon surgery Hx of bilateral breast reduction surgery Family History Family History Maternal Grandmother Uterine cancer Maternal Aunt Ovarian cancer Mother Cervical cancer Colon cancer Maternal Uncle Colon cancer Rectal cancer Brother Colon cancer Paternal Aunt Mental health disorder Paternal Uncle Mental health disorder Social History Social History Household Members: Family Household Members Other:: 6 Housing: House Are you a primary client care manager to a significant other at home: No Do you presently have visiting nurse or other home services: No Alcohol intake: current Alcohol intake frequency: holidays/special occasions only Patient Tobacco Use Status: Never used Tobacco Smoked in Last 30 Days: No e-Cigarette/Vaping Use: Never Used Use of substances other than those prescribed or required for medical reasons: No Have you been hit, kicked, punched, or otherwise hurt by someone within the past year? If so, by whom?: No Do you feel safe in your current relationship?: No Current Relationship Is there a partner from a previous relationship who is making you feel unsafe now?: No Are you made to feel afraid or neglected: No Advance Directives: Yes Advance Directives on File: Yes Advance Directives Date on File: 02/08/24 Do you have a plan to hurt others: No Plan Recently lost weight without trying: No Nutrition Risks: No Nutritional Risk Patient : No : No Poor oral hygiene: No service: No Current occupational status: disabled Cognitive needs: No Hearing needs: No Vision needs: Yes Physical Exam ED Vital Signs: Vital Signs - 24 hr 08/02/25 15:30 Pulse Rate 85 Respiratory Rate 17 Blood Pressure 131/78 Pulse Oximetry 100 Oxygen Delivery Method Room Air BMI result Body Mass Index 38.5 Const General: cooperative, comfortable and no acute distress Orientation/consciousness: patient oriented x3 Limitations: no limitations HENMT Head: Yes normal to inspection, Yes normocephalic and Yes atraumatic Ears: hearing grossly normal bilaterally General nose exam: Normal external nose present Face and sinus: Yes normal facial exam Mouth: Normal oral and palatal mucosa present, oropharynx normal and moist mucous membranes Throat: Yes posterior oropharynx normal Eyes General: appearance normal, both eyes and all related structures Eyelids: Yes eyelids normal Conjunctivae: conjunctivae normal Sclerae: sclerae normal Pupils: Equal, round and reactive pupils present EOM: EOMs intact bilaterally Neck Neck: Yes normal visual inspection, Yes full ROM and Yes no lymphadenopathy Lymphatic: no lymphadenopathy noted Chest Chest palpation & inspection: normal inspection of the chest Resp Effort & Inspection: normal respiratory effort and able to speak in complete sentences Auscultation: clear to auscultation bilaterally, no crackles, no rales, no rhonchi and no wheezes Cardio Rate: regular rate Rhythm: regular rhythm Heart sounds: S1 normal heart sound present and S2 normal heart sound present GI Other: Abdomen is soft with tenderness to palpation in the epigastrium and right upper quadrant. Inspection: Yes normal to inspection Other: no CVA tenderness Skin General skin exam: no rashes or lesions noted and jaundice Trauma: no lacerations or abrasions Wounds: no wounds Neuro General: patient oriented x3 and moves all extremities Cranial nerves: Yes Equal, round and reactive pupils present Extrem General: Yes normal to inspection Right upper extremity: normal to inspection Left upper extremity: normal to inspection Right lower extremity: normal to inspection Left lower extremity: normal to inspection Medical Decision Making Medical Decision Making [facility] Narrative: This is a 54 yo female with a history of CKD, nephrolithiasis, and colon adenocarcinoma in remission presents with 1 week of intermittent heartburn, now with worsening epigastric pain, nausea, and multiple episodes of vomiting. On arrival, patient's blood pressure mildly elevated at 151/69, all other vital signs within normal limits. She is speaking in full sentences under no acute distress. She appears to be jaundiced. DDX including Cholelithiasis, Choledocholithiasis or biliary colic is considered, ultrasound and CT abdomen/pelvis ordered to evaluate further. Acute pancreatitis is also a strong consideration given the epigsatric pain radiating to the back and repeated vomiting; lipase and BMP will assess. Viral gastroenteritis considered but less likely given the absence of diarrhea or systemic viral symptoms such as fever or chills. Diagnostics include CBC, BMP, lipase, and CT abdomen/pelvis. Clinical picture is most consistent with gastritis/peptic ulcer disease versus acute pancreatitis. 12:36 PM 08/02/2025 (Kelsy Joyce PA-C): Patient with elevated liver enzymes, T bili 5.8, direct bili 3.9, AST and ALT 236/292, alk phos elevated at 627, lipase 1120. This is concerning for obstructive pathology. Urine does not appear to be infected. CBC revealing slight leukocytosis at 11.1. Will obtain ultrasound and CT scan 3:17 PM 08/02/2025 (Kelsy Joyce PA-C): Still awaiting CT scan, however ultrasound does returned, ultrasound does reveal prominent dilation of both intrahepatic and extrahepatic biliary system. Common bile duct is dilated to 18 mm. Biliary dilation as above with common bile duct stone, ERCP suggested for further evaluation. Cholelithiasis without ultrasound findings of cholecystitis. Spoke to Dr. Coronel, who recommends having clears today, and to make her NPO past midnight. Antibiotics if she spikes a fever. Discussed case with Melissa Borges, hospitalist, transfer of care initiated. Differential Diagnosis Differential Diagnoses: The differential diagnosis associated with the presentation includes See above Consult Healthcare Provider Management of the patient was discussed with: [employer] Dr. Coronel - GI Lab Data [facility] Lab Attestation statement: I reviewed the patient's lab results. See [facility] 08/03/25 04:19 08/03/25 04:19 Labs: Lab Results 08/02/25 08/02/25 08/02/25 Range/Units 10:48 11:11 15:48 WBC 11.1 H (4.8-10.8) X10*3/uL RBC 3.79 L (4.20-5.50) X10*6/uL Hgb 11.6 L (12.0-16.0) g/dl Hct 36.0 L (37.0-47.0) % MCV 95.0 (80.0-98.0) fL MCH 30.6 (27.0-33.0) pg MCHC 32.2 (31.0-35.0) g/dl RDW 13.4 (11.0-16.0) % Plt Count 224 (160-400) X10*3/uL MPV 10.1 (9.4-12.3) fL Immature Gran % (Auto) 0.8 H (0.0-0.4) % Neut % (Auto) 89.7 H (45-73) % Lymph % (Auto) 5.1 L (20-40) % [place] % (Auto) 4.2 (2-11) % Eos % (Auto) 0.0 (0-4) % Baso % (Auto) 0.2 (0-2) % Lymph # (Auto) 0.6 L (1.2-4.9) X10*3/uL [place] # (Auto) 0.5 (0.1-1.2) X10*3/uL Eos # (Auto) 0.0 (0.0-0.4) X10*3/uL Baso # (Auto) 0.0 (0.0-0.2) X10*3/uL Abs Immat Gran (auto) 0.09 H (0.00-0.03) X10*3/uL Absolute Neuts (auto) 10.0 H (2.0-8.3) x10*3/uL Absolute Nucleated RBC 0.000 (0.0-0.012) X10*3/uL Nucleated RBC % (auto) 0.0 (0.0-0.2) /100WBC Sodium 139 (135-145) mmol/L Potassium 4.0 D (3.3-5.1) mmol/L Chloride 109 H (96-108) mmol/L Carbon Dioxide 21 L (22-29) mmol/L Anion Gap 13 (12-20) BUN 14 (9-16) mg/dL Creatinine 1.20 (0.5-1.4) mg/dL Estim Creat Clear Calc 70.6 Estimated GFR 47 Random Glucose 120 H (60-115) mg/dL Lactic Acid 1.2 (0.5-2.0) mmol/L Calcium 9.8 (8.4-10.2) mg/dL Magnesium 2.0 (1.6-2.6) mg/dL Total Bilirubin 5.8 H (0.0-1.0) mg/dL Direct Bilirubin 3.9 H (0.0-0.5) mg/dL AST 236 H (5-31) U/L ALT 292 H (0-31) U/L Alkaline Phosphatase 627 H (39-117) U/L Total Creatine Kinase 75 (26-140) U/L Troponin I High Sens < 2.7 D (<3.5-17.0) ng/L Total Protein 7.4 (6.5-8.0) g/dL Albumin 4.3 (3.5-5.0) g/dL Lipase 1120 H (8-78) U/L Beta HCG, Quant 4 mIU/mL Urine Color Dark Yellow Urine Appearance Clear Urine pH 5.5 (5.0-9.0) Ur Specific [place] 1.025 (1.005-1.025) Urine Protein 100 (2+) H (Neg-Trace) mg/dL Urine Glucose (UA) Negative (Negative) mg/dL Urine Ketones Negative (Negative) mg/dL Urine Blood Negative (Negative) Urine Nitrite Negative (Negative) Ur Leukocyte Esterase Trace H (Negative) Urine RBC 0-2 (0-2) /HPF Urine WBC 0-5 (0-5) /HPF Ur Squamous Epith Cells 3-5 (0-2) /HPF Urine Bacteria None Seen (None Seen) Hyaline Casts 0-2 (0-2) /LPF Radiology Impression Discussion of test interpretation with radiology: I have reviewed the radiologist's reading. Radiologist Impression: CT abdomen: No infiltrates within the lung bases. No acute bony abnormality. Bones are osteopenic. Overall heart size within normal limits. Prominent dilation of both the intrahepatic and extrahepatic biliary tree. Intrahepatic bile ducts are dilated to 13 mm. Extrahepatic biliary tree is dilated to 18 mm. Filling defects seen within the distal common bile duct measuring approximately 1 cm in size. No discrete hepatic mass lesion seen. Main portal vein is patent. Subtle increased density layering within the gallbladder suggesting stone disease. No pancreatic ductal dilatation or peripancreatic inflammatory stranding. Spleen, adrenal glands, and kidneys are unremarkable for acute findings. There is prominent atrophy of the left kidney with unchanged cysts within the lower pole of the right kidney measuring 4.9 cm in size. No dilated small bowel. No free air. CT pelvis: Presumed mesh ventral hernia repair has been performed. Uterus is surgically absent. Urinary bladder is mildly distended. No focal areas of colonic wall thickening or pericolonic inflammatory stranding is evident. No free fluid or free air. IMPRESSION: Choledocholithiasis with dilation of the biliary tree as above. Given the lack of associated dilation of the pancreatic duct, ampullary or periampullary mass would be an unlikely etiology. ERCP suggested for further evaluation. This document has been electronically signed by: Knedall Silva MD on 08/02/2025 15:25:28 Dictated By: Kendall Silva MD Exam: 1. Ultrasound of the right upper quadrant of the abdomen. 2. Duplex ultrasound of the main portal vein. Comparison: CT/REG/SR - CT ABDOMEN PELVIS W IV CON - 08/02/25 12:53 EDT Findings: Liver is enlarged measuring 24 cm in long axis. Heterogeneous echotexture throughout the liver without focal hepatic lesion. As seen on the patient's earlier CT of the abdomen, there is prominent dilation of both the intrahepatic and extrahepatic biliary system. Common bile duct is dilated to 18 mm. Echogenic stone is seen within the distal common bile duct measuring 11 x 6 x 7 mm in size. Numerous echogenic stones are seen layering within the gallbladder without gallbladder wall thickening or pericholecystic fluid. Right kidney measures 12.4 cm in long axis. Simple cyst within the right kidney measures 5.4 cm in size. No hydronephrosis. No free fluid. Duplex evaluation of the main portal vein was performed. This included real-time grayscale, color spectral Doppler analysis, and color Doppler flow imaging. Main portal vein is patent with hepatopetal flow. IMPRESSION: 1. Hepatomegaly with increased hepatic echotexture, likely related to fatty infiltration or medical liver disease. 2. Biliary dilation as above with distal common bile duct stone. ERCP suggested for further evaluation. 3. Cholelithiasis without ultrasound findings of cholecystitis. This document has been electronically signed by: Kendall Silva MD on 08/02/2025 15:09:27 Dictated By: Kendall Silva MD Signed By: <Electronically signed Medications Administered Generic Name Dose Route Start Last Admin Trade Name Freq PRN Reason Stop Dose Admin Acetaminophen 650 mg 08/02/25 16:32 08/03/25 06:17 Acetaminophen 325 Mg Tablet PO 650 mg Q6H PRN Administration Pain, Mild 1-3,fever,headache Ceftriaxone Sodium 1 gm 08/02/25 16:00 08/02/25 16:51 Ceftriaxone Sodium 1 Gm Vial IVPUSH Not Given Q24H BORIS Dextrose/Sodium Chloride 1,000 mls @ 100 mls/hr 08/02/25 16:45 08/03/25 02:19 D5ns IVCONT 100 mls/hr .Q10H BORIS Administration Ondansetron HCl 4 mg 08/02/25 16:32 08/03/25 06:19 Ondansetron Hcl 4 Mg/2 Ml Vial IVPUSH 4 mg Q8H PRN Administration Nausea and Vomiting Oxycodone HCl 5 mg 08/02/25 16:32 08/03/25 03:03 Oxycodone Hcl Immed Release 5 Mg Tablet PO 5 mg Q6H PRN Administration Pain, Moderate(Pain Scale 4-6) Sodium Chloride 3 ml 08/03/25 00:00 08/03/25 07:06 0.9 % Sodium Chloride Flush 3 Ml Syringe IVFLUSH Not Given QSHIFT BORIS Discontinued Medications Generic Name Dose Route Start Last Admin Trade Name Freq PRN Reason Stop Dose Admin Ceftriaxone Sodium 1 gm 08/02/25 15:24 08/02/25 15:51 Ceftriaxone Sodium 1 Gm Vial IVPUSH 08/02/25 15:25 1 gm ONCE ONE Administration Diphenhydramine HCl 12.5 mg 08/02/25 13:16 08/02/25 13:36 Diphenhydramine Hcl 50 Mg/Ml Vial IVPUSH 08/02/25 13:17 12.5 mg ONCE ONE Administration Sodium Chloride 1,000 mls @ 999 mls/hr 08/02/25 11:55 08/02/25 14:11 Ns IV 08/02/25 12:55 Infused .Q1H1M ONE Infusion Influenza Virus Vaccine 0.5 ml 08/03/25 08:35 08/03/25 09:24 Flu Vacc [id number](6mo Up)/Pf 0.5 Ml Syringe IM 08/03/25 08:36 0.5 ml .ONCE ONE Administration Iohexol 100 ml 08/02/25 13:02 08/02/25 13:04 Iohexol 350 Mg/Ml 100 Ml Infus..Btl IV 08/02/25 13:03 85 ml ONCE ONE Administration Metoclopramide HCl 10 mg 08/02/25 13:16 08/02/25 13:36 Metoclopramide Hcl 10 Mg/2 Ml Vial IVPUSH 08/02/25 13:17 10 mg ONCE ONE Administration Morphine Sulfate 4 mg 08/02/25 11:53 08/02/25 12:37 Morphine Sulfate 4 Mg/Ml Cartridge IVPUSH 08/02/25 11:54 4 mg ONCE ONE Administration Protocol Ondansetron HCl 4 mg 08/02/25 11:54 08/02/25 12:37 Ondansetron Hcl 4 Mg/2 Ml Vial IVPUSH 08/02/25 11:55 4 mg ONCE ONE Administration Critical Care Time Critical Care Time Critical Care Time: Yes Total Critical Care Time: 40 Attestation: I have personally provided critical care time exclusive of time spent on separately billable procedures. Time includes review of lab data, radiology results, discussion with consultants, and monitoring for potential decompensation. Intervention performed as documented. Discharge Plan Discharge Clinical Impression: Choledocholithiasis Patient Disposition: Admitted As Inpatient Interventions: Admission Worksheet (ED) Last Done: 08/02/25 17:37
[2025-08-02 10:56] LABS: Appearance Urine Clear; Glucose Urine UA Negative (Negative); PH 5.5 (5.0-9.0); Specific Gravity - Urine 1.025 (1.005-1.025); UMIC TRIGGER UACC YES
[2025-08-02 11:15] LABS: MANUAL DIFF FLAG NO
[2025-08-02 11:19] LABS: Hematocrit 36.0 % (37.0-47.0); Hemoglobin 11.6 g/dl (12.0-16.0); Imm Gran Abs Auto 0.09 X10*3/uL (0.00-0.03); Imm Gran Pct Auto 0.8 % (0.0-0.4); Lymphocytes Absolute Auto 0.6 X10*3/uL (1.2-4.9); Mean Corpuscular HGB Conc 32.2 g/dl (31.0-35.0); Mean Corpuscular Hemoglobin 30.6 pg (27.0-33.0); Mean Corpuscular Volume 95.0 fL (80.0-98.0); NRBC Abs Auto 0.000 X10*3/uL (0.0-0.012); NRBC Pct Auto 0.0 /100WBC (0.0-0.2); Platelet Count 224 X10*3/uL (160-400); Red Blood Count 3.79 X10*6/uL (4.20-5.50); White Blood Count 11.1 X10*3/uL (4.8-10.8)
--- NOTE | 2025-08-02 11:23 | PC.NURSE ---
power port accessed by this RN to left side of chest. +blood return. secured. labs obtained/sent to lab. pending evaluation by provider. plan of care ongoing. call torre placed within reach.
[2025-08-02 11:42] LABS: Alanine Aminotransferase 292 U/L (0-31); Anion Gap 13 (12-20); Aspartate Amino Transferase 236 U/L (5-31); Blood Urea Nitrogen 14 mg/dL (9-16); Calcium 9.8 mg/dL (8.4-10.2); Carbon Dioxide 21 mmol/L (22-29); Chloride 109 mmol/L (96-108); Creatinine Clr Calc Pharmacy 70.6; Estimated Glomerular Filt Rate 47; Magnesium 2.0 mg/dL (1.6-2.6); Potassium 4.0 mmol/L (3.3-5.1); Sodium 139 mmol/L (135-145)
[2025-08-02 11:43] LABS: Albumin Level 4.3 g/dL (3.5-5.0); Alkaline Phosphatase 627 U/L (39-117); Total Protein 7.4 g/dL (6.5-8.0)
[2025-08-02 11:50] LABS: Lipase 1120 U/L (8-78)
[2025-08-02 12:05] LABS: Troponin-I High Sensitivity < 2.7 ng/L (<3.5-17.0)
[2025-08-02] MEDS: iohexoL 350 MG/ML 100 ML INFUS..BTL IV (13:04)
[2025-08-02 15:30] VITALS: BP 131/78; PULSE 85; RESP 17; O2SAT 100
--- NOTE | 2025-08-02 16:36 | PM.IMHP ---
History of Present Illness Date of Service: 08/02/25 Chief Complaint: abdominal pain Review of Systems Review of Systems: Denies any recent fever chills or decrease in appetite respiratory denies any shortness of breath coverage production cardiovascular is adjustment of any PND or edema gastrointestinal denies any dysphagia abdominal pain nausea vomiting or diarrhea genitourinary denies any dysuria frequency or hematuria musculoskeletal denies any joint pain or swelling neuropsych denies any weakness or seizures all other systems reviewed are negative [facility] Medical History Port-A-Cath in place Gastritis Mosher syndrome Adenocarcinoma of colon Family History Maternal Grandmother Uterine cancer Maternal Aunt Ovarian cancer Mother Cervical cancer Colon cancer Maternal Uncle Colon cancer Rectal cancer Brother Colon cancer Paternal Aunt Mental health disorder Paternal Uncle Mental health disorder Surgical History Hx of hysterectomy History of colon surgery Hx of bilateral breast reduction surgery Social History Household Members: Family Household Members Other:: 6 Housing: House Are you a primary manager care to a significant other at home: No Do you presently have visiting nurse or other home services: No Alcohol intake: current Alcohol intake frequency: holidays/special occasions only Patient Tobacco Use Status: Never used Tobacco Smoked in Last 30 Days: No e-Cigarette/Vaping Use: Never Used Use of substances other than those prescribed or required for medical reasons: No Advance Directives: Yes Advance Directives on File: Yes Advance Directives Date on File: 02/08/24 Do you have a plan to hurt others: No Plan Patient : No service: No Current occupational status: disabled Cognitive needs: No Hearing needs: No Vision needs: Yes Meds Allergies Allergy/AdvReac Type Severity Reaction Status Date / Time codeine (Tylenol-Codeine) Allergy Intermediate Hives Verified 08/02/25 10:22 acetaminophen (From Tylenol AdvReac Intermediate Hives Verified 08/02/25 10:22 PM) cat dander (cats) AdvReac Intermediate Hives Verified 08/02/25 10:22 diphenhydramine (From AdvReac Intermediate Hives Verified 08/02/25 10:22 Tylenol PM) Active Medications: Current Medications Acetaminophen (Acetaminophen 325 Mg Tablet) 650 mg PO Q6H PRN PRN Reason: Pain, Mild 1-3,fever,headache Calcium Carbonate (Calcium Carbonate 750 Mg Tab.Chew) 750 mg PO Q4H PRN PRN Reason: Heartburn Ceftriaxone Sodium (Ceftriaxone Sodium 1 Gm Vial) 1 gm IVPUSH Q24H BORIS Hydromorphone HCl (Hydromorphone Hcl 1 Mg/Ml Syringe) 0.5 mg IVPUSH Q4H PRN; Protocol PRN Reason: Pain, Severe (Pain Scale 7-10) Dextrose/Sodium Chloride (D5ns) 1,000 mls @ 100 mls/hr IVCONT .Q10H BORIS Magnesium Hydroxide (Milk Of Magnesia 30 Ml Oral.Susp) 30 ml PO DAILY PRN PRN Reason: Constipation Melatonin (Melatonin 3 Mg Tablet) 6 mg PO BEDTIME PRN PRN Reason: Insomnia Ondansetron HCl (Ondansetron Hcl 4 Mg/2 Ml Vial) 4 mg IVPUSH Q8H PRN PRN Reason: Nausea and Vomiting Oxycodone HCl (Oxycodone Hcl Immed Release 5 Mg Tablet) 5 mg PO Q6H PRN PRN Reason: Pain, Moderate(Pain Scale 4-6) Sodium Chloride (0.9 % Sodium Chloride Flush 3 Ml Syringe) 3 ml IVFLUSH QSHIFT [facility] Home Medications ?Medication ?Instructions ?Recorded ?Confirmed ?Last Taken ?Type acetaminophen 500 mg tablet 1,000 mg PO DAILY PRN Pain 02/07/24 12/08/24 Unknown History omeprazole 20 mg capsule,delayed 20 mg PO DAILY 02/25/25 Unknown History release Physical Exam Vital Signs and Narrative: Vital Signs: Last Vital Signs Temp 98.3 F 08/02/25 10:21 Pulse 85 08/02/25 15:30 Resp 17 08/02/25 15:30 BP 131/78 08/02/25 15:30 Pulse Ox 100 08/02/25 15:30 O2 Del Method Room Air 08/02/25 15:30 BMI result Body Mass Index 38.5 Appearing in no acute distress head is normocephalic atraumatic eyes pupils are PERRLA sclera is anicteric mouth throat mucous membranes are intact and moist neck is supple no lymphadenopathy, no JVD noted lung sounds are clear to auscultation heart regular rate rhythm, clear S1, S2 positive bowel sounds, abdomen is soft, nontender neuro patient is alert x3, no focal deficits Results Labs 08/02/25 11:11 08/02/25 11:11 Labs: Laboratory Results - last 24 hr 08/02/25 08/02/25 08/02/25 10:48 11:11 15:48 MCV 95.0 MCH 30.6 MCHC 32.2 RDW 13.4 Plt Count 224 MPV 10.1 Immature Gran % (Auto) 0.8 H Neut % (Auto) 89.7 H Lymph % (Auto) 5.1 L [place] % (Auto) 4.2 Eos % (Auto) 0.0 Baso % (Auto) 0.2 Lymph # (Auto) 0.6 L [place] # (Auto) 0.5 Eos # (Auto) 0.0 Baso # (Auto) 0.0 Abs Immat Gran (auto) 0.09 H Absolute Neuts (auto) 10.0 H Absolute Nucleated RBC 0.000 Nucleated RBC % (auto) 0.0 Anion Gap 13 Estim Creat Clear Calc 70.6 Estimated GFR 47 Random Glucose 120 H Lactic Acid 1.2 Calcium 9.8 Magnesium 2.0 Total Bilirubin 5.8 H Direct Bilirubin 3.9 H AST 236 H ALT 292 H Alkaline Phosphatase 627 H Total Creatine Kinase 75 Troponin I High Sens < 2.7 D Total Protein 7.4 Albumin 4.3 Lipase 1120 H Beta HCG, Quant 4 Urine Color Dark Yellow Urine Appearance Clear Urine pH 5.5 Ur Specific [place] 1.025 Urine Protein 100 (2+) H Urine Glucose (UA) Negative Urine Ketones Negative Urine Blood Negative Urine Nitrite Negative Ur Leukocyte Esterase Trace H Urine RBC 0-2 Urine WBC 0-5 Ur Squamous Epith Cells 3-5 Urine Bacteria None Seen Hyaline Casts 0-2 Assessment and Plan (1) Choledocholithiasis with acute cholecystitis: Status: Acute Plan 54 year old women admitted with choledocholithiasis Choledocholithiasis Abdominal CT showing choledocholithiasis with dilation of the biliary tree Total bili 5.8, direct bili 3.9, AST 236, ALT 292, alk phos 627, lipase 1120 On clear liquid diet, NPO after midnight IV fluids Gastroenterology consultation, likely need ERCP Recheck labs in the morning Pain management, antiemetics Empiric Rocephin CKD 3A Baseline History of colon cancer In remission DVT prophylaxis with pneumatic compression boots Full code Quality Stroke Does the patient have a stroke diagnosis?: No VTE Prior VTE?: No VTE Risk Level:: Medical - moderate - high VTE Device Contraindication: N/A - Device Ordered VTE Drug Contraindication: Treatment Not Indicated
[2025-08-02] MEDS: oxyCODONE HCl Immed Release 5 MG TABLET PO (18:49)
--- NOTE | 2025-08-02 19:00 | PHA.MEDREC ---
Pharmacy Consult ? Medication Reconciliation Pharmacy has completed the medication reconciliation. Spoke with patient to confirm. OTC medications she has been taking recently: tums, omeprazole, and acetaminophen. She took her maintenance medications this morning as well as these OTC meds and zofran.
[2025-08-03] VITALS (8 sets, daily range): BP systolic 87–114; BP diastolic 47–60; PULSE 67–79; RESP 16–18; TEMP 36.1–36.9; O2SAT 95–100; BMI 45.0
[2025-08-03] MEDS: 0.9 % Sodium Chloride Flush 3 ML SYRINGE IVFLUSH ×2 (01:18→16:49)
--- NOTE | 2025-08-03 01:28 | PC.NURSE ---
Addendum entered by Ingris Deal RN 08/03/25 01:43: skin jaundice Original Note: Patient awake and alert. skin haubndice, warm, dry. resp even and non labored, speaking in full, clear sentences. IV fluids infusing per order. patient NPO since midnight per order,. ambulatory to/from bathroom w/ steady gait. pt aware of plan of care.
[2025-08-03] MEDS: oxyCODONE HCl Immed Release 5 MG TABLET PO ×3 (03:03→19:42)
--- NOTE | 2025-08-03 03:43 | PC.NURSE ---
pt brought from front ed main to ed bed 1, this rn assumed care of pt, pt resting in stretcher, no acute distress noted, offers no complaints at this time
--- NOTE | 2025-08-03 04:19 | PC.NURSE ---
this rn at bedside with phlebotomy, labs obtained off of port access at this time. pt offers no complaints and no acute distress noted
[2025-08-03 04:37] LABS: Hematocrit 31.9 % (37.0-47.0); Hemoglobin 10.0 g/dl (12.0-16.0); Mean Corpuscular HGB Conc 31.3 g/dl (31.0-35.0); Mean Corpuscular Hemoglobin 30.2 pg (27.0-33.0); Mean Corpuscular Volume 96.4 fL (80.0-98.0); NRBC Abs Auto 0.000 X10*3/uL (0.0-0.012); NRBC Pct Auto 0.0 /100WBC (0.0-0.2); Platelet Count 195 X10*3/uL (160-400); Red Blood Count 3.31 X10*6/uL (4.20-5.50); White Blood Count 7.5 X10*3/uL (4.8-10.8)
[2025-08-03 04:54] LABS: Alanine Aminotransferase 317 U/L (0-31); Albumin Level 3.5 g/dL (3.5-5.0); Alkaline Phosphatase 575 U/L (39-117); Anion Gap 12 (12-20); Aspartate Amino Transferase 329 U/L (5-31); Blood Urea Nitrogen 11 mg/dL (9-16); Calcium 8.7 mg/dL (8.4-10.2); Carbon Dioxide 23 mmol/L (22-29); Chloride 110 mmol/L (96-108); Creatinine Clr Calc Pharmacy 68.9; Estimated Glomerular Filt Rate 46; Lipase 245 U/L (8-78); Potassium 3.7 mmol/L (3.3-5.1); Sodium 141 mmol/L (135-145); Total Protein 6.1 g/dL (6.5-8.0)
--- NOTE | 2025-08-03 06:23 | PC.NURSE ---
pt reporting 4/10 headache at this time and nausea, pt medicated per mar
--- NOTE | 2025-08-03 08:49 | PM.GICN ---
History of Present Illness Data of Consult Service Date: 08/03/25 Requesting physician: Melissa Borges Primary Care Provider: Cynthia Pena MD 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 Hx obtained from the pt who reports that possibly had similar pain few years ago, when she was seen in the hospital for possible infectious gastroenteritis. This time, she again thought this was reflux, and was treating this at home with antacids, but the pain did not relent and started having nausea and vomiting and she therefore came to the emergency room. No fevers, chills. Initial labs with leukocytosis. Chem 7 with bilirubin of 5.8, elevated AST and ALT x10UNL. Lipase of 1100. Imaging consistent with distal common bile duct stone with CBD dilated to 18 mm. She also has numerous cholelithiasis in the gallbladder. No peripancreatic fatty stranding noted. Prior egd/colo notes reviewed. She has a short duodenal stricture which the straigh-viewing scope could traverse through + x2 polyps. No colon polyps. Path not available. Review of Systems Review of Systems: Yes all other systems are reviewed and are negative [facility] Past Medical History Medical History Port-A-Cath in place Gastritis Mosher syndrome Adenocarcinoma of colon Family History Family History Maternal Grandmother Uterine cancer Maternal Aunt Ovarian cancer Mother Cervical cancer Colon cancer Maternal Uncle Colon cancer Rectal cancer Brother Colon cancer Paternal Aunt Mental health disorder Paternal Uncle Mental health disorder Surgical History Surgical History Hx of hysterectomy History of colon surgery Hx of bilateral breast reduction surgery Social History Social History Household Members: Family Household Members Other:: 6 Housing: House Are you a primary child caregiver private home to a significant other at home: No Do you presently have visiting nurse or other home services: No Alcohol intake: current Alcohol intake frequency: holidays/special occasions only Patient Tobacco Use Status: Never used Tobacco Smoked in Last 30 Days: No e-Cigarette/Vaping Use: Never Used Use of substances other than those prescribed or required for medical reasons: No Have you been hit, kicked, punched, or otherwise hurt by someone within the past year? If so, by whom?: No Do you feel safe in your current relationship?: No Current Relationship Is there a partner from a previous relationship who is making you feel unsafe now?: No Are you made to feel afraid or neglected: No Advance Directives: Yes Advance Directives on File: Yes Advance Directives Date on File: 02/08/24 Do you have a plan to hurt others: No Plan Recently lost weight without trying: No Nutrition Risks: No Nutritional Risk Patient : No : No Poor oral hygiene: No service: No Current occupational status: disabled Cognitive needs: No Hearing needs: No Vision needs: Yes Meds Allergies Allergy/AdvReac Type Severity Reaction Status Date / Time codeine (Tylenol-Codeine) Allergy Intermediate Hives Verified 08/02/25 10:22 acetaminophen (From Tylenol AdvReac Intermediate Hives Verified 08/02/25 10:22 PM) cat dander (cats) AdvReac Intermediate Hives Verified 08/02/25 10:22 diphenhydramine (From AdvReac Intermediate Hives Verified 08/02/25 10:22 Tylenol PM) Active Medications: Current Medications Acetaminophen (Acetaminophen 325 Mg Tablet) 650 mg PO Q6H PRN PRN Reason: Pain, Mild 1-3,fever,headache Last Admin: 08/03/25 06:17 Dose: 650 mg Calcium Carbonate (Calcium Carbonate 750 Mg Tab.Chew) 750 mg PO Q4H PRN PRN Reason: Heartburn Ceftriaxone Sodium (Ceftriaxone Sodium 1 Gm Vial) 1 gm IVPUSH Q24H [facility] Last Admin: 08/02/25 16:51 Dose: Not Given Hydromorphone HCl (Hydromorphone Hcl 1 Mg/Ml Syringe) 0.5 mg IVPUSH Q4H PRN; Protocol PRN Reason: Pain, Severe (Pain Scale 7-10) Dextrose/Sodium Chloride (D5ns) 1,000 mls @ 100 mls/hr IVCONT .Q10H [facility] Last Admin: 08/03/25 02:19 Dose: 100 mls/hr Magnesium Hydroxide (Milk Of Magnesia 30 Ml Oral.Susp) 30 ml PO DAILY PRN PRN Reason: Constipation Melatonin (Melatonin 3 Mg Tablet) 6 mg PO BEDTIME PRN PRN Reason: Insomnia Ondansetron HCl (Ondansetron Hcl 4 Mg/2 Ml Vial) 4 mg IVPUSH Q8H PRN PRN Reason: Nausea and Vomiting Last Admin: 08/03/25 06:19 Dose: 4 mg Oxycodone HCl (Oxycodone Hcl Immed Release 5 Mg Tablet) 5 mg PO Q6H PRN PRN Reason: Pain, Moderate(Pain Scale 4-6) Last Admin: 08/03/25 03:03 Dose: 5 mg Sodium Chloride (0.9 % Sodium Chloride Flush 3 Ml Syringe) 3 ml IVFLUSH QSHIFT [facility] Last Admin: 08/03/25 07:06 Dose: Not Given Home Medications ?Medication ?Instructions ?Recorded ?Confirmed ?Last Taken ?Type acetaminophen 500 mg tablet 1,000 mg PO Q6H PRN Pain 02/07/24 08/02/25 08/02/25 History omeprazole 20 mg capsule,delayed 20 mg PO DAILY@0630 PRN Heartburn 02/25/25 08/02/25 08/02/25 History release calcium carbonate 500 mg PO BID@0730,1130 PRN 08/02/25 08/02/25 08/02/25 History Heartburn calcium carbonate 500 mg PO DAILY@1630 08/02/25 08/02/25 Unknown History loperamide 2 mg tablet 2 mg PO QID PRN Loose Stool 08/02/25 08/02/25 Unknown History ondansetron 4 mg disintegrating 4 - 8 mg PO Q8H PRN nausea/vomiting 08/02/25 08/02/25 08/02/25 History tablet Physical Exam Exam: Exam: Middle aged female NAD Icteric abd soft tender, nondistended Vital Signs: Vital Signs: Last Vital Signs Temp 98.5 F 08/03/25 06:04 Pulse 71 09/29/25 06:04 Resp 16 08/03/25 06:04 BP 96/55 L 08/03/25 06:04 Pulse Ox 97 08/03/25 06:04 O2 Del Method Room Air 08/03/25 06:04 BMI result Body Mass Index 38.5 Results Labs 08/03/25 04:19 08/03/25 04:19 Labs: Short CBC 08/02/25 08/03/25 Range/Units 11:11 04:19 WBC 11.1 H 7.5 (4.8-10.8) X10*3/uL Hgb 11.6 L 10.0 L (12.0-16.0) g/dl Hct 36.0 L 31.9 L (37.0-47.0) % Plt Count 224 195 (160-400) X10*3/uL BMP 08/02/25 08/03/25 11:11 04:19 Sodium 139 141 Potassium 4.0 D 3.7 Chloride 109 H 110 H Carbon Dioxide 21 L 23 BUN 14 11 Creatinine 1.20 1.23 Calcium 9.8 8.7 D Cardiac Enzymes 08/02/25 Range/Units 11:11 Total Creatine Kinase 75 (26-140) U/L Liver Function 08/02/25 08/03/25 Range/Units 11:11 04:19 Total Bilirubin 5.8 H 6.4 H (0.0-1.0) mg/dL Direct Bilirubin 3.9 H 4.3 H (0.0-0.5) mg/dL AST 236 H 329 H (5-31) U/L ALT 292 H 317 H (0-31) U/L Alkaline Phosphatase 627 H 575 H (39-117) U/L Albumin 4.3 3.5 (3.5-5.0) g/dL Urine 08/02/25 Range/Units 10:48 Urine Color Dark Yellow Urine Appearance Clear Urine pH 5.5 (5.0-9.0) Ur Specific [place] 1.025 (1.005-1.025) Urine Protein 100 (2+) H (Neg-Trace) mg/dL Urine Glucose (UA) Negative (Negative) mg/dL Assessment and Plan (1) LFT elevation: Status: Acute (2) Choledocholithiasis: Status: Acute (3) Cholelithiases: Status: Acute Plan Patient presenting with abdominal pain and elevated LFTs with imaging + for choledocholithiasis. Plan: - Please keep NPO for possible ERCP today with the good Dr Mireles - Watch for s/sx of cholangitis (fever, elevated white count, worsening renal function, AMS etc) low threshold to start Unasyn or Zosyn in that case. Thank you for allowing me to participate in her care. Please do not hesitate to reach out for any questions or concerns. Procedures Date of Service Date of Service: 08/03/25
[2025-08-03] MEDS: Flu Vacc TS2025-26(6mo up)/PF 0.5 ML SYRINGE IM (09:24)
--- NOTE | 2025-08-03 11:39 | PC.NURSE ---
Patient out of bed to bathroom and back without issue.
--- NOTE | 2025-08-03 14:06 | MHC.CM.PN ---
PT LIVES WITH PARENTS IS INDEPENDENT HAS OWN RIDE HOME DC PLAN HOME N/S
--- NOTE | 2025-08-03 17:37 | P.PNIM_ITS ---
Subjective Subjective Date of Service: 08/03/25 Interval History: Significantly improved abdominal pain today. The patient feels well, and has an appetite. No plans for ERCP today on clarification with Gastroenterology Starting clear liquid diet, with NPO midnight Review of Systems Review of Systems: Yes all other systems are reviewed and are negative Physical Exam 2 Exam: Exam: General: A&O x3, oriented to time place person and situation, comfortable, no pain Cardiac: S1, S2 auscultated with no S3/4, no MRG. Well perfused. Respiratory: Normal breath sounds auscultated throughout all lung zones, without wheezing, rales. Normal rate. GI/ : Abdominal tenderness on palpation in the epigastrium, with notable jaundice and mild scleral icterus. No other distention, ecchymosis, nonpalpable liver and spleen MSK: Normal ambulation without pain at bony prominences or musculature Neurological: Normal neurological examination on overview, without obvious CN II-XII abnormalities. Vital Signs: Vital Signs: Last Vital Signs Temp 98.5 F 08/03/25 06:04 Pulse 67 08/03/25 09:23 Resp 16 08/03/25 09:23 BP 114/60 08/03/25 09:23 Pulse Ox 95 08/03/25 09:23 O2 Del Method Room Air 08/03/25 09:23 BMI result Body Mass Index 38.5 Objective Data Active Medications Acetaminophen (Acetaminophen 325 Mg Tablet) 650 mg PO Q6H PRN PRN Reason: Pain, Mild 1-3,fever,headache Last Admin: 08/03/25 06:17 Dose: 650 mg Documented By: CHEYANNE Calcium Carbonate (Calcium Carbonate 750 Mg Tab.Chew) 750 mg PO Q4H PRN PRN Reason: Heartburn Ceftriaxone Sodium (Ceftriaxone Sodium 1 Gm Vial) 1 gm IVPUSH Q24H [facility] Last Admin: 08/03/25 17:28 Dose: 1 gm Documented By: NAVID Hydromorphone HCl (Hydromorphone Hcl 1 Mg/Ml Syringe) 0.5 mg IVPUSH Q4H PRN; Protocol PRN Reason: Pain, Severe (Pain Scale 7-10) Dextrose/Sodium Chloride (D5ns) 1,000 mls @ 100 mls/hr IVCONT .Q10H [facility] Last Admin: 08/03/25 12:25 Dose: 100 mls/hr Documented By: NAVID Magnesium Hydroxide (Milk Of Magnesia 30 Ml Oral.Susp) 30 ml PO DAILY PRN PRN Reason: Constipation Melatonin (Melatonin 3 Mg Tablet) 6 mg PO BEDTIME PRN PRN Reason: Insomnia Ondansetron HCl (Ondansetron Hcl 4 Mg/2 Ml Vial) 4 mg IVPUSH Q8H PRN PRN Reason: Nausea and Vomiting Last Admin: 08/03/25 06:19 Dose: 4 mg Documented By: CHEYANNE Oxycodone HCl (Oxycodone Hcl Immed Release 5 Mg Tablet) 5 mg PO Q6H PRN PRN Reason: Pain, Moderate(Pain Scale 4-6) Last Admin: 08/03/25 12:01 Dose: 5 mg Documented By: NAVID Sodium Chloride (0.9 % Sodium Chloride Flush 3 Ml Syringe) 3 ml IVFLUSH QSHIFT [facility] Last Admin: 08/03/25 16:49 Dose: 3 ml Documented By: NAVID Labs 08/03/25 04:19 08/03/25 04:19 Labs: Laboratory Results - last 24 hr 08/03/25 04:19 MCV 96.4 MCH 30.2 MCHC 31.3 RDW 13.6 Plt Count 195 MPV 9.9 Absolute Nucleated RBC 0.000 Nucleated RBC % (auto) 0.0 Anion Gap 12 Estim Creat Clear Calc 68.9 Estimated GFR 46 Random Glucose 150 H Calcium 8.7 D Total Bilirubin 6.4 H Direct Bilirubin 4.3 H AST 329 H ALT 317 H Alkaline Phosphatase 575 H Total Protein 6.1 L Albumin 3.5 Lipase 245 H Assessment and Plan (1) Choledocholithiasis with acute cholecystitis: Status: Acute (2) SBO (small bowel obstruction): Status: Acute (3) Gastritis: Status: Acute (4) Transaminitis: Status: Acute (5) CKD stage 3a, GFR 45-59 ml/min: Status: Acute (6) Acute kidney injury: Status: Acute (7) Metabolic acidosis: Status: Acute (8) Hypokalemia: Status: Acute (9) Adenocarcinoma of colon: Status: Acute (10) Mosher syndrome: Status: Acute Plan 54 year old women with a past medical history of CKD, colon adenocarcinoma in remission, Mosher syndrome, presents with a 1 week complaint of epigastric pain, admitted with admitted with acute choledocholithiasis c/b acute interstitial pancreatitis without necrosis, and acute cholestatic transaminitis Acute Choledocholithiasis Acute interstitial pancreatitis without necrosis 2/2 choledocholithiasis Acute cholecystitis transaminitis Abdominal CT showing choledocholithiasis with dilation of the biliary tree Total bili 5.8, direct bili 3.9, AST 236, ALT 292, alk phos 627, lipase 1120 on admission Bilirubin increased, and AST/ALT plateaued On clear liquid diet, NPO after midnight IV fluids Gastroenterology following Pending ERCP Recheck labs in the morning Pain management, antiemetics Empiric ceftriaxone Clear liquid diet currently, and transitioned to NPO midnight for anticipation of ERCP in the morning CKD 3A Baseline History of colon cancer In remission QUALITY [employer] - VTE: SCDs - CODE STATUS: Full code - DIET: Clear liquid diet-transitioned to NPO midnight Total time managing care of this patient today: 45 minutes. Quality Stroke Does the patient have a stroke diagnosis?: No VTE Prior VTE?: No VTE Risk Level:: Medical - moderate - high VTE Device Contraindication: N/A - Device Ordered VTE Drug Contraindication: Treatment Not Indicated
--- NOTE | 2025-08-03 20:41 | PC.NURSE ---
Patient to be admitted to Med/Surg unit, room 376. Report given to Perla Mcgill RN.
[2025-08-04] VITALS (9 sets, daily range): BP systolic 104–150; BP diastolic 58–86; PULSE 67–83; RESP 16–18; TEMP 36.1–36.9; O2SAT 95–99
[2025-08-04] MEDS: oxyCODONE HCl Immed Release 5 MG TABLET PO (03:40)
--- NOTE | 2025-08-04 12:10 | HO.ANESPROP2 ---
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 Previously treated for metastatic cecal adenocarcinoma; port-a-cath PMFSH Active Problems Active Problems: All Active Problems Transaminitis (Acute) Cholelithiases (Acute) Choledocholithiasis (Acute) Choledocholithiasis with acute cholecystitis (Acute) Hypercalciuria (Acute) Hypokalemia (Acute) Acute kidney injury (Acute) Mosher syndrome (Acute) Renal cyst (Acute) Metabolic acidosis (Acute) CKD stage 3a, GFR 45-59 ml/min (Acute) Hypomagnesemia (Acute) LFT elevation (Acute) SBO (small bowel obstruction) (Acute) Kidney stones (Acute) Gastritis (Acute) Mosher syndrome (Acute) Adenocarcinoma of colon (Acute) Past Medical History Medical History Port-A-Cath in place Gastritis Mosher syndrome Adenocarcinoma of colon Family History Family History Maternal Grandmother Uterine cancer Maternal Aunt Ovarian cancer Mother Cervical cancer Colon cancer Maternal Uncle Colon cancer Rectal cancer Brother Colon cancer Paternal Aunt Mental health disorder Paternal Uncle Mental health disorder Family history of problems with anesthesia: No Surgical History Surgical History Hx of hysterectomy History of colon surgery Hx of bilateral breast reduction surgery History of Problems with Anesthesia: Yes (PONV) Social History Social History Household Members: Family Household Members Other:: 6 Housing: House Are you a primary resident care provider to a significant other at home: No Do you presently have visiting nurse or other home services: No Alcohol intake: current Alcohol intake frequency: does not drink Patient Tobacco Use Status: Never used Tobacco e-Cigarette/Vaping Use: Never Used Advance Directives Date on File: 02/08/24 service: No Current occupational status: disabled Cognitive needs: No Hearing needs: No Vision needs: Yes Meds Allergies Allergy/AdvReac Type Severity Reaction Status Date / Time codeine (Tylenol-Codeine) Allergy Intermediate Hives Verified 08/02/25 10:22 acetaminophen (From Tylenol AdvReac Intermediate Hives Verified 08/02/25 10:22 PM) cat dander (cats) AdvReac Intermediate Hives Verified 08/02/25 10:22 diphenhydramine (From AdvReac Intermediate Hives Verified 08/02/25 10:22 Tylenol PM) Active Medications: Current Medications Acetaminophen (Acetaminophen 325 Mg Tablet) 650 mg PO Q6H PRN PRN Reason: Pain, Mild 1-3,fever,headache Last Admin: 08/03/25 06:17 Dose: 650 mg Calcium Carbonate (Calcium Carbonate 750 Mg Tab.Chew) 750 mg PO Q4H PRN PRN Reason: Heartburn Ceftriaxone Sodium (Ceftriaxone Sodium 1 Gm Vial) 1 gm IVPUSH Q24H [facility] Last Admin: 08/03/25 17:28 Dose: 1 gm Hydromorphone HCl (Hydromorphone Hcl 1 Mg/Ml Syringe) 0.5 mg IVPUSH Q4H PRN; Protocol PRN Reason: Pain, Severe (Pain Scale 7-10) Dextrose/Sodium Chloride (D5ns) 1,000 mls @ 100 mls/hr IVCONT .Q10H [facility] Last Admin: 08/04/25 08:04 Dose: 100 mls/hr Magnesium Hydroxide (Milk Of Magnesia 30 Ml Oral.Susp) 30 ml PO DAILY PRN PRN Reason: Constipation Melatonin (Melatonin 3 Mg Tablet) 6 mg PO BEDTIME PRN PRN Reason: Insomnia Ondansetron HCl (Ondansetron Hcl 4 Mg/2 Ml Vial) 4 mg IVPUSH Q8H PRN PRN Reason: Nausea and Vomiting Last Admin: 08/04/25 06:10 Dose: 4 mg Oxycodone HCl (Oxycodone Hcl Immed Release 5 Mg Tablet) 5 mg PO Q6H PRN PRN Reason: Pain, Moderate(Pain Scale 4-6) Last Admin: 08/04/25 03:40 Dose: 5 mg Sodium Chloride (0.9 % Sodium Chloride Flush 3 Ml Syringe) 3 ml IVFLUSH QSHIFT [facility] Last Admin: 08/04/25 07:30 Dose: Not Given Home Medications ?Medication ?Instructions ?Recorded ?Confirmed ?Last Taken ?Type acetaminophen 500 mg tablet 1,000 mg PO Q6H PRN Pain 02/07/24 08/02/25 08/02/25 History omeprazole 20 mg capsule,delayed 20 mg PO DAILY@0630 PRN Heartburn 02/25/25 08/02/25 08/02/25 History release calcium carbonate 500 mg PO BID@0730,1130 PRN 08/02/25 08/02/25 08/02/25 History Heartburn calcium carbonate 500 mg PO DAILY@1630 08/02/25 08/02/25 Unknown History loperamide 2 mg tablet 2 mg PO QID PRN Loose Stool 08/02/25 08/02/25 Unknown History ondansetron 4 mg disintegrating 4 - 8 mg PO Q8H PRN nausea/vomiting 08/02/25 08/02/25 08/02/25 History tablet Exam Height,Weight and Vital Signs: Height 5 ft 2 in Weight 111.7 kg Last Vital Signs Temp 97.3 F 08/04/25 08:00 Pulse 70 08/04/25 08:00 Resp 16 08/04/25 08:00 BP 109/58 L 08/04/25 08:00 Pulse Ox 96 08/04/25 08:00 O2 Del Method Room Air 08/04/25 08:00 Pertinent Lab Results Pertinent Lab Results: Laboratory Tests 08/02/25 08/02/25 08/02/25 10:48 11:11 15:48 WBC 11.1 H RBC 3.79 L Hgb 11.6 L Hct 36.0 L MCV 95.0 MCH 30.6 MCHC 32.2 RDW 13.4 Plt Count 224 MPV 10.1 Immature Gran % (Auto) 0.8 H Neut % (Auto) 89.7 H Lymph % (Auto) 5.1 L [place] % (Auto) 4.2 Eos % (Auto) 0.0 Baso % (Auto) 0.2 Lymph # (Auto) 0.6 L [place] # (Auto) 0.5 Eos # (Auto) 0.0 Baso # (Auto) 0.0 Abs Immat Gran (auto) 0.09 H Absolute Neuts (auto) 10.0 H Absolute Nucleated RBC 0.000 Nucleated RBC % (auto) 0.0 Sodium 139 Potassium 4.0 D Chloride 109 H Carbon Dioxide 21 L Anion Gap 13 BUN 14 Creatinine 1.20 Estim Creat Clear Calc 70.6 Estimated GFR 47 Random Glucose 120 H Lactic Acid 1.2 Calcium 9.8 Magnesium 2.0 Total Bilirubin 5.8 H Direct Bilirubin 3.9 H AST 236 H ALT 292 H Alkaline Phosphatase 627 H Total Creatine Kinase 75 Troponin I High Sens < 2.7 D Total Protein 7.4 Albumin 4.3 Lipase 1120 H Beta HCG, Quant 4 Urine Color Dark Yellow Urine Appearance Clear Urine pH 5.5 Ur Specific [place] 1.025 Urine Protein 100 (2+) H Urine Glucose (UA) Negative Urine Ketones Negative Urine Blood Negative Urine Nitrite Negative Ur Leukocyte Esterase Trace H Urine RBC 0-2 Urine WBC 0-5 Ur Squamous Epith Cells 3-5 Urine Bacteria None Seen Hyaline Casts 0-2 08/03/25 04:19 WBC 7.5 RBC 3.31 L Hgb 10.0 L Hct 31.9 L MCV 96.4 MCH 30.2 MCHC 31.3 RDW 13.6 Plt Count 195 MPV 9.9 Immature Gran % (Auto) Neut % (Auto) Lymph % (Auto) [place] % (Auto) Eos % (Auto) Baso % (Auto) Lymph # (Auto) [place] # (Auto) Eos # (Auto) Baso # (Auto) Abs Immat Gran (auto) Absolute Neuts (auto) Absolute Nucleated RBC 0.000 Nucleated RBC % (auto) 0.0 Sodium 141 Potassium 3.7 Chloride 110 H Carbon Dioxide 23 Anion Gap 12 BUN 11 Creatinine 1.23 Estim Creat Clear Calc 68.9 Estimated GFR 46 Random Glucose 150 H Lactic Acid Calcium 8.7 D Magnesium Total Bilirubin 6.4 H Direct Bilirubin 4.3 H AST 329 H ALT 317 H Alkaline Phosphatase 575 H Total Creatine Kinase Troponin I High Sens Total Protein 6.1 L Albumin 3.5 Lipase 245 H Beta HCG, Quant Urine Color Urine Appearance Urine pH Ur Specific [place] Urine Protein Urine Glucose (UA) Urine Ketones Urine Blood Urine Nitrite Ur Leukocyte Esterase Urine RBC Urine WBC Ur Squamous Epith Cells Urine Bacteria Hyaline Casts Narrative Narrative: EKG 07/2025 Vent. Rate : 71 BPM Atrial Rate : 71 BPM P-R Int : 118 ms QRS Dur : 110 ms QT Int : 418 ms P-R-T Axes : 19 10 -6 degrees QTcB Int : 454 ms Normal sinus rhythm Incomplete right bundle branch block Borderline ECG When compared with ECG of 08-Feb-2024 08:43, Incomplete right bundle branch block is now Present QT has shortened Assessment and Plan Final Anesthetic Review Family History of Problems with Anesthesia: No History of Problems with Anesthesia: Yes (PONV) Documented by User: Evens Childress MD 08/04/25 17:02 [facility] Past Medical History Medical History Port-A-Cath in place Gastritis Mosher syndrome Adenocarcinoma of colon Family History Family History Maternal Grandmother Uterine cancer Maternal Aunt Ovarian cancer Mother Cervical cancer Colon cancer Maternal Uncle Colon cancer Rectal cancer Brother Colon cancer Paternal Aunt Mental health disorder Paternal Uncle Mental health disorder Surgical History Surgical History Hx of hysterectomy History of colon surgery Hx of bilateral breast reduction surgery Social History Social History Household Members: Family Household Members Other:: 6 Housing: House Are you a primary resident care provider to a significant other at home: No Do you presently have visiting nurse or other home services: No Alcohol intake: current Alcohol intake frequency: does not drink Patient Tobacco Use Status: Never used Tobacco e-Cigarette/Vaping Use: Never Used Advance Directives Date on File: 02/08/24 service: No Current occupational status: disabled Cognitive needs: No Hearing needs: No Vision needs: Yes Meds Allergies Allergy/AdvReac Type Severity Reaction Status Date / Time codeine (Tylenol-Codeine) Allergy Intermediate Hives Verified 08/02/25 10:22 acetaminophen (From Tylenol AdvReac Intermediate Hives Verified 08/02/25 10:22 PM) cat dander (cats) AdvReac Intermediate Hives Verified 08/02/25 10:22 diphenhydramine (From AdvReac Intermediate Hives Verified 08/02/25 10:22 Tylenol PM) Home Medications ?Medication ?Instructions ?Recorded ?Confirmed ?Last Taken ?Type acetaminophen 500 mg tablet 1,000 mg PO Q6H PRN Pain 02/07/24 08/02/25 08/02/25 History omeprazole 20 mg capsule,delayed 20 mg PO DAILY@0630 PRN Heartburn 02/25/25 08/02/25 08/02/25 History release calcium carbonate 500 mg PO BID@0730,1130 PRN 08/02/25 08/02/25 08/02/25 History Heartburn calcium carbonate 500 mg PO DAILY@1630 08/02/25 08/02/25 Unknown History loperamide 2 mg tablet 2 mg PO QID PRN Loose Stool 08/02/25 08/02/25 Unknown History ondansetron 4 mg disintegrating 4 - 8 mg PO Q8H PRN nausea/vomiting 08/02/25 08/02/25 08/02/25 History tablet Exam Airway Mallampati Class: II TM Dist: >3cm Neck ROM: Full Loose/Missing/Broken Teeth: Yes Assessment and Plan Assessment Anesthesia Assessment: Anesthesia Plan Discussed and Chart Reviewed Final Anesthetic Review NPO: Yes ASA Class: III Final Preanesthetic Review: No Changes in Pt Med Stat, Meds/Allgs Chart Reviewed, Consent Obtained/Reviewed and Anes Risks/Benef Reviewed Patient Risk: Intermediate Procedure Risk: Low Anesthetic Plan Anesthetic Plan: GA Disposition: Standard PACU
--- NOTE | 2025-08-04 13:42 | P.PNIM_ITS ---
Subjective Subjective Date of Service: 08/04/25 Interval History: PATIENT FEELS WELL TODAY. DENIES SIGNIFICANT ABDOMINAL PAIN, SIGNIFICANTLY IMPROVED. WAS ABLE TO TOLERATE HER CLEAR LIQUID DIET YESTERDAY. CURRENTLY NPO IN ANTICIPATION FOR HER ERCP. PATIENT REMAINS JAUNDICED, WITH EVIDENCE OF SCLERAL ICTERUS Physical Exam 2 Exam: Exam: General: A&O x3, oriented to time place person and situation, comfortable, no pain Cardiac: S1, S2 auscultated with no S3/4, no MRG. Well perfused. Respiratory: Normal breath sounds auscultated throughout all lung zones, without wheezing, rales. Normal rate. GI/ : Abdominal tenderness on palpation in the epigastrium, with notable jaundice and mild scleral icterus. No other distention, ecchymosis, nonpalpable liver and spleen MSK: Normal ambulation without pain at bony prominences or musculature Neurological: Normal neurological examination on overview, without obvious CN II-XII abnormalities. Vital Signs: Vital Signs: Last Vital Signs Temp 97.3 F 08/04/25 08:00 Pulse 70 08/04/25 08:00 Resp 16 08/04/25 08:00 BP 109/58 L 08/04/25 08:00 Pulse Ox 96 08/04/25 08:00 O2 Del Method Room Air 08/04/25 08:00 BMI result Body Mass Index 45.0 Objective Data Active Medications Acetaminophen (Acetaminophen 325 Mg Tablet) 650 mg PO Q6H PRN PRN Reason: Pain, Mild 1-3,fever,headache Last Admin: 08/03/25 06:17 Dose: 650 mg Documented By: CHEYANNE Calcium Carbonate (Calcium Carbonate 750 Mg Tab.Chew) 750 mg PO Q4H PRN PRN Reason: Heartburn Ceftriaxone Sodium (Ceftriaxone Sodium 1 Gm Vial) 1 gm IVPUSH Q24H [facility] Last Admin: 08/03/25 17:28 Dose: 1 gm Documented By: NAVID Hydromorphone HCl (Hydromorphone Hcl 1 Mg/Ml Syringe) 0.5 mg IVPUSH Q4H PRN; Protocol PRN Reason: Pain, Severe (Pain Scale 7-10) Dextrose/Sodium Chloride (D5ns) 1,000 mls @ 100 mls/hr IVCONT .Q10H [facility] Last Admin: 08/04/25 08:04 Dose: 100 mls/hr Documented By: MATTHEW Magnesium Hydroxide (Milk Of Magnesia 30 Ml Oral.Susp) 30 ml PO DAILY PRN PRN Reason: Constipation Melatonin (Melatonin 3 Mg Tablet) 6 mg PO BEDTIME PRN PRN Reason: Insomnia Ondansetron HCl (Ondansetron Hcl 4 Mg/2 Ml Vial) 4 mg IVPUSH Q8H PRN PRN Reason: Nausea and Vomiting Last Admin: 08/04/25 06:10 Dose: 4 mg Documented By: PAUL Oxycodone HCl (Oxycodone Hcl Immed Release 5 Mg Tablet) 5 mg PO Q6H PRN PRN Reason: Pain, Moderate(Pain Scale 4-6) Last Admin: 08/04/25 03:40 Dose: 5 mg Documented By: PAUL Sodium Chloride (0.9 % Sodium Chloride Flush 3 Ml Syringe) 3 ml IVFLUSH QSHIFT [facility] Last Admin: 08/04/25 13:05 Dose: Not Given Documented By: MATTHEW Non-Admin Reason: Previously Administered Labs 08/03/25 04:19 08/03/25 04:19 Microbiology Microbiology Results: Microbiology 08/02/25 15:48 Blood Culture - Preliminary Blood - Venous No growth after 24 hours. 08/02/25 15:48 Blood Culture - Preliminary Blood - Venous No growth after 24 hours. Assessment and Plan (1) Gastritis: Status: Acute (2) Choledocholithiasis with acute cholecystitis: Status: Acute (3) Transaminitis: Status: Acute (4) CKD stage 3a, GFR 45-59 ml/min: Status: Acute (5) Acute kidney injury: Status: Acute (6) Hypomagnesemia: Status: Acute (7) Metabolic acidosis: Status: Acute (8) Hypokalemia: Status: Acute (9) Adenocarcinoma of colon: Status: Acute (10) Mosher syndrome: Status: Acute (11) Acute biliary pancreatitis: Status: Acute Plan 54 year old women with a past medical history of CKD, colon adenocarcinoma in remission, Mosher syndrome, presents with a 1 week complaint of epigastric pain, admitted with admitted with acute choledocholithiasis c/b acute interstitial biliary pancreatitis without necrosis, and acute cholestatic transaminitis. Acute Choledocholithiasis Acute interstitial biliary pancreatitis without necrosis Acute cholecystitis transaminitis Abdominal CT showing choledocholithiasis with dilation of the biliary tree Total bili 5.8, direct bili 3.9, AST 236, ALT 292, alk phos 627, lipase 1120 on admission Bilirubin increased, and AST/ALT plateaued NPO currently IV fluids Gastroenterology following Pending ERCP Recheck labs in the morning Pain management, antiemetics Empiric ceftriaxone CKD 3A Baseline History of colon cancer Mosher Syndrome In remission QUALITY [employer] - VTE: SCDs - CODE STATUS: Full code - DIET: NPO pending ERCP - Clear liquid post procedure Quality Stroke Does the patient have a stroke diagnosis?: No VTE Prior VTE?: No VTE Risk Level:: Medical - moderate - high VTE Device Contraindication: N/A - Device Ordered VTE Drug Contraindication: Treatment Not Indicated
[2025-08-04] MEDS: Lactated Ringers 1,000 ML 50 ML IVCONT (14:02)
--- NOTE | 2025-08-04 14:17 | P.PNGI_ITS ---
Subjective Subjective Date of Service: 08/04/25 Interval History: feeling less painful today still jaundiced no n/v hungry Critical Care Time (minutes): 0 Physical Exam 2 Exam: Exam: EXAM: GENERAL: The patient is well developed and nontoxic. VITAL SIGNS:see workflow HEENT: Nonicteric sclerae, PERRLA, EOMI. Oropharynx clear. Moist mucous membranes. Conjunctivae appear well perfused. No thyroid mass. CHEST: Chest wall is nontender. HEART: Regular rate and rhythm without murmurs. LUNGS: Clear to auscultation bilaterally. ABDOMEN: Soft, positive bowel sounds, tender ruq, no organomegaly.no flank tenderness SKIN: No rash, no excessive bruising, petechiae, or purpura. NEUROLOGIC: Cranial nerves II-XII intact without motor/sensory deficit. Psych: normal affect Vital Signs: Vital Signs: Last Vital Signs Temp 97.5 F 08/04/25 14:06 Pulse 76 08/04/25 14:06 Resp 17 08/04/25 14:06 BP 138/86 08/04/25 14:06 Pulse Ox 98 08/04/25 14:06 O2 Del Method Room Air 08/04/25 14:06 BMI result Body Mass Index 45.0 Objective Data Labs 08/03/25 04:19 08/03/25 04:19 Microbiology Microbiology Results: Microbiology 08/02/25 15:48 Blood - Venous Blood Culture - Preliminary No growth after 24 hours. 08/02/25 15:48 Blood - Venous Blood Culture - Preliminary No growth after 24 hours. Procedures Date of Service Date of Service: 08/04/25 Progress Note: A&P Assessment and plan (1) Choledocholithiasis with acute cholecystitis: Status: Acute Assessment and Plan: 1/ Abn LFt and choledocholithiasis, PLAN: /1 EGD due to hx of duodenal stricture with possible dilation and then ERCP thereafter for stone extraction today, cont with ABX meantime Time Spent With Patient Time: Total time managing care of this patient today ____ minutes. Quality Stroke Does the patient have a stroke diagnosis?: No VTE Prior VTE?: No VTE Risk Level:: Medical - moderate - high VTE Device Contraindication: N/A - Device Ordered VTE Drug Contraindication: Treatment Not Indicated
[2025-08-04 14:56] LABS: Alanine Aminotransferase 199 U/L (0-31); Albumin Level 3.6 g/dL (3.5-5.0); Alkaline Phosphatase 541 U/L (39-117); Anion Gap 10 (12-20); Aspartate Amino Transferase 82 U/L (5-31); Blood Urea Nitrogen 9 mg/dL (9-16); Calcium 8.8 mg/dL (8.4-10.2); Carbon Dioxide 24 mmol/L (22-29); Chloride 113 mmol/L (96-108); Creatinine Clr Calc Pharmacy 63.6; Estimated Glomerular Filt Rate 46; Potassium 3.5 mmol/L (3.3-5.1); Sodium 143 mmol/L (135-145); Total Protein 6.7 g/dL (6.5-8.0)
--- NOTE | 2025-08-04 15:51 | PC.NURSE ---
pt moved to 14 pacut to Nori sweeney
--- NOTE | 2025-08-04 17:44 | W.PM.OPN ---
Operative Note Operative Note Date of Service: 08/04/25 Narrative: Description:?Endoscopic retrograde cholangiopancreatography (ERCP), EGD PROCEDURE:? 1/ Endoscopic retrograde cholangiopancreatography with sphincterotomy and intraop cholangiogram with balloon sweep 2/ Upper endoscopy with wire guided balloon dilation of duodenal sweep INDICATION FOR THE PROCEDURE:?Patient with a history of duodenal stricture and choledocholithiasis with cholecystitis MEDICATIONS:?General anesthesia. The risks of the procedure were made aware to the patient and consisted of medication reaction, bleeding, perforation, aspiration, and post ERCP pancreatitis. DESCRIPTION OF PROCEDURE:?After informed consent and appropriate sedation, an upper endoscope was passed and a stricture was noted at the duodenal sweep. This was dilated in step ray progression using wire guided balloon technique from 12 to 14 mm. The duodenoscope was inserted into the oropharynx, down the esophagus, and into the stomach. The scope was then advanced through the pylorus to the ampulla. The CBD was selectively cannulated with wire guided approach and a cholangiogram was obtained. The cholangiogram was formally interpreted and documented, and confirmed placement with dilated CBD about 10 mm. No obvious filling defect was seen. The gallbladder did not fill. A sphincterotomy was performed to facilitate stone removal, ductal clearance and enlarge the orifice beyond standard cannulation. After this a extraction balloon was used to sweep the duct. No stone debris or sludge was noted. Completion balloon occluded cholangiography demonstrated no filling defects and the gallbladder did not fill either consistent with cholecystitis. Intraop cholangiogram reivew and interpretation by performing physician: Dilated CBD without filling defect. CBD measured about 10 mm. No stricture or leak seen. FINDINGS: 1. dilated CBD 2. Duodenal stricture RECOMMENDATIONS: 1. Clears today, advance diet tomorrow unless plan for surgery.
--- NOTE | 2025-08-04 18:01 | P.CONGS_ITS ---
History of Present Illness Consult details Consult date: 08/04/25 Requesting physician: Tresa Dubois Narrative: The patient is a 54-year-old female with multiple surgical issues in the past who comes in now with elevated LFTs distended common bile duct and findings consistent with choledocholithiasis as well as cholelithiasis. s/p right colectomy, hysterectomy, bilat salpingoopherectomy, hx gtube and ileostomy with reversals of both and most recently in 2019 ileostomy takedown and repair of large ventral hernia with mesh. Most of her surgeries done by dr Anthony at [facility]. She is followed by oncology at [facility]. 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 PShe had an ileostomy at 1 point which was eventually reversed but then had a bowel perforation which required further surgery and creating another ileostomy. This was eventually reversed and she has done fairly well but has had some episodes of small-bowel obstruction. The patient also did have some type of pelvic tumor in addition to the colon cancer and she was diagnosed with Mosher syndrome. In the past Dr. Anthony at [facility] has done many of her surgeries but he is retired and she is not as keen with the surgical team there. She came in here complaining of abdominal pain and workup revealing the elevated LFTs in the findings as above. She was admitted by the medical team and seen by GI and Dr. Mireles is now carrying out ERCP with sphincterotomy for the common bile duct stones noted by ultrasound and CAT scan. She denies any chest pain any shortness of breath any nausea and vomiting. Review of Systems 2 Review of Systems: Yes all other systems are reviewed and are negative PMFSH Past Medical History Medical History Port-A-Cath in place Gastritis Mosher syndrome Adenocarcinoma of colon Family History Family History Maternal Grandmother Uterine cancer Maternal Aunt Ovarian cancer Mother Cervical cancer Colon cancer Maternal Uncle Colon cancer Rectal cancer Brother Colon cancer Paternal Aunt Mental health disorder Paternal Uncle Mental health disorder Surgical History Surgical History Hx of hysterectomy History of colon surgery Hx of bilateral breast reduction surgery Social History Social History Household Members: Family Household Members Other:: 6 Housing: House Are you a primary healthcare translator to a significant other at home: No Do you presently have visiting nurse or other home services: No Alcohol intake: current Alcohol intake frequency: does not drink Patient Tobacco Use Status: Never used Tobacco e-Cigarette/Vaping Use: Never Used Advance Directives Date on File: 02/08/24 service: No Current occupational status: disabled Cognitive needs: No Hearing needs: No Vision needs: Yes Meds Allergies Allergy/AdvReac Type Severity Reaction Status Date / Time codeine (Tylenol-Codeine) Allergy Intermediate Hives Verified 08/02/25 10:22 acetaminophen (From Tylenol AdvReac Intermediate Hives Verified 08/02/25 10:22 PM) cat dander (cats) AdvReac Intermediate Hives Verified 08/02/25 10:22 diphenhydramine (From AdvReac Intermediate Hives Verified 08/02/25 10:22 Tylenol PM) Active Medications: Current Medications Acetaminophen (Acetaminophen 325 Mg Tablet) 650 mg PO Q6H PRN PRN Reason: Pain, Mild 1-3,fever,headache Last Admin: 08/03/25 06:17 Dose: 650 mg Calcium Carbonate (Calcium Carbonate 750 Mg Tab.Chew) 750 mg PO Q4H PRN PRN Reason: Heartburn Ceftriaxone Sodium (Ceftriaxone Sodium 1 Gm Vial) 1 gm IVPUSH Q24H [facility], 1928–1983 Last Admin: 08/03/25 17:28 Dose: 1 gm Hydromorphone HCl (Hydromorphone Hcl 1 Mg/Ml Syringe) 0.5 mg IVPUSH Q4H PRN; Protocol PRN Reason: Pain, Severe (Pain Scale 7-10) Lactated Ringer's (Lr) 1,000 mls @ 50 mls/hr IVCONT .Q20H [facility], 1928[facility]1983 Last Admin: 08/04/25 14:02 Dose: 50 mls/hr Magnesium Hydroxide (Milk Of Magnesia 30 Ml Oral.Susp) 30 ml PO DAILY PRN PRN Reason: Constipation Melatonin (Melatonin 3 Mg Tablet) 6 mg PO BEDTIME PRN PRN Reason: Insomnia Ondansetron HCl (Ondansetron Hcl 4 Mg/2 Ml Vial) 4 mg IVPUSH Q8H PRN PRN Reason: Nausea and Vomiting Last Admin: 08/04/25 06:10 Dose: 4 mg Oxycodone HCl (Oxycodone Hcl Immed Release 5 Mg Tablet) 5 mg PO Q6H PRN PRN Reason: Pain, Moderate(Pain Scale 4-6) Last Admin: 08/04/25 03:40 Dose: 5 mg Sodium Chloride (0.9 % Sodium Chloride Flush 3 Ml Syringe) [facility] Last Admin: 08/04/25 13:05 Dose: Not Given Home Medications ?Medication ?Instructions ?Recorded ?Confirmed ?Last Taken ?Type acetaminophen 500 mg tablet 1,000 mg PO Q6H PRN Pain 0 02/07/24 08/02/25 08/02/25 History omeprazole 20 mg capsule,delayed 20 mg PO DAILY@0630 P RN Heartburn 02/25/25 08/02/25 08/02/25 History release calcium carbonate 500 mg PO BID@0730,1130 PRN 08/02/25 08/02/25 08/02/25 History Heartburn calcium carbonate 500 mg PO DAILY@1630 5 08/02/25 Unknown History loperamide 2 mg tablet 2 mg PO QID PRN Loose Stool 08/02/25 08/02/25 Unknown History ondansetron 4 mg disintegrating 4 - 8 mg PO Q8H PRN na usea/vomiting 08/02/25 08/02/25 08/02/25 History tablet Physical Exam 2 Vital Signs: Vital Signs: Last Vital Signs Temp 98.1 F 08/04/25 17:52 Pulse 79 08/04/25 17:52 Resp 16 08/04/25 17:52 BP 115/79 08/04/25 17:52 Pulse Ox 99 08/04/25 17:52 O2 Del Method Room Air 08/04/25 17:52 BMI result Body Mass Index 45.0 Const: General: cooperative, healthy appearing and comfortable O rientation/consciousness: patient oriented x3 HEENT: Head: Yes normal to inspection Resp: Effort & Inspection: normal respiratory effort Auscultation: clear to auscultation bilaterally Cardio: Rate: regular rate Rhythm: regular rhythm GI: Other: Abdomen is soft obese tender in the epigastric right upper quadrant with deep palpation mild guarding no rebound no peritoneal signs Neuro: General: patient oriented x3 Cranial nerves: Yes CN's II-XII intact bilaterally Extrem: General: Yes normal to inspection Psych: Appearance: grossly normal Mental Status: mental status grossly normal Speech and movement: Normal speech and movement present Affect: n ormal affect Attitude: cooperative Thought process: Normal thought process present Thought content: Normal thought content present Insight: Good insight present (Psych) Judgement: Good judgement present (Psych) Results Labs 08/03/25 04:19 08/04/25 14:15 Labs: Abnormal lab results 08/04/25 Range/Units 14:15 Chloride 113 H (96-108) mmol/L Anion Gap 10 L (12-20) Total Bilirubin 2.1 H (0.0-1.0) mg/dL AST 82 H (5-31) U/L ALT 199 H (0-31) U/L Alkaline Phosphatase 541 H (39-117) U/L BMP 08/04/25 14:15 Sodium 143 Potassium 3.5 Chloride 113 H Carbon Dioxide 24 BUN 9 Creatinine 1.22 Calcium 8.8 Liver Function 08/04/25 Range/Units 14:15 Total Bilirubin 2.1 H (0.0-1.0) mg/dL AST 82 H (5-31) U/L ALT 199 H (0-31) U/L Alkaline Phosphatase 541 H (39-117) U/L Albumin 3.6 (3.5-5.0) g/dL Urine 08/02/25 Range/Units 10:48 Urine Color Dark Yellow Urine Appearance Clear Urine pH 5.5 (5.0-9.0) Ur Specific Maynard 1.025 (1.005-1.025) Urine Protein 100 (2+) H (Neg-Trace) mg/dL Urine Glucose (UA) Negative (Negative) mg/dL All other labs normal. Imaging Abdomen CT scan report/results: report reviewed and image reviewed CT scan - pelvis: report reviewed and image reviewed Additional studies: Patient: Maye Bennett MR#: [id number] : 1970 Acct:[id number] Age/Sex: 54 / F ADM Date: 08/02/25 Loc: HO.ED Attending Dr: Ordering Physician: Kelsy Joyce Date of Service: 08/02/25 Procedure(s): CT abdomen pelvis w IV con Accession Number(s): [id number] cc: Cynthia Pena MD; Kelsy Joyce~ Report Number: [id number]: Total DLP = 1234.00 mGy-cm Reason for Exam: epigastric pain, elevated LFTs CLINICAL HISTORY: epigastric pain, elevated LFTs CT abdomen and pelvis with contrast Comparison: CT/SR - CT ABDOMEN PELVIS WO IV CON - 12/05/24 04:[address]/REG/NC/SR - CT ABDOMEN PELVIS WO CON - 11/27/21 20:[address]/SR - CT ABDOMEN PELVIS W CON - 11/27/21 03:41 EST Findings: CT abdomen: No infiltrates within the lung bases. No acute bony abnormality. Bones are osteopenic. Overall heart size within normal limits. Prominent dilation of both the intrahepatic and extrahepatic biliary tree. Intrahepatic bile ducts are dilated to 13 mm. Extrahepatic biliary tree is dilated to 18 mm. Filling defects seen within the distal common bile duct measuring approximately 1 cm in size. No discrete hepatic mass lesion seen. Main portal vein is patent. Subtle increased density layering within the gallbladder suggesting stone disease. No pancreatic ductal dilatation or peripancreatic inflammatory stranding. Spleen, adrenal glands, and kidneys are unremarkable for acute findings. There is prominent atrophy of the left kidney with unchanged cysts within the lower pole of the right kidney measuring 4.9 cm in size. No dilated small bowel. No free air. CT pelvis: Presumed mesh ventral hernia repair has been performed. Uterus is surgically absent. Urinary bladder is mildly distended. No focal areas of colonic wall thickening or pericolonic inflammatory stranding is evident. No free fluid or free air. IMPRESSION: Choledocholithiasis with dilation of the biliary tree as above. Given the lack of associated dilation of the pancreatic duct, ampullary or periampullary mass would be an unlikely etiology. ERCP suggested for further evaluation. This document has been electronically signed by: Kendall Silva MD on 08/02/2025 15:25:28 Dictated By: Kendall Silva MD Signed By: <Electronically signed by Kendall Silva MD in [place]> 08/02/25 1526 DD/ 1525 TD/TT: 08/02/25 1525 Sports Editor: Patient: Maye Bennett MR#: [id number] : 1970 Acct:[id number] Age/Sex: 54 / F ADM Date: 08/02/25 Loc: HO.ED Attending Dr: Ordering Physician: Kelsy Joyce Date of Service: 08/02/25 Procedure(s): US abdomen limited Accession Number(s): [id number] cc: Cynthia Pena MD; Kelsy Joyce~ Reason for Exam: RUQ pain CLINICAL HISTORY: RUQ pain Exam: 1. Ultrasound of the right upper quadrant of the abdomen. 2. Duplex ultrasound of the main portal vein. Comparison: CT/REG/SR - CT ABDOMEN PELVIS W IV CON - 08/02/25 12:53 EDT Findings: Liver is enlarged measuring 24 cm in long axis. Heterogeneous echotexture throughout the liver without focal hepatic lesion. As seen on the patient's earlier CT of the abdomen, there is prominent dilation of both the intrahepatic and extrahepatic biliary system. Common bile duct is dilated to 18 mm. Echogenic stone is seen within the distal common bile duct measuring 11 x 6 x 7 mm in size. Numerous echogenic stones are seen layering within the gallbladder without gallbladder wall thickening or pericholecystic fluid. Right kidney measures 12.4 cm in long axis. Simple cyst within the right kidney measures 5.4 cm in size. No hydronephrosis. No free fluid. Duplex evaluation of the main portal vein was performed. This included real-time grayscale, color spectral Doppler analysis, and color Doppler flow imaging. Main portal vein is patent with hepatopetal flow. IMPRESSION: 1. Hepatomegaly with increased hepatic echotexture, likely related to fatty infiltration or medical liver disease. 2. Biliary dilation as above with distal common bile duct stone. ERCP suggested for further evaluation. 3. Cholelithiasis without ultrasound findings of cholecystitis. This document has been electronically signed by: Kendall Silva MD on 08/02/2025 15:09:27 Dictated By: Kendall Silva MD Signed By: <Electronically signed by Kendall Silva MD in [place]> 08/02/25 1510 DD/ 1509 TD/TT: 08/02/25 1509 Sports Editor: Assessment and Plan (1) Choledocholithiasis: Status: Acute Plan 54-year-old female multiple medical problems with Mosher syndrome status post right colectomy with ileostomy is multiple hernia repairs G-tube at 1 point in time now coming in with most likely rober toe cholelithiasis underwent ERCP but her LFTs have improved no stone was noted as she most likely passed it at this point in time. Sphincterotomy carried out. Patient is still with gallstones not convinced that she has cholecystitis. Question of whether needing urgent cholecystectomy. Patient most likely has somewhat of a hostile abdomen with multiple surgeries in the past status post right colectomy but having multiple ileostomies and bowel perforation NG tube and large hernia repair with mesh and tacks. We will evaluate labs in the morning and keep NPO. I am very concerned that the patient would be able to have and have completed a laparoscopic cholecystectomy and if it was determined that her gallbladder needed to be removed probable open procedure would be best. She is morbidly obese with a BMI of 45. Question with now having the ERCP and sphincterotomy if any stones were to leave the gallbladder and get into the common bile duct most likely they would just passed through. Patient would have overall improved operation and recovery if we can have her lose weight. With her duct cleared there may not be as much urgency if we can come up with somewhat of a plan to lose some moderate weight before doing an elective cholecystectomy. Not convinced that she has cholecystitis but we will re-evaluate clinically and with labs in the morning. She understands and agrees with the above Procedures Date of Service Date of Service: 08/04/25
[2025-08-04] MEDS: 0.9 % Sodium Chloride Flush 3 ML SYRINGE IVFLUSH (22:28)
[2025-08-05 03:10] VITALS: BP 103/62; PULSE 62; RESP 14; TEMP 36.1; O2SAT 96
--- NOTE | 2025-08-05 04:19 | PC.NURSE ---
0400Per Dr. Delgado note patient is to be NPO as labs need to be drawn and reviewed to determine plan of care. Pt is aware of NPO status and possibility of requiring gall bladder surgery. Pt is alert oriented x4. Denies N/V and pain. Resting comfortably during the night.
[2025-08-05 06:11] LABS: Alanine Aminotransferase 151 U/L (0-31); Albumin Level 3.3 g/dL (3.5-5.0); Alkaline Phosphatase 536 U/L (39-117); Anion Gap 13 (12-20); Aspartate Amino Transferase 58 U/L (5-31); Blood Urea Nitrogen 9 mg/dL (9-16); Calcium 8.5 mg/dL (8.4-10.2); Carbon Dioxide 23 mmol/L (22-29); Chloride 112 mmol/L (96-108); Creatinine Clr Calc Pharmacy 64.1; Estimated Glomerular Filt Rate 47; Potassium 3.6 mmol/L (3.3-5.1); Sodium 144 mmol/L (135-145); Total Protein 6.1 g/dL (6.5-8.0)
[2025-08-05 08:00] VITALS: BP 137/71; PULSE 71; RESP 16; TEMP 36.2; O2SAT 99
--- NOTE | 2025-08-05 08:39 | P.PNGS_ITS ---
Subjective Subjective Date of Service: 08/05/25 Interval history: C/o mild body aches but denies abdominal pain. Was able to tolerate some clear liquids yesterday without nausea or vomiting. Would like to proceed with surgery while she is inpatient. Physical Exam 2 Vital Signs: Vital Signs: Last Vital Signs Temp 97.2 F 08/05/25 08:00 Pulse 71 08/05/25 08:00 Resp 16 08/05/25 08:00 BP 137/71 08/05/25 08:00 Pulse Ox 99 08/05/25 08:00 O2 Del Method Room Air 08/05/25 08:00 BMI result Body Mass Index 45.0 Const: General: comfortable, no acute distress and alert O rientation/consciousness: patient oriented x3 Resp: Effort & Inspection: normal respiratory effort GI: Inspection: No distended and Yes scar (multiple midline and right sided scars ) Palpation (GI): Soft to palpation, Tenderness to palpation present (GI) in the RUQ and no guarding Percussion: Yes normal to percussion Skin: General skin exam: no rashes or lesions noted and jaundice Neuro: General: patient oriented x3 and moves all extremities Objective Data Active Medications Acetaminophen (Acetaminophen 325 Mg Tablet) 650 mg PO Q6H PRN PRN Reason: Pain, Mild 1-3,fever,headache Last Admin: 08/05/25 05:11 Dose: 650 mg Documented By: DARINEL Calcium Carbonate (Calcium Carbonate 750 Mg Tab.Chew) 750 mg PO Q4H PRN PRN Reason: Heartburn Ceftriaxone Sodium (Ceftriaxone Sodium 1 Gm Vial) 1 gm IVPUSH Q24H [facility] Last Admin: 08/04/25 18:10 Dose: 1 gm Documented By: MATTHEW Hydromorphone HCl (Hydromorphone Hcl 1 Mg/Ml Syringe) 0.5 mg IVPUSH Q4H PRN; Protocol PRN Reason: Pain, Severe (Pain Scale 7-10) Magnesium Hydroxide (Milk Of Magnesia 30 Ml Oral.Susp) 30 ml PO DAILY PRN PRN Reason: Constipation Melatonin (Melatonin 3 Mg Tablet) 6 mg PO BEDTIME PRN PRN Reason: Insomnia Ondansetron HCl (Ondansetron Hcl 4 Mg/2 Ml Vial) 4 mg IVPUSH Q8H PRN PRN Reason: Nausea and Vomiting Last Admin: 08/04/25 06:10 Dose: 4 mg Documented By: PAUL Oxycodone HCl (Oxycodone Hcl Immed Release 5 Mg Tablet) 5 mg PO Q6H PRN PRN Reason: Pain, Moderate(Pain Scale 4-6) Last Admin: 08/04/25 03:40 Dose: 5 mg Documented By: PAUL Sodium Chloride (0.9 % Sodium Chloride Flush 3 Ml Syringe) 3 ml IVFLUSH QSHIFT [facility] Last Admin: 08/05/25 08:21 Dose: Not Given Documented By: JULIO Non-Admin Reason: Previously Administered Labs 08/03/25 04:19 08/05/25 05:11 Labs: Laboratory Results - last 24 hr 08/04/25 08/05/25 14:15 05:11 Hold Purple Top SEE NOTE Anion Gap 10 L 13 Estim Creat Clear Calc 63.6 64.1 Estimated GFR 46 47 Random Glucose 85 92 Calcium 8.8 8.5 Total Bilirubin 2.1 H 1.4 H AST 82 H 58 H ALT 199 H 151 H Alkaline Phosphatase 541 H 536 H Total Protein 6.7 6.1 L Albumin 3.6 3.3 L Microbiology Microbiology Results: Microbiology 08/02/25 15:48 Blood Culture - Preliminary Blood - Venous No growth after 48 hours. 08/02/25 15:48 Blood Culture - Preliminary Blood - Venous No growth after 48 hours. Procedures Date of Service Date of Service: 08/05/25 Progress Note: A&P Assessment and plan (1) Choledocholithiasis with acute cholecystitis: Status: Acute Plan 54 year old female admitted with choledocolithiasis s/p ERCP with sphincterotomy and intraop cholangiogram with balloon sweep yesterday. She is feeling overall better. Her abdomen is tender in the RUQ suggestive of acute cholecystitis. LFTs continue to downtrend. We discussed proceeding with laparoscopic cholecystectomy, possible open during her stay to prevent recurrence of the choledocolithiasis as well as treatment of the acute cholecystitis. She would like to proceed. We did discuss she is higher likelihood for open procedure given her multiple prior abdominal surgeries. She understands. She has been added onto tomorrow. Can attempt low fat diet today. Cont IV abx. Time Spent With Patient Time: Total time managing care of this patient today ____ minutes. Quality Stroke Does the patient have a stroke diagnosis?: No VTE Prior VTE?: No VTE Risk Level:: Medical - moderate - high VTE Device Contraindication: N/A - Device Ordered VTE Drug Contraindication: Treatment Not Indicated
--- NOTE | 2025-08-05 09:54 | HO.POSTANES ---
Post Anesthesia Evaluation Post Anesthesia Evaluation Date of Service: 08/05/25 Vital Signs: Vital Signs Temp Pulse Resp BP Pulse Ox O2 Del Method 08/05/25 08:00 97.2 F 71 16 137/71 99 Room Air 08/05/25 03:10 96.9 F 62 14 103/62 96 Room Air Anesthesia: General Mental Status: Awake Pain Control: Satisfactory Nausea/Vomiting: None Hydration: Adequate Anesthesia-Related Issues: No Anes. Related Issues
--- NOTE | 2025-08-05 10:49 | MHC.CM.PN ---
Patient not medically cleared for dc. Anticipate home self care. CM will continue to follow.
[2025-08-05 15:17] VITALS: BP 118/59; PULSE 70; RESP 18; TEMP 36.1; O2SAT 97
[2025-08-05] MEDS: 0.9 % Sodium Chloride Flush 3 ML SYRINGE IVFLUSH (15:58)
--- NOTE | 2025-08-05 16:55 | HO.PM.IMPN ---
Subjective Subjective Date of Service: 08/05/25 Interval History: Patient feels well today no new complaints. No abdominal pain. Has been able to tolerate diet earlier today. Evaluated by surgery earlier in the morning, with plans for cholecystectomy tomorrow. She will be made NPO overnight Review of Systems Review of Systems: Yes all other systems are reviewed and are negative Physical Exam Exam: Exam: General: A&O x3, oriented to time place person and situation, comfortable, no pain Cardiac: S1, S2 auscultated with no S3/4, no MRG. Well perfused. Respiratory: Normal breath sounds auscultated throughout all lung zones, without wheezing, rales. Normal rate. GI/ : Abdominal tenderness on palpation in the epigastrium, with notable jaundice and mild scleral icterus. No other distention, ecchymosis, nonpalpable liver and spleen MSK: Normal ambulation without pain at bony prominences or musculature. Patient has active port from prior chemotherapy left infraclavicular space Neurological: Normal neurological examination on overview, without obvious CN II-XII abnormalities. Vital Signs: Vital Signs: Last Vital Signs Temp 97.0 F 08/05/25 15:17 Pulse 70 08/05/25 15:17 Resp 18 08/05/25 15:17 BP 118/59 L 08/05/25 15:17 Pulse Ox 97 08/05/25 15:17 O2 Del Method Room Air 08/05/25 15:17 BMI result Body Mass Index 45.0 Objective Data Active Medications Acetaminophen (Acetaminophen 325 Mg Tablet) 650 mg PO Q6H PRN PRN Reason: Pain, Mild 1-3,fever,headache Last Admin: 08/05/25 05:11 Dose: 650 mg Documented By: DARINEL Calcium Carbonate (Calcium Carbonate 750 Mg Tab.Chew) 750 mg PO Q4H PRN PRN Reason: Heartburn Ceftriaxone Sodium (Ceftriaxone Sodium 1 Gm Vial) 1 gm IVPUSH Q24H [facility] Last Admin: 08/05/25 15:58 Dose: 1 gm Documented By: JAZIEL Hydromorphone HCl (Hydromorphone Hcl 1 Mg/Ml Syringe) 0.5 mg IVPUSH Q4H PRN; Protocol PRN Reason: Pain, Severe (Pain Scale 7-10) Magnesium Hydroxide (Milk Of Magnesia 30 Ml Oral.Susp) 30 ml PO DAILY PRN PRN Reason: Constipation Melatonin (Melatonin 3 Mg Tablet) 6 mg PO BEDTIME PRN PRN Reason: Insomnia Ondansetron HCl (Ondansetron Hcl 4 Mg/2 Ml Vial) 4 mg IVPUSH Q8H PRN PRN Reason: Nausea and Vomiting Last Admin: 08/04/25 06:10 Dose: 4 mg Documented By: PAUL Oxycodone HCl (Oxycodone Hcl Immed Release 5 Mg Tablet) 5 mg PO Q6H PRN PRN Reason: Pain, Moderate(Pain Scale 4-6) Last Admin: 08/04/25 03:40 Dose: 5 mg Documented By: PAUL Sodium Chloride (0.9 % Sodium Chloride Flush 3 Ml Syringe) 3 ml IVFLUSH QSHIFT [facility] Last Admin: 08/05/25 15:58 Dose: 3 ml Documented By: JAZIEL Labs 08/03/25 04:19 08/05/25 05:11 Labs: Laboratory Results - last 24 hr 08/05/25 05:11 Hold Purple Top SEE NOTE Anion Gap 13 Estim Creat Clear Calc 64.1 Estimated GFR 47 Random Glucose 92 Calcium 8.5 Total Bilirubin 1.4 H AST 58 H ALT 151 H Alkaline Phosphatase 536 H Total Protein 6.1 L Albumin 3.3 L Microbiology Microbiology Results: Microbiology 08/02/25 15:48 Blood Culture - Preliminary Blood - Venous No growth after 48 hours. 08/02/25 15:48 Blood Culture - Preliminary Blood - Venous No growth after 48 hours. Assessment and Plan (1) Gastritis: Status: Acute (2) Choledocholithiasis with acute cholecystitis: Status: Acute (3) Choledocholithiasis: Status: Acute (4) Acute biliary pancreatitis: Status: Acute (5) Transaminitis: Status: Acute (6) Metabolic acidosis: Status: Acute (7) Adenocarcinoma of colon: Status: Acute Plan 54 year old women with a past medical history of CKD, colon adenocarcinoma in remission, Mosher syndrome, presents with a 1 week complaint of epigastric pain, admitted with admitted with acute choledocholithiasis c/b acute interstitial biliary pancreatitis without necrosis, and acute cholestatic transaminitis. Acute Choledocholithiasis Acute interstitial biliary pancreatitis without necrosis Acute cholecystitis transaminitis Abdominal CT showing choledocholithiasis with dilation of the biliary tree Total bili 5.8, direct bili 3.9, AST 236, ALT 292, alk phos 627, lipase 1120 on admission Bilirubin increased, and AST/ALT plateaued S/p ERCP 08/04/25 IV fluids Gastroenterology following Recheck labs in the morning Pain management, antiemetics Empiric ceftriaxone General surgery following-recommendations greatly appreciated-plans for laparoscopic cholecystectomy tomorrow. NPO midnight CKD 3A Baseline History of colon cancer Mosher Syndrome In remission [employer] - VTE: SCDs - CODE STATUS: Full code - DIET: NPO pending ERCP - Clear liquid post procedure Quality Stroke Does the patient have a stroke diagnosis?: No VTE Prior VTE?: No VTE Risk Level:: Medical - moderate - high VTE Device Contraindication: N/A - Device Ordered VTE Drug Contraindication: Treatment Not Indicated
[2025-08-05 19:46] VITALS: BP 117/62; PULSE 70; RESP 18; TEMP 36.1; O2SAT 96
[2025-08-06] VITALS (14 sets, daily range): BP systolic 110–165; BP diastolic 57–84; PULSE 62–88; RESP 12–18; TEMP 36.1–36.7; O2SAT 94–99
[2025-08-06 07:35] LABS: Alanine Aminotransferase 111 U/L (0-31); Albumin Level 3.5 g/dL (3.5-5.0); Alkaline Phosphatase 514 U/L (39-117); Anion Gap 12 (12-20); Aspartate Amino Transferase 41 U/L (5-31); Blood Urea Nitrogen 16 mg/dL (9-16); Calcium 8.9 mg/dL (8.4-10.2); Carbon Dioxide 23 mmol/L (22-29); Chloride 111 mmol/L (96-108); Creatinine Clr Calc Pharmacy 60.2; Estimated Glomerular Filt Rate 43; Potassium 3.5 mmol/L (3.3-5.1); Sodium 142 mmol/L (135-145); Total Protein 6.4 g/dL (6.5-8.0)
--- NOTE | 2025-08-06 09:43 | P.PNGI_ITS ---
Subjective Subjective Date of Service: 08/06/25 Interval History: doing well since ERCP no abdominal pain passig gas and stool going for cholecystectomy today bili going down Critical Care Time (minutes): 0 Physical Exam 2 Exam: Exam: EXAM: GENERAL: The patient is well developed and nontoxic. VITAL SIGNS:see workflow HEENT: Nonicteric sclerae, PERRLA, EOMI. Oropharynx clear. Moist mucous membranes. Conjunctivae appear well perfused. No thyroid mass. CHEST: Chest wall is nontender. HEART: Regular rate and rhythm without murmurs. LUNGS: Clear to auscultation bilaterally. ABDOMEN: Soft, positive bowel sounds, nontender, no organomegaly.no flank tenderness SKIN: No rash, no excessive bruising, petechiae, or purpura. NEUROLOGIC: Cranial nerves II-XII intact without motor/sensory deficit. Psych: normal affect Vital Signs: Vital Signs: Last Vital Signs Temp 98.0 F 08/06/25 08:28 Pulse 67 08/06/25 08:28 Resp 14 08/06/25 08:28 BP 127/68 08/06/25 08:28 Pulse Ox 99 08/06/25 08:28 O2 Del Method Room Air 08/06/25 08:28 BMI result Body Mass Index 45.0 Objective Data Labs 08/03/25 04:19 08/06/25 06:25 Labs: Laboratory Results - last 24 hr 08/06/25 06:25 Hold Purple Top SEE NOTE Sodium 142 Potassium 3.5 Chloride 111 H Carbon Dioxide 23 Anion Gap 12 BUN 16 Creatinine 1.29 Estim Creat Clear Calc 60.2 Estimated GFR 43 Random Glucose 93 Calcium 8.9 Total Bilirubin 1.0 AST 41 H ALT 111 H Alkaline Phosphatase 514 H Total Protein 6.4 L Albumin 3.5 Microbiology Microbiology Results: Microbiology 08/02/25 15:48 Blood - Venous Blood Culture - Preliminary No growth after 48 hours. 08/02/25 15:48 Blood - Venous Blood Culture - Preliminary No growth after 48 hours. Procedures Date of Service Date of Service: 08/06/25 Progress Note: A&P Assessment and plan (1) Choledocholithiasis with acute cholecystitis: Status: Acute Assessment and Plan: 1/ S/p ERCP and sphincterotomy, no complications from ERCP, no pancreatitis PLAN: /1 - can proceed with CCY as planned, Time Spent With Patient Time: Total time managing care of this patient today ____ minutes. Quality Stroke Does the patient have a stroke diagnosis?: No VTE Prior VTE?: No VTE Risk Level:: Medical - moderate - high VTE Device Contraindication: N/A - Device Ordered VTE Drug Contraindication: Treatment Not Indicated
--- NOTE | 2025-08-06 10:32 | PM.PNGS ---
Subjective Subjective Date of Service: 08/06/25 Interval history: Patient with no complaints overnight, feels improved this morning. She is ready for surgery today. Physical Exam Vital Signs: Vital Signs: Last Vital Signs Temp 98.0 F 08/06/25 08:28 Pulse 67 08/06/25 08:28 Resp 14 08/06/25 08:28 BP 127/68 08/06/25 08:28 Pulse Ox 99 08/06/25 08:28 O2 Del Method Room Air 08/06/25 08:28 BMI result Body Mass Index 45.0 Const: General: comfortable Nutritional Appearance: well nourished Orientation/consciousness: patient oriented x3 Resp: Effort & Inspection: normal respiratory effort, no audible wheezes, no cough and no respiratory distress GI: Other: Soft, mild discomfort in the epigastric region, no rebound, guarding or rigidity. Skin: Other: Warm, dry, no rash Neuro: General: patient oriented x3 Objective Data Active Medications Acetaminophen (Acetaminophen 325 Mg Tablet) 650 mg PO Q6H PRN PRN Reason: Pain, Mild 1-3,fever,headache Last Admin: 08/05/25 05:11 Dose: 650 mg Documented By: DARINEL Calcium Carbonate (Calcium Carbonate 750 Mg Tab.Chew) 750 mg PO Q4H PRN PRN Reason: Heartburn Ceftriaxone Sodium (Ceftriaxone Sodium 1 Gm Vial) 1 gm IVPUSH Q24H [facility] Last Admin: 08/05/25 15:58 Dose: 1 gm Documented By: JAZIEL Hydromorphone HCl (Hydromorphone Hcl 1 Mg/Ml Syringe) 0.5 mg IVPUSH Q4H PRN; Protocol PRN Reason: Pain, Severe (Pain Scale 7-10) Magnesium Hydroxide (Milk Of Magnesia 30 Ml Oral.Susp) 30 ml PO DAILY PRN PRN Reason: Constipation Melatonin (Melatonin 3 Mg Tablet) 6 mg PO BEDTIME PRN PRN Reason: Insomnia Ondansetron HCl (Ondansetron Hcl 4 Mg/2 Ml Vial) 4 mg IVPUSH Q8H PRN PRN Reason: Nausea and Vomiting Last Admin: 08/04/25 06:10 Dose: 4 mg Documented By: PAUL Oxycodone HCl (Oxycodone Hcl Immed Release 5 Mg Tablet) 5 mg PO Q6H PRN PRN Reason: Pain, Moderate(Pain Scale 4-6) Last Admin: 08/04/25 03:40 Dose: 5 mg Documented By: PAUL Sodium Chloride (0.9 % Sodium Chloride Flush 3 Ml Syringe) 3 ml IVFLUSH QSHIFT [facility] Last Admin: 08/06/25 08:12 Dose: Not Given Documented By: COLT Non-Admin Reason: Previously Administered Labs 08/03/25 04:19 08/06/25 06:25 Labs: Laboratory Results - last 24 hr 08/06/25 06:25 Hold Purple Top SEE NOTE Anion Gap 12 Estim Creat Clear Calc 60.2 Estimated GFR 43 Random Glucose 93 Calcium 8.9 Total Bilirubin 1.0 AST 41 H ALT 111 H Alkaline Phosphatase 514 H Total Protein 6.4 L Albumin 3.5 Procedures Date of Service Date of Service: 08/06/25 Progress Note: A&P Assessment and plan (1) Choledocholithiasis with acute cholecystitis: Status: Acute Plan 54-year-old female patient presenting with choledocholithiasis status post ERCP now presenting for laparoscopic cholecystectomy for acute cholecystitis. I reviewed the procedure, risks, and alternatives in detail with the patient once again today and she consents to the laparoscopic or possible open cholecystectomy. Time Spent With Patient Time: Total time managing care of this patient today ____ minutes. Quality Stroke Does the patient have a stroke diagnosis?: No VTE Prior VTE?: No VTE Risk Level:: Medical - moderate - high VTE Device Contraindication: N/A - Device Ordered VTE Drug Contraindication: Treatment Not Indicated
--- NOTE | 2025-08-06 10:49 | HO.ANESPROP2 ---
[facility] Active Problems Active Problems: All Active Problems Acute biliary pancreatitis (Acute) Transaminitis (Acute) Cholelithiases (Acute) Choledocholithiasis (Acute) Choledocholithiasis with acute cholecystitis (Acute) Hypercalciuria (Acute) Hypokalemia (Acute) Acute kidney injury (Acute) Mosher syndrome (Acute) Renal cyst (Acute) Metabolic acidosis (Acute) CKD stage 3a, GFR 45-59 ml/min (Acute) Hypomagnesemia (Acute) LFT elevation (Acute) SBO (small bowel obstruction) (Acute) Kidney stones (Acute) Gastritis (Acute) Mosher syndrome (Acute) Adenocarcinoma of colon (Acute) Past Medical History Medical History Port-A-Cath in place Gastritis Mosher syndrome Adenocarcinoma of colon Functional capacity: independent ambulation Narrative: s/p hyst Family History Family History Maternal Grandmother Uterine cancer Maternal Aunt Ovarian cancer Mother Cervical cancer Colon cancer Maternal Uncle Colon cancer Rectal cancer Brother Colon cancer Paternal Aunt Mental health disorder Paternal Uncle Mental health disorder Family history of problems with anesthesia: No Surgical History Surgical History Hx of hysterectomy History of colon surgery Hx of bilateral breast reduction surgery History of Problems with Anesthesia: Yes (PONV) Social History Social History Household Members: Family Household Members Other:: 6 Housing: House Are you a primary home care and home health aides teacher to a significant other at home: No Do you presently have visiting nurse or other home services: No Alcohol intake: current Alcohol intake frequency: does not drink Patient Tobacco Use Status: Never used Tobacco e-Cigarette/Vaping Use: Never Used Advance Directives Date on File: 02/08/24 service: No Current occupational status: disabled Cognitive needs: No Hearing needs: No Vision needs: Yes Meds Allergies Allergy/AdvReac Type Severity Reaction Status Date / Time codeine (Tylenol-Codeine) Allergy Intermediate Hives Verified 08/02/25 10:22 acetaminophen (From Tylenol AdvReac Intermediate Hives Verified 08/02/25 10:22 PM) cat dander (cats) AdvReac Intermediate Hives Verified 08/02/25 10:22 diphenhydramine (From AdvReac Intermediate Hives Verified 08/02/25 10:22 Tylenol PM) Active Medications: Current Medications Acetaminophen (Acetaminophen 325 Mg Tablet) 650 mg PO Q6H PRN PRN Reason: Pain, Mild 1-3,fever,headache Last Admin: 08/05/25 05:11 Dose: 650 mg Calcium Carbonate (Calcium Carbonate 750 Mg Tab.Chew) 750 mg PO Q4H PRN PRN Reason: Heartburn Ceftriaxone Sodium (Ceftriaxone Sodium 1 Gm Vial) 1 gm IVPUSH Q24H [facility] Last Admin: 08/05/25 15:58 Dose: 1 gm Hydromorphone HCl (Hydromorphone Hcl 1 Mg/Ml Syringe) 0.5 mg IVPUSH Q4H PRN; Protocol PRN Reason: Pain, Severe (Pain Scale 7-10) Magnesium Hydroxide (Milk Of Magnesia 30 Ml Oral.Susp) 30 ml PO DAILY PRN PRN Reason: Constipation Melatonin (Melatonin 3 Mg Tablet) 6 mg PO BEDTIME PRN PRN Reason: Insomnia Ondansetron HCl (Ondansetron Hcl 4 Mg/2 Ml Vial) 4 mg IVPUSH Q8H PRN PRN Reason: Nausea and Vomiting Last Admin: 08/04/25 06:10 Dose: 4 mg Oxycodone HCl (Oxycodone Hcl Immed Release 5 Mg Tablet) 5 mg PO Q6H PRN PRN Reason: Pain, Moderate(Pain Scale 4-6) Last Admin: 08/04/25 03:40 Dose: 5 mg Sodium Chloride (0.9 % Sodium Chloride Flush 3 Ml Syringe) [facility] Last Admin: 08/06/25 08:12 Dose: Not Given Home Medications ?Medication ?Instructions ?Recorded ?Confirmed ?Last Taken ?Type acetaminophen 500 mg tablet 1,000 mg PO Q6H PRN Pain 02/07/24 08/02/25 08/02/25 History omeprazole 20 mg capsule,delayed 20 mg PO DAILY@0630 PRN Heartburn 02/25/25 08/02/25 08/02/25 History release calcium carbonate 500 mg PO BID@0730,1130 PRN 09/08/02/25 08/02/25 History Heartburn calcium carbonate 500 mg PO DAILY@1630 08/02/25 08/02/25 Unknown History loperamide 2 mg tablet 2 mg PO QID PRN Loose Stool 08/02/25 08/02/25 Unknown History ondansetron 4 mg disintegrating 4 - 8 mg PO Q8H PRN nausea/vomiting 08/02/25 08/02/25 08/02/25 History tablet Exam Exam Date and Time: 08/06/2025 Height,Weight and Vital Signs: Height 5 ft 2 in Weight 111.7 kg Last Vital Signs Temp 98.0 F 08/06/25 08:28 Pulse 67 08/06/25 08:28 Resp 14 08/06/25 08:28 BP 127/68 08/06/25 08:28 Pulse Ox 99 08/06/25 08:28 O2 Del Method Room Air 08/06/25 08:28 Pertinent Lab Results Pertinent Lab Results: Laboratory Tests 08/02/25 08/02/25 08/02/25 10:48 11:11 15:48 WBC 11.1 H RBC 3.79 L Hgb 11.6 L Hct 36.0 L MCV 95.0 MCH 30.6 MCHC 32.2 RDW 13.4 Plt Count 224 MPV 10.1 Immature Gran % (Auto) 0.8 H Neut % (Auto) 89.7 H Lymph % (Auto) 5.1 L Dickens % (Auto) 4.2 Eos % (Auto) 0.0 Baso % (Auto) 0.2 Lymph # (Auto) 0.6 L Dickens # (Auto) 0.5 Eos # (Auto) 0.0 Baso # (Auto) 0.0 Abs Immat Gran (auto) 0.09 H Absolute Neuts (auto) 10.0 H Absolute Nucleated RBC 0.000 Nucleated RBC % (auto) 0.0 Hold Purple Top Sodium 139 Potassium 4.0 D Chloride 109 H Carbon Dioxide 21 L Anion Gap 13 BUN 14 Creatinine 1.20 Estim Creat Clear Calc 70.6 Estimated GFR 47 Random Glucose 120 H Lactic Acid 1.2 Calcium 9.8 Magnesium 2.0 Total Bilirubin 5.8 H Direct Bilirubin 3.9 H AST 236 H ALT 292 H Alkaline Phosphatase 627 H Total Creatine Kinase 75 Troponin I High Sens < 2.7 D Total Protein 7.4 Albumin 4.3 Lipase 1120 H Beta HCG, Quant 4 Urine Color Dark Yellow Urine Appearance Clear Urine pH 5.5 Ur Specific [place] 1.025 Urine Protein 100 (2+) H Urine Glucose (UA) Negative Urine Ketones Negative Urine Blood Negative Urine Nitrite Negative Ur Leukocyte Esterase Trace H Urine RBC 0-2 Urine WBC 0-5 Ur Squamous Epith Cells 3-5 Urine Bacteria None Seen Hyaline Casts 0-2 08/03/25 08/04/25 08/05/25 04:19 14:15 05:11 WBC 7.5 RBC 3.31 L Hgb 10.0 L Hct 31.9 L MCV 96.4 MCH 30.2 MCHC 31.3 RDW 13.6 Plt Count 195 MPV 9.9 Immature Gran % (Auto) Neut % (Auto) Lymph % (Auto) Dickens % (Auto) Eos % (Auto) Baso % (Auto) Lymph # (Auto) Dickens # (Auto) Eos # (Auto) Baso # (Auto) Abs Immat Gran (auto) Absolute Neuts (auto) Absolute Nucleated RBC 0.000 Nucleated RBC % (auto) 0.0 Hold Purple Top SEE NOTE Sodium 141 143 144 Potassium 3.7 3.5 3.6 Chloride 110 H 113 H 112 H Carbon Dioxide 23 24 23 Anion Gap 12 10 L 13 BUN 11 9 9 Creatinine 1.23 1.22 1.21 Estim Creat Clear Calc 68.9 63.6 64.1 Estimated GFR 46 46 47 Random Glucose 150 H 85 92 Lactic Acid Calcium 8.7 D 8.8 8.5 Magnesium Total Bilirubin 6.4 H 2.1 H 1.4 H Direct Bilirubin 4.3 H AST 329 H 82 H 58 H ALT 317 H 199 H 151 H Alkaline Phosphatase 575 H 541 H 536 H Total Creatine Kinase Troponin I High Sens Total Protein 6.1 L 6.7 6.1 L Albumin 3.5 3.6 3.3 L Lipase 245 H Beta HCG, Quant Urine Color Urine Appearance Urine pH Ur Specific [place] Urine Protein Urine Glucose (UA) Urine Ketones Urine Blood Urine Nitrite Ur Leukocyte Esterase Urine RBC Urine WBC Ur Squamous Epith Cells Urine Bacteria Hyaline Casts 08/06/25 06:25 WBC RBC Hgb Hct MCV MCH MCHC RDW Plt Count MPV Immature Gran % (Auto) Neut % (Auto) Lymph % (Auto) Dickens % (Auto) Eos % (Auto) Baso % (Auto) Lymph # (Auto) Dickens # (Auto) Eos # (Auto) Baso # (Auto) Abs Immat Gran (auto) Absolute Neuts (auto) Absolute Nucleated RBC Nucleated RBC % (auto) Hold Purple Top SEE NOTE Sodium 142 Potassium 3.5 Chloride 111 H Carbon Dioxide 23 Anion Gap 12 BUN 16 Creatinine 1.29 Estim Creat Clear Calc 60.2 Estimated GFR 43 Random Glucose 93 Lactic Acid Calcium 8.9 Magnesium Total Bilirubin 1.0 Direct Bilirubin AST 41 H ALT 111 H Alkaline Phosphatase 514 H Total Creatine Kinase Troponin I High Sens Total Protein 6.4 L Albumin 3.5 Lipase Beta HCG, Quant Urine Color Urine Appearance Urine pH Ur Specific [place] Urine Protein Urine Glucose (UA) Urine Ketones Urine Blood Urine Nitrite Ur Leukocyte Esterase Urine RBC Urine WBC Ur Squamous Epith Cells Urine Bacteria Hyaline Casts Airway Mallampati Class: I TM Dist: >3cm Neck ROM: Full Adult Head Mouth w/Numbe Teeth:  1. Poor dentition- warned of damage risks with anesthesia and agrees Heart: RRR Lungs: CTAB vesicular Assessment and Plan Assessment Anesthesia Assessment: Anesthesia Plan Discussed and Chart Reviewed Final Anesthetic Review Family History of Problems with Anesthesia: No History of Problems with Anesthesia: Yes (PONV) NPO: Yes ASA Class: II Final Preanesthetic Review: No Changes in Pt Med Stat, Meds/Allgs Chart Reviewed, Consent Obtained/Reviewed and Anes Risks/Benef Reviewed Patient Risk: Intermediate Procedure Risk: Intermediate Anesthetic Plan Anesthetic Plan: GA Disposition: Standard PACU
[2025-08-06] MEDS: cefoTEtan disodium 2 GM VIAL IVPUSH (11:27)
--- NOTE | 2025-08-06 13:56 | P.OP_ITS ---
Operative Note Operative Note Date of Service: 08/06/25 Narrative: Preoperative diagnosis: Choledocholithiasis, acute cholecystitis Postoperative diagnosis: Same, intrahepatic gallbladder Procedure: Laparoscopic converted to open cholecystectomy Surgeon: Fernando Ureña MD Medical Claims Analyst: Carlie Rowan PA-C; Eliel Valencia PA-C, EFRAÍN Mary Anesthesia: General endotracheal Indications for procedure: 54-year-old morbidly obese female with multiple prior abdominal surgeries presenting with choledocholithiasis and cholecystitis presenting today for laparoscopic or possible open cholecystectomy Operative findings: Densely adherent abdominal cavity from prior abdominal surgeries. Gallbladder intrahepatic with multiple large gallstones within. Specimen: Gallbladder Estimated blood loss: 150 mL Complications: None Drains: LO 10. Procedure details: Patient was brought to the OR and placed in a supine position. After administering general anesthesia the patient's abdomen was prepped with ChloraPrep and draped in a sterile fashion. A surgical time-out was called the consent confirmed. Patient received preoperative antibiotics and Venodyne boots were in place. Local anesthesia consisting of 0.5% Sensorcaine was infiltrated in the epigastrium. A transverse incision was then made an open insertion attempted. Fascia was opened and dense adhesions were noted to the surface of the liver from prior hernia surgery. No window could be identified to allow continuing a laparoscopic procedure. The decision was made to convert to an open cholecystectomy. A subcostal incision was made with a scalpel in the right side and carried out through subcutaneous tissue through the anterior rectus sheath. Rectus and oblique muscles were then incised using electrocautery. Hemostasis was assured at all times using electrocautery. Posterior sheath and peritoneum were then entered. Dense adhesions were noted to the anterior abdominal wall from prior hernia surgery. Gentle dissection was used to free the colon and small bowel from the liver edge and peritoneum. Stomach and duodenum were also dissected free from the surrounding adhesions at to the liver. Gallbladder was not easily identified because of all the dense adhesions. Once the adhesions were taken down a portion of the gallbladder was identified and tracked more superiorly revealed the fundus. The fundus was then dissected off the liver edge and careful dissection along the gallbladder wall along the gallbladder fossa performed using electrocautery and blunt dissection. The gallbladder was then dissected carefully down to the cystic artery. The cystic artery was doubly clipped and divided. Dissection was continued down to the infundibulum and onto the cystic duct. At this level a right angle clamp was placed at the base of the gallbladder and cystic duct. The gallbladder was then excised above this clamp. The gallbladder was passed off the table and sent to pathology for further examination. A 2-0 Polysorb suture was then used to suture ligate the cystic duct. Wounds were then irrigated and suctioned dry. Wounds were checked for hemostasis. A large Larry-Parrish drain was then brought out through a separate stab wound and placed into the liver edge. This was connected to a small bulb suctioned. At this point the posterior sheath and peritoneum were closed using a running 0 Polysorb suture. Anterior rectus sheath was then closed using a running 0 Polysorb suture. Dermis and subcutaneous tissue were then reapproximated using interrupted 3-0 Polysorb sutures. Skin was closed using skin roxanna. Sterile dressings were then applied. The patient tolerated the procedure well. Sponge, instrument, and needle counts reported as correct. The patient was transferred to PACU in stable condition.
[2025-08-06] MEDS: Lactated Ringers 1,000 ML 80 ML IVCONT (16:03)
--- NOTE | 2025-08-06 16:09 | P.PNIM_ITS ---
Subjective Subjective Date of Service: 08/06/25 Interval History: Planned for laparoscopic cholecystectomy today. She has no new complaints or issues. Eager for procedures to be completed Review of Systems Review of Systems: Yes all other systems are reviewed and are negative Physical Exam 2 Exam: Exam: General: A&O x3, oriented to time place person and situation, comfortable, no pain Cardiac: S1, S2 auscultated with no S3/4, no MRG. Well perfused. Respiratory: Normal breath sounds auscultated throughout all lung zones, without wheezing, rales. Normal rate. GI/ : Abdominal tenderness on palpation in the epigastrium, with notable jaundice and mild scleral icterus. No other distention, ecchymosis, nonpalpable liver and spleen MSK: Normal ambulation without pain at bony prominences or musculature. Patient has active port from prior chemotherapy left infraclavicular space Neurological: Normal neurological examination on overview, without obvious CN II-XII abnormalities. Vital Signs: Vital Signs: Last Vital Signs Temp 98.0 F 08/06/25 16:00 Pulse 71 08/06/25 16:00 Resp 16 08/06/25 16:00 BP 142/77 H 08/06/25 16:00 Pulse Ox 95 08/06/25 16:00 O2 Del Method Nasal Cannula 08/06/25 16:00 O2 Flow Rate 2 08/06/25 16:00 BMI result Body Mass Index 45.0 Objective Data Active Medications Calcium Carbonate (Calcium Carbonate 750 Mg Tab.Chew) 750 mg PO Q4H PRN PRN Reason: Heartburn Ceftriaxone Sodium (Ceftriaxone Sodium 1 Gm Vial) 1 gm IVPUSH Q24H [facility] Last Admin: 08/05/25 15:58 Dose: 1 gm Documented By: JAZIEL Docusate Sodium (Docusate Sodium 100 Mg Capsule) 100 mg PO BID [facility] Hydromorphone HCl (Hydromorphone Hcl 0.5 Mg/0.5 Ml Syringe) 0.25 mg IVPUSH Q5M PRN PRN Reason: Pain, Moderate to Severe (Pain Scale 4-10) Stop: 08/06/25 20:23 Hydromorphone HCl (Hydromorphone Hcl 0.5 Mg/0.5 Ml Syringe) 0.5 mg IVPUSH Q3H PRN; Protocol PRN Reason: Pain, Severe (Pain Scale 7-10) Acetaminophen (Ofirmev) 1,000 mg in 100 mls @ 400 mls/hr IV Q6H [facility] Lactated Ringer's (Lr) 1,000 mls @ 80 mls/hr IVCONT .[id number] [facility] Last Admin: 08/06/25 16:03 Dose: 80 mls/hr Documented By: COLT Magnesium Hydroxide (Milk Of Magnesia 30 Ml Oral.Susp) 30 ml PO DAILY PRN PRN Reason: Constipation Melatonin (Melatonin 3 Mg Tablet) 6 mg PO BEDTIME PRN PRN Reason: Insomnia Naloxone HCl (Naloxone Hcl 0.4 Mg/Ml Vial) 0.04 mg IVPUSH Q5M PRN PRN Reason: Excessive sedation or RR < 8 Ondansetron HCl (Ondansetron Hcl 4 Mg/2 Ml Vial) 4 mg IVPUSH Q8H PRN PRN Reason: Nausea and Vomiting Last Admin: 08/04/25 06:10 Dose: 4 mg Documented By: PAUL Oxycodone HCl (Oxycodone Hcl Immed Release 5 Mg Tablet) 5 mg PO Q4H PRN PRN Reason: Pain, Moderate(Pain Scale 4-6) Sodium Chloride (0.9 % Sodium Chloride Flush 3 Ml Syringe) 3 ml IVFLUSH QSHIFT [facility] Last Admin: 08/06/25 16:03 Dose: Not Given Documented By: COLT Non-Admin Reason: IV Running Labs 08/03/25 04:19 08/06/25 06:25 Labs: Laboratory Results - last 24 hr 08/06/25 06:25 Hold Purple Top SEE NOTE Anion Gap 12 Estim Creat Clear Calc 60.2 Estimated GFR 43 Random Glucose 93 Calcium 8.9 Total Bilirubin 1.0 AST 41 H ALT 111 H Alkaline Phosphatase 514 H Total Protein 6.4 L Albumin 3.5 Assessment and Plan (1) Gastritis: Status: Acute (2) LFT elevation: Status: Acute (3) Choledocholithiasis with acute cholecystitis: Status: Acute (4) Transaminitis: Status: Acute (5) Acute biliary pancreatitis: Status: Acute (6) SBO (small bowel obstruction): Status: Acute (7) CKD stage 3a, GFR 45-59 ml/min: Status: Acute (8) Acute kidney injury: Status: Acute (9) Metabolic acidosis: Status: Acute (10) Adenocarcinoma of colon: Status: Acute (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 Acute Choledocholithiasis with cholecystitis s/p laparoscopic cholecystectomy converted to open 08/06/2025 Acute interstitial biliary pancreatitis without necrosis Acute biliary hepatitis Abdominal CT showing choledocholithiasis with dilation of the biliary tree Total bili 5.8, direct bili 3.9, AST 236, ALT 292, alk phos 627, lipase 1120 on admission Bilirubin increased, and AST/ALT plateaued S/p ERCP 08/04/25 IV fluids Gastroenterology following Recheck labs in the morning Pain management, antiemetics Empiric ceftriaxone General surgery following-recommendations greatly appreciated-plans for laparoscopic cholecystectomy tomorrow. Had laparoscopic cholecystectomy converted to open 08/06/2025 CKD 3A Baseline History of colon cancer Mosher Syndrome In remission [employer] - VTE: SCDs - CODE STATUS: Full code - DIET: NPO Total time managing care of this patient today: 35 minutes. Quality Stroke Does the patient have a stroke diagnosis?: No VTE Prior VTE?: No VTE Risk Level:: Medical - moderate - high VTE Device Contraindication: N/A - Device Ordered VTE Drug Contraindication: Treatment Not Indicated
[2025-08-06] MEDS: oxyCODONE HCl Immed Release 5 MG TABLET PO (16:35)
[2025-08-07] MEDS: Lactated Ringers 1,000 ML 80 ML IVCONT (03:37)
[2025-08-07 03:43] VITALS: BP 128/75; PULSE 70; RESP 18; TEMP 36.2; O2SAT 99
[2025-08-07 06:03] LABS: MANUAL DIFF FLAG NO
[2025-08-07 06:24] LABS: Hematocrit 30.8 % (37.0-47.0); Hemoglobin 9.8 g/dl (12.0-16.0); Imm Gran Abs Auto 0.10 X10*3/uL (0.00-0.03); Imm Gran Pct Auto 0.7 % (0.0-0.4); Lymphocytes Absolute Auto 1.2 X10*3/uL (1.2-4.9); Mean Corpuscular HGB Conc 31.8 g/dl (31.0-35.0); Mean Corpuscular Hemoglobin 30.1 pg (27.0-33.0); Mean Corpuscular Volume 94.5 fL (80.0-98.0); NRBC Abs Auto 0.000 X10*3/uL (0.0-0.012); NRBC Pct Auto 0.0 /100WBC (0.0-0.2); Platelet Count 277 X10*3/uL (160-400); Red Blood Count 3.26 X10*6/uL (4.20-5.50); White Blood Count 15.1 X10*3/uL (4.8-10.8)
[2025-08-07 06:34] LABS: Alanine Aminotransferase 126 U/L (0-31); Albumin Level 3.6 g/dL (3.5-5.0); Alkaline Phosphatase 508 U/L (39-117); Anion Gap 13 (12-20); Aspartate Amino Transferase 97 U/L (5-31); Blood Urea Nitrogen 14 mg/dL (9-16); Calcium 8.8 mg/dL (8.4-10.2); Carbon Dioxide 23 mmol/L (22-29); Chloride 106 mmol/L (96-108); Creatinine Clr Calc Pharmacy 64.7; Estimated Glomerular Filt Rate 47; Potassium 4.0 mmol/L (3.3-5.1); Sodium 138 mmol/L (135-145); Total Protein 6.4 g/dL (6.5-8.0)
--- NOTE | 2025-08-07 07:21 | PM.PNGS ---
Subjective Subjective Date of Service: 08/07/25 <Eliel Valencia PA-C - Last Filed: 08/07/25 07:47> 08/07/25 <Fernando Ureña MD - Last Filed: 08/07/25 08:52> Interval history: doing well, pain well controlled, able to ambulate independently to the bathroom. using spiromtery. tolerating clear liquid diet. denies nausea or vomiting <Eliel Valencia PA-C - Last Filed: 08/07/25 07:47> Physical Exam Vital Signs: Vital Signs: Last Vital Signs Temp 97.2 F 08/07/25 03:43 Pulse 70 08/07/25 03:43 Resp 18 08/07/25 03:43 BP 128/75 08/07/25 03:43 Pulse Ox 99 08/07/25 03:43 O2 Del Method Room Air 08/07/25 03:43 O2 Flow Rate 2 08/06/25 16:00 BMI result Body Mass Index 45.0 <Eliel Valencia PA-C - Last Filed: 08/07/25 07:47> Const: General: comfortable and no acute distress <Eliel Valencia PA-C - Last Filed: 08/07/25 07:47> Orientation/consciousness: patient oriented x3 <STEVE Urbina Last Filed: 08/07/25 07:47> GI: Other: megha in place, 60 cc overnight, serosanguenious. Patent <Eliel Valencia PA-C - Last Filed: 08/07/25 07:47> Inspection: No distended <STEVE Urbina Last Filed: 08/07/25 07:47> Palpation (GI): Soft to palpation, Tenderness to palpation present (GI) (mild right sided) and no guarding <Eliel Valencia PA-C - Last Filed: 08/07/25 07:47> Neuro: General: patient oriented x3 <STEVE Urbina Last Filed: 08/07/25 07:47> Objective Data Active Medications Calcium Carbonate (Calcium Carbonate 750 Mg Tab.Chew) 750 mg PO Q4H PRN PRN Reason: Heartburn Ceftriaxone Sodium (Ceftriaxone Sodium 1 Gm Vial) 1 gm IVPUSH Q24H REPLACED BY [facility] Last Admin: 08/06/25 16:14 Dose: 1 gm Documented By: COLT Docusate Sodium (Docusate Sodium 100 Mg Capsule) 100 mg PO BID REPLACED BY [facility] Last Admin: 08/06/25 21:43 Dose: 100 mg Documented By: ROB Hydromorphone HCl (Hydromorphone Hcl 0.5 Mg/0.5 Ml Syringe) 0.5 mg IVPUSH Q3H PRN; Protocol PRN Reason: Pain, Severe (Pain Scale 7-10) Last Admin: 08/07/25 03:24 Dose: 0.5 mg Documented By: ROB Acetaminophen (Ofirmev) 1,000 mg in 100 mls @ 400 mls/hr IV Q6H REPLACED BY [facility] Last Infusion: 08/07/25 03:42 Dose: Infused Documented By: ROB Lactated Ringer's (Lr) 1,000 mls @ 80 mls/hr IVCONT .[id number] REPLACED BY [facility] Last Admin: 08/07/25 03:37 Dose: 80 mls/hr Documented By: ROB Magnesium Hydroxide (Milk Of Magnesia 30 Ml Oral.Susp) 30 ml PO DAILY PRN PRN Reason: Constipation Melatonin (Melatonin 3 Mg Tablet) 6 mg PO BEDTIME PRN PRN Reason: Insomnia Naloxone HCl (Naloxone Hcl 0.4 Mg/Ml Vial) 0.04 mg IVPUSH Q5M PRN PRN Reason: Excessive sedation or RR < 8 Ondansetron HCl (Ondansetron Hcl 4 Mg/2 Ml Vial) 4 mg IVPUSH Q8H PRN PRN Reason: Nausea and Vomiting Last Admin: 08/06/25 17:29 Dose: 4 mg Documented By: COLT Oxycodone HCl (Oxycodone Hcl Immed Release 5 Mg Tablet) 5 mg PO Q4H PRN PRN Reason: Pain, Moderate(Pain Scale 4-6) Last Admin: 08/06/25 16:35 Dose: 5 mg Documented By: COLT Sodium Chloride (0.9 % Sodium Chloride Flush 3 Ml Syringe) 3 ml IVFLUSH QSHIFT REPLACED BY [facility] Last Admin: 08/06/25 23:42 Dose: Not Given Documented By: ROB Non-Admin Reason: IV Running <Eliel Valencia PA-C - Last Filed: 08/07/25 07:47> Labs CBC & Chem 7: 08/07/25 05:55 08/07/25 05:55 <Eliel Valencia PA-C - Last Filed: 08/07/25 07:47> Labs: Laboratory Results - last 24 hr 08/06/25 08/07/25 06:25 05:55 MCV 94.5 MCH 30.1 MCHC 31.8 RDW 13.0 Plt Count 277 D MPV 9.7 Immature Gran % (Auto) 0.7 H Neut % (Auto) 85.9 H Lymph % (Auto) 8.2 L [place] % (Auto) 5.0 Eos % (Auto) 0.0 Baso % (Auto) 0.2 Lymph # (Auto) 1.2 [place] # (Auto) 0.8 Eos # (Auto) 0.0 Baso # (Auto) 0.0 Abs Immat Gran (auto) 0.10 H Absolute Neuts (auto) 12.9 H Absolute Nucleated RBC 0.000 Nucleated RBC % (auto) 0.0 Anion Gap 12 13 Estim Creat Clear Calc 60.2 64.7 Estimated GFR 43 47 Random Glucose 93 105 Calcium 8.9 8.8 Total Bilirubin 1.0 1.1 H AST 41 H 97 H ALT 111 H 126 H Alkaline Phosphatase 514 H 508 H Total Protein 6.4 L 6.4 L Albumin 3.5 3.6 <Eliel Valencia PA-C - Last Filed: 08/07/25 07:47> Procedures Date of Service Date of Service: 08/07/25 <Eliel Valencia PA-C - Last Filed: 08/07/25 07:47> 08/07/25 <Fernando Ureña MD - Last Filed: 08/07/25 08:52> Progress Note: A&P Assessment and plan (1) S/P cholecystectomy: Status: Acute <Eliel Valencia PA-C - Last Filed: 08/07/25 07:47> Assessment and Plan: 54 year old female POD 1 s/p open cholecystectomy. Overall doing very well. Pain is well controlled on current regimen. She has some increased pain with ambulation but is comfortable ambulating to bathroom. She is tolerating clear liquid diet without nausea or vomiting. Abdominal exam is soft, relatively benign. Some mild tenderness in the right side of the abdomen. The MEGHA drain remains in place, output 60 cc overnight, serosanguenious, nonbilious. Dressings remain in place, clean without strike through. LFTs stable from yesterday remain mildly elevated, Mild increase in WBC, likely reactive from surgery. continue megha maintenance We will advance to low-fat diet Dressing change tomorrow Ambulation/spirometry as tolerated <Eliel Valencia PA-C - Last Filed: 08/07/25 07:47> 54 year old female POD 1 s/p open cholecystectomy. Overall doing very well. Pain is well controlled on current regimen. She has some increased pain with ambulation but is comfortable ambulating to bathroom. She is tolerating clear liquid diet without nausea or vomiting. Abdominal exam is soft, relatively benign. Some mild tenderness in the right side of the abdomen. The MEGHA drain remains in place, output 60 cc overnight, serosanguenious, nonbilious. Dressings remain in place, clean without strike through. LFTs stable from yesterday remain mildly elevated, Mild increase in WBC, likely reactive from surgery. continue megha maintenance We will advance to low-fat diet Dressing change tomorrow Ambulation/spirometry as tolerated Patient doing very well POD 1 following open cholecystectomy. MEGHA with serosanguineous output. Patient able to ambulate. Agree with the above assessment and plan. <Fernando Ureña MD - Last Filed: 08/07/25 08:52> Time Spent With Patient Time: Total time managing care of this patient today ____ minutes. <Eliel Valencia PA-C - Last Filed: 08/07/25 07:47> Quality Stroke Does the patient have a stroke diagnosis?: No <Eliel Valencia PA-C - Last Filed: 08/07/25 07:47> VTE Prior VTE?: No <Eliel Valencia PA-C - Last Filed: 08/07/25 07:47> VTE Risk Level:: Medical - moderate - high <Eliel Valencia PA-C - Last Filed: 08/07/25 07:47> VTE Device Contraindication: N/A - Device Ordered <Eliel Valencia PA-C - Last Filed: 08/07/25 07:47> VTE Drug Contraindication: Treatment Not Indicated <Eliel Valencia PA-C - Last Filed: 08/07/25 07:47>
[2025-08-07] MEDS: oxyCODONE HCl Immed Release 5 MG TABLET PO ×2 (07:35→12:51)
[2025-08-07 07:57] VITALS: BP 118/56; PULSE 69; RESP 18; TEMP 36.6; O2SAT 98
--- NOTE | 2025-08-07 08:32 | HO.POSTANES ---
Post Anesthesia Evaluation Post Anesthesia Evaluation Date of Service: 08/07/25 Vital Signs: Vital Signs Temp Pulse Resp BP Pulse Ox O2 Del Method 08/07/25 07:57 97.9 F 69 18 118/56 L 98 Room Air 08/07/25 03:43 97.2 F 70 18 128/75 99 Room Air Anesthesia: General Mental Status: Awake Pain Control: Satisfactory Nausea/Vomiting: None Hydration: Adequate Anesthesia-Related Issues: No Anes. Related Issues
[2025-08-07 15:40] VITALS: BP 103/54; PULSE 78; RESP 18; TEMP 36.7; O2SAT 98
[2025-08-07] MEDS: 0.9 % Sodium Chloride Flush 3 ML SYRINGE IVFLUSH (15:56)
--- NOTE | 2025-08-07 16:40 | HO.PM.IMPN ---
Subjective Subjective Date of Service: 08/07/25 Interval History: Reporting some abdominal pain today. Has an improved appetite. No issues with drain Review of Systems Review of Systems: Yes all other systems are reviewed and are negative Physical Exam Exam: Exam: General: A&O x3, oriented to time place person and situation, comfortable, no pain Cardiac: S1, S2 auscultated with no S3/4, no MRG. Well perfused. Respiratory: Normal breath sounds auscultated throughout all lung zones, without wheezing, rales. Normal rate. GI/ : Abdominal tenderness on palpation in the epigastrium, with notable jaundice and mild scleral icterus. No other distention, ecchymosis, nonpalpable liver and spleen. Abdominal drain in place, serosanguineous fluid around 50-60 cc MSK: Normal ambulation without pain at bony prominences or musculature. Patient has active port from prior chemotherapy left infraclavicular space Neurological: Normal neurological examination on overview, without obvious CN II-XII abnormalities. Vital Signs: Vital Signs: Last Vital Signs Temp 98.0 F 08/07/25 15:40 Pulse 78 08/07/25 15:40 Resp 18 08/07/25 15:40 BP 103/54 L 08/07/25 15:40 Pulse Ox 98 08/07/25 15:40 O2 Del Method Room Air 08/07/25 15:40 O2 Flow Rate 2 08/06/25 16:00 BMI result Body Mass Index 45.0 Objective Data Active Medications Calcium Carbonate (Calcium Carbonate 750 Mg Tab.Chew) 750 mg PO Q4H PRN PRN Reason: Heartburn Ceftriaxone Sodium (Ceftriaxone Sodium 1 Gm Vial) 1 gm IVPUSH Q24H [facility] Last Admin: 08/07/25 15:56 Dose: 1 gm Documented By: COLT Docusate Sodium (Docusate Sodium 100 Mg Capsule) 100 mg PO BID [facility] Last Admin: 08/07/25 07:35 Dose: 100 mg Documented By: COLT Hydromorphone HCl (Hydromorphone Hcl 0.5 Mg/0.5 Ml Syringe) 0.5 mg IVPUSH Q3H PRN; Protocol PRN Reason: Pain, Severe (Pain Scale 7-10) Last Admin: 08/07/25 03:24 Dose: 0.5 mg Documented By: ROB Acetaminophen (Ofirmev) 1,000 mg in 100 mls @ 400 mls/hr IV Q6H [facility] Last Infusion: 08/07/25 16:17 Dose: Infused Documented By: COLT Magnesium Hydroxide (Milk Of Magnesia 30 Ml Oral.Susp) 30 ml PO DAILY PRN PRN Reason: Constipation Melatonin (Melatonin 3 Mg Tablet) 6 mg PO BEDTIME PRN PRN Reason: Insomnia Naloxone HCl (Naloxone Hcl 0.4 Mg/Ml Vial) 0.04 mg IVPUSH Q5M PRN PRN Reason: Excessive sedation or RR < 8 Ondansetron HCl (Ondansetron Hcl 4 Mg/2 Ml Vial) 4 mg IVPUSH Q8H PRN PRN Reason: Nausea and Vomiting Last Admin: 08/06/25 17:29 Dose: 4 mg Documented By: COLT Oxycodone HCl (Oxycodone Hcl Immed Release 5 Mg Tablet) 5 mg PO Q4H PRN PRN Reason: Pain, Moderate(Pain Scale 4-6) Last Admin: 08/07/25 12:51 Dose: 5 mg Documented By: COLT Sodium Chloride (0.9 % Sodium Chloride Flush 3 Ml Syringe) 3 ml IVFLUSH [facility] Last Admin: 08/07/25 15:56 Dose: 3 ml Documented By: COLT Labs 08/07/25 05:55 08/07/25 05:55 Labs: Laboratory Results - last 24 hr 08/07/25 05:55 MCV 94.5 MCH 30.1 MCHC 31.8 RDW 13.0 Plt Count 277 D MPV 9.7 Immature Gran % (Auto) 0.7 H Neut % (Auto) 85.9 H Lymph % (Auto) 8.2 L [place] % (Auto) 5.0 Eos % (Auto) 0.0 Baso % (Auto) 0.2 Lymph # (Auto) 1.2 [place] # (Auto) 0.8 Eos # (Auto) 0.0 Baso # (Auto) 0.0 Abs Immat Gran (auto) 0.10 H Absolute Neuts (auto) 12.9 H Absolute Nucleated RBC 0.000 Nucleated RBC % (auto) 0.0 Anion Gap 13 Estim Creat Clear Calc 64.7 Estimated GFR 47 Random Glucose 105 Calcium 8.8 Total Bilirubin 1.1 H AST 97 H ALT 126 H Alkaline Phosphatase 508 H Total Protein 6.4 L Albumin 3.6 Assessment and Plan (1) Gastritis: Status: Acute (2) LFT elevation: Status: Acute (3) Choledocholithiasis with acute cholecystitis: Status: Acute (4) Choledocholithiasis: Status: Acute (5) Transaminitis: Status: Acute (6) Acute biliary pancreatitis: Status: Acute (7) S/P cholecystectomy: Status: Acute (8) CKD stage 3a, GFR 45-59 ml/min: Status: Acute (9) Adenocarcinoma of colon: Status: Acute (10) Hypomagnesemia: Status: Acute (11) Metabolic acidosis: Status: Acute (12) Hypokalemia: Status: Acute Plan 54 year old women with a past medical history of CKD, colon adenocarcinoma in remission, Mosher syndrome, presents with a 1 week complaint of epigastric pain, admitted with admitted with acute choledocholithiasis c/b acute interstitial biliary pancreatitis without necrosis, and acute cholestatic transaminitis s/p ERCP 08/04, followed by, laparoscopic cholecystectomy converted to open cholecystectomy 08/06/2025 currently postoperative day 1. Acute Choledocholithiasis with cholecystitis s/p laparoscopic cholecystectomy converted to open 08/06/2025 Acute interstitial biliary pancreatitis without necrosis Acute biliary hepatitis Abdominal CT showing choledocholithiasis with dilation of the biliary tree Total bili 5.8, direct bili 3.9, AST 236, ALT 292, alk phos 627, lipase 1120 on admission Bilirubin increased, and AST/ALT plateaued S/p ERCP 08/04/25 IV fluids Gastroenterology following Recheck labs in the morning Pain management, antiemetics Empiric ceftriaxone General surgery following-recommendations greatly appreciated-plans for laparoscopic cholecystectomy tomorrow. Had laparoscopic cholecystectomy converted to open 08/06/[address] CKD 3A Baseline History of colon cancer Mosher Syndrome In remission [employer] - VTE: SCDs - CODE STATUS: Full code - DIET: NPO Total time managing care of this patient today: 35 minutes. Quality Stroke Does the patient have a stroke diagnosis?: No VTE Prior VTE?: No VTE Risk Level:: Medical - moderate - high VTE Device Contraindication: N/A - Device Ordered VTE Drug Contraindication: Treatment Not Indicated
[2025-08-07 19:50] VITALS: BP 105/60; PULSE 79; RESP 18; TEMP 36.5; O2SAT 98
[2025-08-08] MEDS: oxyCODONE HCl Immed Release 5 MG TABLET PO ×4 (03:39→18:23)
[2025-08-08 04:00] VITALS: BP 118/58; PULSE 75; RESP 18; TEMP 35.9; O2SAT 97
[2025-08-08 07:26] VITALS: BP 99/56; PULSE 68; RESP 18; TEMP 36.1; O2SAT 97
[2025-08-08 07:47] LABS: Alanine Aminotransferase 94 U/L (0-31); Albumin Level 3.4 g/dL (3.5-5.0); Alkaline Phosphatase 415 U/L (39-117); Anion Gap 13 (12-20); Aspartate Amino Transferase 52 U/L (5-31); Blood Urea Nitrogen 11 mg/dL (9-16); Calcium 8.6 mg/dL (8.4-10.2); Carbon Dioxide 25 mmol/L (22-29); Chloride 107 mmol/L (96-108); Creatinine Clr Calc Pharmacy 65.8; Estimated Glomerular Filt Rate 48; Potassium 3.5 mmol/L (3.3-5.1); Sodium 141 mmol/L (135-145); Total Protein 6.2 g/dL (6.5-8.0)
[2025-08-08] MEDS: 0.9 % Sodium Chloride Flush 3 ML SYRINGE IVFLUSH ×2 (09:14→15:11)
--- NOTE | 2025-08-08 13:36 | P.PNIM_ITS ---
Subjective Subjective Date of Service: 08/08/25 Interval History: Abdominal pain has improved as compared to yesterday, still persistent. No issues with abdominal pain. The patient is ambulating and walking to the bathroom, stooling and urinating well. Pain medications have kept patient's pain under control. 25 cc of serosanguineous drainage in drainage bulb Review of Systems Review of Systems: Yes all other systems are reviewed and are negative Physical Exam 2 Exam: Exam: General: A&O x3, oriented to time place person and situation, comfortable, no pain Cardiac: S1, S2 auscultated with no S3/4, no MRG. Well perfused. Respiratory: Normal breath sounds auscultated throughout all lung zones, without wheezing, rales. Normal rate. GI/ : Abdominal tenderness on palpation in the epigastrium, with notable jaundice and mild scleral icterus. No other distention, ecchymosis, nonpalpable liver and spleen. Abdominal drain in place, serosanguineous fluid around 50-60 cc MSK: Normal ambulation without pain at bony prominences or musculature. Patient has active port from prior chemotherapy left infraclavicular space Neurological: Normal neurological examination on overview, without obvious CN II-XII abnormalities. Vital Signs: Vital Signs: Last Vital Signs Temp 97.0 F 08/08/25 07:26 Pulse 68 08/08/25 07:26 Resp 18 08/08/25 07:26 BP 99/56 L 08/08/25 07:26 Pulse Ox 97 08/08/25 07:26 O2 Del Method Room Air 08/08/25 07:26 O2 Flow Rate 2 08/06/25 16:00 BMI result Body Mass Index 45.0 Objective Data Active Medications Calcium Carbonate (Calcium Carbonate 750 Mg Tab.Chew) 750 mg PO Q4H PRN PRN Reason: Heartburn Ceftriaxone Sodium (Ceftriaxone Sodium 1 Gm Vial) 1 gm IVPUSH Q24H [facility] Last Admin: 08/07/25 15:56 Dose: 1 gm Documented By: COLT Docusate Sodium (Docusate Sodium 100 Mg Capsule) 100 mg PO BID [facility] Last Admin: 08/08/25 09:13 Dose: 100 mg Documented By: KRYSTA Hydromorphone HCl (Hydromorphone Hcl 0.5 Mg/0.5 Ml Syringe) 0.5 mg IVPUSH Q3H PRN; Protocol PRN Reason: Pain, Severe (Pain Scale 7-10) Last Admin: 08/07/25 20:26 Dose: 0.5 mg Documented By: DORA Acetaminophen (Ofirmev) 1,000 mg in 100 mls @ 400 mls/hr IV Q6H [facility] Last Infusion: 08/08/25 09:42 Dose: Infused Documented By: KRYSTA Magnesium Hydroxide (Milk Of Magnesia 30 Ml Oral.Susp) 30 ml PO DAILY PRN PRN Reason: Constipation Melatonin (Melatonin 3 Mg Tablet) 6 mg PO BEDTIME PRN PRN Reason: Insomnia Naloxone HCl (Naloxone Hcl 0.4 Mg/Ml Vial) 0.04 mg IVPUSH Q5M PRN PRN Reason: Excessive sedation or RR < 8 Ondansetron HCl (Ondansetron Hcl 4 Mg/2 Ml Vial) 4 mg IVPUSH Q8H PRN PRN Reason: Nausea and Vomiting Last Admin: 08/06/25 17:29 Dose: 4 mg Documented By: COLT Oxycodone HCl (Oxycodone Hcl Immed Release 5 Mg Tablet) 5 mg PO Q4H PRN PRN Reason: Pain, Moderate(Pain Scale 4-6) Last Admin: 08/08/25 13:18 Dose: 5 mg Documented By: KRYSTA Sodium Chloride (0.9 % Sodium Chloride Flush 3 Ml [facility]) [facility] Admin: 08/08/25 09:14 Dose: 3 ml Documented By: KRYSTA Labs 08/07/25 05:55 08/08/25 06:17 Labs: Laboratory Results - last 24 hr 08/08/25 06:17 Hold Purple Top SEE NOTE Anion Gap 13 Estim Creat Clear Calc 65.8 Estimated GFR 48 Random Glucose 91 Calcium 8.6 Total Bilirubin 1.2 H AST 52 H ALT 94 H Alkaline Phosphatase 415 H Total Protein 6.2 L Albumin 3.4 L Microbiology Microbiology Results: Microbiology 08/02/25 15:48 Blood Culture - Final Blood - Venous No growth after 5 days. 08/02/25 15:48 Blood Culture - Final Blood - Venous No growth after 5 days. Assessment and Plan (1) LFT elevation: Status: Acute (2) Choledocholithiasis with acute cholecystitis: Status: Acute (3) Choledocholithiasis: Status: Acute (4) Transaminitis: Status: Acute (5) Acute biliary pancreatitis: Status: Acute (6) S/P cholecystectomy: Status: Acute (7) CKD stage 3a, GFR 45-59 ml/min: Status: Acute (8) Acute kidney injury: Status: Acute (9) Hypomagnesemia: Status: Acute (10) Metabolic acidosis: Status: Acute (11) Hypokalemia: Status: Acute (12) Adenocarcinoma of colon: Status: Acute Plan 54 year old women with a past medical history of CKD, colon adenocarcinoma in remission, Mosher syndrome, presents with a 1 week complaint of epigastric pain, admitted with admitted with acute choledocholithiasis c/b acute interstitial biliary pancreatitis without necrosis, and acute cholestatic transaminitis s/p ERCP 08/04, followed by, laparoscopic cholecystectomy converted to open cholecystectomy 08/06/2025 currently postoperative day 1. Acute Choledocholithiasis with cholecystitis s/p laparoscopic cholecystectomy converted to open 08/06/2025 Acute interstitial biliary pancreatitis without necrosis Acute biliary hepatitis Abdominal CT showing choledocholithiasis with dilation of the biliary tree Total bili 5.8, direct bili 3.9, AST 236, ALT 292, alk phos 627, lipase 1120 on admission Bilirubin increased, and AST/ALT plateaued S/p ERCP 08/04/25 IV fluids Gastroenterology following Recheck labs in the morning Pain management, antiemetics Empiric ceftriaxone General surgery following-recommendations greatly appreciated-plans for laparoscopic cholecystectomy tomorrow. Had laparoscopic cholecystectomy converted to open 08/06/[address] CKD 3A Baseline History of colon cancer Mosher Syndrome In remission [employer] - VTE: SCDs - CODE STATUS: Full code - DIET: NPO Total time managing care of this patient today: 35 minutes. Quality Stroke Does the patient have a stroke diagnosis?: No VTE Prior VTE?: No VTE Risk Level:: Medical - moderate - high VTE Device Contraindication: N/A - Device Ordered VTE Drug Contraindication: Treatment Not Indicated
[2025-08-08 15:50] VITALS: BP 106/57; PULSE 78; RESP 18; TEMP 36.4; O2SAT 97
--- NOTE | 2025-08-08 17:56 | PM.PNGS ---
Subjective Subjective Date of Service: 08/08/25 Patient reports: no new complaints and feels better Interval history: pt doing very well - ambulating, tolerating po diet had a bowel movment - megha drain with minimal reddish fluid in bulb no nausea or vomiting Physical Exam Vital Signs: Vital Signs: Last Vital Signs Temp 97.6 F 08/08/25 15:50 Pulse 78 08/08/25 15:50 Resp 18 08/08/25 15:50 BP 106/57 L 08/08/25 15:50 Pulse Ox 97 08/08/25 15:50 O2 Del Method Room Air 08/08/25 15:50 O2 Flow Rate 2 08/06/25 16:00 BMI result Body Mass Index 45.0 Const: General: cooperative, healthy appearing and comfortable Nutritional Appearance: overweight GI: Other: abdomen soft - tneder in ruq area where incision done = no peritoneal signs. Skin: Other: nonicteric Objective Data Active Medications Calcium Carbonate (Calcium Carbonate 750 Mg Tab.Chew) 750 mg PO Q4H PRN PRN Reason: Heartburn Ceftriaxone Sodium (Ceftriaxone Sodium 1 Gm Vial) 1 gm IVPUSH Q24H [facility] Last Admin: 08/08/25 15:54 Dose: 1 gm Documented By: KRYSTA Docusate Sodium (Docusate Sodium 100 Mg Capsule) 100 mg PO BID [facility] Last Admin: 08/08/25 09:13 Dose: 100 mg Documented By: KRYSTA Hydromorphone HCl (Hydromorphone Hcl 0.5 Mg/0.5 Ml Syringe) 0.5 mg IVPUSH Q3H PRN; Protocol PRN Reason: Pain, Severe (Pain Scale 7-10) Last Admin: 08/07/25 20:26 Dose: 0.5 mg Documented By: DORA Acetaminophen (Ofirmev) 1,000 mg in 100 mls @ 400 mls/hr IV Q6H [facility] Last Infusion: 08/08/25 15:34 Dose: Infused Documented By: KRYSTA Magnesium Hydroxide (Milk Of Magnesia 30 Ml Oral.Susp) 30 ml PO DAILY PRN PRN Reason: Constipation Melatonin (Melatonin 3 Mg Tablet) 6 mg PO BEDTIME PRN PRN Reason: Insomnia Naloxone HCl (Naloxone Hcl 0.4 Mg/Ml Vial) 0.04 mg IVPUSH Q5M PRN PRN Reason: Excessive sedation or RR < 8 Ondansetron HCl (Ondansetron Hcl 4 Mg/2 Ml Vial) 4 mg IVPUSH Q8H PRN PRN Reason: Nausea and Vomiting Last Admin: 08/06/25 17:29 Dose: 4 mg Documented By: COLT Oxycodone HCl (Oxycodone Hcl Immed Release 5 Mg Tablet) 5 mg PO Q4H PRN PRN Reason: Pain, Moderate(Pain Scale 4-6) Last Admin: 08/08/25 13:18 Dose: 5 mg Documented By: KRYSTA Sodium Chloride (0.9 % Sodium Chloride Flush 3 Ml Syringe) 3 ml IVFLUSH QSHIFT [facility] Last Admin: 08/08/25 15:11 Dose: 3 ml Documented By: KRYSTA Labs 08/07/25 05:55 08/08/25 06:17 Labs: Laboratory Results - last 24 hr 08/08/25 06:17 Hold Purple Top SEE NOTE Anion Gap 13 Estim Creat Clear Calc 65.8 Estimated GFR 48 Random Glucose 91 Calcium 8.6 Total Bilirubin 1.2 H AST 52 H ALT 94 H Alkaline Phosphatase 415 H Total Protein 6.2 L Albumin 3.4 L Microbiology Microbiology Results: Microbiology 08/02/25 15:48 Blood Culture - Final Blood - Venous No growth after 5 days. 08/02/25 15:48 Blood Culture - Final Blood - Venous No growth after 5 days. Procedures Date of Service Date of Service: 08/08/25 Progress Note: A&P Assessment and plan (1) Transaminitis: Status: Acute Assessment and Plan: pt with acute biliary pancreatitis - did ERCP and did well and now s/p lap to open rober - cont with drain advance diet and po pain meds. fu with labs. ambulate Time Spent With Patient Time: Total time managing care of this patient today ____ minutes. Quality Stroke Does the patient have a stroke diagnosis?: No VTE Prior VTE?: No VTE Risk Level:: Medical - moderate - high VTE Device Contraindication: N/A - Device Ordered VTE Drug Contraindication: Treatment Not Indicated
[2025-08-08 20:00] VITALS: BP 105/69; PULSE 81; RESP 18; TEMP 36.1; O2SAT 97
[2025-08-09 04:00] VITALS: BP 108/55; PULSE 77; RESP 18; TEMP 36.4; O2SAT 98
[2025-08-09] MEDS: oxyCODONE HCl Immed Release 5 MG TABLET PO ×3 (04:44→16:21)
[2025-08-09 07:19] VITALS: BP 113/58; PULSE 66; RESP 16; TEMP 36.2; O2SAT 95
[2025-08-09] MEDS: 0.9 % Sodium Chloride Flush 3 ML SYRINGE IVFLUSH ×2 (08:48→15:35)
--- NOTE | 2025-08-09 13:14 | PM.DS ---
DS: Providers Provider Date of Service: 08/09/25 Date of admission: 08/02/25 16:32 Date of discharge: 08/09/25 Primary care physician: Cynthia Pena MD Consults: 08/02/25 16:32 Consult to Gastroenterology Routine Consulting Provider: [facility] [place] [facility] Reason for consultation: Choledocholithiasis 08/04/25 09:00 Consult to General Surgery Routine Consulting Provider: [facility] [place] [facility] Surgeons Reason for consultation: choledocholithiasis with acute interstitial panc-?[email or web address] DS: Diagnosis Discharge Diagnosis (1) Transaminitis: Status: Acute DS: Summary Hospital Course Hospital Course: 54 year old women with a past medical history of CKD, colon adenocarcinoma in remission, Mosher syndrome, presents with a 1 week complaint of epigastric pain, admitted with admitted with acute choledocholithiasis c/b acute interstitial biliary pancreatitis without necrosis, and acute cholestatic transaminitis s/p ERCP 08/04, followed by, laparoscopic cholecystectomy converted to open cholecystectomy 08/06/2025 currently postoperative day 1. Acute Choledocholithiasis with cholecystitis s/p laparoscopic cholecystectomy converted to open 08/06/2025 Acute interstitial biliary pancreatitis without necrosis Acute biliary hepatitis Presents with complaints of abdominal pain, found to be jaundiced with scleral icterus. Abdominal CT showing choledocholithiasis with dilation of the biliary tree Total bili 5.8, direct bili 3.9, AST 236, ALT 292, alk phos 627, lipase 1120 on admission Bilirubin increased, and AST/ALT plateaued S/p ERCP 08/04/25 IV fluids were administered, including empiric ceftriaxone. General surgery was consulted, for patient's gallstone pancreatitis-they organized a laparoscopic cholecystectomy 08/06/2025; this was converted from laparoscopic to open due to the patient's history of prior abdominal surgeries and adhesions. Abdominal drain was placed, draining small amounts of serosanguineous fluid. The drain was removed by surgical service 08/09/2025 Status at Discharge Functional status at discharge: independent ambulation Overall status at discharge: patient is back to baseline Time Attestation Total time managing care of this patient today: 45 mintues. Discharge Coordination Time (in mins): 15 Quality: Safe Use of Opioids Does Pt have an Active Cancer Diagnosis on the Problem List?: No Quality: Stroke Does the patient have a stroke diagnosis?: No Physical Exam Exam: Exam: General: A&O x3, oriented to time place person and situation, comfortable, no pain Cardiac: S1, S2 auscultated with no S3/4, no MRG. Well perfused. Respiratory: Normal breath sounds auscultated throughout all lung zones, without wheezing, rales. Normal rate. GI/ : No abdominal pain on palpation, no masses or distentions. MSK: Normal ambulation without pain at bony prominences or musculature Neurological: Normal neurological examination on overview, without obvious CN II-XII abnormalities. Vital Signs: Vital Signs: Last Vital Signs Temp 97.2 F 08/09/25 07:19 Pulse 66 08/09/25 07:19 Resp 16 08/09/25 07:19 BP 113/58 L 08/09/25 07:19 Pulse Ox 95 08/09/25 07:19 O2 Del Method Room Air 08/09/25 07:19 O2 Flow Rate 2 08/06/25 16:00 BMI result Body Mass Index 45.0 DS: Data Data Completed and Pending Completed studies during hospitalization [Text1]: Procedures Dilation of Left Ureter with Intraluminal Device, Via Natural or Artificial Opening Endoscopic (12/05/24) Pending studies at discharge: Pending at discharge 08/06/25 13:13 Surgical [PTH] Routine Discharge Plan Discharge Anticipated Discharge Date/Time: 08/09/25 13:17 Patient Disposition: Home, Self-Care Discharge Diagnosis: Acute choledocholithiasis with acute interstitial pancreatitis without necrosis (gallstone pancreatitis) Referrals: Cynthia Pena MD [Primary Care Provider, Internal Medicine] - 1 Week Discharge Medications: New naloxone 0.4 mg/mL Solution 0.04 mg IVPUSH Q5M PRN (Reason: Excessive sedation or RR < 8) 1 Days Qty: 1 0RF oxycodone 5 mg Tablet 5 mg PO Q4H PRN (Reason: Pain, Moderate(Pain Scale 4-6)) 5 Days Qty: 30 0RF Rx Instructions: Partial Fill upon patient request. docusate sodium 100 mg Capsule 100 mg PO BID 30 Days Qty: 60 0RF cephalexin 500 mg capsule 500 mg PO BID 5 Days Qty: 10 0RF metronidazole 500 mg tablet 500 mg PO BID 5 Days Qty: 10 0RF Continued sodium bicarbonate 650 mg tablet 650 mg PO BID 90 Days Qty: 180 4RF potassium chloride 20 mEq tablet extended release 20 meq PO DAILY Qty: 90 3RF acetaminophen 500 mg Tablet 1,000 mg PO Q6H PRN (Reason: Pain) loperamide 2 mg Tablet 2 mg PO QID PRN (Reason: Loose Stool) calcium carbonate [Tums 500] 500 mg calcium (1,250 mg) Tablet,Chewable 500 mg PO DAILY@1630 Patient Comments: patient takes 1 before dinner calcium carbonate [Tums 500] 500 mg calcium (1,250 mg) Tablet,Chewable 500 mg PO BID@0730,1130 PRN (Reason: Heartburn) ondansetron 4 mg tablet,disintegrating 4 - 8 mg PO Q8H PRN (Reason: nausea/vomiting) omeprazole 20 mg capsule,delayed release(DR/EC) 20 mg PO DAILY@0630 PRN (Reason: Heartburn) Diet: Advance to usual diet Activity on Discharge: As tolerated Stand Alone Forms: Patient Portal Discharge page Print Language: Kyrgyz Care Plan Goals: As above Health Concerns: As above Plan of Treatment: Continue antibiotics until completion Take oxycodone as needed Naloxone prescribed Follow up with surgery within a week of discharge Follow up PCP within 1 week of discharge Assessment: Hemodynamically stable at date of discharge Plan has been discussed with the patient, and she feels comfortable with discharge plan. She is eager to be discharged home. No indication for continued inpatient admission at this time.
[2025-08-09 13:41] LABS: MANUAL DIFF FLAG NO
[2025-08-09 13:42] LABS: Hematocrit 31.3 % (37.0-47.0); Hemoglobin 10.0 g/dl (12.0-16.0); Imm Gran Abs Auto 0.16 X10*3/uL (0.00-0.03); Imm Gran Pct Auto 1.6 % (0.0-0.4); Lymphocytes Absolute Auto 1.9 X10*3/uL (1.2-4.9); Mean Corpuscular HGB Conc 31.9 g/dl (31.0-35.0); Mean Corpuscular Hemoglobin 30.5 pg (27.0-33.0); Mean Corpuscular Volume 95.4 fL (80.0-98.0); NRBC Abs Auto 0.000 X10*3/uL (0.0-0.012); NRBC Pct Auto 0.0 /100WBC (0.0-0.2); Platelet Count 315 X10*3/uL (160-400); Red Blood Count 3.28 X10*6/uL (4.20-5.50); White Blood Count 10.2 X10*3/uL (4.8-10.8)
[2025-08-09 15:29] VITALS: BP 105/56; PULSE 77; RESP 14; TEMP 36.8; O2SAT 98
== END 2025-08-09 18:31 | disposition home or self-care (01) | DRG 414 ==
LOC: HO.ED 16:54 → HO.EDOVER 16:58 → HO.S3 08-03 19:16
PROVIDERS: Nurse Practitioner Acute Care; Physician Assistant Medical; Physician Assistant Surgical; Surgery; Admitting Provider Internal Medicine Gastroenterology; Emergency Provider Emergency Medicine; PCP Internal Medicine; Visit Provider Hospitalist
PROC: 0F798ZZ Dilation of Common Bile Duct, Via Natural or Artificial Opening Endoscopic (ICD-10-PCS; CPT 43260; principal; 2025-08-04 16:00)
PROC: 0FT44ZZ Resection of Gallbladder, Percutaneous Endoscopic Approach (ICD-10-PCS; CPT 47562; principal; 2025-08-06 10:10)
DX: K80.42 Calculus of bile duct with acute cholecystitis without obstruction (principal); K85.10 Biliary acute pancreatitis without necrosis or infection; K31.5 Obstruction of duodenum; Z68.42 Body mass index [BMI] 45.0-49.9, adult; E66.01 Morbid (severe) obesity due to excess calories; Z71.3 Dietary counseling and surveillance; N18.31 Chronic kidney disease, stage 3a; Z85.038 Personal history of other malignant neoplasm of large intestine; Z15.09 Genetic susceptibility to other malignant neoplasm; Z79.899 Other long term (current) drug therapy
CPT/HCPCS: 36415; 74177; 76705; 80048; 80053; 80076; 81001; 82248; 82550; 83605; 83690; 83735; 84484; 84702; 85025; 85027; 87040; 88304; 90656; 93005; 99285; C1726; J0131; J0525; J0696; J1100; J1171; J1200; J1610; J1642; J1790; J2003; J2250; J2270; J2405; J2704; J2765; J3010; J7120; Q9967

== ENCOUNTER → 2025-08-02 11:31 | Outpatient (BNV) | payer MEDICARE, MEDICAID, SELFPAY | PROVIDERS: Admitting Provider Nurse Practitioner Acute Care; Emergency Provider Emergency Medicine; PCP Internal Medicine; Visit Provider Internal Medicine Cardiovascular Disease | DX: I45.10 Unspecified right bundle-branch block (principal) | CPT/HCPCS: 93010 ==

== ENCOUNTER → 2025-08-02 11:55 | Outpatient (BNV) | payer MEDICARE, MEDICAID, SELFPAY | PROVIDERS: Emergency Provider Emergency Medicine; PCP Internal Medicine; Visit Provider Radiology Diagnostic Radiology | DX: K80.70 Calculus of gallbladder and bile duct without cholecystitis without obstruction (principal); R16.0 Hepatomegaly, not elsewhere classified | CPT/HCPCS: 74177; 76705 ==

== ENCOUNTER → 2025-08-02 16:32 | Outpatient (BNV) | payer MEDICARE, MEDICAID, SELFPAY | PROVIDERS: Admitting Provider Nurse Practitioner Acute Care; Emergency Provider Emergency Medicine; PCP Internal Medicine; Visit Provider Internal Medicine | DX: R79.89 Other specified abnormal findings of blood chemistry (principal); K80.50 Calculus of bile duct without cholangitis or cholecystitis without obstruction; K80.20 Calculus of gallbladder without cholecystitis without obstruction | CPT/HCPCS: 99222; 99232 ==

== ENCOUNTER → 2025-08-02 16:32 | Outpatient (BNV) | payer MEDICARE, MEDICAID, SELFPAY | PROVIDERS: Admitting Provider Internal Medicine Gastroenterology; Emergency Provider Emergency Medicine; PCP Internal Medicine; Visit Provider Surgery | DX: R74.01 Elevation of levels of liver transaminase levels (principal) | CPT/HCPCS: 99024; 99223; 99232 ==

== ENCOUNTER → 2025-08-02 16:32 | Outpatient (BNV) | payer MEDICARE, MEDICAID, SELFPAY | PROVIDERS: Admitting Provider Nurse Practitioner Acute Care; Emergency Provider Emergency Medicine; PCP Internal Medicine; Visit Provider Nurse Practitioner Acute Care | DX: K80.42 Calculus of bile duct with acute cholecystitis without obstruction (principal) | CPT/HCPCS: 99223 ==

== ENCOUNTER 2025-08-11 11:10 | Outpatient (AMB) | payer MEDICARE, MEDICAID, SELFPAY ==
--- NOTE | 2025-08-11 11:14 | A.OFFVIS_ITS ---
Intake Visit Reasons: drain removal Intake Note: Patient is seen in office for post op assessment post open cholecystectomy. Pt c/o: was discharge late Sunday, emptyed drains yesterday was 15mL and this morning 10mL, denies any concerns Allergies codeine (Tylenol-Codeine) Allergy (Intermediate, Verified 08/02/25 10:22) Hives acetaminophen (From Tylenol PM) Adverse Reaction (Intermediate, Verified 08/02/25 10:22) Hives cat dander (cats) Adverse Reaction (Intermediate, Verified 08/02/25 10:22) Hives diphenhydramine (From Tylenol PM) Adverse Reaction (Intermediate, Verified 08/02/25 10:22) Hives Medication List - Last Reconciled 08/11/25 by Fernando Ureña MD acetaminophen 1,000 mg PO Q6H PRN calcium carbonate 500 mg PO DAILY@1630 calcium carbonate 500 mg PO BID@0730,1130 PRN cephalexin 500 mg PO BID 5 days docusate sodium 100 mg PO BID 30 days loperamide 2 mg PO QID PRN metronidazole 500 mg PO BID 5 days naloxone 0.04 mg (0.1 mL) IVPUSH Q5M PRN 1 day omeprazole 20 mg PO DAILY@0630 PRN ondansetron 4 - 8 mg PO Q8H PRN oxycodone 5 mg PO Q4H PRN 5 days potassium chloride ER 20 mEq PO DAILY sodium bicarbonate 650 mg PO BID 90 days HPI Comments Details: 54-year-old female patient with a history of colon cancer with numerous previous abdominal surgeries recently admitted with choledocholithiasis, acute cholecystitis returning now following an open cholecystectomy. She was discharged home on Sunday this past weekend and since going home reports feeling reasonably well with some minor incisional discomfort. She denies any nausea, vomiting, fever or chills. LO output has been minimal. She returns today for drain removal. [facility] Medical History Port-A-Cath in place Gastritis Mosher syndrome Adenocarcinoma of colon Surgical History (Updated 08/11/25 @ 11:18 by DANA Sarmiento) Hx of cholecystectomy (08/06/25) Hx of hysterectomy History of colon surgery Hx of bilateral breast reduction surgery Family History Maternal Grandmother Uterine cancer Maternal Aunt Ovarian cancer Mother Cervical cancer Colon cancer Maternal Uncle Colon cancer Rectal cancer Brother Colon cancer Paternal Aunt Mental health disorder Paternal Uncle Mental health disorder Social History Household Members: Family Household Members Other:: 6 Housing: House Are you a primary complex care nurse to a significant other at home: No Do you presently have visiting nurse or other home services: No Alcohol intake: current Alcohol intake frequency: does not drink Comment: counts correct Patient Tobacco Use Status: Never used Tobacco e-Cigarette/Vaping Use: Never Used Advance Directives Date on File: 02/08/24 service: No Current occupational status: disabled Cognitive needs: No Hearing needs: No Vision needs: Yes Review of Systems Const All systems reviewed & are unremarkable except as noted in HPI and below Physical Exam Const General: no acute distress Nutritional Appearance: obese Orientation/consciousness: patient oriented x3 Limitations: no limitations Resp Effort & Inspection: normal respiratory effort, no audible wheezes, no cough and no respiratory distress GI Other: Right José incision is clean, dry, and intact. LO with minimal serosanguineous output. Drain was removed and dry sterile dressings applied. Skin Other: Warm, dry, no rashes Neuro General: patient oriented x3 Assessment & Plan Assessment & Plan (1) Choledocholithiasis with acute cholecystitis: Code(s): K80.42 - Calculus of bile duct with acute cholecystitis without obstruction Category: Medical Plan 54-year-old female patient returning following laparoscopic converted to open cholecystectomy for acute cholecystitis. Wounds are clean and intact, healing nicely without evidence of infection. LO was removed today and patient tolerated this well. She will return on Sunday of this week to remove roxanna. Coding Level of Care Code Global (42186) Diagnoses Choledocholithiasis with acute cholecystitis K80.42
--- OUTSIDE RECORDS SUMMARY | 2025-08-11 13:57 | XMS_ITS | Clinical Summary ---
Author Organization [facility] Address [address] [place] [address] Phone Care Team Providers Care Straight Ruling Machine Operator Name Role Phone Cynthia Pena MD Primary Care Provider Surgical History Surgery Date Site/Laterality Comments OTHER SURGICAL HISTORY 11/07/2016 PROCEDURE: [place] COLCT TOT ABDL W/O PRCTECT W/ILEOST/ILEOPXTS; COMMENT: Exploratory laparotomy, removal of pelvic mass, LSO, right colectomy, end ileostomy with mucous fistula, partial omentectomy. BREAST REDUCTION PROCEDURE: [place] BREAST REDUCTION MOUTH SURGERY PROCEDURE: ORAL SURGERY [...] Last Done Comments Breast Cancer Screening 1972 Colorectal Cancer Screening: Colonoscopy 1972 DTaP,Tdap,and Td Vaccines (1 - Tdap) 1991 Hepatitis B Vaccines (1 of 3 - 19+ 3-dose series) 1991 Cervical Cancer Screening: P ap Smear 1993 Pneumococcal Vaccine: 50+ Years (1 of 1 - PCV) 2022 Zoster Vaccines (1 of 2) 2022 Cholesterol Screening (Lipid Panel) 10/08/2022 HIV Screening 10/08/2022 Hepatitis C Screening 10/08/2022 Social Influencers of Health Screening 10/08/2022 Depression Screening 11/05/2024 COVID-19 Vaccine (1 - 2023-2 5 season) 2025 Influenza Vaccine (#1) 2025 2, 08/20/2021 RSV Immunization Adult Patients (1 - 1-dose 75+ series) 2047 HIB Vaccines Aged Out No longer eligi [...] Documents on File Type Date Recorded Patient Respiratory Therapy Technician Expl anation Health Care Decision (hx) 07/20/2020 GOMEZ DAVILA DIRECTIVE Care Teams Straight Ruling Machine Operator Relationship Specialty Start Date End Date Cynthia Pena MD [address] [place] [address] PCP - General Internal Medicine 09/08/21
== END 2025-08-11 11:36 | disposition home or self-care (01) ==
LOC: HO.HGS 11:11
PROVIDERS: PCP Internal Medicine; Visit Provider Surgery
DX: K80.42 Calculus of bile duct with acute cholecystitis without obstruction (principal)
CPT/HCPCS: 99024

== ENCOUNTER → 2025-08-11 11:10 | Outpatient (BNVA) | payer MEDICARE, MEDICAID, SELFPAY | PROVIDERS: PCP Internal Medicine; Visit Provider Surgery | DX: Z48.1 Encounter for planned postprocedural wound closure (principal); Z98.890 Other specified postprocedural states | CPT/HCPCS: 99212 ==

== ENCOUNTER 2025-08-14 10:27 | Outpatient (AMB) | payer MEDICARE, MEDICAID, SELFPAY ==
--- NOTE | 2025-08-14 10:46 | A.OFFVIS_ITS ---
Vital Signs 08/14/25 11:01 Height 5 ft 2 in Weight 237 lb BMI 43.3 BP 155/81 H Blood Pressure Location Lt brachial Position Sitting Pulse 85 Intake Visit Reasons: staple removal Intake Note: Patient is seen in office for one week follow up visit, post open ch olecystectomy staple removal. Pt c/o:no concerns, roxanna removed at visit Correspondence Dictator Required: No Accompanied by: Self / Same As Patient Allergies codeine (Tylenol-Codeine) Allergy (Intermediate, Verified 08/17/25 09:19) Hives acetaminophen (From Tylenol PM) Adverse Reaction (Intermediate, Verified 08/17/25 09:19) Hives cat dander (cats) Adverse Reaction (Intermediate, Verified 08/17/25 09:19) Hives diphenhydramine (From Tylenol PM) Adverse Reaction (Intermediate, Verified 08/17/25 09:19) Hives HPI Comments Details: Patient has some mild incisional pain but generally feels improved. She returns today for staple removal. Denies any nausea, vomiting, fever or chills. She is eating well. [facility] Medical History Port-A-Cath in place Gastritis Mosher syndrome Adenocarcinoma of colon Surgical History Hx of cholecystectomy (08/06/25) Hx of hysterectomy History of colon surgery Hx of bilateral breast reduction surgery Family History Maternal Grandmother Uterine cancer Maternal Aunt Ovarian cancer Mother Cervical cancer Colon cancer Maternal Uncle Colon cancer Rectal cancer Brother Colon cancer Paternal Aunt Mental health disorder Paternal Uncle Mental health disorder Social History Household Members: Family Household Members Other:: 6 Housing: House Are you a primary director of healthcare systems to a significant other at home: No Do you presently have visiting nurse or other home services: No Alcohol intake: current Alcohol intake frequency: does not drink Comment: counts correct Patient Tobacco Use Status: Never used Tobacco e-Cigarette/Vaping Use: Never Used Advance Directives Date on File: 02/08/24 service: No Current occupational status: disabled Cognitive needs: No Hearing needs: No Vision needs: Yes Physical Exam Vital Signs: Last Vital Signs Pulse 85 08/14/25 11:01 BP 155/81 H 08/14/25 11:01 BMI result Body Mass Index 43.3 Const General: no acute distress Nutritional Appearance: obese Orientation/consciousness: patient oriented x3 Limitations: no limitations Resp Effort & Inspection: normal respiratory effort, no audible wheezes, no cough and no respiratory distress GI Other: Right José incision is clean, dry, and intact. [place] removed and wounds found to be clean and intact. Skin Other: Warm, dry, no rashes Neuro General: patient oriented x3 Extrem Other: No edema Assessment & Plan Assessment & Plan (1) S/P cholecystectomy: Code(s): Z90.49 - Acquired absence of other specified parts of digestive tract Category: Surgical Plan Status post lap cholecystitis due to cholelithiasis. Her wounds are healing nicely with no evidence of infection or hernia. [place] were removed today. She should continue to avoid lifting greater than 10 lb and return in approximately 1 month for wound examination. Coding Level of Care Code Global (81979) Diagnoses S/P cholecystectomy Z90.49
[2025-08-14 11:01] VITALS: BP 155/81; PULSE 85; BMI 43.3
== END 2025-08-14 11:09 | disposition home or self-care (01) ==
LOC: HO.HGS 10:28
PROVIDERS: PCP Internal Medicine; Visit Provider Surgery
DX: Z90.49 Acquired absence of other specified parts of digestive tract (principal)
CPT/HCPCS: 99024

== ENCOUNTER → 2025-08-14 10:27 | Outpatient (BNVA) | payer MEDICARE, MEDICAID, SELFPAY | PROVIDERS: PCP Internal Medicine; Visit Provider Surgery | DX: Z48.02 Encounter for removal of sutures (principal) | CPT/HCPCS: 99212 ==

== ENCOUNTER 2025-08-17 08:40 | Outpatient (AMB) | payer MEDICARE, MEDICAID, SELFPAY ==
--- OUTSIDE RECORDS SUMMARY | 2025-08-17 08:44 | XMS_ITS | Clinical Summary ---
Author Organization [facility] Address [address] [place] [address] Phone Care Team Providers Care Sales Planning Manager Name Role Phone Cynthia Pena MD Primary Care Provider [phone] Surgical History Surgery Date Site/Laterality Comments OTHER SURGICAL HISTORY 11/07/2016 PROCEDURE: ME COLCT TOT ABDL W/O PRCTECT W/ILEOST/ILEOPXTS; COMMENT: Exploratory laparotomy, removal of pelvic mass, LSO, right colectomy, end ileostomy with mucous fistula, partial omentectomy. BREAST REDUCTION PROCEDURE: ME BREAST REDUCTION MOUTH SURGERY PROCEDURE: ORAL SURGERY [...] Documents on File Type Date Recorded Patient Metal Lather Expl anation Health Care Decision (hx) 07/20/2020 GOMEZ DAVILA DIRECTIVE Care Teams Sales Planning Manager Relationship Specialty Start Date End Date Cynthia Pena MD [address] [place] [address] PCP - General Internal Medicine 09/08/21
[2025-08-17 09:17] VITALS: BP 100/70; PULSE 79; RESP 16; TEMP 36.6; O2SAT 98; BMI 43.2
--- NOTE | 2025-08-17 09:17 | A.OFFPC_ITS ---
Vital Signs 08/17/25 09:17 Height 5 ft 2 in Weight 236 lb BMI 43.2 BP 100/70 Blood Pressure Location Rt brachial Position Sitting Respiration 16 Pulse 79 Pulse Source Pulse Oximeter Temp 97.9 F Temp Source Oral Pulse Oximetry (%) 98 Oxygen Delivery Method Room Air Intake Visit Reasons: TCM Intake Note: Pt is here today for a TCM f/u cholecystectomy Account Associate Required: No Allergies codeine (Tylenol-Codeine) Allergy (Intermediate, Verified 08/22/25 14:45) Hives acetaminophen (From Tylenol PM) Adverse Reaction (Intermediate, Verified 08/22/25 14:45) Hives cat dander (cats) Adverse Reaction (Intermediate, Verified 08/22/25 14:45) Hives diphenhydramine (From Tylenol PM) Adverse Reaction (Intermediate, Verified 08/22/25 14:45) Hives Medication List - Last Reconciled 08/22/25 by Cynthia Pena MD acetaminophen 1,000 mg PO Q6H PRN docusate sodium 100 mg PO BID 30 days loperamide 2 mg PO QID PRN ondansetron 4 - 8 mg PO Q8H PRN oxycodone 5 mg PO Q4H PRN 5 days potassium chloride ER 20 mEq PO DAILY sodium bicarbonate 650 mg PO BID 90 days Tobacco use date assessed: 08/17/25 Dental Screening Dental Screen Date: 08/17/25 Did you have a dental visit in the last 12 months?: Yes Did you have a dental problem in the last 6 months where you did not have access to dental care?: No Was dental information given to patient?: Patient has dentist HPI TCM HPI Details The patient is a 54-year-old female with past medical history of CKD, colon adenocarcinoma in remission, Mosher syndrome, here for her TCM follow up . Had cholelithiasis with choledocholithiasis. She underwent surgery on August 06, and the abdominal ultrasound performed on August 02 revealed increased hepatic texture, biliary dilatation, and multiple gallstones with one lodged in the bile duct. Post-surgery, she was advised to avoid lifting over 10 pounds for about a month to allow the internal wound to strengthen. The patient reports a history of anemia, which has been monitored by her oncologist, Dr. Singer, at [facility]. She is advised to have her anemia checked if she experiences increased fatigue or shortness of breath. The patient has elevated liver enzymes, which have shown some improvement post- surgery, and she is scheduled for further lab work next week to monitor liver function. Her kidney function is stable, though on the lower end of normal, and she is under the care of Dr. Garcias for this condition. At present patient feels better no episodes abdominal pain, no jaundice afebrile. TCM TCM Information Date of Discharge 08/09/25 Discharged From [facility] Interactive Contact Date (Reference documentation from this date) 08/10/25 [facility] Medical History (Updated 08/22/25 @ 15:08 by Cynthia Pena MD) Anemia History of cholelithiasis Port-A-Cath in place Gastritis Mosher syndrome Adenocarcinoma of colon Surgical History (Updated 08/17/25 @ 00:01 by Romain Castillo) Hx of cholecystectomy (08/06/25) Hx of hysterectomy History of colon surgery Hx of bilateral breast reduction surgery Family History Maternal Grandmother Uterine cancer Maternal Aunt Ovarian cancer Mother Cervical cancer Colon cancer Maternal Uncle Colon cancer Rectal cancer Brother Colon cancer Paternal Aunt Mental health disorder Paternal Uncle Mental health disorder Social History Household Members: Family Household Members Other:: 6 Housing: House Are you a primary medical care evaluation specialist to a significant other at home: No Do you presently have visiting nurse or other home services: No Alcohol intake: current Alcohol intake frequency: does not drink Comment: counts correct Patient Tobacco Use Status: Never used Tobacco e-Cigarette/Vaping Use: Never Used Advance Directives Date on File: 02/08/24 service: No Current occupational status: disabled Cognitive needs: No Hearing needs: No Vision needs: Yes Questionnaire PHQ-9 Over the last 2 weeks, how often have you been bothered by any of the following problems? 1. Little interest or pleasure in doing things: not at all 2. Feeling down, depressed, or hopeless: not at all 3. Trouble falling or staying asleep, or sleeping too much: not at all 4. Feeling tired or having little energy: not at all 5. Poor appetite or overeating: not at all 6. Feeling bad about yourself - or that you are a failure or have let yourself or your family down: not at all 7. Trouble concentrating on things, such as reading the newspaper or watching television: not at all 8. Moving or speaking so slowly that other people could have noticed. Or the opposite - being so fidgety or restless that you have been moving around a lot more than usual: not at all 9. Thoughts that you would be better off or of hurting yourself in some way: not at all Total score: 0 Depression Screening Interpretation: Negative Depression Screening Done: Yes 88520 - PHQ-9 Billing: Yes Source: Developed by Drs. Wilman Ha, Iwona Garg, Blair Williamson and colleagues, with an educational chato from [employer]. Thrive Questionnaire Date Thrive assessed: 08/03/25 I am a: Patient What is your living situation today?: I have a steady place to live Within the past 12 months, did the food you bought not last and you didn't have the money to get more?: Never true Within the past 12 months, did you worry whether your food would run out before you got money to buy more?: Never true Do you have trouble paying for medicines?: No Do you have trouble getting transportation to medical appointments?: No Do you have trouble paying your heating and electricity bill?: No Do you have trouble taking care of your child, family member or friend?: No Do you have trouble with day-to-day activities such as bathing, preparing meals, shopping, managing finances, etc.?: No Are you currently unemployed and looking for a job?: No Are you interested in more education?: No Please select the resources that you would like help with: None Currently or been in a relationship where the following occur: No concerns reported THRIVE Score: 0 AUDIT C Alcohol Use Questionnaire (AUDIT-C) 1. How often do you have a drink containing alcohol?: Never 2. How many drinks containing alcohol do you have on a typical day when you are drinking?: 1 or 2 3. How often do you have six or more drinks on one occasion?: Never Total Score: 0 Score Reviewed/Action Taken: Yes LATONYA-7 AMB Questionnaire LATONYA-7 Date LATONYA - 7 assessed: 12/17/24 Feeling nervous, anxious, or on edge: 0 = Not at all Not being able to stop or control worryin = Not at all Worrying too much about different things: 0 = Not at all Trouble relaxin = Not at all Being so restless that it is hard to sit still: 0 = Not at all Becoming easily annoyed or irritable: 0 = Not at all Feeling afraid as if something awful might happen: 0 = Not at all Total LATONYA-7 score (0-4 normal; 5-9 mild; 10-14 moderate; 15-21 severe): 0 Source: Developed by Drs. Wilman Ha, Iwona Garg, Blair Williamson and colleagues, with an educational chato from [employer]. Review of Systems Const All systems reviewed & are unremarkable except as noted in HPI and below Physical exam (Primary Care) Vital Signs: Last Vital Signs Temp 97.9 F 08/17/25 09:17 Pulse 79 08/17/25 09:17 Resp 16 08/17/25 09:17 BP 100/70 08/17/25 09:17 Pulse Ox 98 08/17/25 09:17 Oxygen Delivery Method Room Air 08/17/25 09:17 BMI result Body Mass Index 43.2 Tobacco/Smoking Status: Tobacco use Status Tobacco use date assessed 08/17/25 08/17/25 09:25 Patient Tobacco Use Status Never used Tobacco 08/17/25 09:25 e-Cigarette/Vaping Use Never Used 08/17/25 09:25 PHQ-9: PHQ-9 Score PHQ-9: Total score 0 08/22/25 14:48 Depression Screening Interpretation: Negative Thrive Assessment: Date of Thrive Assessment Date Thrive assessed 08/03/25 08/17/25 09:25 Currently or been in a relationship where the following occur: No concerns reported Const General: no acute distress and alert Orientation/consciousness: patient oriented x3 HENMT Mouth: Normal oral and palatal mucosa present and moist mucous membranes Neck Neck: Yes full ROM, Yes no lymphadenopathy and Yes supple Resp Effort & Inspection: normal respiratory effort and able to speak in complete sentences Auscultation: clear to auscultation bilaterally Cardio Rate: regular rate Rhythm: regular rhythm Heart sounds: S1 normal heart sound present and S2 normal heart sound present GI Palpation (GI): Soft to palpation, nontender and no masses Auscultation: normal bowel sounds Skin Other: Surgical site on abdomen clean, with no wound dehiscence, no active drainage Neuro General: patient oriented x3, gait normal, moves all extremities, Normal light touch and pain sensation and no focal motor deficits Coding Level of Care Code TCM Mod MDM <= 14 Days Diagnoses History of cholelithiasis Z87.19 S/P cholecystectomy Z90.49 Anemia D64.9 Additional Codes PHQ-9 - 87760 - PHQ-9 Billing: Yes ([id number]) Assessment & Plan Assessment & Plan (1) History of cholelithiasis: Code(s): Z87.19 - Personal history of other diseases of the digestive system Category: Medical (2) S/P cholecystectomy: Code(s): Z90.49 - Acquired absence of other specified parts of digestive tract Category: Surgical (3) Anemia: Code(s): D64.9 - Anemia, unspecified Category: Medical Plan 1. Cholelithiasis with choledocholithiasis The patient underwent surgery on August 06 for gallstones, with one stone lodged in the bile duct. Post-surgical care includes avoiding lifting over 10 pounds to prevent wound complications. Follow-up imaging and lab work are planned to monitor liver function and ensure no further complications arise. 2. Anemia The patient has a history of anemia, monitored by her oncologist. She is advised to have her hemoglobin levels checked if symptoms of fatigue or dyspnea occur. Regular follow-up with her oncologist is recommended. 3. Elevated liver enzymes Liver function tests have shown improvement post-surgery, but further monitoring is necessary. A liver panel is ordered to assess current status and guide further management. Patient was informed and verbally consented to the use of an ambient scribe for clinic note documentation during this visit. Orders: Orders Liver Panel 08/17/25 R74.8 - Abnormal levels of other serum enzymes, Z78.0 - Asymptomatic menopausal state, Z90.49 - Acquired absence of other specified parts of digestive tract Vitamin D 25-OH Total 08/17/25 R74.8 - Abnormal levels of other serum enzymes, Z78.0 - Asymptomatic menopausal state, Z90.49 - Acquired absence of other specified parts of digestive tract
== END 2025-08-17 09:45 | disposition home or self-care (01) ==
LOC: HO.HMCC 08:41
PROVIDERS: PCP Internal Medicine; Visit Provider Internal Medicine
DX: D64.9 Anemia, unspecified (principal); Z87.19 Personal history of other diseases of the digestive system; Z90.49 Acquired absence of other specified parts of digestive tract

== ENCOUNTER → 2025-08-17 08:40 | Outpatient (BNVA) | payer MEDICARE, MEDICAID, SELFPAY | PROVIDERS: PCP Internal Medicine; Visit Provider Internal Medicine | DX: D64.9 Anemia, unspecified (principal); R79.89 Other specified abnormal findings of blood chemistry; Z87.19 Personal history of other diseases of the digestive system; Z90.49 Acquired absence of other specified parts of digestive tract; Z78.0 Asymptomatic menopausal state | CPT/HCPCS: 96127; 99495 ==

== ENCOUNTER 2025-08-26 06:30 | Outpatient (REF) | payer MEDICARE, MEDICAID, SELFPAY ==
--- OUTSIDE RECORDS SUMMARY | 2025-08-26 06:34 | XMS_ITS | Clinical Summary ---
Author Organization [facility] Address [address] [place] [address] Phone Care Team Providers Care Behavioral Health Consultant Name Role Phone Cynthia Pena MD Primary [...] Documents on File Type Date Recorded Patient Technical Support Associate Expl anation Health Care Decision (hx) 07/20/2020 GOMEZ DAVILA DIRECTIVE Care Teams Behavioral Health Consultant Relationship Specialty Start Date End Date Cynthia Pena MD [address] [place] [address] PCP - General Internal Medicine 09/08/21
--- OUTSIDE RECORDS SUMMARY | 2025-08-26 06:34 | XMS_ITS | Data Portability ---
Author Organization [place] [facility] Address [address] [place] [phone] Care Team Providers Care Medical Staffing Coordinator Name Role Phone EMILYTristan KARISSA Primary Care Provider [phone] Assessment Encounter Date Assessment Date Assessment LastModified [...] after care of this [facility]. Overview/History : [...] [facility] -she had surg followup next wek and will reachout to them sooner if no improvement -discussed case with Dr Brooks @ [phone] and he was in agreement with plan - he asked that if her symptoms persisted to refer her to the [facility] ED for re-eval. In order to obtain further information and compare any laboratory results/values, I have accessed old patient records. This information was pertinent in my medical decision making today. [email or web address] Not available 01/03/2022 13:29:20 Plan of Treatment Reminders Order Date Submit Date Provider Last Modified By Organization Details Last Modified Time Details Appointments None recorded. Lab BMP + ionized calcium, serum or plasma 2018 019 barrie [facility], [address] [place] [address], [id number], 9 14:46:42 CBC w/ auto diff - [facility] 2018 019 MONICA [facility] (Centralized Electronic Ordering - All Locations), Patient Can Go To The Location Of Their Choice, [id number] 9 06:26:12 Referral None recorded. Procedures None recorded. Surgeries None recorded. Imaging None recorded. Medication Orders sodium chloride 0.9 % intraveno us solution 2021 022 [email or web address] Not available 18:30:22 Zofran 2 mg/mL intraveno us solution 2021 022 [email or web address] Not available 18:30:22 ondansetr on HCl 4 mg tablet 2021 022 [id number], [address], [place], [id number], 2 12:47:50 sodium chloride 0.9 % intraveno us solution 2018 019 [email or web address] [id number], [address], [place], [id number], 2 12:24:01 Patient TargetsNo targets recorded. Patient Instructions Encounter Date Encounter Id Patient Instructions Last Modified By Organization Details Last Modified Time 11/14/2018 [id number] Thank you for yo ur visit with [facility] [employer] today. We cannot always find the exact cause of your symptoms during your initial visit. Please follow up with your primary care provider or specialist within 2-3 days to be rechecked or seek medical attention if your symptoms do not go away or get worse. If you develop any new or worsening symptoms and need after hours care, please go to nearest ER and/or call 911. If you have additional concerns or develop a change in your condition between 8am-10pm, please call [facility] [employer] at [phone] to help navigate your care. [email or web address] Not available 11/14/2018 14:48:27 01/03/2022 [id number] Acute Nausea and Vomiting/Diarrhea BASIC INFORMATION Acute [...] caused by toxins released from food that g oes bad as well as some types of bacteria [...] disease, do not use Tylenol. Ask your SHEET CUTTING OPERATOR how to address fever if you are concerned about Tylenol use. 3) Anti-diarrheal medicines: These are available neoy-hku-tjebigj, but in some cases are not recommended and can even worsen some cases of intestinal problems. Ask your SHEET CUTTING OPERATOR if you should use them. In children [...] one of the PCP suggestions from [facility]. SEEK CARE IMMEDIATELY IF: 1) You are [...] your condition between 8am-10pm, please call [facility] at [phone] to help navigate your care. [email or web address] Not available 01/03/2022 12:11:57 Reason for Referral None Reported. Results Created Date Observation Date Name Description Value Unit Range Abnormal Flag Note LastModifiedBy Organization Detail LastModifiedTime 11/14/1911/14/2018 BMP + ioniz ed calci um, serum or plasm a Na 140 mmol/ L 136-14 5 Not Available [facility] [address] [place], [address], 11/14/2018 14:27:11/14/1911/14/2018 BMP + ioniz ed calci um, serum or plasm a K 4.1 mmol/ L 3.5-5. 1 Not Available [facility] [address] [place], [address], 11/14/2018 14:27:11/14/1911/14/2018 BMP + ioniz ed calci um, serum or plasm a cL 103 mmol/ L 96-111 Not Available [facility] [address] [place], [address], 11/14/2018 14:27:11/14/1911/14/2018 BMP + ioniz ed calci um, serum or plasm a ica 1.19 mmol/ L 1.1-1. 4 Not Available [facility] [address] [place], [address], 11/14/2018 14:27:11/14/1911/14/2018 BMP + ioniz ed calci um, serum or plasm a TCO2 26 mmol/ L 20-30 Not Available [facility] [address] [place], [address], 11/14/2018 14:27:11/14/1911/14/2018 BMP + ioniz ed calci um, serum or plasm a glu 86 mg/dL 70-115 Not Available [facility] [address] [place], [address], 11/14/2018 14:27:11/14/1911/14/2018 BMP + ioniz ed calci um, serum or plasm a BUN 21 mg/dL 6-24 Not Available [facility] [address] [place], [address], 11/14/2018 14:27:11/14/1911/14/2018 BMP + ioniz ed calci um, serum or plasm a crea 0.7 mg/dL .65-1. 36 Not Available [facility] [address] [place], [address], 11/14/2018 14:27:11/14/1911/14/2018 BMP + ioniz ed calci um, serum or plasm a HCT 27 %_pcv 40.6-5 0.3 Not Available [facility] [address] [place], [address], 11/14/2018 14:27:09 11/14/1911/14/2018 BMP + ioniz ed calci um, serum or plasm a Hb 9.2 g/dL 13.9-1 7.4 Not Available [facility] [address] [place], [address], 11/14/2018 14:27:09 11/14/1911/14/2018 BMP + ioniz ed calci um, serum or plasm a angap 16 mmol/ L 6-18 Not Available [facility] [address] [place], [address], 11/14/2018 14:27:11/14/1911/14/2018 CBC w/ auto diff WBC 4.3 K/mm3 (4.0-1 1.0) Not Available [facility] (Centralized Electronic Ordering - All Locations) Patient Can Go To The Location Of Their Choice, [id number] 11/14/2018 20:09:48 11/14/1911/14/2018 CBC w/ auto diff RBC 3.64 M/mm3 (4.20- 5.40) low Not Available [facility] (Centralized Electronic Ordering - All Locations) Patient Can Go To The Location Of Their Choice, [id number] 11/14/2018 20:09:48 11/14/1911/14/2018 CBC w/ auto diff [...] Go To The Location Of Their Choice, [id number] 11/14/2018 20:09:48 11/14/1911/14/2018 CBC w/ auto diff baso 0.7 % (0-2) Not Available [facility] (Centralized Electronic Ordering - All Locations) Patient Can Go To The Location Of Their Choice, 11/14/2018 20:09:48 11/14/1911/14/2018 CBC w/ auto diff imm gran 0.2 % (0.0-0 .6) Not Available [facility] (Centralized Electronic Ordering - All Locations) Patient Can Go To The Location Of Their Choice, [id number] 11/14/2018 20:09:48 Result Notes None recorded. Procedures Surgical History Date Name Laterality Status Provider Name and Address Organization Details Recorded Time 2 IV Start Procedure - DH completed [facility] [place], [address], [place] [facility] 01/03/2022 13:30:50 Imaging Results None recorded. Procedure Notes None recorded. Medical Equipment None Reported. Allergies Allergen ID Allergen Name Allergen Category Reaction Reaction Severity Criticality Documentation Date Start Date Code Code System Note Provider Name and Address Organization Details Recorded Time 82766 Tylenol PM medicatio n Not available Not available Not available 11/14/2018 98961 1 RxNorm can take tylen ol and benad ryl separ ately but not as tylen ol PM JUDI ALEXANDRE , SHEET CUTTING OPERATOR [address] [place], [address], [place] [facility] 9 14:23:45 Medications Name Sig Start Date [...] blood by Pulse oximetry Body temperature Systolic And Diastolic Provider Name and Address Organization Details Last Updated DateTime 9 16 /min 80 /min 99 % 99 % 97.1 [degF] 118/74 mm[Hg] Not Available [facility] 9 14:28:43 Date Recorded Heart rate Oxygen saturation Oxygen saturation in Arterial blood by Pulse oximetry Body temperature Respiratory rate Heart rate Systolic And Diastolic Provider Name and Address Organization Details Last Updated DateTime 2 118 /min 94 % 94 % 97.9 [degF] 16 /min 98 /min 92/52 mm[Hg] Not Available [facility] 2 12:24:49 Social History Question Answer Notes LastModified by Organizat ion Details LastModified Time Tobacco Smoking Status Never Smoker JUDI ALEXANDRE NP [address], [place], [address], [place] [facility] 11/14/2018 14:25:21 Do You Have An Advance Directive? Yes Information not available 11/14/2018 What Is Your Code Status? Full Code Information not available 11/14/2018 Drugs Abused None Information not available 11/14/2018 How Many Days In The Past Year Have You Had A Heavy Drinking Consumption (4+ Female, 5+ Male)? 0 [email or web address] Information not available 11/14/2018 Marital Status barrie Informatio n not available 11/14/2018 What Was The Date Of Your Most Recent Tobacco Screening? 11/14/2018 Information not available 05/29/2019 Has Tobacco Cessation Counseling Been Provided? No Information not available 11/14/2018 Sex: Unknown Functional Status None recorded. Mental Status None recorded. Family History Relationship Description Onset Age of this Age Resolved Age Notes LastModified by Organization Details LastModified Time Father Hypertensive disorder [email or web address] Not available 11/14 14:25:15 Medical History Condition Response Cancer Y Asthma N Gynecological HistoryNo gynecological history recorded. Obstetrics History GPAL:G 0 P 0 0 0 0 Past Encounters Encounter ID Performer Location Encounter Start Date Encounter Closed Date Diagnosis/Indication Diagnosis SNOMED-CT Code Diagnosis ICD10 Code Diagnosis IMO Codes Diagnosis Note [id number] JUDI ALEXANDRE NP [facility] [address] [place] [address] 11/14/2018 14:19:44 11/14/2018 18:40:33 Diarrhea 55420252 R19.7 [id number] CHRIS Hernandez [facility] [address] [place] [address] 01/03/2022 12:10:33 01/04/2022 12:30:50 Acute vomiting 00000662 R11.10 Health Concerns Section Related Observation LastModified by Organization Detai ls LastModified Time None Recorded Concern Status LastModified by Organization Details LastModified Time None Recorded Advance Directives Directive Y: Payers Insurance Date Sequence Insurance Name Policy Number Policy Finch Covered Member ID Finch Member ID Guarantor Name 01/05/2022 1 [place] B[place] [employer] Maye Bennett [id number] Maye Bennett 01/05/2022 2 [place] Maye Oscar [id number] Maye Bennett 01/05/2022 1 *SELF PAY* Maye Oscar [id number] Maye Bennett 01/05/2022 1 MEDICARE B-[place]: [facility] Maye Oscar [id number] Maye Bennett 01/19/2022 1 [place] [facility] Maye Bennett [id number] Maye Bennett 01/19/2022 2 [place] [facility] Maye Bennett [id number] Maye Bennett Notes Date Note Type Note [...] been drinking well. JUDI ALEXANDRE, DIANE [address] [place], [address], [place] [facility] 11/14/2018 18:21:02 2 text/html General HPI Template - DHReported by Patient 51 yo female known to , new [...] sees her 2x/[email or web address] appt with Dr Brooks GEN SURG [...] by [facility] CHRIS Hernandez [address], [place], [address], [place] [facility] 01/03/2022 13:31:13 OBGyn Episode No OBEpisode recorded.
[2025-08-26 10:40] LABS: MANUAL DIFF FLAG NO
[2025-08-26 10:53] LABS: Hematocrit 38.2 % (37.0-47.0); Hemoglobin 11.5 g/dl (12.0-16.0); Imm Gran Abs Auto 0.03 X10*3/uL (0.00-0.03); Imm Gran Pct Auto 0.5 % (0.0-0.4); Lymphocytes Absolute Auto 1.7 X10*3/uL (1.2-4.9); Mean Corpuscular HGB Conc 30.1 g/dl (31.0-35.0); Mean Corpuscular Hemoglobin 29.3 pg (27.0-33.0); Mean Corpuscular Volume 97.2 fL (80.0-98.0); NRBC Abs Auto 0.000 X10*3/uL (0.0-0.012); NRBC Pct Auto 0.0 /100WBC (0.0-0.2); Platelet Count 233 X10*3/uL (160-400); Red Blood Count 3.93 X10*6/uL (4.20-5.50); White Blood Count 6.3 X10*3/uL (4.8-10.8)
[2025-08-26 11:09] LABS: Alanine Aminotransferase 68 U/L (0-31); Albumin Level 4.3 g/dL (3.5-5.0); Alkaline Phosphatase 304 U/L (39-117); Anion Gap 12 (12-20); Aspartate Amino Transferase 65 U/L (5-31); Blood Urea Nitrogen 21 mg/dL (9-16); Calcium 9.3 mg/dL (8.4-10.2); Carbon Dioxide 22 mmol/L (22-29); Chloride 113 mmol/L (96-108); Estimated Glomerular Filt Rate 48; Iron 55 mcg/dL (30-160); Percent Iron Saturation 16 % (15-50); Potassium 4.4 mmol/L (3.3-5.1); Sodium 143 mmol/L (135-145); Total Iron Binding Capacity 341 mcg/dL (228-428); Total Protein 7.1 g/dL (6.5-8.0); Unsaturated Iron Binding 286 ug/dL
[2025-08-26 11:25] LABS: Ferritin 120 ng/mL (10-250)
[2025-08-26 11:39] LABS: Protein/Creatinine Ratio, Ur 0.18 (<0.2); Total Protein Urine Random 29 mg/dL (<12)
[2025-08-26 11:46] LABS: Parathyroid Hormone Intact 101.1 pg/mL (8.7-77.1)
== END 2025-08-26 06:31 | disposition home or self-care (01) ==
LOC: HO.HMGCLDS 06:30
PROVIDERS: Absent Provider Internal Medicine Nephrology; PCP Internal Medicine; Visit Provider Internal Medicine
DX: N18.31 Chronic kidney disease, stage 3a (principal); Z90.49 Acquired absence of other specified parts of digestive tract; R74.8 Abnormal levels of other serum enzymes; Z78.0 Asymptomatic menopausal state
CPT/HCPCS: 36415; 80051; 80076; 82306; 82310; 82565; 82570; 82728; 83540; 83970; 84100; 84156; 84520; 85025

== ENCOUNTER 2025-09-02 09:11 | Outpatient (AMB) | payer MEDICARE, MEDICAID, SELFPAY ==
--- NOTE | 2025-09-02 09:33 | HO.NEPHOV_ITS ---
Vital Signs 09/02/25 09:35 Height 5 ft 2 in Weight 237 lb 6 oz BMI 43.4 BP 110/72 Blood Pressure Location Lt brachial Position Sitting Pulse 71 Pulse Source Pulse Oximeter Pulse Oximetry (%) 98 Oxygen Delivery Method Room Air Intake Visit Reasons: 6 mo fu w/ labs-Conf Medical Technologist Prn Required: No Accompanied by: Self / Same As Patient Allergies codeine (Tylenol-Codeine) Allergy (Intermediate, Verified 09/02/25 09:34) Hives acetaminophen (From Tylenol PM) Adverse Reaction (Intermediate, Verified 09/02/25 09:34) Hives cat dander (cats) Adverse Reaction (Intermediate, Verified 09/02/25 09:34) Hives diphenhydramine (From Tylenol PM) Adverse Reaction (Intermediate, Verified 09/02/25 09:34) Hives HPI Comments Details: 54-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 She has chronic diarrhea/loose stools s/p colorectal cancer which she states is around baseline.She recently had left flank pain and was seen in ER. In the past her renal imaging which showed 6 x 6 mm stone in the proximal left ureter with upstream hydroureteronephrosis as well as left renal atrophy. 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 She is on K and bicarb replacements [facility] Medical History (Updated 09/02/25 @ 09:44 by Lawrence Garcias MD) Anemia History of cholelithiasis Port-A-Cath in place Gastritis Mosher syndrome Adenocarcinoma of colon Surgical History Hx of cholecystectomy (08/06/25) Hx of hysterectomy History of colon surgery Hx of bilateral breast reduction surgery Family History Maternal Grandmother Uterine cancer Maternal Aunt Ovarian cancer Mother Cervical cancer Colon cancer Maternal Uncle Colon cancer Rectal cancer Brother Colon cancer Paternal Aunt Mental health disorder Paternal Uncle Mental health disorder Social History Household Members: Family Household Members Other:: 6 Housing: House Are you a primary career technical supervisor to a significant other at home: No Do you presently have visiting nurse or other home services: No Alcohol intake: current Alcohol intake frequency: does not drink Comment: counts correct Patient Tobacco Use Status: Never used Tobacco e-Cigarette/Vaping Use: Never Used Advance Directives Date on File: 02/08/24 service: No Current occupational status: disabled Cognitive needs: No Hearing needs: No Vision needs: Yes Review of Systems Const All systems reviewed & are unremarkable except as noted in HPI and below Physical Exam Vital Signs: Last Vital Signs Pulse 71 09/02/25 09:35 BP 110/72 09/02/25 09:35 Pulse Ox 98 09/02/25 09:35 Oxygen Delivery Method Room Air 09/02/25 09:35 BMI result Body Mass Index 43.4 Const General: comfortable and no acute distress Orientation/consciousness: patient oriented x3 HEENT Head: Yes normocephalic Mouth: Normal oral and palatal mucosa present Eyes EOM: EOMs intact bilaterally Neck Neck: Yes supple Resp Auscultation: clear to auscultation bilaterally Cardio Jugular venous distension: no JVD Rate: regular rate GI Palpation (GI): Soft to palpation Auscultation: normal bowel sounds General: Yes no CVA tenderness Back/Spine/Pelvis Back: no CVA tenderness Skin General skin exam: no rashes or lesions noted Neuro General: patient oriented x3 and moves all extremities Extrem General: Yes no pedal edema Results Reviewed Nephrology Results: Hgb, (12.0-16.0) 11.5 g/dl L 08/26/25 WBC, (4.8-10.8) 6.3 X10*3/uL 08/26/25 Plt Count, (160-400) 233 X10*3/uL Δ 08/26/25 Sodium, (135-145) 143 mmol/L 08/26/25 Potassium, (3.3-5.1) 4.4 mmol/L Δ 08/26/25 Chloride, (96-108) 113 mmol/L H 08/26/25 Carbon Dioxide, (22-29) 22 mmol/L 08/26/25 BUN, (9-16) 21 mg/dL H 08/26/25 Creatinine, (0.5-1.4) 1.19 mg/dL 08/26/25 Calcium, (8.4-10.2) 9.3 mg/dL Δ 08/26/25 Phosphorus, (2.7-4.5) 3.5 mg/dL 08/26/25 PTH Intact, (8.7-77.1) 101.1 pg/mL H 08/26/25 Urine Creatinine 158.23 mg/dL 08/26/25 Protein/Creatinin Ratio, (<0.2) 0.18 08/26/25 Renal US 01/09/25 Assessment & Plan Assessment & Plan (1) Kidney stones: Code(s): N20.0 - Calculus of kidney Category: Medical (2) CKD stage 3a, GFR 45-59 ml/min: Code(s): N18.31 - Chronic kidney disease, stage 3a Category: Medical (3) Renal cyst: Code(s): N28.1 - Cyst of kidney, acquired Category: Medical (4) Hypercalciuria: Code(s): R82.994 - Hypercalciuria Category: Medical (5) Vitamin deficiency: Code(s): E56.9 - Vitamin deficiency, unspecified Category: Medical Plan She has H/O STEPHEN due to obstructive uropathy from renal stone. She follows up with Urology. She should avoid NSAID's and keep up with good hydration. Has asymmetric kidneys- left smaller. Has a right renal cyst. NO renal malignancy. C/W NaHCO3 650 mg bid and K replacement .Follow up lab work ordered. Needs F/U renal USS. May be a candidate for HCTZ( shall see given H/O recurrent diarrhea & H/O short bowel syndrome). Vitamin D replaced. F/U given; Answered all questions Orders: Orders Calcium 8 Months E56.9 - Vitamin deficiency, unspecified, N18.31 - Chronic kidney disease, stage 3a, N20.0 - Calculus of kidney, N28.1 - Cyst of kidney, acquired, R82.994 - Hypercalciuria Parathyroid Hormone Intact 8 Months E56.9 - Vitamin deficiency, unspecified, N18.31 - Chronic kidney disease, stage 3a, N20.0 - Calculus of kidney, N28.1 - Cyst of kidney, acquired, R82.994 - Hypercalciuria Electrolytes 8 Months E56.9 - Vitamin deficiency, unspecified, N18.31 - Chronic kidney disease, stage 3a, N20.0 - Calculus of kidney, N28.1 - Cyst of kidney, acquired, R82.994 - Hypercalciuria Blood Urea Nitrogen 8 Months E56.9 - Vitamin deficiency, unspecified, N18.31 - Chronic kidney disease, stage 3a, N20.0 - Calculus of kidney, N28.1 - Cyst of kidney, acquired, R82.994 - Hypercalciuria Creatinine 8 Months E56.9 - Vitamin deficiency, unspecified, N18.31 - Chronic kidney disease, stage 3a, N20.0 - Calculus of kidney, N28.1 - Cyst of kidney, acquired, R82.994 - Hypercalciuria Protein Creatinine Ratio, Ur 8 Months E56.9 - Vitamin deficiency, unspecified, N18.31 - Chronic kidney disease, stage 3a, N20.0 - Calculus of kidney, N28.1 - Cyst of kidney, acquired, R82.994 - Hypercalciuria Vitamin D 25-OH Total 8 Months E56.9 - Vitamin deficiency, unspecified, N18.31 - Chronic kidney disease, stage 3a, N20.0 - Calculus of kidney, N28.1 - Cyst of kidney, acquired, R82.994 - Hypercalciuria Medications: New cholecalciferol (vitamin D3) 50 mcg PO DAILY 90 caps 4RF Coding Level of Care Code Est Pt Level 4 (09469) Diagnoses Kidney stones N20.0 CKD stage 3a, GFR 45-59 ml/min N18.31 Renal cyst N28.1 Hypercalciuria R82.994 Vitamin deficiency E56.9
[2025-09-02 09:35] VITALS: BP 110/72; PULSE 71; O2SAT 98; BMI 43.4
--- OUTSIDE RECORDS SUMMARY | 2025-09-02 10:28 | XMS_ITS | Data Portability ---
Author Organization [place] [facility] Address [address] [place] [id number] Care Team Providers Care Regional Coordinator Name Role Phone EMILYTristan KARISSA Primary Care Provider [phone] Assessment Encounter Date Assessment Date Assessment LastModified [...] after care of this patient according [facility]. Overview/History : 51 yo [...] [facility] -she had surg followup next wek and will reachout to them sooner if no improvement -discussed case with Dr Brooks @ 2061 and he was in agreement with plan - he asked that if her symptoms persisted to refer her to the [facility] ED for re-eval. In order to obtain further information and compare any laboratory results/values, I have accessed old patient records. This information was pertinent in my medical decision making today. [email or web address] Not available 01/03/2022 13:29:20 Plan of Treatment Reminders Order Date Submit Date Provider Last Modified By Organization Details Last Modified Time Details Appointments None recorded. Lab BMP + ionized calcium, serum or plasma 2018 019 barrie [facility], [address] [place] [address], [phone], 9 14:46:42 CBC w/ auto diff - [facility] 019 MONICA [facility] (Centralized Electronic Ordering - All Locations), Patient Can Go To The Location Of Their Choice, [id number] 9 06:26:12 Referral None recorded. Procedures None recorded. Surgeries None recorded. Imaging None recorded. Medication Orders sodium chloride 0.9 % intraveno us solution 2021 022 [email or web address] Not available 18:30:22 Zofran 2 mg/mL intraveno us solution 2021 022 [email or web address] Not available 18:30:22 ondansetr on HCl 4 mg tablet 2021 022 [id number], [address], [place], [id number], 2 12:47:50 sodium chloride 0.9 % intraveno us solution 2018 019 [email or web address] [id number], [address], [place], [id number], 2 12:24:01 Patient TargetsNo targets recorded. Patient Instructions Encounter Date Encounter Id Patient Instructions Last Modified By Organization Details Last Modified Time 11/14/2018 [id number] Thank you for yo ur visit with [facility] today. We cannot always find the exact [...] in your condition between 8am-10pm, please call [facility] at [phone] to help navigate your care. [email or web address] Not available 11/14/2018 14:48:27 01/03/2022 [id number] Acute Nausea and Vomiting/Diarrhea BASIC INFORMATION Acute [...] disease, do not use Tylenol. Ask your GOVERNMENT AFFAIRS RESEARCHER how to address fever if you are concerned about Tylenol use. 3) Anti-diarrheal medicines: These are available [id number], but in some cases are not recommended and can even worsen some cases of intestinal problems. Ask your GOVERNMENT AFFAIRS RESEARCHER if you should use them. In children [...] with one of the PCP suggestions from [facility]. SEEK CARE IMMEDIATELY IF: 1) You are [...] in your condition between 8am-10pm, please call [facility] at [phone] to help navigate your care. Not available 01/03/2022 12:11:57 Reason for Referral None Reported. Results Created Date Observation Date Name Description Value Unit Range Abnormal Flag Note LastModifiedBy Organization Detail LastModifiedTime 11/14/1911/14/2018 BMP + ioniz ed calci um, serum or plasm a Na 140 mmol/ L 136-14 5 Not Available [facility] [address] [place], [address], 11/14/2018 14:27:11/14/1911/14/2018 BMP + ioniz ed calci um, serum or plasm a K 4.1 mmol/ L 3.5-5. 1 Not Available [facility] [address] [place], [address], 11/14/2018 14:27:11/14/1911/14/2018 BMP + ioniz ed calci um, serum or plasm a cL 103 mmol/ L 96-111 Not Available [facility] [address] [place], [address], 11/14/2018 14:27:11/14/1911/14/2018 BMP + ioniz ed calci um, serum or plasm a ica 1.19 mmol/ L 1.1-1. 4 Not Available [facility] [address] [place], [address], 11/14/2018 14:27:11/14/1911/14/2018 BMP + ioniz ed calci um, serum or plasm a TCO2 26 mmol/ L 20-30 Not Available [facility] [address] [place], [address], 11/14/2018 14:27:11/14/1911/14/2018 BMP + ioniz ed calci um, serum or plasm a glu 86 mg/dL 70-115 Not Available [facility] [address] [place], [address], 11/14/2018 14:27:11/14/1911/14/2018 BMP + ioniz ed calci um, serum or plasm a BUN 21 mg/dL 6-24 Not Available [facility] [address] [place], [address], 11/14/2018 14:27:11/14/1911/14/2018 BMP + ioniz ed calci um, serum or plasm a crea 0.7 mg/dL .65-1. 36 Not Available [facility] [address] [place], [address], 11/14/2018 14:27:11/14/1911/14/2018 BMP + ioniz ed calci um, serum or plasm a HCT 27 %_pcv 40.6-5 0.3 Not Available [facility] [address] [place], [address], 11/14/2018 14:27:09 11/14/1911/14/2018 BMP + ioniz ed calci um, serum or plasm a Hb 9.2 g/dL 13.9-1 7.4 Not Available [facility] [address] [place], [address], 11/14/2018 14:27:09 11/14/1911/14/2018 BMP + ioniz ed calci um, serum or plasm a angap 16 mmol/ L 6-18 Not Available [facility] [address] [place], [address], 11/14/2018 14:27:11/14/1911/14/2018 CBC w/ auto diff WBC 4.3 K/mm3 (4.0-1 1.0) Not Available [facility] (Centralized Electronic Ordering - All Locations) Patient Can Go To The Location Of Their Choice, [address] 11/14/2018 20:09:48 11/14/1911/14/2018 CBC w/ auto diff RBC 3.64 M/mm3 (4.20- 5.40) low Not Available [facility] (Centralized Electronic Ordering - All Locations) Patient Can Go To The Location Of Their Choice, [address] 11/14/2018 20:09:48 11/14/1911/14/2018 CBC w/ auto diff [...] Go To The Location Of Their Choice, [address] 11/14/2018 20:09:48 11/14/1911/14/2018 CBC w/ auto diff baso 0.7 % (0-2) Not Available [facility] (Centralized Electronic Ordering - All Locations) Patient Can Go To The Location Of Their Choice, 11/14/2018 20:09:48 11/14/1911/14/2018 CBC w/ auto diff imm gran 0.2 % (0.0-0 .6) Not Available [facility] (Centralized Electronic Ordering - All Locations) Patient Can Go To The Location Of Their Choice, [id number] 11/14/2018 20:09:48 Result Notes None recorded. Procedures Surgical History Date Name Laterality Status Provider Name and Address Organization Details Recorded Time 2 IV Start Procedure - DH completed CHRIS Hernandez [facility] [place], [address], [place] [facility] 01/03/2022 13:30:50 Imaging Results None recorded. Procedure Notes None recorded. Medical Equipment None Reported. Allergies Allergen ID Allergen Name Allergen Category Reaction Reaction Severity Criticality Documentation Date Start Date Code Code System Note Provider Name and Address Organization Details Recorded Time 86584 Tylenol PM medicatio n Not available Not available Not available 11/14/2018 62064 1 RxNorm can take tylen ol and benad ryl separ ately but not as tylen ol PM JUDI ALEXANDRE , GOVERNMENT AFFAIRS RESEARCHER [address] [place] [facility] [place], [address], [place] [facility] 9 14:23:45 Medications Name Sig Start Date [...] Smoker JUDI ALEXANDRE NP [address], [place], [address], [place] [facility] 11/14/2018 14:25:21 Do You [...] ICD10 Code Diagnosis IMO Codes Diagnosis Note [id number] JUDI ALEXANDRE NP [facility] [address] [place] [address] 11/14/2018 14:19:44 11/14/2018 18:40:33 Diarrhea 52262480 R19.7 [id number] CHRIS Hernandez [facility] [address] [place] [address] 01/03/2022 12:10:33 01/04/2022 12:30:50 Acute vomiting 23185879 R11.10 Health Concerns Section Related Observation LastModified by Organization Detai ls LastModified Time None Recorded Concern Status LastModified by Organization Details LastModified Time None Recorded Advance Directives Directive Y: Payers Insurance Date Sequence Insurance Name Policy Number Policy Finch Covered Member ID Finch Member ID Guarantor Name 01/05/2022 1 [place] B[place] [employer] Maye Bennett [id number] Maye Bennett 01/05/2022 2 [place] Maye Oscar [id number] Maye Bennett 01/05/2022 1 *SELF PAY* Maye Oscar [id number] Maye Bennett 01/05/2022 1 MEDICARE B-[place]: [facility] Maye Oscar [id number] Maye Bennett 01/19/2022 1 [place] [facility] Maye Bennett [id number] Maye Bennett 01/19/2022 2 [place] [facility] Maye Bennett [id number] Maye Bennett Notes Date Note Type Note [...] been drinking well. JUDI ALEXANDRE, DIANE [address] [place], [address], [place] [facility] 11/14/2018 18:21:02 2 text/html [...] sees her 2x/week who ref her to [facility] has appt with Dr Brooks GEN SURG [...] by [facility] CHRIS Hernandez [address], [place], [address], [place] [facility] 01/03/2022 13:31:13 OBGyn Episode No OBEpisode recorded.
--- OUTSIDE RECORDS SUMMARY | 2025-09-02 10:28 | XMS_ITS | Clinical Summary ---
Author Organization [facility] Address [address] [place] [address] Phone Care Team Providers Care Solar Mechanical Engineer Name Role Phone Cynthia Pena MD Primary [...] Documents on File Type Date Recorded Patient Anthropology Faculty Member Expl anation Health Care Decision (hx) 07/20/2020 GOMEZ DAVILA DIRECTIVE Care Teams Solar Mechanical Engineer Relationship Specialty Start Date End Date Cynthia Pena MD [address] [place] [address] PCP - General Internal Medicine 09/08/21
== END 2025-09-02 09:49 | disposition home or self-care (01) ==
LOC: HO.HKA 09:13
PROVIDERS: PCP Internal Medicine; Visit Provider Internal Medicine Nephrology
DX: N20.0 Calculus of kidney (principal); N18.31 Chronic kidney disease, stage 3a; N28.1 Cyst of kidney, acquired; R82.994 Hypercalciuria; E56.9 Vitamin deficiency, unspecified
CPT/HCPCS: 99214

== ENCOUNTER → 2025-09-02 09:11 | Outpatient (BNVA) | payer MEDICARE, MEDICAID, SELFPAY | PROVIDERS: PCP Internal Medicine; Visit Provider Internal Medicine Nephrology | DX: N20.0 Calculus of kidney (principal); N18.31 Chronic kidney disease, stage 3a; N28.1 Cyst of kidney, acquired; R82.994 Hypercalciuria; E56.9 Vitamin deficiency, unspecified; Z79.899 Other long term (current) drug therapy | CPT/HCPCS: 99212 ==

== ENCOUNTER 2025-09-14 09:43 | Outpatient (AMB) | payer MEDICARE, MEDICAID, SELFPAY ==
--- NOTE | 2025-09-14 09:47 | MHC.OFFVIS ---
Vital Signs 09/14/25 09:55 Height 5 ft 2 in Weight 235 lb 2 oz BMI 43.0 BP 130/60 Blood Pressure Location Lt brachial Position Sitting Pulse 75 Intake Visit Reasons: one bindu post open cholecystectomy Intake Note: Patient is seen in office for one month follow up visit, post open cholecystectomy. Pt c/o: occasional sore with certain movements, still taking stool softener as needed Cosmetology Educator Required: No Accompanied by: Self / Same As Patient Allergies codeine (Tylenol-Codeine) Allergy (Intermediate, Verified 09/14/25 09:55) Hives acetaminophen (From Tylenol PM) Adverse Reaction (Intermediate, Verified 09/14/25 09:55) Hives cat dander (cats) Adverse Reaction (Intermediate, Verified 09/14/25 09:55) Hives diphenhydramine (From Tylenol PM) Adverse Reaction (Intermediate, Verified 09/14/25 09:55) Hives HPI Comments Details: 55-year-old female patient returning one-month following a laparoscopic converted to open cholecystectomy for acute cholecystitis. She reports only mild discomfort when bending but denies any nausea, vomiting, fever or chills. She does report occasional increased frequent bowel movements but denies diarrhea. Overall she feels much improved. [facility] Medical History (Updated 09/02/25 @ 09:44 by Lawrence Garcias MD) Anemia History of cholelithiasis Port-A-Cath in place Gastritis Mosher syndrome Adenocarcinoma of colon Surgical History Hx of cholecystectomy (08/06/25) Hx of hysterectomy History of colon surgery Hx of bilateral breast reduction surgery Family History Maternal Grandmother Uterine cancer Maternal Aunt Ovarian cancer Mother Cervical cancer Colon cancer Maternal Uncle Colon cancer Rectal cancer Brother Colon cancer Paternal Aunt Mental health disorder Paternal Uncle Mental health disorder Social History Household Members: Family Household Members Other:: 6 Housing: House Are you a primary ocular care technician to a significant other at home: No Do you presently have visiting nurse or other home services: No Alcohol intake: current Alcohol intake frequency: does not drink Comment: counts correct Patient Tobacco Use Status: Never used Tobacco e-Cigarette/Vaping Use: Never Used Advance Directives Date on File: 02/08/24 service: No Current occupational status: disabled Cognitive needs: No Hearing needs: No Vision needs: Yes Physical Exam Const General: no acute distress Nutritional Appearance: well nourished and obese Orientation/consciousness: patient oriented x3 Limitations: no limitations Resp Effort & Inspection: normal respiratory effort GI Other: Right upper quadrant José incision is clean, dry, and intact without redness or discharge. No hernias are palpable with Valsalva maneuvers. Palpation (GI): Soft to palpation, nontender, no guarding and not rigid Neuro General: patient oriented x3 Extrem Other: No edema Assessment & Plan Assessment & Plan (1) Choledocholithiasis with acute cholecystitis: Code(s): K80.42 - Calculus of bile duct with acute cholecystitis without obstruction Category: Medical Plan 55-year-old female patient returning 1 month following a laparoscopic converted to open cholecystectomy. She tolerated the procedure well and her wounds are healing nicely. She may resume normal activity without restriction and should follow up as needed. Coding Level of Care Code Global (70745) Diagnoses Choledocholithiasis with acute cholecystitis K80.42
[2025-09-14 09:55] VITALS: BP 130/60; PULSE 75; BMI 43.0
--- OUTSIDE RECORDS SUMMARY | 2025-09-14 11:10 | XMS_ITS | Clinical Summary ---
Author Organization [facility] Address [address] [place] [address] Phone Care Team Providers Care Pearl Stringer Name Role Phone Cynthia Pena MD Primary Care Provider [phone] Surgical History Surgery Date Site/Laterality Comments OTHER [...] Documents on File Type Date Recorded Patient Sagger Soak Expl anation Health Care Decision (hx) 07/20/2020 GOMEZ DAVILA DIRECTIVE Care Teams Pearl Stringer Relationship Specialty Start Date End Date Cynthia Pena MD [address] [place] [address] PCP - General Internal Medicine 09/08/21
--- OUTSIDE RECORDS SUMMARY | 2025-09-14 11:10 | XMS_ITS | Data Portability ---
Author Organization [place] [facility] Address [address] [place] [id number] Care Team Providers Care Licensing Specialist Name Role Phone EMILYTristan KARISSA Primary Care Provider Assessment Encounter Date Assessment [...] [email or web address]. Overview/History : 51 [...] [facility] -she had surg followup next wek and will reachout to them sooner if no improvement -discussed case with Dr Brooks @ [phone] and he was in agreement with plan - he asked that if her symptoms persisted to refer her to the [facility] ED for re-eval. In order to obtain further information and compare any laboratory results/values, I have accessed old patient records. This information was pertinent in my medical decision making today. [email or web address] Not available 01/03/2022 13:29:20 Plan of Treatment Reminders Order Date Submit Date Provider Last Modified By Organization Details Last Modified Time Details Appointments None recorded. Lab BMP + ionized calcium, serum or plasma 2018 019 barrie [facility], [address] [place] [address], [id number], 9 14:46:42 CBC w/ auto diff - [facility] 019 MONICA [facility] (Centralized Electronic Ordering - All Locations), Patient Can Go To The Location Of Their Choice, [address] 9 06:26:12 Referral None recorded. Procedures None recorded. Surgeries None recorded. Imaging None recorded. Medication Orders sodium chloride 0.9 % intraveno us solution 2021 022 [email or web address] Not available 18:30:22 Zofran 2 mg/mL intraveno us solution 2021 022 [email or web address] Not available 18:30:22 ondansetr on HCl 4 mg tablet 2021 022 [id number], [address] [place], [place], [id number], 2 12:47:50 sodium chloride 0.9 % intraveno us solution 2018 019 [email or web address] [id number], [address], [place], [id number], 2 12:24:01 Patient TargetsNo targets recorded. Patient Instructions Encounter Date Encounter Id Patient Instructions Last Modified By Organization Details Last Modified Time 11/14/2018 [id number] Thank you for yo ur visit with [facility] today. We cannot always find the exact [...] in your condition between 8am-10pm, please call [employer] at [phone] to help navigate your care. [email or web address] Not available 11/14/2018 14:48:27 01/03/2022 [id number] Acute Nausea and Vomiting/Diarrhea BASIC INFORMATION Acute [...] disease, do not use Tylenol. Ask your FOOD COUNSELOR how to address fever if you are concerned about Tylenol use. 3) Anti-diarrheal medicines: These are available [id number], but in some cases are not recommended and can even worsen some cases of intestinal problems. Ask your FOOD COUNSELOR if you should use them. In children [...] with one of the PCP suggestions from [facility]. SEEK CARE IMMEDIATELY IF: 1) You [...] in your condition between 8am-10pm, please call [facility] at [phone] to help navigate your care. [email or web address] Not available 01/03/2022 12:11:57 Reason for Referral None Reported. Results Created Date Observation Date Name Description Value Unit Range Abnormal Flag Note LastModifiedBy Organization Detail LastModifiedTime 11/14/1911/14/2018 BMP + ioniz ed calci um, serum or plasm a Na 140 mmol/ L 136-14 5 Not Available [facility] [address] [place], [address], 11/14/2018 14:27:11/14/1911/14/2018 BMP + ioniz ed calci um, serum or plasm a K 4.1 mmol/ L 3.5-5. 1 Not Available [facility] [address] [place], [address], 11/14/2018 14:27:11/14/1911/14/2018 BMP + ioniz ed calci um, serum or plasm a cL 103 mmol/ L 96-111 Not Available [facility] [address] [place], [address], 11/14/2018 14:27:11/14/1911/14/2018 BMP + ioniz ed calci um, serum or plasm a ica 1.19 mmol/ L 1.1-1. 4 Not Available [facility] [address] [place], [address], 11/14/2018 14:27:11/14/1911/14/2018 BMP + ioniz ed calci um, serum or plasm a TCO2 26 mmol/ L 20-30 Not Available [facility] [address] [place], [address], 11/14/2018 14:27:11/14/1911/14/2018 BMP + ioniz ed calci um, serum or plasm a glu 86 mg/dL 70-115 Not Available [facility] [address] [place], [address], 11/14/2018 14:27:11/14/1911/14/2018 BMP + ioniz ed calci um, serum or plasm a BUN 21 mg/dL 6-24 Not Available [facility] [address] [place], [address], 11/14/2018 14:27:11/14/1911/14/2018 BMP + ioniz ed calci um, serum or plasm a crea 0.7 mg/dL .65-1. 36 Not Available [facility] [address] [place], [address], 11/14/2018 14:27:11/14/1911/14/2018 BMP + ioniz ed calci um, serum or plasm a HCT 27 %_pcv 40.6-5 0.3 Not Available [facility] [address] [place], [address], 11/14/2018 14:27:09 11/14/1911/14/2018 BMP + ioniz ed calci um, serum or plasm a Hb 9.2 g/dL 13.9-1 7.4 Not Available [facility] [address] [place], [address], 11/14/2018 14:27:09 11/14/1911/14/2018 BMP + ioniz ed calci um, serum or plasm a angap 16 mmol/ L 6-18 Not Available [facility] [address] [place], [address], 11/14/2018 14:27:11/14/1911/14/2018 CBC w/ auto diff WBC 4.3 K/mm3 (4.0-1 1.0) Not Available [facility] (Centralized Electronic Ordering - All Locations) Patient Can Go To The Location Of Their Choice, [id number] 11/14/2018 20:09:48 11/14/1911/14/2018 CBC w/ auto diff RBC 3.64 M/mm3 (4.20- 5.40) low Not Available [facility] (Centralized Electronic Ordering - All Locations) Patient Can Go To The Location Of Their Choice, [address] 11/14/2018 20:09:48 11/14/1911/14/2018 CBC w/ auto diff [...] Go To The Location Of Their Choice, [address] 11/14/2018 20:09:48 11/14/1911/14/2018 CBC w/ auto diff baso 0.7 % (0-2) Not Available [facility] (Centralized Electronic Ordering - All Locations) Patient Can Go To The Location Of Their Choice, 11/14/2018 20:09:48 11/14/1911/14/2018 CBC w/ auto diff imm gran 0.2 % (0.0-0 .6) Not Available [facility] (Centralized Electronic Ordering - All Locations) Patient Can Go To The Location Of Their Choice, [address] 11/14/2018 20:09:48 Result Notes None recorded. Procedures Surgical History Date Name Laterality Status Provider Name and Address Organization Details Recorded Time 2 IV Start Procedure - DH completed CHRIS Hernandez [facility] [place], [address], [place] [facility] 01/03/2022 13:30:50 Imaging Results None recorded. Procedure Notes None recorded. Medical Equipment None Reported. Allergies Allergen ID Allergen Name Allergen Category Reaction Reaction Severity Criticality Documentation Date Start Date Code Code System Note Provider Name and Address Organization Details Recorded Time 44969 Tylenol PM medicatio n Not available Not available Not available 11/14/2018 16055 1 RxNorm can take tylen ol and benad ryl separ ately but not as tylen ol PM JUDI ALEXANDRE , FOOD COUNSELOR [address] [place], [address], [place] [facility] 9 14:23:45 Medications Name Sig [...] Smoker JUDI ALEXANDRE NP [address], [place], [address], [place] [facility] 11/14/2018 14:25:21 Do You [...] ICD10 Code Diagnosis IMO Codes Diagnosis Note [id number] JUDI ALEXANDRE NP [facility] [address] [place] [address] 11/14/2018 14:19:44 11/14/2018 18:40:33 Diarrhea 18451996 R19.7 [id number] CHRIS Hernandez [facility] [address] [place] [address] 01/03/2022 12:10:33 01/04/2022 12:30:50 Acute vomiting 99125014 R11.10 Health Concerns Section Related Observation LastModified by Organization Detai ls LastModified Time None Recorded Concern Status LastModified by Organization Details LastModified Time None Recorded Advance Directives Directive Y: Payers Insurance Date Sequence Insurance Name Policy Number Policy Finch Covered Member ID Finch Member ID Guarantor Name 01/05/2022 1 [place] [employer] [place] Maye Bennett [id number] Maye Bennett 01/05/2022 2 [place] Maye Oscar [id number] Maye Bennett 01/05/2022 1 *SELF PAY* Maye Oscar [id number] Maye Bennett 01/05/2022 1 MEDICARE B-[place]: [facility] Maye Oscar [id number] Maye Bennett 01/19/2022 1 [place] [facility] Maye Bennett [id number] Maye Bennett 01/19/2022 2 [place] [facility] Maye Bennett [id number] Maye Bennett Notes Date Note Type Note [...] been drinking well. JUDI ALEXANDRE, [address] [place], [address], [place] [facility] 11/14/2018 18:21:02 2 text/html [...] sees her 2x/week who ref her to [facility] has appt with Dr Brooks GEN SURG [...] by [facility] CHRIS Hernandez [address], [place], [address], [place] [facility] 01/03/2022 13:31:13 OBGyn Episode No OBEpisode recorded.
== END 2025-09-14 10:06 | disposition home or self-care (01) ==
LOC: HO.HGS 09:45
PROVIDERS: PCP Internal Medicine; Visit Provider Surgery
DX: K80.42 Calculus of bile duct with acute cholecystitis without obstruction (principal)
CPT/HCPCS: 99024

== ENCOUNTER → 2025-09-14 09:43 | Outpatient (BNVA) | payer MEDICARE, MEDICAID, SELFPAY | PROVIDERS: PCP Internal Medicine; Visit Provider Surgery | DX: K80.42 Calculus of bile duct with acute cholecystitis without obstruction (principal); Z90.49 Acquired absence of other specified parts of digestive tract | CPT/HCPCS: 99212 ==